=== PATIENT | male | born 1930 | race African-American/Black ===

== ENCOUNTER 2016-11-17 10:27 | Emergency (ER) | payer MEDICARE, OTHER ==
--- NOTE | 2016-11-17 11:04 | EKG REPORT ---
SEVERITY:- ABNORMAL ECG - BASELINE ARTIFACTS SINUS RHYTHM VS A. FIB, REC REPEAT EKG AND RHYTHM STRIP MULTIPLE ATRIAL PREMATURE COMPLEXES INCOMPLETE LEFT BUNDLE BRANCH BLOCK ANTERIOR Q WAVES, POSSIBLY DUE TO ILBBB : Confirmed by: Aletha Underwood 17-Nov-2016 11:03:37
[2016-11-17 11:44] LABS: ABSOLUTE EOSINOPHILS # (AUTO) 0.1 10^3/uL (0.0-0.6); ABSOLUTE LYMPHOCYTES (AUTO) 1.7 10^3/uL (0.5-4.7); ABSOLUTE MONOCYTES (AUTO) 0.4 10^3/uL (0.1-1.4); ABSOLUTE NEUT (AUTO) 2.4 10^3/uL (1.7-8.2); EOSINOPHILS % (AUTO) 1.5 % (0-6); HEMATOCRIT 40.4 % (37.9-51.0); HEMOGLOBIN 13.5 g/dL (13.5-17.0); HGB HCT DIFFERENCE 0.1; LYMPHOCYTES % (AUTO) 37.1 % (13-45); MEAN CORPUSCULAR HEMOGLOBIN 30.8 pg (27.0-33.4); MEAN CORPUSCULAR HGB CONC 33.3 g/dL (32.0-36.0); MEAN CORPUSCULAR VOLUME 93 fl (80-97); MONOCYTES % (AUTO) 8.4 % (3-13); RED BLOOD COUNT 4.36 10^6/uL (4.35-5.55); RED CELL DISTRIBUTION WIDTH 14.2 % (11.5-14.0); WHITE BLOOD COUNT 4.7 10^3/uL (4.0-10.5)
--- NOTE | 2016-11-17 11:52 | ER Document Report ---
ED General - General Mode of Arrival: Ambulatory Information source: Patient TRAVEL OUTSIDE OF THE [place] IN LAST 30 DAYS: No - HPI Patient complains to provider of: Hypoxemia Onset: This morning Associated symptoms: Other - see above <VLADIMIR MANCIA - Last Filed: 11/17/16 13:07> <MICHELLE SAGE - Last Filed: 11/17/16 20:17> - General Chief Complaint: Other Stated Complaint: WEAKNESS Notes: 85-year-old male with history of PTSD, dementia, and oxygen-dependent COPD presents to the ED via EMS accompanied by his daughter who complains that the home nurse that visits told her that the patient should come to the ED immediately after noting a O2 saturation in the low 80s. The daughter explains that the home nurse came yesterday while the patient was asleep on the recliner and did some vitals. She states that the patient's blood pressure was 78/61, heart rate of 64, and a O2 saturation of 69. The home nurse came back this morning and noted a low oxygen saturation as noted above and advised the daughter to bring the patient in for ED assessment. The nurse told the daughter that the patient might not be breathing while he is sleeping. Daughter explains that the patient does snore occasionally. She states that the patient is acting accordingly and does not appear to be having any abnormal symptoms. ( VLADIMIR MANCIA) - Related Data Allergies/Adverse Reactions: No Known Allergies Allergy (Verified 11/17/16 18:29) Past Medical History - General Information source: Patient - Social History Smoking Status: Unknown if Ever Smoked Family History: None - Past Medical History Cardiac Medical History: Reports: Hx Atrial Fibrillation, Hx Heart Attack - 2004 , Hx Hypertension Pulmonary Medical History: Reports: Hx COPD Endocrine Medical History: Reports: Hx Diabetes Mellitus Type 2 Psychiatric Medical History: Reports: Hx Dementia, Hx Post Traumatic Stress Disorder Past Surgical History: Reports: Hx Cardiac Surgery - stents, pacemaker, Hx Pacemaker - - Immunizations Hx Diphtheria, Pertussis, Tetanus Vaccination: Yes <VLADIMIR MANCIA - Last Filed: 11/17/16 13:07> Review of Systems - Review of Systems Constitutional: No symptoms reported EENT: No symptoms reported Cardiovascular: No symptoms reported Respiratory: No symptoms reported Gastrointestinal: No symptoms reported Genitourinary: No symptoms reported Male Genitourinary: No symptoms reported Musculoskeletal: No symptoms reported Skin: No symptoms reported Hematologic/Lymphatic: No symptoms reported Neurological/Psychological: No symptoms reported -: Yes All other systems reviewed and negative <VLADIMIR MANCIA - Last Filed: 11/17/16 13:07> Physical Exam - Vital signs Interpretation: Normal - General General appearance: Alert In distress: None - HEENT Head: Normocephalic, Atraumatic Eyes: Normal Extraocular movements intact: Yes Pupils: PERRL - Respiratory Respiratory status: No respiratory distress Breath sounds: Normal - Cardiovascular Rhythm: Regular Heart sounds: Normal auscultation - Abdominal Inspection: Normal Distension: No distension Tenderness: Nontender - Back Back: Normal - Extremities General upper extremity: Normal inspection, Nontender, Normal color, Normal ROM , Normal temperature General lower extremity: Normal inspection, Nontender, Normal color, Normal ROM , Normal temperature - Neurological Neuro grossly intact: Yes Cognition: Normal - Patient is at baseline according to family member Orientation: AAOx4 [place] Coma Scale Eye Opening: Spontaneous [place] Coma Scale Verbal: Oriented [place] Coma Scale Motor: Obeys Commands Kalyn Coma Scale Total: 15 Speech: Normal - Psychological Associated symptoms: Normal affect, Normal mood - Skin Skin Temperature: Warm Skin Moisture: Dry Skin Color: Normal <VLADIMIR MANCIA - Last Filed: 11/17/16 13:07> <MICHELLE SAGE - Last Filed: 11/17/16 20:17> - Vital signs Vitals: Resp BP Pulse Ox 13 119/79 97 11/17/16 10:39 11/17/16 10:39 11/17/16 10:39 (VLADIMIR MANCIA) (MICHELLE SAGE) Course - Laboratory Result Diagrams: 11/17/16 11:27 11/17/16 11:27 <VLADIMIR MANCIA - Last Filed: 11/17/16 13:07> - Laboratory Result Diagrams: 11/17/16 11:27 11/17/16 14:30 <MICHELLE SAGE - Last Filed: 11/17/16 20:17> - Re-evaluation Re-evalutation: 11/17/16 15:57 I personally performed the services described in the documentation, reviewed and edited the documentation which was dictated to my scribe in my presence, and it accurately records my words and actions. Patient presents to the emergency department with his who says that he had abnormal vital signs yesterday. states they have a new home health care person coming to how she took his vital signs yesterday blood pressure was low his pulse ox was low she called EMS. She states the patient was sleeping and resting comfortably in no acute distress EMS came to the house rechecked, vital signs were normal and she didn't come to the hospital. Today she came back said his pulse ox was loading likely had sleep apnea syndrome for evaluation emergency department on ED arrival his hands are cold the nurse's warmup his hands and get an accurate pulse ox which is completely normal. Patient is at his baseline mental status in no acute distress no respiratory distress negative acute labs workup. Suspicion that the vital signs were abnormal which prompted concerns but the patient is asymptomatic. There is a significant delay and labs because the initial chemistry was hemolyzed I personally told the lab to redraw the lab and send a tech They did not do so for an hour and 30 minutes which was written up. They did redraw the chemistry which is normal this point. I'm comfortable with the patient being discharged home with the care of his significant other one to 2 day follow-up primary care physician and discussed reasons for ED return sooner (MICHELLE SAGE) - Vital Signs Vital signs: Temp Pulse Resp BP Pulse Ox 97.9 F 15 103/74 97 11/17/16 16:16 11/17/16 16:01 11/17/16 16:01 11/17/16 16:16 (VLADIMIR MANCIA) (MICHELLE SAGE) - Laboratory Laboratory results interpreted by me: 11/17/16 11/17/16 11:27 14:30 RDW 14.2 H BUN 29 H (VLADIMIR MANCIA) (MICHELLE SAGE) - EKG Interpretation by Me Additional EKG results interpreted by me: 11/17/16 20:17 EKG sinus rhythm at 79 bpm with PACs incomplete bundle branch block. No acute ST segment elevation or depression reading on EKG strip patient with history of pacemaker. (MICHELLE SAGE) Discharge <VLADIMIR MANCIA - Last Filed: 11/17/16 13:07> <MICHELLE SAGE - Last Filed: 11/17/16 20:17> - Discharge Clinical Impression: concerns for abnormal vital signs Condition: Stable Disposition: HOME, SELF-CARE Referrals: STAR GARCIA MD [Primary Care Provider] - Follow up as needed (Operative your provider one to 2 days return for increasing worsening or new symptoms) Scribe Documentation - Scribe Written by Teddy:: Teddy Marks, 11/17/2016 13:39 acting as scribe for :: Ronny <VLADIMIR MANCIA - Last Filed: 11/17/16 13:07>
[2016-11-17 15:02] LABS: ANION GAP 12 (5-19); BLOOD UREA NITROGEN 29 mg/dL (7-20); CALCIUM 9.2 mg/dL (8.4-10.2); CARBON DIOXIDE 27 mmol/L (22-30); CHLORIDE 106 mmol/L (98-107); CREATININE RESULT 0.94 mg/dL (0.52-1.25); GLUCOSE 86 mg/dL (75-110); POTASSIUM 4.3 mmol/L (3.6-5.0); SODIUM 144.7 mmol/L (137-145)
[2016-11-17 16:06] VITALS: BP 103/74
== END 2016-11-17 16:25 | disposition home or self-care (01) ==
LOC: ER 10:27
DX: J44.9 Chronic obstructive pulmonary disease, unspecified (principal); Z99.81 Dependence on supplemental oxygen; R06.83 Snoring; I49.1 Atrial premature depolarization; I48.91 Unspecified atrial fibrillation; I25.2 Old myocardial infarction; I10 Essential (primary) hypertension; E11.9 Type 2 diabetes mellitus without complications; Z98.61 Coronary angioplasty status; Z95.0 Presence of cardiac pacemaker
CPT/HCPCS: 36415; 71010; 80048; 83880; 85025; 93005; 93010; 99285

== ENCOUNTER 2017-11-17 11:10 | Inpatient (IN) | payer MEDICARE, OTHER ==
[2017-11-17] MEDS ORDERED: ACETAMINOPHEN 650 MG SUPP.RECT PR ONE (11:42)
[2017-11-17 11:52] LABS: VENOUS BLOOD HCO3 30.5 mmol/L (20-32); VENOUS BLOOD PCO2 59.4 mmHg (35-63); VENOUS BLOOD PH 7.33 (7.30-7.42)
[2017-11-17] MEDS ORDERED: IPRATROPIUM/ALBUTEROL 0.5-2.5 MG/3 ML AMPUL NEB ONE (11:53)
[2017-11-17] MEDS ORDERED: ALBUTEROL SULFATE 0.083% NEB 2.5 MG/3 ML AMPUL NEB ONE (11:53)
[2017-11-17 11:54] LABS: ABSOLUTE LYMPHOCYTES (AUTO) 0.9 10^3/uL (0.5-4.7); ABSOLUTE MONOCYTES (AUTO) 0.6 10^3/uL (0.1-1.4); ABSOLUTE NEUT (AUTO) 15.1 10^3/uL (1.7-8.2); BASOPHILS % (AUTO) 0.1 % (0-2); HEMATOCRIT 41.4 % (37.9-51.0); HEMOGLOBIN 13.8 g/dL (13.5-17.0); LYMPHOCYTES % (AUTO) 5.7 % (13-45); MEAN CORPUSCULAR HEMOGLOBIN 31.5 pg (27.0-33.4); MEAN CORPUSCULAR HGB CONC 33.4 g/dL (32.0-36.0); MEAN CORPUSCULAR VOLUME 94 fl (80-97); MONOCYTES % (AUTO) 3.4 % (3-13); PLATELET COUNT 141 10^3/uL (150-450); RED BLOOD COUNT 4.38 10^6/uL (4.35-5.55); RED CELL DISTRIBUTION WIDTH 14.2 % (11.5-14.0); SEGMENTED NEUTROPHILS % (AUTO) 90.8 % (42-78); TOTAL CELLS COUNTED % (AUTO) 100 %; WHITE BLOOD COUNT 16.6 10^3/uL (4.0-10.5)
--- NOTE | 2017-11-17 11:54 | RADIOLOGY REPORT (SQ) ---
EXAM DESCRIPTION: CHEST SINGLE VIEW COMPLETED DATE/TIME: 11/17/2017 11:45 am REASON FOR STUDY: t1 sepsis protocol COMPARISON: AP chest 11/17/2016 EXAM PARAMETERS: NUMBER OF VIEWS: One view. TECHNIQUE: Single frontal radiographic view of the chest acquired. RADIATION DOSE: NA LIMITATIONS: None. FINDINGS: LUNGS AND PLEURA: No opacities, masses or pneumothorax. No pleural effusion. MEDIASTINUM AND HILAR STRUCTURES: No masses. Contour normal. HEART AND VASCULAR STRUCTURES: Heart normal in size. Normal vasculature. BONES: No acute findings. HARDWARE: Left-sided dual lead pacemaker unchanged OTHER: Diffuse gaseous distension of colon and small bowel under the hemidiaphragms, question ileus IMPRESSION: NO ACUTE RADIOGRAPHIC FINDING IN THE CHEST. TECHNICAL DOCUMENTATION: JOB ID: [id number] [employer]- All Rights Reserved
[2017-11-17 11:58] LABS: INTERNATIONAL RATION (INR) 1.41; PROTHROMBIN TIME 18.1 SEC (11.4-15.4)
[2017-11-17 12:12] LABS: ALANINE AMINOTRANSFERASE 49 U/L (21-72); ALBUMIN 3.7 g/dL (3.5-5.0); ALKALINE PHOSPHATASE 71 U/L (38-126); ANION GAP 12 (5-19); ASPARTATE AMINO TRANSFERASE 23 U/L (17-59); BILIRUBIN,DIRECT 0.2 mg/dL (0.0-0.4); BILIRUBIN,TOTAL 0.8 mg/dL (0.2-1.3); BLOOD UREA NITROGEN 31 mg/dL (7-20); CARBON DIOXIDE 28 mmol/L (22-30); CHLORIDE 107 mmol/L (98-107); GLUCOSE 117 mg/dL (75-110); POTASSIUM 3.9 mmol/L (3.6-5.0); SODIUM 146.9 mmol/L (137-145); TOTAL PROTEIN 6.7 g/dL (6.3-8.2)
[2017-11-17] MEDS ORDERED: NORMAL SALINE 1000 ML 1,000 ML IV ONE ×2 (12:54→14:17)
--- NOTE | 2017-11-17 13:31 | EKG REPORT ---
SEVERITY:- ABNORMAL ECG - ATRIAL FLUTTER/FIBRILLATION, A-RATE 270 LEFT BUNDLE BRANCH BLOCK : Confirmed by: Clovis Diaz MD 17-Nov-2017 13:31:24
[2017-11-17] MEDS ORDERED: LEVOFLOXACIN 500 MG/D5W RTU 500 MG/100 ML RTUPB IV ONE (13:33)
[2017-11-17 13:37] LABS: APPEARANCE,URINE CLOUDY; BILIRUBIN,URINE NEGATIVE (NEGATIVE); COLOR,URINE AMBER; GLUCOSE, URINE NEGATIVE (NEGATIVE); KETONES,URINE NEGATIVE (NEGATIVE); LEUKOCYTE ESTERASE,URINE SMALL (NEGATIVE); NITRITE,URINE NEGATIVE (NEGATIVE); PROTEIN,URINE 100 mg/dL (NEGATIVE); URINE SPECIFIC GRAVITY 1.024
[2017-11-17 14:09] LABS: A TYPE INFLUENZA AG NEGATIVE (NEGATIVE); B INFLUENZA AG NEGATIVE (NEGATIVE)
--- NOTE | 2017-11-17 14:16 | ER Document Report ---
ED General - General Chief Complaint: Breathing Difficulty Stated Complaint: DIFFICULTY BREATHING Time Seen by Provider: 11/17/17 11:53 TRAVEL OUTSIDE OF THE [place] IN LAST 30 DAYS: No - HPI Patient complains to provider of: Difficulty breathing Notes: Patient with a history of dementia coming in from home for difficulty breathing according to family member patient does have a significant dementia has not been eating or drinking last few days she has been trying to feed the patient ice cream recent had some increased work of breathing with a cough that has productive sputum therefore called EMS EMS arrival patient was hypoxic with SPO2 in the lower 80s. Patient was placed on nasal cannula. According to the family member patient does have a history of COPD. Patient no fever at home. Patient demented does not give any valuable information for HPI process. - Related Data Allergies/Adverse Reactions: No Known Allergies Allergy (Verified 11/17/16 18:29) Past Medical History - Social History Smoking Status: Unknown if Ever Smoked Family History: None Patient has suicidal ideation: No Patient has homicidal ideation: No - Past Medical History Cardiac Medical History: Reports: Hx Atrial Fibrillation, Hx Heart Attack - 2004 , Hx Hypertension Pulmonary Medical History: Reports: Hx COPD Denies: Hx Asthma Neurological Medical History: Denies: Hx Cerebrovascular Accident - PTSD, DEMENTIA, Hx Seizures Endocrine Medical History: Reports: Hx Diabetes Mellitus Type 2 Renal/ Medical History: Denies: Hx Peritoneal Dialysis GI Medical History: Denies: Hx Hepatitis, Hx Hiatal Hernia, Hx Ulcer Psychiatric Medical History: Reports: Hx Dementia, Hx Post Traumatic Stress Disorder Infectious Medical History: Denies: Hx Hepatitis Past Surgical History: Reports: Hx Cardiac Surgery - stents, pacemaker, Hx Pacemaker - . Denies: Hx Open Heart Surgery - Immunizations Hx Diphtheria, Pertussis, Tetanus Vaccination: Yes Review of Systems - Review of Systems Constitutional: No symptoms reported EENT: No symptoms reported Cardiovascular: No symptoms reported Respiratory: Short of breath Gastrointestinal: No symptoms reported Genitourinary: No symptoms reported Male Genitourinary: No symptoms reported Musculoskeletal: No symptoms reported Skin: No symptoms reported Hematologic/Lymphatic: No symptoms reported Neurological/Psychological: No symptoms reported -: Yes All other systems reviewed and negative Physical Exam - Vital signs Vitals: Temp 101.1 F H 11/17/17 11:15 Interpretation: Febrile - General General appearance: Other - Unresponsive baseline according to family - HEENT Head: Normocephalic, Atraumatic Eyes: Normal Pupils: PERRL - Respiratory Respiratory status: Respiratory distress Chest status: Nontender Breath sounds: Rales, Rhonchi Chest palpation: Normal - Cardiovascular Rhythm: Regular Heart sounds: Normal auscultation Murmur: No - Abdominal Inspection: Normal Distension: No distension Bowel sounds: Normal Tenderness: Nontender Organomegaly: No organomegaly - Back Back: Normal, Nontender - Extremities General upper extremity: Normal inspection, Nontender General lower extremity: Normal inspection, Nontender - Neurological Neuro grossly intact: Yes - Baseline per family Sensory: Normal - Psychological Associated symptoms: Other - History of dementia - Skin Skin Temperature: Warm Skin Moisture: Dry Skin Color: Normal Course - Re-evaluation Re-evalutation: 11/17/17 16:22 Chest x-ray was read as normal however patient does have leukocytosis with fever negative flu productive sputum coarse lung sounds after breathing treatment patient did have improvement of his oxygenation. Concerned about possible pneumonia patient does have a history according to family members of aspiration pneumonia. Will admit for the hospital service for further evaluation. - Vital Signs Vital signs: Temp Pulse Resp BP Pulse Ox 99.4 F 12 115/63 100 11/17/17 13:53 11/17/17 15:01 11/17/17 15:01 11/17/17 15:01 - Laboratory Result Diagrams: 11/17/17 11:35 11/17/17 11:35 Laboratory results interpreted by me: 11/17/17 11/17/17 11/17/17 11:35 11:35 11:35 WBC 16.6 H RDW 14.2 H Plt Count 141 L Seg Neutrophils % 90.8 H Lymphocytes % 5.7 L Absolute Neutrophils 15.1 H PT 18.1 H Sodium 146.9 H BUN 31 H Creatinine 1.32 H Est GFR (Non-Af Amer) 51 L Glucose 117 H POC Glucose Lactic Acid Urine Protein Urine Blood Urine Urobilinogen Ur Leukocyte Esterase 11/17/17 11/17/17 11/17/17 11:35 12:01 13:16 WBC RDW Plt Count Seg Neutrophils % Lymphocytes % Absolute Neutrophils PT Sodium BUN Creatinine Est GFR (Non-Af Amer) Glucose POC Glucose 134 H Lactic Acid 3.3 H Urine Protein 100 H Urine Blood LARGE H Urine Urobilinogen 2.0 H Ur Leukocyte Esterase SMALL H Discharge - Discharge Clinical Impression: Hypoxia Pneumonia Qualifiers: Pneumonia type: due to unspecified organism Laterality: unspecified laterality Lung location: unspecified part of lung Qualified Code(s): J18.9 - Pneumonia, unspecified organism Dementia Qualifiers: Dementia type: unspecified type Condition: Fair Disposition: ADMITTED INPATIENT Unit Admitted: [facility]
[2017-11-17] MEDS ORDERED: LEVALBUTEROL HCL NEB 1.25 MG/3 ML AMPUL NEB PRN (14:55)
[2017-11-17] MEDS ORDERED: IPRATROPIUM BROMIDE 0.02% NEB 0.5 MG/2.5 ML AMPUL NEB PRN (14:55)
[2017-11-17] MEDS ORDERED: ACETAMINOPHEN 650 MG SUPP.RECT PR PRN (15:12)
[2017-11-17] MEDS ORDERED: GLUCAGON,HUMAN RECOMB 1 MG INJ IM PRN (15:15)
[2017-11-17] MEDS ORDERED: IPRATROPIUM/ALBUTEROL 0.5-2.5 MG/3 ML AMPUL NEB SCH (15:15)
[2017-11-17] MEDS ORDERED: DEXTROSE 50%-WATER 25 GM/50 ML DISP.SYRIN IV PRN ×2 (15:15)
[2017-11-17] MEDS ORDERED: DEXTROSE 40% GEL 15 GM TUBE PO PRN ×2 (15:15)
[2017-11-17] MEDS ORDERED: INSULIN LISPRO 100 UNIT/ML 3 ML VIAL SUBCUT PRN (15:15)
--- NOTE | 2017-11-17 15:38 | RADIOLOGY REPORT (SQ) ---
EXAM DESCRIPTION: ABDOMEN 2 VIEWS COMPLETED DATE/TIME: 11/17/2017 3:05 pm REASON FOR STUDY: ? illeus by CXR COMPARISON: None. NUMBER OF VIEWS: Two views. TECHNIQUE: Supine and erect/decubitus radiographic images of the abdomen acquired. LIMITATIONS: Positioning. FINDINGS: There is no evidence of free air. Abundant gas and fecal material throughout the colon. No renal calculi are identified. IMPRESSION: Fecal retention/ileus. No free air. TECHNICAL DOCUMENTATION: JOB ID: [id number] [employer]- All Rights Reserved
[2017-11-17] MEDS ORDERED: ONDANSETRON HCL INJ/PF 4 MG/2 ML SDV IV PRN (15:55)
--- NOTE | 2017-11-17 15:57 | PDOC H&P ---
History of Present Illness Patient complains of: Breathing difficulty History of Present Illness: ARY HYLTON is a 86 year old male with a past medical history of atrial fibrillation, hypertension, type 2 diabetes mellitus, PTSD, and advanced dementia who presented to the emergency department via EMS today with a report of difficulty breathing. Per EMS, the patient was found to be hypoxic at 80% on room air. The patient's spouse told the ED personnel that he has had decreased mental alertness and poor p.o. intake for approximately 3 days with the development of a nonproductive cough and difficulty breathing noted today. The patient's told the ED physician that he does have a history of aspiration pneumonia. Per nursing, the states that the patient is nonverbal at baseline, but does seem to recognize her and response to social cues. At the time the patient was seen in the emergency department, his family members were no longer present. The patient does not make eye contact and is nonverbal. HPI is obtained from emergency department records and personnel. Evaluation in the emergency department revealed WBCs of 16, lactic acid 3.3, creatinine of 1.32. The chest x-ray did not reveal acute cardiopulmonary findings. He is referred to the hospitalist service for admission and management of acute respiratory failure with hypoxia and acute kidney injury. Past Medical History Cardiac Medical History: Reports: Atrial Fibrillation, Coronary Artery Disease - Stents, Myocardial Infarction - 2004, Hypertension Pulmonary Medical History: Reports: Chronic Obstructive Pulmonary Disease (COPD) Denies: Asthma EENT Medical History: Reports: None Neurological Medical History: Denies: Hemorrhagic CVA, Ischemic CVA, Seizures Endocrine Medical History: Reports: Diabetes Mellitus Type 2 Renal/ Medical History: Reports: None GI Medical History: Reports: None Denies: Hepatitis, Hiatal Hernia Musculoskeltal Medical History: Reports: None Psychiatric Medical History: Reports: Dementia, Post Traumatic Stress Disorder Hematology: Denies: Anemia, Sickle Cell Disease Past Surgical History Past Surgical History: Reports: Coronary Stent, Pacemaker - Social History Information Source: Emergency Med Personnel, [facility] Records Lives with: Spouse/Significant other Smoking Status: Unknown if Ever Smoked Frequency of Alcohol Use: None Hx Recreational Drug Use: No Hx Prescription Drug Abuse: No - Advance Directive Resuscitation Status: Full Code Family History Family History: None Family History: Unable to obtain secondary to advanced dementia Parental Family History Reviewed: No Children Family History Reviewed: No Sibling(s) Family History Reviewed.: No Medication/Allergy Home Medications: Aspirin [Aspirin 81 mg Chewable Tablet] 40.5 mg SL QHS 11/17/17 Donepezil HCl [Aricept] 5 mg PO QHS 11/17/17 Allergies/Adverse Reactions: No Known Allergies Allergy (Verified 11/17/16 18:29) Review of Systems ROS unobtainable: Due to mental status Physical Exam Vital Signs: Temp Pulse Resp BP Pulse Ox 99.4 F 12 115/63 100 11/17/17 13:53 11/17/17 15:01 11/17/17 15:01 11/17/17 15:01 Intake & Output 11/16/17 11/17/17 11/18/17 06:59 06:59 06:59 Weight 50.7 kg General appearance: PRESENT: no acute distress, thin, well-developed Head exam: PRESENT: atraumatic, normocephalic Eye exam: PRESENT: conjunctiva pink, PERRLA. ABSENT: scleral icterus Ear exam: PRESENT: normal external ear exam Mouth exam: PRESENT: moist, tongue midline Neck exam: ABSENT: carotid bruit, JVD, lymphadenopathy, thyromegaly Respiratory exam: PRESENT: rhonchi, symmetrical, unlabored, other - Supplemental oxygen at 2 L/min via nasal cannula. ABSENT: rales, wheezes Cardiovascular exam: PRESENT: RRR, +S1, +S2. ABSENT: diastolic murmur, rubs, systolic murmur Pulses: PRESENT: normal dorsalis pedis pul Vascular exam: PRESENT: normal capillary refill GI/Abdominal exam: PRESENT: diminished bowel sounds, firm, tenderness - Questionable tenderness on palpation. ABSENT: distended, guarding, mass, organolmegaly, rebound Rectal exam: PRESENT: deferred Extremities exam: PRESENT: full ROM. ABSENT: calf tenderness, clubbing, pedal edema Neurological exam: PRESENT: alert, awake, CN II-XII grossly intact - Unable to participate in exam; no overt focal neuro deficits. ABSENT: oriented to person , oriented to place, oriented to time, oriented to situation, motor sensory deficit Psychiatric exam: PRESENT: appropriate affect, normal mood. ABSENT: homicidal ideation, suicidal ideation Skin exam: PRESENT: dry, intact, warm. ABSENT: cyanosis, rash Results Laboratory Results: 11/17/17 11:35 11/17/17 11:35 11/17/17 11/17/17 11/17/17 11:35 11:35 11:35 WBC 16.6 H RBC 4.38 Hgb 13.8 Hct 41.4 MCV 94 MCH 31.5 MCHC 33.4 RDW 14.2 H Plt Count 141 L Seg Neutrophils % 90.8 H Lymphocytes % 5.7 L Monocytes % 3.4 Eosinophils % 0.0 Basophils % 0.1 Absolute Neutrophils 15.1 H Absolute Lymphocytes 0.9 Absolute Monocytes 0.6 Absolute Eosinophils 0.0 Absolute Basophils 0.0 VBG pH VBG pCO2 VBG HCO3 VBG Base Excess Sodium 146.9 H Potassium 3.9 Chloride 107 Carbon Dioxide 28 Anion Gap 12 BUN 31 H Creatinine 1.32 H Est GFR ( Amer) > 60 Est GFR (Non-Af Amer) 51 L Glucose 117 H Lactic Acid 3.3 H Calcium 10.0 Total Bilirubin 0.8 AST 23 ALT 49 Alkaline Phosphatase 71 Total Protein 6.7 Albumin 3.7 Urine Color Urine Appearance Urine pH Ur Specific [place] Urine Protein Urine Glucose (UA) Urine Ketones Urine Blood Urine Nitrite Ur Leukocyte Esterase Urine WBC (Auto) Urine RBC (Auto) 11/17/17 11/17/17 11:35 13:16 WBC RBC Hgb Hct MCV MCH MCHC RDW Plt Count Seg Neutrophils % Lymphocytes % Monocytes % Eosinophils % Basophils % Absolute Neutrophils Absolute Lymphocytes Absolute Monocytes Absolute Eosinophils Absolute Basophils VBG pH 7.33 VBG pCO2 59.4 VBG HCO3 30.5 VBG Base Excess 3.0 Sodium Potassium Chloride Carbon Dioxide Anion Gap BUN Creatinine Est GFR ( Amer) Est GFR (Non-Af Amer) Glucose Lactic Acid Calcium Total Bilirubin AST ALT Alkaline Phosphatase Total Protein Albumin Urine Color JOHNY Urine Appearance CLOUDY Urine pH 5.0 Ur Specific [place] 1.024 Urine Protein 100 H Urine Glucose (UA) NEGATIVE Urine Ketones NEGATIVE Urine Blood LARGE H Urine Nitrite NEGATIVE Ur Leukocyte Esterase SMALL H Urine WBC (Auto) 95 Urine RBC (Auto) >182 Impressions: Chest X-Ray 11/17/17 11:12 IMPRESSION: NO ACUTE RADIOGRAPHIC FINDING IN THE CHEST. Assessment & Plan - Diagnosis (1) Acute respiratory failure with hypoxia Is this a current diagnosis for this admission?: Yes Plan: The patient is admitted with a report of 3 days of decreased mental alertness, difficulty breathing, productive cough with hypoxia at 80% on room air noted by EMS today. He does have a history of COPD as well as aspiration pneumonia. Blood cultures are pending. Chest x-ray did not reveal acute cardiopulmonary findings; however, the patient is noted to be significantly dehydrated which may be masking a potential pneumonia. Was admitted to [facility] on continuous cardiac telemetry and pulse oximetry. Is on supplemental oxygen as needed to maintain saturations greater than 92%. He is empirically placed on azithromycin and Rocephin for coverage of community- acquired pneumonia. He will per provided scheduled duo nebs with Xopenex as needed for shortness of breath. Tylenol as needed for fever. The patient will be placed in n.p.o. status until swallow eval is completed by speech therapy. (2) Sepsis Qualifiers: Sepsis type: sepsis due to unspecified organism Qualified Code(s): A41.9 - Sepsis, unspecified organism Is this a current diagnosis for this admission?: Yes Plan: Sepsis due to UTI and presumed pneumonia who presented with fever, decreased mental alertness, hypoxia of 80% while on room air per EMS, thrombocytopenia, leukocytosis, acute kidney injury, and elevated lactate. He is admitted to [facility] on continuous cardiac telemetry and pulse oximetry. Urine and blood cultures are pending. He is empirically placed on azithromycin and Rocephin. He has received 2 L of IV fluids with improvement in blood pressure. He will be continued on maintenance IV fluids. (3) Acute kidney injury Is this a current diagnosis for this admission?: Yes Plan: Likely prerenal secondary to fluid volume deficit in the setting of sepsis and advanced dementia with poor oral intake. Creatinine is currently 1.32; previous lab from 1 year ago showed a creatinine of 0.94. He has received 2 L IV fluid bolus in the ED. He will be placed on maintenance IV fluids. Will monitor daily chemistry. Avoid nephrotoxic medications. (4) Hypernatremia Is this a current diagnosis for this admission?: Yes Plan: Secondary to fluid volume deficit. He has received IV fluid boluses and is being placed on maintenance IV fluids. We will monitor daily chemistries. (5) Leukocytosis Qualifiers: Leukocytosis type: bandemia Qualified Code(s): D72.825 - Bandemia Is this a current diagnosis for this admission?: Yes Plan: Secondary to urinary tract infection and probable pneumonia. Urine and blood cultures are pending. Empiric antibiotics as above. (6) Atrial fibrillation Qualifiers: Atrial fibrillation type: chronic Qualified Code(s): I48.2 - Chronic atrial fibrillation Is this a current diagnosis for this admission?: Yes Plan: The patient will be placed on continuous cardiac telemetry. Continue daily aspirin therapy. The patient is not on home medications for atrial fibrillation or chronically anticoagulated. (7) Hypertension Is this a current diagnosis for this admission?: Yes Plan: Borderline hypotension at present secondary to sepsis. We will monitor closely and initiate antihypertensives as needed. The patient is not on home medications for hypertension. (8) Type 2 diabetes mellitus Is this a current diagnosis for this admission?: Yes Plan: The patient does not appear on any medications for glucose control. He is being placed in n.p.o. status until swallow evaluation is completed. Will monitor Accu-Cheks every 6 hours with Humalog for sliding scale coverage. Hypoglycemia protocol in place. (9) Abdominal tenderness Qualifiers: Abdominal location: generalized Is this a current diagnosis for this admission?: Yes Plan: Questionable abdominal tenderness on exam. Abdomen is firm and the patient does appear to grimace with palpation. Per emergency department personnel, there is no report of recent nausea, vomiting, diarrhea, constipation. HPI and ROS are limited secondary to mental status. Chest x-ray revealed diffuse gaseous distention of colon and small bowel under the hemidiaphragms that is questionable for ileus. We will obtain acute abdomen series. The patient is placed in n.p.o. status. Will support with IV fluids and antiemetics as needed. (10) Dementia Qualifiers: Dementia type: unspecified type Is this a current diagnosis for this admission?: Yes Plan: Supportive care. Fall and aspiration precautions. (11) Dehydration Is this a current diagnosis for this admission?: Yes Plan: Secondary to poor oral intake. Plan as above. (12) Full code status Is this a current diagnosis for this admission?: Yes Plan: Per ED physician, the patient's does confirm that she wishes the patient to remain a full code at this time. - Time Time Spent: 50 to 70 Minutes Medications reviewed and adjusted accordingly: Yes - Inpatient Certification Based on my medical assessment, after consideration of the patient's comorbidities, presenting symptoms, or acuity I expect that the services needed warrant INPATIENT care.: Yes I certify that my determination is in accordance with my understanding of Medicare's requirements for reasonable and necessary INPATIENT services [42 CFR 412.3e].: Yes Medical Necessity: Need Close Monitoring Due to Risk of Patient Decompensation, Need For IV Fluids, Need for IV Antibiotics
[2017-11-17] MEDS ORDERED: BISACODYL 10 MG SUPP.RECT PR ONE (16:00)
[2017-11-17] MEDS: IPRATROPIUM/ALBUTEROL 0.5-2.5 MG/3 ML AMPUL NEB SCH (16:49)
[2017-11-17] MEDS: LANSOPRAZOLE 15 MG TAB.RAP.DR PO SCH (17:28)
[2017-11-17] MEDS ORDERED: CEFTRIAXONE 1 GM/D5W RTU 1 GM/50 ML RTUPB IV SCH (18:00)
[2017-11-17] MEDS: NORMAL SALINE 1000 ML 1,000 ML IV PRN (19:00)
[2017-11-17] MEDS: CEFTRIAXONE SODIUM 1,000 MG in DEXTROSE 5%-WATER 50 ML IV SCH (19:04)
[2017-11-17] MEDS: AZITHROMYCIN 500 MG in DEXTROSE 5%-WATER 250 ML IV SCH (22:11)
[2017-11-17] MEDS: HEPARIN SOD (PORCINE) 5,000 UNIT/ML 1 ML SYRINGE SUBCUT SCH (22:12)
[2017-11-17] MEDS: ASPIRIN 81 MG TABLET, CHEWABLE PO SCH (22:13)
[2017-11-18] MEDS: IPRATROPIUM/ALBUTEROL 0.5-2.5 MG/3 ML AMPUL NEB SCH ×3 (00:53→15:50)
[2017-11-18] MEDS: HEPARIN SOD (PORCINE) 5,000 UNIT/ML 1 ML SYRINGE SUBCUT SCH ×3 (05:41→21:56)
[2017-11-18] MEDS: LANSOPRAZOLE 15 MG TAB.RAP.DR PO SCH ×2 (05:41→17:15)
[2017-11-18] MEDS: NORMAL SALINE 1000 ML 1,000 ML IV PRN ×2 (05:42→12:30)
[2017-11-18 06:16] LABS: ABSOLUTE MONOCYTES (AUTO) 0.5 10^3/uL (0.1-1.4); ABSOLUTE NEUT (AUTO) 11.3 10^3/uL (1.7-8.2); BASOPHILS % (AUTO) 0.1 % (0-2); HEMATOCRIT 35.3 % (37.9-51.0); HEMOGLOBIN 11.8 g/dL (13.5-17.0); LYMPHOCYTES % (AUTO) 7.9 % (13-45); MEAN CORPUSCULAR HEMOGLOBIN 31.6 pg (27.0-33.4); MEAN CORPUSCULAR HGB CONC 33.6 g/dL (32.0-36.0); MEAN CORPUSCULAR VOLUME 94 fl (80-97); MONOCYTES % (AUTO) 3.7 % (3-13); PLATELET COUNT 110 10^3/uL (150-450); RED BLOOD COUNT 3.74 10^6/uL (4.35-5.55); RED CELL DISTRIBUTION WIDTH 14.9 % (11.5-14.0); SEGMENTED NEUTROPHILS % (AUTO) 88.3 % (42-78); TOTAL CELLS COUNTED % (AUTO) 100 %; WHITE BLOOD COUNT 12.7 10^3/uL (4.0-10.5)
[2017-11-18 06:33] LABS: ANION GAP 7 (5-19); BLOOD UREA NITROGEN 30 mg/dL (7-20); CARBON DIOXIDE 28 mmol/L (22-30); CHLORIDE 113 mmol/L (98-107); GLUCOSE 95 mg/dL (75-110); POTASSIUM 3.6 mmol/L (3.6-5.0); SODIUM 147.8 mmol/L (137-145)
[2017-11-18] MEDS: DEXTROSE 5%-1/2 NORMAL SALINE 1,000 ML IV PRN (15:09)
[2017-11-18] MEDS: ACETAMINOPHEN 325 MG TABLET PO PRN (16:09)
[2017-11-18] MEDS ORDERED: BISACODYL 10 MG SUPP.RECT PR PRN (16:35)
--- NOTE | 2017-11-18 16:42 | PDOC PROGRESS REPORT ---
Subjective Progress Note for:: 11/18/17 Subjective:: The patient is an 86-year-old male with a past medical history of atrial fibrillation, hypertension, type 2 diabetes mellitus, and advanced dementia is minimally verbal and disoriented 4 at his baseline who is admitted on 11/17/17 with hypoxia, presumed pneumonia, UTI, and acute renal failure. The patient is seen on rounds resting in bed comfortably on room air. He is awake and alert, however, does not make eye contact, remains nonverbal, and is noted to be reaching for objects that are not present. The patient's and her family members are present. I did speak with the patient's son over the phone. I reviewed the patient's current status and prognoses given the patient's age and comorbid conditions with the patient's family members with recommendations for consideration of DNR and possibly hospice services. The patient's and son both declined palliative care and hospice services. They adamantly requests that a surgeon be consulted for consideration of a PEG tube. They were advised on the risks and poor likelihood of meaningful recovery even with nutritional support via PEG tube, despite this, they request to speak with surgery. Reason For Visit: PNEUMONIA, LUCY Physical Exam Vital Signs: Temp Pulse Resp BP Pulse Ox 98.1 F 82 18 112/91 H 99 11/18/17 11:22 11/18/17 15:50 11/18/17 15:50 11/18/17 11:22 11/18/17 15:50 Pulse Oximeter Continuous Start: 11/17/17 14: 56 Freq: RTQ4 Status: Active Document 11/18/17 15:50 TPO (Rec: 11/18/17 15:57 TPO [email or web address]) Pulse Oximetry Assessment Oxygen Saturation (92-100) 99 Oxygen Delivery Method Room Air Fraction of Inspired Oxygen (FIO2) 21 Equipment Usage Equipment in Use Continuous SpO2 Machine # 7 Intake & Output 11/17/17 11/18/17 11/19/17 06:59 06:59 06:59 Intake Total 1906 0 Output Total 250 150 Balance 1656 -150 Weight 53.5 kg General appearance: PRESENT: no acute distress, thin, well-developed. ABSENT: well-nourished Head exam: PRESENT: atraumatic, normocephalic Eye exam: PRESENT: conjunctiva pink, EOMI, PERRLA. ABSENT: scleral icterus Ear exam: PRESENT: normal external ear exam Mouth exam: PRESENT: moist, tongue midline Neck exam: ABSENT: carotid bruit, JVD, lymphadenopathy, thyromegaly Respiratory exam: PRESENT: clear to auscultation enoch, symmetrical, unlabored. ABSENT: rales, rhonchi, wheezes Cardiovascular exam: PRESENT: RRR, +S1, +S2. ABSENT: diastolic murmur, rubs, systolic murmur Pulses: PRESENT: normal dorsalis pedis pul Vascular exam: PRESENT: normal capillary refill GI/Abdominal exam: PRESENT: firm, guarding, normal bowel sounds. ABSENT: distended, mass, organolmegaly, rebound, tenderness Rectal exam: PRESENT: deferred Extremities exam: PRESENT: full ROM. ABSENT: calf tenderness, clubbing, pedal edema Neurological exam: PRESENT: alert, awake. ABSENT: oriented to person, oriented to place, oriented to time, oriented to situation, CN II-XII grossly intact - Unable to fully participate in exam; no focal deficits noted, motor sensory deficit Psychiatric exam: ABSENT: homicidal ideation, suicidal ideation Focused psych exam: PRESENT: restlessness Skin exam: PRESENT: dry, intact, warm. ABSENT: cyanosis, rash Results Laboratory Results: 11/18/17 06:03 11/18/17 06:03 11/17/17 11/18/17 11/18/17 16:00 06:03 06:03 WBC 12.7 H RBC 3.74 L Hgb 11.8 L Hct 35.3 L MCV 94 MCH 31.6 MCHC 33.6 RDW 14.9 H Plt Count 110 L Seg Neutrophils % 88.3 H Lymphocytes % 7.9 L Monocytes % 3.7 Eosinophils % 0.0 Basophils % 0.1 Absolute Neutrophils 11.3 H Absolute Lymphocytes 1.0 Absolute Monocytes 0.5 Absolute Eosinophils 0.0 Absolute Basophils 0.0 Sodium 147.8 H Potassium 3.6 Chloride 113 H Carbon Dioxide 28 Anion Gap 7 BUN 30 H Creatinine 1.03 Est GFR ( Amer) > 60 Est GFR (Non-Af Amer) > 60 Glucose 95 Lactic Acid 2.1 Calcium 9.0 Impressions: Abdomen X-Ray 11/17/17 00:00 IMPRESSION: Fecal retention/ileus. No free air. Chest X-Ray 11/17/17 11:12 IMPRESSION: NO ACUTE RADIOGRAPHIC FINDING IN THE CHEST. Assessment & Plan - Diagnosis (1) Acute respiratory failure with hypoxia Is this a current diagnosis for this admission?: Yes Plan: Improved. Blood cultures: No growth at 24 hours Chest x-ray did not reveal acute cardiopulmonary findings; however, the patient is noted to be significantly dehydrated which may be masking a potential pneumonia. Was admitted to [facility] on continuous cardiac telemetry and pulse oximetry. Supplemental oxygen as needed to maintain saturations greater than 92%. He is empirically placed on azithromycin and Rocephin for coverage of community- acquired pneumonia and gram-negative kalpesh UTI. He will be provided scheduled duo nebs with Xopenex as needed for shortness of breath. Tylenol as needed for fever. (2) Sepsis Qualifiers: Sepsis type: sepsis due to unspecified organism Qualified Code(s): A41.9 - Sepsis, unspecified organism Is this a current diagnosis for this admission?: Yes Plan: Sepsis due to UTI and presumed pneumonia who presented with fever, decreased mental alertness, hypoxia of 80% while on room air per EMS, thrombocytopenia, leukocytosis, acute kidney injury, and elevated lactate. Cultures: No growth at 24 hours. Urine cultures: Gram-negative rods He is admitted to [facility] on continuous cardiac telemetry and pulse oximetry. He is empirically placed on azithromycin and Rocephin. Continue maintenance IV fluids. (3) Acute kidney injury Is this a current diagnosis for this admission?: Yes Plan: Resolved; likely prerenal secondary to fluid volume deficit in the setting of sepsis and advanced dementia with poor oral intake. Continue maintenance IV fluids. Will monitor daily chemistry. Avoid nephrotoxic medications. (4) Hypernatremia Is this a current diagnosis for this admission?: Yes Plan: Secondary to fluid volume deficit. He has received IV fluid boluses and is being placed on maintenance IV fluids. We will monitor daily chemistries. (5) Leukocytosis Qualifiers: Leukocytosis type: bandemia Qualified Code(s): D72.825 - Bandemia Is this a current diagnosis for this admission?: Yes Plan: Improving; secondary to urinary tract infection and probable pneumonia. Urine and blood cultures as above. Empiric antibiotics as above. (6) Atrial fibrillation Qualifiers: Atrial fibrillation type: chronic Qualified Code(s): I48.2 - Chronic atrial fibrillation Is this a current diagnosis for this admission?: Yes Plan: The patient will be placed on continuous cardiac telemetry. Continue daily aspirin therapy. The patient is not on home medications for atrial fibrillation or chronically anticoagulated. (7) Hypertension Is this a current diagnosis for this admission?: Yes Plan: Borderline hypotension at present secondary to sepsis. We will monitor closely and initiate antihypertensives as needed. The patient is not on home medications for hypertension. (8) Type 2 diabetes mellitus Is this a current diagnosis for this admission?: Yes Plan: The patient does not appear on any medications for glucose control. Will monitor Accu-Cheks every 6 hours with Humalog for sliding scale coverage. Hypoglycemia protocol in place. (9) Abdominal tenderness Qualifiers: Abdominal location: generalized Is this a current diagnosis for this admission?: Yes Plan: Questionable abdominal tenderness on exam. Abdomen is firm and the patient does appear to grimace with palpation. Per emergency department personnel, there is no report of recent nausea, vomiting, diarrhea, constipation. HPI and ROS are limited secondary to mental status. Chest x-ray revealed diffuse gaseous distention of colon and small bowel under the hemidiaphragms that is questionable for ileus. Abdominal x-ray showed fecal retention/ileus. Will support with IV fluids and antiemetics as needed. Schedules dulcolax suppository. (10) Dementia Qualifiers: Dementia type: unspecified type Is this a current diagnosis for this admission?: Yes Plan: Supportive care. Fall and aspiration precautions. (11) Dehydration Is this a current diagnosis for this admission?: Yes Plan: Secondary to poor oral intake. Plan as above. (12) Protein calorie malnutrition Is this a current diagnosis for this admission?: Yes Plan: We will ask the registered dietitian to evaluate the patient make recommendations. The patient's family have requested that surgery be consulted for consideration of a PEG tube to further support nutrition given that the patient is unable to maintain necessary p.o. intake the setting of advanced dementia. (13) Dysphagia Is this a current diagnosis for this admission?: Yes Plan: The patient has moderate oral and pharyngeal dysphasia in the setting of advanced dementia. Appreciate speech therapies evaluation and recommendations for a pured diet with honey thickened liquids using spoon only. Aspiration precautions are in place. (14) Full code status Is this a current diagnosis for this admission?: Yes Plan: A long and detailed discussion was had with the patient's and son. They both confirm that the patient is to remain a full code. The decline hospice or palliative care services at this time. - Time Time Spent with patient: 35 or more minutes Medications reviewed and adjusted accordingly: Yes - Inpatient Certification Based on my medical assessment, after consideration of the patient's comorbidities, presenting symptoms, or acuity I expect that the services needed warrant INPATIENT care.: Yes I certify that my determination is in accordance with my understanding of Medicare's requirements for reasonable and necessary INPATIENT services [42 CFR 412.3e].: Yes Medical Necessity: Need For IV Fluids, Need for IV Antibiotics
[2017-11-18] MEDS: CEFTRIAXONE SODIUM 1,000 MG in DEXTROSE 5%-WATER 50 ML IV SCH (17:16)
--- NOTE | 2017-11-18 18:04 | PDOC CONSULTATION ---
History of Present Illness Admission Date/PCP: 11/17/17 15:17 Patient complains of: Surgicalist being consulted for PEG placement History of Present Illness: ARY HYLTON is a 86 year old male with multiple medical problems including advanced dementia, COPD and malnutrition currently in the hospital for evaluation of respiratory compromise and dehydration. Patient has had poor p.o. intake. Uncertain whether he has been experiencing any abdominal pain. Uncertain of his bowel function. Family was interested in a PEG for nutritional support. Past Medical History Cardiac Medical History: Reports: Atrial Fibrillation, Coronary Artery Disease - Stents, Myocardial Infarction - 2004, Hypertension Pulmonary Medical History: Reports: Chronic Obstructive Pulmonary Disease (COPD) Denies: Asthma EENT Medical History: Reports: None Neurological Medical History: Denies: Hemorrhagic CVA, Ischemic CVA, Seizures Endocrine Medical History: Reports: Diabetes Mellitus Type 2 Renal/ Medical History: Reports: None GI Medical History: Reports: None Denies: Hepatitis, Hiatal Hernia Musculoskeltal Medical History: Reports: None Psychiatric Medical History: Reports: Dementia, Post Traumatic Stress Disorder Hematology: Denies: Anemia, Sickle Cell Disease Past Surgical History Past Surgical History: Reports: Coronary Stent, Pacemaker - Social History Lives with: Spouse/Significant other Smoking Status: Never Smoker Frequency of Alcohol Use: None Hx Recreational Drug Use: No Drugs: None Hx Prescription Drug Abuse: No - Advance Directive Resuscitation Status: Full Code Family History Family History: None Parental Family History Reviewed: No Children Family History Reviewed: No Sibling(s) Family History Reviewed.: No Medication/Allergy Home Medications: Aspirin [Aspirin 81 mg Chewable Tablet] 40.5 mg SL QHS 11/17/17 Donepezil HCl [Aricept] 5 mg PO QHS 11/17/17 Allergies/Adverse Reactions: No Known Allergies Allergy (Verified 11/17/16 18:29) Physical Exam Vital Signs: Temp Pulse Resp BP Pulse Ox 97.9 F 88 18 118/55 L 100 11/18/17 15:49 11/18/17 16:37 11/18/17 15:50 11/18/17 15:49 11/18/17 16:37 Pulse Oximeter Continuous Start: 11/17/17 14: 56 Freq: RTQ4 Status: Active Document 11/18/17 15:50 TPO (Rec: 11/18/17 15:57 TPO [email or web address]) Pulse Oximetry Assessment Oxygen Saturation (92-100) 99 Oxygen Delivery Method Room Air Fraction of Inspired Oxygen (FIO2) 21 Equipment Usage Equipment in Use Continuous SpO2 Machine # 7 Intake & Output 11/17/17 11/18/17 11/19/17 06:59 06:59 06:59 Intake Total 1906 0 Output Total 250 150 Balance 1656 -150 Weight 53.5 kg General appearance: PRESENT: disheveled, other - Able to arouse but does not interact. Cachectic. Respiratory exam: PRESENT: decreased breath sounds Cardiovascular exam: PRESENT: RRR GI/Abdominal exam: PRESENT: other - Abdomen is very firm. Difficult to determine whether he has any tenderness. Results Laboratory Results: 11/18/17 06:03 11/18/17 06:03 11/18/17 11/18/17 06:03 06:03 WBC 12.7 H RBC 3.74 L Hgb 11.8 L Hct 35.3 L MCV 94 MCH 31.6 MCHC 33.6 RDW 14.9 H Plt Count 110 L Seg Neutrophils % 88.3 H Lymphocytes % 7.9 L Monocytes % 3.7 Eosinophils % 0.0 Basophils % 0.1 Absolute Neutrophils 11.3 H Absolute Lymphocytes 1.0 Absolute Monocytes 0.5 Absolute Eosinophils 0.0 Absolute Basophils 0.0 Sodium 147.8 H Potassium 3.6 Chloride 113 H Carbon Dioxide 28 Anion Gap 7 BUN 30 H Creatinine 1.03 Est GFR ( Amer) > 60 Est GFR (Non-Af Amer) > 60 Glucose 95 Calcium 9.0 Impressions: Abdomen X-Ray 11/17/17 00:00 IMPRESSION: Fecal retention/ileus. No free air. Chest X-Ray 11/17/17 11:12 IMPRESSION: NO ACUTE RADIOGRAPHIC FINDING IN THE CHEST. Assessment & Plan - Diagnosis (1) Malnutrition Is this a current diagnosis for this admission?: Yes Plan: Advanced dementia patient with poor p.o. intake with severe malnutrition. Consult now being obtained for PEG placement. Abdomen is very firm and abdominal x-ray demonstrates gas throughout the abdomen. Due to his mental status I am unable to do a proper abdominal exam. An abdominal pelvic CT scan would aid in determining whether he has any significant intra-abdominal process at this time. His creatinine has decreased to [address] with IV contrast would be much more helpful than a noncontrasted CT. I have discussed with Dr. Roberson concerning hydrating the patient better and possibly obtaining an IV contrasted abdominal pelvic CT scan tomorrow. If IV contrast poses too high of a risk to his renal function, may obtain a CT without contrast. Provided that the abdominal CT scan demonstrates no significant pathology, surgicalist service will discuss with the family concerning the risk and benefits of a PEG.
[2017-11-18] MEDS: AZITHROMYCIN 500 MG in DEXTROSE 5%-WATER 250 ML IV SCH (21:55)
[2017-11-18] MEDS: ASPIRIN 81 MG TABLET, CHEWABLE PO SCH (21:56)
[2017-11-19] MEDS: IPRATROPIUM/ALBUTEROL 0.5-2.5 MG/3 ML AMPUL NEB SCH ×2 (00:08→08:26)
[2017-11-19] MEDS: DEXTROSE 5%-1/2 NORMAL SALINE 1,000 ML IV PRN ×2 (03:05→23:31)
[2017-11-19 05:10] LABS: ABSOLUTE LYMPHOCYTES (AUTO) 1.1 10^3/uL (0.5-4.7); ABSOLUTE MONOCYTES (AUTO) 0.4 10^3/uL (0.1-1.4); ABSOLUTE NEUT (AUTO) 7.2 10^3/uL (1.7-8.2); BASOPHILS % (AUTO) 0.3 % (0-2); EOSINOPHILS % (AUTO) 0.1 % (0-6); HEMATOCRIT 32.8 % (37.9-51.0); HEMOGLOBIN 11.1 g/dL (13.5-17.0); LYMPHOCYTES % (AUTO) 12.1 % (13-45); MEAN CORPUSCULAR HEMOGLOBIN 31.7 pg (27.0-33.4); MEAN CORPUSCULAR HGB CONC 33.7 g/dL (32.0-36.0); MEAN CORPUSCULAR VOLUME 94 fl (80-97); PLATELET COUNT 120 10^3/uL (150-450); RED BLOOD COUNT 3.48 10^6/uL (4.35-5.55); RED CELL DISTRIBUTION WIDTH 14.6 % (11.5-14.0); SEGMENTED NEUTROPHILS % (AUTO) 82.5 % (42-78); TOTAL CELLS COUNTED % (AUTO) 100 %; WHITE BLOOD COUNT 8.8 10^3/uL (4.0-10.5)
[2017-11-19 05:45] LABS: ANION GAP 7 (5-19); BLOOD UREA NITROGEN 22 mg/dL (7-20); CALCIUM 8.7 mg/dL (8.4-10.2); CARBON DIOXIDE 29 mmol/L (22-30); CHLORIDE 110 mmol/L (98-107); GLUCOSE 117 mg/dL (75-110); POTASSIUM 3.3 mmol/L (3.6-5.0); SODIUM 146.4 mmol/L (137-145)
[2017-11-19] MEDS: LANSOPRAZOLE 15 MG TAB.RAP.DR PO SCH ×2 (05:53→16:28)
[2017-11-19] MEDS: HEPARIN SOD (PORCINE) 5,000 UNIT/ML 1 ML SYRINGE SUBCUT SCH ×3 (05:54→22:15)
--- NOTE | 2017-11-19 11:05 | RADIOLOGY REPORT (SQ) ---
EXAM DESCRIPTION: CT ABD/PELVIS WITH IV ONLY COMPLETED DATE/TIME: 11/19/2017 10:50 am REASON FOR STUDY: abdominal distension COMPARISON: None. TECHNIQUE: CT scan of the abdomen and pelvis performed using helical scanning technique with dynamic intravenous contrast injection. No oral contrast. Images reviewed with lung, soft tissue, and bone windows. Reconstructed coronal and sagittal MPR images reviewed. Delayed images for evaluation of the urinary system also acquired. All images stored on PACS. All CT scanners at this facility use dose modulation, iterative reconstruction, and/or weight based d osing when appropriate to reduce radiation dose to as low as reasonably achievable (ALARA). [facility]: Dose Right [facility]: CareDose [facility]: Dose Right [facility]: Teradose 4D [facility]: Domains Income CONTRAST TYPE AND DOSE: contrast/concentration: Isovue 370.00 mg/ml; Total Contrast Delivered: 57.0 ml; Total Saline Delivered: 65.0 ml RENAL FUNCTION: BUN 22 creatinine 0.85. RADIATION DOSE: CT Rad equipment meets quality standard of care and radiation dose reduction techniq ues were employed. CTDIvol: 6.1 - 7.1 mGy. DLP: 664 mGy-cm.. LIMITATIONS: None. FINDINGS: LOWER CHEST: Bilateral pleural effusions. LIVER: Normal size. No masses. No dilated ducts. SPLEEN: Normal size. No focal lesions. PANCREAS: No masses. No significant calcifications. No adjacent inflammation or peripancreatic fluid collections. Pancreatic duct not dilated. GALLBLADDER: No identified stones by CT criteria. No inflammatory changes to suggest cholecystitis. ADRENAL GLANDS: No significant masses or asymmetry. RIGHT KIDNEY AND URETER: No solid masses. No significant calcifications. No hydronephrosis or hyd roureter. LEFT KIDNEY AND URETER: No solid masses. No significant calcifications. No hydronephrosis or hydr oureter. AORTA AND VESSELS: No aneurysm. No dissection. Renal arteries, SMA, celiac without stenosis. RETROPERITONEUM: No retroperitoneal adenopathy, hemorrhage or masses. BOWEL AND PERITONEAL CAVITY: Prominent stool throughout the colon and rectum. No significant bowel d istention. No masses or inflammatory changes. No free fluid or peritoneal masses. APPENDIX: Normal. PELVIS: Diffusely enlarged heterogenous prostate. Transverse measurement 7 cm. No free fluid. Cath eter in the bladder. ABDOMINAL WALL: No masses. No hernias. BONES: No significant or acute findings. Degenerative changes in the spine. OTHER: No other significant finding. IMPRESSION: 1. PROMINENT STOOL THROUGHOUT THE COLON AND RECTUM. NO DILATED BOWEL LOOPS. 2. DIFFUSELY ENLARGED HETEROGENOUS PROSTATE GLAND. 3. BILATERAL PLEURAL EFFUSIONS. 4. NO OTHER SIGNIFICANT OR ACUTE FINDING IN THE ABDOMEN OR PELVIS ON CT SCAN WITH IV CONTRAST. TECHNICAL DOCUMENTATION: JOB ID: [id number] Quality ID # [id number]: Final reports with documentation of one or more dose reduction techniques (e.g., Au tomated exposure control, adjustment of the mA and/or kV according to patient size, use of iterative reconstruction technique) 2010 [email or web address]- All Rights Reserved
[2017-11-19] MEDS ORDERED: HYDRALAZINE HCL INJ/PF 20 MG/1 ML SDV IV PRN (12:10)
--- NOTE | 2017-11-19 12:15 | PDOC PROGRESS REPORT ---
Subjective Progress Note for:: 11/19/17 Subjective:: The patient is an 86-year-old male with a past medical history of atrial fibrillation, hypertension, type 2 diabetes mellitus, and advanced dementia is minimally verbal and disoriented 4 at his baseline who is admitted on 11/17/17 with hypoxia, presumed pneumonia, UTI, and acute renal failure. The patient is seen on rounds resting in bed comfortably on room air. He is sleeping and does arouse slightly with name call and gentle touch, but does not fully awake. The patient's family members are not present at this time. Nursing reports no events overnight. He is in no apparent discomfort or distress. Reason For Visit: PNEUMONIA, LUCY Physical Exam Vital Signs: Temp Pulse Resp BP Pulse Ox 98.1 F 63 12 137/106 H 99 11/19/17 08:39 11/19/17 08:39 11/19/17 08:39 11/19/17 08:39 11/19/17 08:39 Pulse Oximeter Continuous Start: 11/17/17 14: 56 Freq: RTQ4 Status: Active Document 11/19/17 08:[address] [facility] [place] (Rec: 11/19/17 08:[address] [facility] [email or web address]) Pulse Oximetry Assessment Oxygen Saturation (92-100) 99 Oxygen Delivery Method Room Air Fraction of Inspired Oxygen (FIO2) 21 Equipment Usage Equipment in Use Continuous SpO2 Machine # N 7 Intake & Output 11/18/17 11/19/17 11/20/17 06:59 06:59 06:59 Intake Total 1906 2960 Output Total 250 450 Balance 1656 2510 Weight 53.5 kg 56.1 kg General appearance: PRESENT: no acute distress, thin, well-developed Head exam: PRESENT: atraumatic, normocephalic Eye exam: PRESENT: conjunctiva pink, EOMI, PERRLA. ABSENT: scleral icterus Ear exam: PRESENT: normal external ear exam Mouth exam: PRESENT: moist, tongue midline Neck exam: ABSENT: carotid bruit, JVD, lymphadenopathy, thyromegaly Respiratory exam: PRESENT: clear to auscultation enoch, decreased breath sounds - Bibasilar, symmetrical, unlabored. ABSENT: rales, rhonchi, wheezes Cardiovascular exam: PRESENT: RRR, +S1, +S2. ABSENT: diastolic murmur, rubs, systolic murmur Pulses: PRESENT: normal dorsalis pedis pul Vascular exam: PRESENT: normal capillary refill GI/Abdominal exam: PRESENT: normal bowel sounds, soft. ABSENT: distended, guarding, mass, organolmegaly, rebound, tenderness Rectal exam: PRESENT: deferred Extremities exam: PRESENT: full ROM. ABSENT: calf tenderness, clubbing, pedal edema Neurological exam: PRESENT: other - Sleeping soundly; does respond to name call and touch. ABSENT: motor sensory deficit Psychiatric exam: ABSENT: homicidal ideation, suicidal ideation Skin exam: PRESENT: dry, intact, warm. ABSENT: cyanosis, rash Results Laboratory Results: 11/19/17 04:06 11/19/17 04:06 11/19/17 11/19/17 04:06 04:06 WBC 8.8 RBC 3.48 L Hgb 11.1 L Hct 32.8 L MCV 94 MCH 31.7 MCHC 33.7 RDW 14.6 H Plt Count 120 L Seg Neutrophils % 82.5 H Lymphocytes % 12.1 L Monocytes % 5.0 Eosinophils % 0.1 Basophils % 0.3 Absolute Neutrophils 7.2 Absolute Lymphocytes 1.1 Absolute Monocytes 0.4 Absolute Eosinophils 0.0 Absolute Basophils 0.0 Sodium 146.4 H Potassium 3.3 L Chloride 110 H Carbon Dioxide 29 Anion Gap 7 BUN 22 H Creatinine 0.85 Est GFR ( Amer) > 60 Est GFR (Non-Af Amer) > 60 Glucose 117 H Calcium 8.7 Impressions: Abdomen X-Ray 11/17/17 00:00 IMPRESSION: Fecal retention/ileus. No free air. Chest X-Ray 11/17/17 11:12 IMPRESSION: NO ACUTE RADIOGRAPHIC FINDING IN THE CHEST. Abdomen/Pelvis CT 11/19/17 06:00 IMPRESSION: 1. PROMINENT STOOL THROUGHOUT THE COLON AND RECTUM. NO DILATED BOWEL LOOPS. 2. DIFFUSELY ENLARGED HETEROGENOUS PROSTATE GLAND. 3. BILATERAL PLEURAL EFFUSIONS. 4. NO OTHER SIGNIFICANT OR ACUTE FINDING IN THE ABDOMEN OR PELVIS ON CT SCAN WITH IV CONTRAST. Assessment & Plan - Diagnosis (1) Acute respiratory failure with hypoxia Is this a current diagnosis for this admission?: Yes Plan: Resolved. The patient is now maintaining oxygen saturations on room air. Blood cultures: No growth at 48 hours Chest x-ray did not reveal acute cardiopulmonary findings. CT of the abdomen this morning did note bilateral pleural effusions. Was admitted to [facility] on continuous cardiac telemetry and pulse oximetry. Supplemental oxygen as needed to maintain saturations greater than 92%. He was empirically placed on azithromycin and Rocephin. As the patient's respiratory status has improved, chest imaging has not demonstrated a pneumonia , and the patient has been afebrile for greater than 48 hours we will discontinue azithromycin today but continue Rocephin for treatment of the E. coli UTI. We discontinued scheduled nebulizer treatments; Xopenex remains available as needed for shortness of breath. Tylenol as needed for fever. (2) Sepsis Qualifiers: Sepsis type: sepsis due to unspecified organism Qualified Code(s): A41.9 - Sepsis, unspecified organism Is this a current diagnosis for this admission?: Yes Plan: Sepsis due to UTI and presumed pneumonia who presented with fever, decreased mental alertness, hypoxia of 80% while on room air per EMS, thrombocytopenia, leukocytosis, acute kidney injury, and elevated lactate. Cultures: No growth at 48 hours. Urine cultures: Pansensitive E. coli He is admitted to [facility] on continuous cardiac telemetry and pulse oximetry. We will continue Rocephin. Continue maintenance IV fluids. (3) Acute kidney injury Is this a current diagnosis for this admission?: Yes Plan: Resolved; likely prerenal secondary to fluid volume deficit in the setting of sepsis and advanced dementia with poor oral intake. The patient did undergo a contrasted CT today and so will continue maintenance IV fluids. Will monitor daily chemistry. Avoid nephrotoxic medications. (4) Hypernatremia Is this a current diagnosis for this admission?: Yes Plan: Secondary to fluid volume deficit. He has received IV fluid boluses and is being placed on maintenance IV fluids. We will monitor daily chemistries. (5) Leukocytosis Qualifiers: Leukocytosis type: bandemia Qualified Code(s): D72.825 - Bandemia Is this a current diagnosis for this admission?: Yes Plan: Resolved; secondary to urinary tract infection and probable pneumonia. Urine and blood cultures as above. Antibiotics as above. (6) Atrial fibrillation Qualifiers: Atrial fibrillation type: chronic Qualified Code(s): I48.2 - Chronic atrial fibrillation Is this a current diagnosis for this admission?: Yes Plan: The patient will be placed on continuous cardiac telemetry. Continue daily aspirin therapy. The patient is not on home medications for atrial fibrillation or chronically anticoagulated. (7) Hypertension Is this a current diagnosis for this admission?: Yes Plan: IV hydralazine as needed. The patient is not on home medications for hypertension. We will monitor closely and initiate antihypertensives as needed. (8) Type 2 diabetes mellitus Is this a current diagnosis for this admission?: Yes (9) Abdominal tenderness Qualifiers: Abdominal location: generalized Is this a current diagnosis for this admission?: Yes Plan: Questionable abdominal tenderness on exam. Abdomen is firm and the patient does appear to grimace with palpation. Chest x-ray revealed diffuse gaseous distention of colon and small bowel under the hemidiaphragms that is questionable for ileus. Abdominal x-ray showed fecal retention/ileus. CT of the abdomen and pelvis revealed prominent stool throughout the colon and rectum, no dilated bowel loops. Surgery has been consulted; appreciate their assistance and recommendations. Will support with IV fluids and antiemetics as needed. Schedules dulcolax suppository. (10) Dementia Qualifiers: Dementia type: unspecified type Is this a current diagnosis for this admission?: Yes Plan: Supportive care. Fall and aspiration precautions. (11) Dehydration Is this a current diagnosis for this admission?: Yes Plan: Improved; secondary to poor oral intake. Plan as above. (12) Protein calorie malnutrition Is this a current diagnosis for this admission?: Yes Plan: We will ask the registered dietitian to evaluate the patient make recommendations. The patient's family have requested that surgery be consulted for consideration of a PEG tube to further support nutrition given that the patient is unable to maintain necessary p.o. intake the setting of advanced dementia. Appreciate surgery's assistance and recommendations. (13) Dysphagia Is this a current diagnosis for this admission?: Yes Plan: The patient has moderate oral and pharyngeal dysphasia in the setting of advanced dementia. Appreciate speech therapies evaluation and recommendations for a pured diet with honey thickened liquids using spoon only. Aspiration precautions are in place. (14) Full code status Is this a current diagnosis for this admission?: Yes Plan: A long and detailed discussion was had with the patient's and son. They both confirm that the patient is to remain a full code. The decline hospice or palliative care services at this time. - Time Time Spent with patient: 15-24 minutes Medications reviewed and adjusted accordingly: Yes
[2017-11-19] MEDS ORDERED: ONDANSETRON HCL INJ/PF 4 MG/2 ML SDV ONE (12:40)
[2017-11-19] MEDS ORDERED: GLYCOPYRROLATE INJ 0.4 MG/2 ML VIAL ONE (12:40)
[2017-11-19] MEDS ORDERED: NALOXONE HCL INJ/PF 0.4 MG/1 ML SDV ONE (12:40)
[2017-11-19] MEDS ORDERED: MIDAZOLAM 2 MG/2 ML INJ ONE (12:40)
[2017-11-19] MEDS ORDERED: FENTANYL CITRATE INJ/PF 100 MCG/2 ML AMPUL ONE (12:41)
[2017-11-19] MEDS ORDERED: FLUMAZENIL INJ 0.5 MG/5 ML VIAL ONE (12:41)
[2017-11-19] MEDS ORDERED: GLUCAGON,HUMAN RECOMB 1 MG INJ ONE (12:41)
[2017-11-19] MEDS ORDERED: EPINEPHRINE INJ 1 MG/10 ML DISP.SYRIN ONE (12:41)
[2017-11-19] MEDS ORDERED: BISACODYL 10 MG SUPP.RECT PR ONE (13:30)
[2017-11-19] MEDS ORDERED: CEFAZOLIN 1 GM/D5W RTU 1 GM/50 ML RTUPB IV ONE (14:20)
--- NOTE | 2017-11-19 14:35 | PDOC PROGRESS REPORT ---
Subjective Progress Note for:: 11/19/17 Subjective:: He cannot comunicate but I spoke with his who tells me he has some degree of difficulty eating and has lost weight. A PEG tube insertion is requested. He has been evaluated by speech therapist, Abd CT today shows stool in colon, no other significant abnormality. Reason For Visit: PNEUMONIA, LUCY Physical Exam Vital Signs: Temp Pulse Resp BP Pulse Ox 97.8 F 88 14 141/75 H 100 11/19/17 11:59 11/19/17 14:25 11/19/17 14:25 11/19/17 14:25 11/19/17 14:25 Pulse Oximeter Continuous Start: 11/17/17 14: 56 Freq: RTQ4 Status: Active Document 11/19/17 14:03 [facility] [place]Rec: 11/19/17 14:04 [facility] [email or web address]) Pulse Oximetry Assessment Equipment Usage Equipment Standby Continuous SpO2 Machine # N 7 Additional RT Notes Other pt not in room Intake & Output 11/18/17 11/19/17 11/20/17 06:59 06:59 06:59 Intake Total 1906 2960 100 Output Total 250 450 Balance 1656 2510 100 Weight 53.5 kg 56.1 kg General appearance: PRESENT: thin Head exam: PRESENT: atraumatic Ear exam: PRESENT: normal external ear exam Respiratory exam: PRESENT: clear to auscultation enoch Cardiovascular exam: PRESENT: RRR, +S1, +S2 GI/Abdominal exam: PRESENT: firm, guarding, normal bowel sounds Neurological exam: PRESENT: awake, aphasic Results Laboratory Results: 11/19/17 04:06 11/19/17 04:06 11/19/17 11/19/17 04:06 04:06 WBC 8.8 RBC 3.48 L Hgb 11.1 L Hct 32.8 L MCV 94 MCH 31.7 MCHC 33.7 RDW 14.6 H Plt Count 120 L Seg Neutrophils % 82.5 H Lymphocytes % 12.1 L Monocytes % 5.0 Eosinophils % 0.1 Basophils % 0.3 Absolute Neutrophils 7.2 Absolute Lymphocytes 1.1 Absolute Monocytes 0.4 Absolute Eosinophils 0.0 Absolute Basophils 0.0 Sodium 146.4 H Potassium 3.3 L Chloride 110 H Carbon Dioxide 29 Anion Gap 7 BUN 22 H Creatinine 0.85 Est GFR ( Amer) > 60 Est GFR (Non-Af Amer) > 60 Glucose 117 H Calcium 8.7 Impressions: Abdomen X-Ray 11/17/17 00:00 IMPRESSION: Fecal retention/ileus. No free air. Chest X-Ray 11/17/17 11:12 IMPRESSION: NO ACUTE RADIOGRAPHIC FINDING IN THE CHEST. Abdomen/Pelvis CT 11/19/17 06:00 IMPRESSION: 1. PROMINENT STOOL THROUGHOUT THE COLON AND RECTUM. NO DILATED BOWEL LOOPS. 2. DIFFUSELY ENLARGED HETEROGENOUS PROSTATE GLAND. 3. BILATERAL PLEURAL EFFUSIONS. 4. NO OTHER SIGNIFICANT OR ACUTE FINDING IN THE ABDOMEN OR PELVIS ON CT SCAN WITH IV CONTRAST. Assessment & Plan - Diagnosis (1) Dementia Qualifiers: Dementia type: unspecified type Is this a current diagnosis for this admission?: Yes (2) Protein calorie malnutrition Is this a current diagnosis for this admission?: Yes Plan: For PEG tube insertion today. (3) Dysphagia Is this a current diagnosis for this admission?: Yes Plan: For PEG tube insertion today.
--- NOTE | 2017-11-19 14:54 | Operative Report ---
Operative Report DATE OF SURGERY: 11/19/17 PREOPERATIVE DIAGNOSIS: Dementia, Dysphagia and Protein Calorie Malnutrition POSTOPERATIVE DIAGNOSIS: Dementia, Dysphagia and Protein Calorie Malnutrition OPERATION: Percutaneous Endoscopic Gastrostomy (PEG) feeding tube insertion SURGEON: Kandy Leija ANESTHESIA: Moderate Sedation TISSUE REMOVED OR ALTERED: None COMPLICATIONS: None ESTIMATED BLOOD LOSS: 10 ml INTRAOPERATIVE FINDINGS: Normal appearing gastric mucosa with prominent vascular markings. no duodenal ulcers or lesions. Esophagus appears normal but tortuous, no masses noted. PROCEDURE: The procedure was done in the endoscopy room. The patient had moderate sedation with 1mg of Versed and 25micrograms of fentanyl; he was positioned supine. The scope was passed through a bite block in the mouth down the kim[harynx into the esophagus and thern into the stomach. the duodenum was intubated and inspected. No lesions noted. the scope was withdrawn into the stomach and the site for the PEG tube insertion identified by transilluminating the anterior abdominal wall in the left upper quadrant. The skin in the chosen area was prepped with chloraprep and draped in sterile fashion. 1% lidocaine was infiltrated into the skin at the chosen site and a 1cm skin incision made with a #11 blade. The angiocath was inserted into the gastric lumen with a 1:1 motion visibly identified in the lumen with the endoscope. The needle was removed from the angiocath and the blue guide wire inserted into the gastric lumen. The blue wire was grasped with a snare and pulled out through the mouth removing the endoscope along with it. The gastrostomy tube was attached to the blue pull guide-wire and the portion of the blue wire present at the skin incision used to the pull the gastrostomy tube into the gastric lumen. The position of the tube was adjusted so it just abuts the gastric mucosal wall under endoscopic guidance. Final endoscopic inspection revealed the bumper of the tube to be well positioned without being too tight on the gastric wall. The scope was withdrawn from the patient and the external flange and control lock attached to the external portion of the PEG tube. The tube was cut to the desired length and the stopper attached to its distal end. A 3-0 silk stitch was used to approximate the medial end of the skin incision and to hold the flange to the skin. The marked level of the tube at the skin level was 3.5cm. The tube was dressed with 2x2 and 4x4 gauze pieces. The patient tolerated the procedure well , was recovered in the endoscopy area and taken to his room in stable condition.
[2017-11-19] MEDS: ACETAMINOPHEN 325 MG TABLET PO PRN (18:09)
[2017-11-19] MEDS: CEFTRIAXONE SODIUM 1,000 MG in DEXTROSE 5%-WATER 50 ML IV SCH (18:10)
[2017-11-19] MEDS: ASPIRIN 81 MG TABLET, CHEWABLE PO SCH (22:15)
[2017-11-20 05:23] LABS: ABSOLUTE LYMPHOCYTES (AUTO) 0.9 10^3/uL (0.5-4.7); ABSOLUTE MONOCYTES (AUTO) 0.4 10^3/uL (0.1-1.4); ABSOLUTE NEUT (AUTO) 3.9 10^3/uL (1.7-8.2); BASOPHILS % (AUTO) 0.2 % (0-2); EOSINOPHILS % (AUTO) 0.2 % (0-6); HEMATOCRIT 34.4 % (37.9-51.0); HEMOGLOBIN 11.6 g/dL (13.5-17.0); LYMPHOCYTES % (AUTO) 16.9 % (13-45); MEAN CORPUSCULAR HEMOGLOBIN 31.5 pg (27.0-33.4); MEAN CORPUSCULAR HGB CONC 33.8 g/dL (32.0-36.0); MEAN CORPUSCULAR VOLUME 93 fl (80-97); MONOCYTES % (AUTO) 7.5 % (3-13); PLATELET COUNT 129 10^3/uL (150-450); RED BLOOD COUNT 3.69 10^6/uL (4.35-5.55); SEGMENTED NEUTROPHILS % (AUTO) 75.2 % (42-78); TOTAL CELLS COUNTED % (AUTO) 100 %; WHITE BLOOD COUNT 5.2 10^3/uL (4.0-10.5)
[2017-11-20 05:48] LABS: ANION GAP 5 (5-19); BLOOD UREA NITROGEN 11 mg/dL (7-20); CALCIUM 8.7 mg/dL (8.4-10.2); CARBON DIOXIDE 29 mmol/L (22-30); CHLORIDE 107 mmol/L (98-107); GLUCOSE 115 mg/dL (75-110); POTASSIUM 3.3 mmol/L (3.6-5.0); SODIUM 140.8 mmol/L (137-145)
[2017-11-20] MEDS: LANSOPRAZOLE 15 MG TAB.RAP.DR PO SCH ×2 (06:45→16:47)
[2017-11-20] MEDS: HEPARIN SOD (PORCINE) 5,000 UNIT/ML 1 ML SYRINGE SUBCUT SCH ×3 (06:53→21:08)
[2017-11-20] MEDS: BISACODYL 10 MG SUPP.RECT PR SCH (09:21)
[2017-11-20] MEDS: POTASSI CL 20 MEQ/50 ML RIDER 20 MEQ/50 ML RTUPB IV SCH ×2 (09:21→11:20)
--- NOTE | 2017-11-20 10:11 | RADIOLOGY REPORT (SQ) ---
EXAM DESCRIPTION: CHEST SINGLE VIEW COMPLETED DATE/TIME: 11/20/2017 9:51 am REASON FOR STUDY: rhonchi, hypoxia ? aspiration COMPARISON: 11/17/2017 NUMBER OF VIEWS: One view. TECHNIQUE: Single frontal radiographic image of the chest acquired. LIMITATIONS: Poor inspiratory effort. FINDINGS: LUNGS AND PLEURA: Low lung volumes. No evidence of pulmonary edema or pneumonia. MEDIASTINUM AND HEART: Stable heart size and mediastinal structures. SUPPORT DEVICES: Appropriate location without change. BONY STRUCTURES: No acute findings. HARDWARE: None. OTHER: Abundant gas in the colon. IMPRESSION: No acute findings in the chest.
--- NOTE | 2017-11-20 11:13 | PDOC PROGRESS REPORT ---
Subjective Progress Note for:: 11/20/17 Subjective:: The patient is an 86-year-old male with a past medical history of atrial fibrillation, hypertension, type 2 diabetes mellitus, and advanced dementia is minimally verbal and disoriented 4 at his baseline who is admitted on 11/17/17 with hypoxia, presumed pneumonia, UTI, and acute renal failure. Acute illnesses have now resolved. The patient has had a PEG tube placed. The patient is seen on rounds resting in bed comfortably. He is currently on supplemental oxygen via nasal cannula at 2 L/min due to hypoxia that was noted overnight; the patient had a resting room air saturation of 90%. The patient's states that he has also had a wet sounding cough that developed overnight. Overall, she states that he appears to be doing better as he is more alert and making eye contact with her today. At his baseline, the patient is not oriented to self but can make simple requests such as stating "more" when she is feeding him. He is in no apparent discomfort or distress. Reason For Visit: PNEUMONIA, LUCY Physical Exam Vital Signs: Temp Pulse Resp BP Pulse Ox 97.6 F 87 16 166/91 H 100 11/20/17 07:47 11/20/17 08:20 11/20/17 08:20 11/20/17 07:47 11/20/17 08:20 Pulse Oximeter Continuous Start: 11/17/17 14: 56 Freq: RTQ4 Status: Active Document 11/20/17 08:20 [facility] (Rec: 11/20/17 10:32 [facility] [email or web address]) Pulse Oximetry Assessment Oxygen Saturation (92-100) 100 Oxygen Flow Rate (L/min) 2 Oxygen Delivery Method Nasal Cannula Equipment Usage Equipment in Use Continuous SpO2 Machine # 2 Intake & Output 11/19/17 11/20/17 11/21/17 06:59 06:59 06:59 Intake Total 2960 1700 Output Total 450 1100 Balance 2510 600 Weight 56.1 kg 60 kg General appearance: PRESENT: no acute distress, thin, well-developed Head exam: PRESENT: atraumatic, normocephalic Eye exam: PRESENT: conjunctiva pink, EOMI, PERRLA. ABSENT: scleral icterus Ear exam: PRESENT: normal external ear exam Mouth exam: PRESENT: moist, tongue midline Neck exam: ABSENT: carotid bruit, JVD, lymphadenopathy, thyromegaly Respiratory exam: PRESENT: rhonchi, symmetrical, unlabored, other - Supplemental oxygen via nasal cannula. ABSENT: rales, wheezes Cardiovascular exam: PRESENT: RRR, +S1, +S2. ABSENT: diastolic murmur, rubs, systolic murmur Pulses: PRESENT: normal dorsalis pedis pul Vascular exam: PRESENT: normal capillary refill GI/Abdominal exam: PRESENT: normal bowel sounds, soft. ABSENT: distended, guarding, mass, organolmegaly, rebound, tenderness Rectal exam: PRESENT: deferred Extremities exam: PRESENT: full ROM. ABSENT: calf tenderness, clubbing, pedal edema Neurological exam: PRESENT: alert, awake. ABSENT: oriented to person, oriented to place, oriented to time, oriented to situation, motor sensory deficit Psychiatric exam: ABSENT: homicidal ideation, suicidal ideation Skin exam: PRESENT: dry, intact, warm. ABSENT: cyanosis, rash Results Laboratory Results: 11/20/17 05:04 11/20/17 05:04 11/20/17 11/20/17 05:04 05:04 WBC 5.2 RBC 3.69 L Hgb 11.6 L Hct 34.4 L MCV 93 MCH 31.5 MCHC 33.8 RDW 14.0 Plt Count 129 L Seg Neutrophils % 75.2 Lymphocytes % 16.9 Monocytes % 7.5 Eosinophils % 0.2 Basophils % 0.2 Absolute Neutrophils 3.9 Absolute Lymphocytes 0.9 Absolute Monocytes 0.4 Absolute Eosinophils 0.0 Absolute Basophils 0.0 Sodium 140.8 Potassium 3.3 L Chloride 107 Carbon Dioxide 29 Anion Gap 5 BUN 11 Creatinine 0.79 Est GFR ( Amer) > 60 Est GFR (Non-Af Amer) > 60 Glucose 115 H Calcium 8.7 Impressions: Abdomen X-Ray 11/17/17 00:00 IMPRESSION: Fecal retention/ileus. No free air. Abdomen/Pelvis CT 11/19/17 06:00 IMPRESSION: 1. PROMINENT STOOL THROUGHOUT THE COLON AND RECTUM. NO DILATED BOWEL LOOPS. 2. DIFFUSELY ENLARGED HETEROGENOUS PROSTATE GLAND. 3. BILATERAL PLEURAL EFFUSIONS. 4. NO OTHER SIGNIFICANT OR ACUTE FINDING IN THE ABDOMEN OR PELVIS ON CT SCAN WITH IV CONTRAST. Chest X-Ray 11/20/17 00:00 IMPRESSION: No acute findings in the chest. Assessment & Plan - Diagnosis (1) Acute respiratory failure with hypoxia Is this a current diagnosis for this admission?: Yes Plan: Resolved. I am concerned that the patient is at high risk of aspiration; the patient's spouse has been instructed in splint feeding only and keeping the patient in high Zhu's for a minimum of 30 minutes following meals. Blood cultures: No growth at 48 hours Repeat chest x-ray today did not show any acute findings. Was admitted to [facility] [place] on continuous cardiac telemetry and pulse oximetry. Supplemental oxygen as needed to maintain saturations greater than 92%. Xopenex available as needed for shortness of breath. Tylenol as needed for fever. (2) Sepsis Qualifiers: Sepsis type: sepsis due to unspecified organism Qualified Code(s): A41.9 - Sepsis, unspecified organism Is this a current diagnosis for this admission?: Yes Plan: Resolved. Sepsis due to UTI and presumed pneumonia who presented with fever, decreased mental alertness, hypoxia of 80% while on room air per EMS, thrombocytopenia, leukocytosis, acute kidney injury, and elevated lactate. Cultures: No growth at 48 hours. Urine cultures: Pansensitive E. coli He is admitted to [facility] [place] on continuous cardiac telemetry and pulse oximetry. We will continue Rocephin. Currently on day 4 of treatment. Continue maintenance IV fluids. (3) Acute kidney injury Is this a current diagnosis for this admission?: Yes Plan: Resolved; likely prerenal secondary to fluid volume deficit in the setting of sepsis and advanced dementia with poor oral intake. The patient did undergo a contrasted CT yesterday; creatinine remained stable at 0.79. Will monitor daily chemistry. Avoid nephrotoxic medications. (4) Leukocytosis Qualifiers: Leukocytosis type: bandemia Qualified Code(s): D72.825 - Bandemia Is this a current diagnosis for this admission?: Yes Plan: Resolved; secondary to urinary tract infection and probable pneumonia. Urine and blood cultures as above. Antibiotics as above. (5) Atrial fibrillation Qualifiers: Atrial fibrillation type: chronic Qualified Code(s): I48.2 - Chronic atrial fibrillation Is this a current diagnosis for this admission?: Yes Plan: The patient will be placed on continuous cardiac telemetry. Continue daily aspirin therapy. As the patient has had persistently elevated blood pressures ranging 112/91-164/ 107, will start the patient on Norvasc. (6) Hypertension Is this a current diagnosis for this admission?: Yes Plan: We will initiate Norvasc IV hydralazine as needed. (7) Type 2 diabetes mellitus Is this a current diagnosis for this admission?: Yes Plan: The patient does not appear on any medications for glucose control. Will monitor Accu-Cheks every 6 hours with Humalog for sliding scale coverage. Hypoglycemia protocol in place. (8) Abdominal tenderness Qualifiers: Abdominal location: generalized Is this a current diagnosis for this admission?: Yes Plan: Questionable abdominal tenderness on exam. Abdomen is firm and the patient does appear to grimace with palpation. Chest x-ray revealed diffuse gaseous distention of colon and small bowel under the hemidiaphragms that is questionable for ileus. Abdominal x-ray showed fecal retention/ileus. CT of the abdomen and pelvis revealed prominent stool throughout the colon and rectum, no dilated bowel loops. Surgery has been consulted; appreciate their assistance and recommendations. Will support with IV fluids and antiemetics as needed. Schedules dulcolax suppository. (9) Dementia Qualifiers: Dementia type: unspecified type Is this a current diagnosis for this admission?: Yes Plan: Supportive care. Fall and aspiration precautions. (10) Dehydration Is this a current diagnosis for this admission?: Yes Plan: Resolved; secondary to poor oral intake. Plan as above. (11) Protein calorie malnutrition Is this a current diagnosis for this admission?: Yes Plan: She now has a PEG; we will ask the registered dietitian to evaluate the patient make recommendations. Appreciate surgery's assistance and recommendations; patient is now s/p PEG placement. Per surgery, may begin using the PEG tomorrow morning. (12) Dysphagia Is this a current diagnosis for this admission?: Yes Plan: The patient has moderate oral and pharyngeal dysphasia in the setting of advanced dementia. Appreciate speech therapies evaluation and recommendations for a pured diet with honey thickened liquids using spoon only. Aspiration precautions are in place. Plan as above. (13) Full code status Is this a current diagnosis for this admission?: Yes Plan: A long and detailed discussion was had with the patient's and son. They both confirm that the patient is to remain a full code. The decline hospice or palliative care services at this time. (14) Hypernatremia Is this a current diagnosis for this admission?: Yes Plan: Resolved; secondary to fluid volume deficit. - Time Time Spent with patient: 25-34 minutes Medications reviewed and adjusted accordingly: Yes Anticipated discharge: Home Within: Other - Once tolerating tube feeds
[2017-11-20] MEDS: DEXTROSE 5%-1/2 NORMAL SALINE 1,000 ML IV PRN (16:48)
[2017-11-20] MEDS: CEFTRIAXONE SODIUM 1,000 MG in DEXTROSE 5%-WATER 50 ML IV SCH (17:52)
[2017-11-20] MEDS: ASPIRIN 81 MG TABLET, CHEWABLE PO SCH (21:07)
--- NOTE | 2017-11-20 21:49 | PDOC PROGRESS REPORT ---
Subjective Progress Note for:: 11/20/17 Subjective:: POD #1 s/p PEG No new issues related to the PEG Reason For Visit: PNEUMONIA, LUCY Physical Exam Vital Signs: Temp Pulse Resp BP Pulse Ox 98.5 F 81 24 H 143/96 H 100 11/20/17 20:52 11/20/17 20:52 11/20/17 20:52 11/20/17 20:52 11/20/17 20:52 Pulse Oximeter Continuous Start: 11/17/17 14: 56 Freq: RTQ4 Status: Active Document 11/20/17 16:00 [facility] (Rec: 11/20/17 16:50 [facility] [email or web address]) Pulse Oximetry Assessment Oxygen Saturation (92-100) 98 Oxygen Flow Rate (L/min) 0.5 Oxygen Delivery Method Nasal Cannula Equipment Usage Equipment in Use Continuous SpO2 Machine # 2 Intake & Output 11/19/17 11/20/17 11/21/17 06:59 06:59 06:59 Intake Total 2960 1700 1120 Output Total 450 1100 550 Balance 2510 600 570 Weight 56.1 kg 60 kg General appearance: PRESENT: no acute distress Respiratory exam: PRESENT: unlabored Cardiovascular exam: PRESENT: +S1, +S2 GI/Abdominal exam: PRESENT: other - PEG tube in place, no leakage around it. Neurological exam: PRESENT: awake Results Laboratory Results: 11/20/17 05:04 11/20/17 05:04 11/20/17 11/20/17 05:04 05:04 WBC 5.2 RBC 3.69 L Hgb 11.6 L Hct 34.4 L MCV 93 MCH 31.5 MCHC 33.8 RDW 14.0 Plt Count 129 L Seg Neutrophils % 75.2 Lymphocytes % 16.9 Monocytes % 7.5 Eosinophils % 0.2 Basophils % 0.2 Absolute Neutrophils 3.9 Absolute Lymphocytes 0.9 Absolute Monocytes 0.4 Absolute Eosinophils 0.0 Absolute Basophils 0.0 Sodium 140.8 Potassium 3.3 L Chloride 107 Carbon Dioxide 29 Anion Gap 5 BUN 11 Creatinine 0.79 Est GFR ( Amer) > 60 Est GFR (Non-Af Amer) > 60 Glucose 115 H Calcium 8.7 Impressions: Abdomen X-Ray 11/17/17 00:00 IMPRESSION: Fecal retention/ileus. No free air. Abdomen/Pelvis CT 11/19/17 06:00 IMPRESSION: 1. PROMINENT STOOL THROUGHOUT THE COLON AND RECTUM. NO DILATED BOWEL LOOPS. 2. DIFFUSELY ENLARGED HETEROGENOUS PROSTATE GLAND. 3. BILATERAL PLEURAL EFFUSIONS. 4. NO OTHER SIGNIFICANT OR ACUTE FINDING IN THE ABDOMEN OR PELVIS ON CT SCAN WITH IV CONTRAST. Chest X-Ray 11/20/17 00:00 IMPRESSION: No acute findings in the chest. Assessment & Plan - Diagnosis (1) Dementia Qualifiers: Dementia type: unspecified type Is this a current diagnosis for this admission?: Yes (2) Protein calorie malnutrition Is this a current diagnosis for this admission?: Yes Plan: May begin PEG feeds tomorrow (3) Dysphagia Is this a current diagnosis for this admission?: Yes - Time Time Spent with patient: 15-24 minutes
[2017-11-20] MEDS: ACETAMINOPHEN 325 MG TABLET PO PRN (22:14)
[2017-11-21 02:59] LABS: ANION GAP 6 (5-19); BLOOD UREA NITROGEN 9 mg/dL (7-20); CALCIUM 8.4 mg/dL (8.4-10.2); CARBON DIOXIDE 25 mmol/L (22-30); CHLORIDE 106 mmol/L (98-107); GLUCOSE 95 mg/dL (75-110); MAGNESIUM 1.6 mg/dL (1.6-2.3); POTASSIUM 3.2 mmol/L (3.6-5.0); SODIUM 137.4 mmol/L (137-145)
[2017-11-21] MEDS: LANSOPRAZOLE 15 MG TAB.RAP.DR PO SCH ×2 (05:22→16:21)
[2017-11-21] MEDS: HEPARIN SOD (PORCINE) 5,000 UNIT/ML 1 ML SYRINGE SUBCUT SCH ×3 (05:22→22:10)
[2017-11-21 05:28] LABS: ANION GAP 7 (5-19); BLOOD UREA NITROGEN 8 mg/dL (7-20); CALCIUM 8.6 mg/dL (8.4-10.2); CARBON DIOXIDE 28 mmol/L (22-30); CHLORIDE 105 mmol/L (98-107); GLUCOSE 94 mg/dL (75-110); MAGNESIUM 1.6 mg/dL (1.6-2.3); PHOSPHORUS 2.3 mg/dL (2.5-4.5); POTASSIUM 3.6 mmol/L (3.6-5.0); SODIUM 140.2 mmol/L (137-145)
[2017-11-21] MEDS ORDERED: AMLODIPINE BESYLATE 5 MG TABLET PO SCH (10:00)
[2017-11-21] MEDS ORDERED: DEXTROSE 5%-1/2 NORMAL SALINE 1,000 ML IV PRN (10:18)
--- NOTE | 2017-11-21 10:40 | PDOC PROGRESS REPORT ---
Subjective Progress Note for:: 11/21/17 Subjective:: The patient is an 86-year-old male with a past medical history of atrial fibrillation, hypertension, type 2 diabetes mellitus, and advanced dementia is minimally verbal and disoriented 4 at his baseline who is admitted on 11/17/17 with hypoxia, presumed pneumonia, UTI, and acute renal failure. Acute illnesses have now resolved. The patient has had a PEG tube placed. The patient is seen on rounds resting in bed comfortably. He is currently on room air and maintaining oxygen saturations. His family members are not present at this time. He does wake easily when I state his name but does not make eye contact or respond further. He is noted to have a oral/pharyngeal wet sounding cough today. He does have slight rhonchi. I am concerned that the patient is continuing to have silent aspiration and will speak with the today about recommendations for n.p.o. and nutrition by PEG only. He is in no apparent discomfort or distress. Reason For Visit: PNEUMONIA, LUCY Physical Exam Vital Signs: Temp Pulse Resp BP Pulse Ox 98.1 F 73 20 146/98 H 100 11/21/17 08:00 11/21/17 08:00 11/21/17 08:00 11/21/17 08:00 11/21/17 08:00 Pulse Oximeter Continuous Start: 11/17/17 14: 56 Freq: RTQ4 Status: Active Document 11/21/17 04:00 [facility] (Rec: 11/21/17 05:37 [facility] [email or web address]) Pulse Oximetry Assessment Oxygen Saturation (92-100) 92 Oxygen Flow Rate (L/min) 1.0 Oxygen Delivery Method Nasal Cannula Fraction of Inspired Oxygen (FIO2) 24 Equipment Usage Equipment in Use Continuous SpO2 Machine # N-2 Intake & Output 11/20/17 11/21/17 11/22/17 06:59 06:59 06:59 Intake Total 1700 2120 Output Total 1100 1050 Balance 600 1070 Weight 60 kg 60.2 kg General appearance: PRESENT: no acute distress, thin, well-developed Head exam: PRESENT: atraumatic, normocephalic Eye exam: PRESENT: conjunctiva pink, EOMI, PERRLA. ABSENT: scleral icterus Ear exam: PRESENT: normal external ear exam Mouth exam: PRESENT: moist, tongue midline Neck exam: ABSENT: carotid bruit, JVD, lymphadenopathy, thyromegaly Respiratory exam: PRESENT: rhonchi, symmetrical, unlabored. ABSENT: rales, wheezes Cardiovascular exam: PRESENT: RRR, +S1, +S2. ABSENT: diastolic murmur, rubs, systolic murmur Pulses: PRESENT: normal dorsalis pedis pul Vascular exam: PRESENT: normal capillary refill GI/Abdominal exam: PRESENT: normal bowel sounds, soft. ABSENT: distended, guarding, mass, organolmegaly, rebound, tenderness Rectal exam: PRESENT: deferred Extremities exam: PRESENT: full ROM. ABSENT: calf tenderness, clubbing, pedal edema Neurological exam: PRESENT: alert, awake, CN II-XII grossly intact - No focal deficits are noted; limited exam secondary to baseline mental status.. ABSENT: oriented to person, oriented to place, oriented to time, oriented to situation, motor sensory deficit Psychiatric exam: PRESENT: appropriate affect, normal mood. ABSENT: homicidal ideation, suicidal ideation Skin exam: PRESENT: dry, intact, warm. ABSENT: cyanosis, rash Results Laboratory Results: 11/20/17 05:04 11/21/17 03:58 11/21/17 11/21/17 02:33 03:58 Sodium 137.4 140.2 Potassium 3.2 L 3.6 Chloride 106 105 Carbon Dioxide 25 28 Anion Gap 6 7 BUN 9 8 Creatinine 0.62 0.72 Est GFR ( Amer) > 60 > 60 Est GFR (Non-Af Amer) > 60 > 60 Glucose 95 94 Calcium 8.4 8.6 Phosphorus 2.3 L Magnesium 1.6 1.6 Impressions: Abdomen X-Ray 11/17/17 00:00 IMPRESSION: Fecal retention/ileus. No free air. Abdomen/Pelvis CT 11/19/17 06:00 IMPRESSION: 1. PROMINENT STOOL THROUGHOUT THE COLON AND RECTUM. NO DILATED BOWEL LOOPS. 2. DIFFUSELY ENLARGED HETEROGENOUS PROSTATE GLAND. 3. BILATERAL PLEURAL EFFUSIONS. 4. NO OTHER SIGNIFICANT OR ACUTE FINDING IN THE ABDOMEN OR PELVIS ON CT SCAN WITH IV CONTRAST. Chest X-Ray 11/20/17 00:00 IMPRESSION: No acute findings in the chest. Assessment & Plan - Diagnosis (1) Acute respiratory failure with hypoxia Is this a current diagnosis for this admission?: Yes Plan: Resolved. Blood cultures: No growth at 72 hours Repeat chest x-ray today did not show any acute findings. Was admitted to [facility] on continuous cardiac telemetry and pulse oximetry. Supplemental oxygen as needed to maintain saturations greater than 92%; currently on room air. Xopenex available as needed for shortness of breath. Tylenol as needed for fever. (2) Sepsis Qualifiers: Sepsis type: sepsis due to unspecified organism Qualified Code(s): A41.9 - Sepsis, unspecified organism Is this a current diagnosis for this admission?: Yes Plan: Resolved. Sepsis due to UTI and possible aspiration who presented with fever, decreased mental alertness, hypoxia of 80% while on room air per EMS, thrombocytopenia, leukocytosis, acute kidney injury, and elevated lactate. Cultures: No growth at 72 hours. Urine cultures: Pansensitive E. coli; the patient received 4 days of Rocephin. He is admitted to [facility] on continuous cardiac telemetry and pulse oximetry. Continue maintenance IV fluids. (3) Acute kidney injury Is this a current diagnosis for this admission?: Yes Plan: Resolved; likely prerenal secondary to fluid volume deficit in the setting of sepsis and advanced dementia with poor oral intake. Will monitor daily chemistry. Avoid nephrotoxic medications. (4) Leukocytosis Qualifiers: Leukocytosis type: bandemia Qualified Code(s): D72.825 - Bandemia Is this a current diagnosis for this admission?: Yes Plan: Resolved; secondary to urinary tract infection and probable aspiration pneumonia. Urine and blood cultures as above. Antibiotics as above. (5) Atrial fibrillation Qualifiers: Atrial fibrillation type: chronic Qualified Code(s): I48.2 - Chronic atrial fibrillation Is this a current diagnosis for this admission?: Yes Plan: The patient was noted to have frequent PVCs overnight with a 14 beat run of V. tach that spontaneously resolved. The patient did not receive Norvasc yesterday , therefore will discontinue Norvasc order and start patient on low-dose metoprolol. Continue daily aspirin therapy. (6) Hypertension Is this a current diagnosis for this admission?: Yes Plan: We will start metoprolol; pt did not receive norvasc yesterday. IV hydralazine as needed. (7) Type 2 diabetes mellitus Is this a current diagnosis for this admission?: Yes Plan: The patient does not appear on any medications for glucose control. Will monitor Accu-Cheks every 6 hours with Humalog for sliding scale coverage. Hypoglycemia protocol in place. (8) Abdominal tenderness Qualifiers: Abdominal location: generalized Is this a current diagnosis for this admission?: Yes Plan: Questionable abdominal tenderness on exam. Abdomen is firm and the patient does appear to grimace with palpation. Chest x-ray revealed diffuse gaseous distention of colon and small bowel under the hemidiaphragms that is questionable for ileus. Abdominal x-ray showed fecal retention/ileus. CT of the abdomen and pelvis revealed prominent stool throughout the colon and rectum, no dilated bowel loops. Surgery has been consulted; appreciate their assistance and recommendations. Will support with IV fluids and antiemetics as needed. Schedules dulcolax suppository. (9) Dementia Qualifiers: Dementia type: unspecified type Is this a current diagnosis for this admission?: Yes Plan: Supportive care. Fall and aspiration precautions. (10) Dehydration Is this a current diagnosis for this admission?: Yes Plan: Resolved; secondary to poor oral intake. Plan as above. (11) Protein calorie malnutrition Is this a current diagnosis for this admission?: Yes Plan: He now has a PEG; will begin tube feedings tomorrow. The patient will be monitored closely for refeeding syndrome with daily chemistry, magnesium, and phosphorus checks. Appreciate surgery's assistance and recommendations; patient is now s/p PEG placement. Appreciate registered dietitians evaluation recommendations. (12) Dysphagia Is this a current diagnosis for this admission?: Yes Plan: The patient has moderate oral and pharyngeal dysphasia in the setting of advanced dementia. The patient is at high risk of aspiration and I am concerned that his wet breath sounds and rhonchi this morning indicate that the patient is either silently aspirating or having difficulty maintaining secretions. I will speak with the today and recommend n.p.o. with nutrition per PEG only. Appreciate speech therapies evaluation and recommendations for a pured diet with honey thickened liquids using spoon only. Aspiration precautions are in place. Plan as above. (13) Full code status Is this a current diagnosis for this admission?: Yes Plan: A long and detailed discussion was had with the patient's and son. They both confirm that the patient is to remain a full code. The decline hospice or palliative care services at this time. (14) Hypernatremia Is this a current diagnosis for this admission?: Yes Plan: Resolved; secondary to fluid volume deficit. - Time Time Spent with patient: 15-24 minutes Anticipated discharge: Home with Homehealth Within: Other - When tolerating tube feeds
[2017-11-21] MEDS: METOPROLOL TARTRATE 25 MG TABLET PO SCH ×2 (10:43→22:07)
[2017-11-21] MEDS: BISACODYL 10 MG SUPP.RECT PR SCH (10:43)
[2017-11-21] MEDS: DEXTROSE 5%-1/2 NORMAL SALINE 1,000 ML IV PRN ×2 (13:55→22:44)
[2017-11-21] MEDS: PHOSPHORUS #1 250 MG TABLET PO SCH ×3 (15:32→22:09)
--- NOTE | 2017-11-21 17:29 | PDOC PROGRESS REPORT ---
Subjective Progress Note for:: 11/21/17 Subjective:: POD #2 s/p PEG Is receiving D5 infusion via PEG @ 10cc/hr, no leakage. To commence definitive tube feeds tomorrow. Reason For Visit: PNEUMONIA, LUCY Physical Exam Vital Signs: Temp Pulse Resp BP Pulse Ox 98.3 F 62 20 134/72 H 100 11/21/17 15:20 11/21/17 15:20 11/21/17 15:20 11/21/17 15:20 11/21/17 16:00 Pulse Oximeter Continuous Start: 11/17/17 14: 56 Freq: RTQ4 Status: Active Document 11/21/17 16:00 [facility] (Rec: 11/21/17 16:01 [facility] [email or web address]) Pulse Oximetry Assessment Oxygen Saturation (92-100) 100 Oxygen Flow Rate (L/min) 1 Oxygen Delivery Method Nasal Cannula Fraction of Inspired Oxygen (FIO2) 24 Equipment Usage Equipment in Use Continuous SpO2 Machine # 2 Intake & Output 11/20/17 11/21/17 11/22/17 06:59 06:59 06:59 Intake Total 1700 2120 50 Output Total 1100 1050 500 Balance 600 1070 -450 Weight 60 kg 60.2 kg General appearance: PRESENT: no acute distress, other - not following commands Head exam: PRESENT: atraumatic Respiratory exam: PRESENT: unlabored Cardiovascular exam: PRESENT: +S1, +S2 GI/Abdominal exam: PRESENT: normal bowel sounds, soft, other - PEG tube in place ; site looks clean and dry. D5 presently running into PEG @ 10cc/hr. Neurological exam: PRESENT: awake Results Laboratory Results: 11/20/17 05:04 11/21/17 03:58 11/21/17 11/21/17 02:33 03:58 Sodium 137.4 140.2 Potassium 3.2 L 3.6 Chloride 106 105 Carbon Dioxide 25 28 Anion Gap 6 7 BUN 9 8 Creatinine 0.62 0.72 Est GFR ( Amer) > 60 > 60 Est GFR (Non-Af Amer) > 60 > 60 Glucose 95 94 Calcium 8.4 8.6 Phosphorus 2.3 L Magnesium 1.6 1.6 Impressions: Abdomen X-Ray 11/17/17 00:00 IMPRESSION: Fecal retention/ileus. No free air. Abdomen/Pelvis CT 11/19/17 06:00 IMPRESSION: 1. PROMINENT STOOL THROUGHOUT THE COLON AND RECTUM. NO DILATED BOWEL LOOPS. 2. DIFFUSELY ENLARGED HETEROGENOUS PROSTATE GLAND. 3. BILATERAL PLEURAL EFFUSIONS. 4. NO OTHER SIGNIFICANT OR ACUTE FINDING IN THE ABDOMEN OR PELVIS ON CT SCAN WITH IV CONTRAST. Chest X-Ray 11/20/17 00:00 IMPRESSION: No acute findings in the chest. Assessment & Plan - Diagnosis (1) Dementia Qualifiers: Dementia type: unspecified type Is this a current diagnosis for this admission?: Yes (2) Protein calorie malnutrition Is this a current diagnosis for this admission?: Yes Plan: ok to use PEG for feeds (3) Dysphagia Is this a current diagnosis for this admission?: Yes - Plan Summary Plan Summary: Ok to use PEG Surgery will sign off for now. Please feel free to reconsult as needed.
[2017-11-21] MEDS ORDERED: CEFTRIAXONE SODIUM 1,000 MG in NORMAL SALINE 50 ML IV SCH (18:00)
[2017-11-21] MEDS: ASPIRIN 81 MG TABLET, CHEWABLE PO SCH (22:07)
[2017-11-22] MEDS ORDERED: NORMAL SALINE 1000 ML 1,000 ML IV PRN (00:47)
[2017-11-22 05:25] LABS: ANION GAP 9 (5-19); BLOOD UREA NITROGEN 6 mg/dL (7-20); CARBON DIOXIDE 25 mmol/L (22-30); CHLORIDE 103 mmol/L (98-107); GLUCOSE 105 mg/dL (75-110); MAGNESIUM 1.5 mg/dL (1.6-2.3); PHOSPHORUS 2.3 mg/dL (2.5-4.5)
[2017-11-22] MEDS ORDERED: POTASSIUM CHLORIDE 20 MEQ/15 ML UDCUP PO ONE (05:32)
[2017-11-22] MEDS: LANSOPRAZOLE 15 MG TAB.RAP.DR PO SCH ×2 (06:20→17:09)
[2017-11-22] MEDS: HEPARIN SOD (PORCINE) 5,000 UNIT/ML 1 ML SYRINGE SUBCUT SCH ×3 (06:20→22:07)
[2017-11-22] MEDS: MAGNESIUM SULFATE/D5W 1 GM/100 ML RTUPB IV SCH ×2 (06:21→06:24)
[2017-11-22] MEDS: PHOSPHORUS #1 250 MG TABLET PO SCH ×4 (07:59→22:07)
[2017-11-22] MEDS: DEXTROSE 5%-1/2 NORMAL SALINE 1,000 ML IV PRN ×2 (08:00→18:32)
[2017-11-22] MEDS: POTASSI CL 20 MEQ/50 ML RIDER 20 MEQ/50 ML RTUPB IV SCH ×2 (08:00→11:24)
[2017-11-22] MEDS ORDERED: SODIUM PHOS,M-BASIC-D-BASIC 15 MMOL in NORMAL SALINE 250 ML IV ONE (09:30)
[2017-11-22] MEDS: BISACODYL 10 MG SUPP.RECT PR SCH (11:24)
[2017-11-22] MEDS: METOPROLOL TARTRATE 25 MG TABLET PO SCH ×2 (11:24→22:06)
--- NOTE | 2017-11-22 12:29 | PDOC PROGRESS REPORT ---
Subjective Progress Note for:: 11/22/17 Subjective:: The patient is an 86-year-old male with a past medical history of atrial fibrillation, hypertension, type 2 diabetes mellitus, and advanced dementia is minimally verbal and disoriented 4 at his baseline who is admitted on 11/17/17 with hypoxia, presumed pneumonia, UTI, and acute renal failure. Acute illnesses have now resolved. The patient has had a PEG tube placed. The patient is seen on rounds resting in bed comfortably. He is currently on room air and maintaining oxygen saturations. His family is not present at this time. He does wake easily, makes eye contact, and smiles at me. He is in no apparent discomfort or distress. Reason For Visit: PNEUMONIA, LUCY Physical Exam Vital Signs: Temp Pulse Resp BP Pulse Ox 98.0 F 73 16 128/66 H 96 11/22/17 11:02 11/22/17 11:02 11/22/17 11:02 11/22/17 11:02 11/22/17 11:02 Pulse Oximeter Continuous Start: 11/17/17 14: 56 Freq: RTQ4 Status: Active Document 11/22/17 07:41 LDA (Rec: 11/22/17 07:42 LDA [email or web address]) Pulse Oximetry Assessment Oxygen Saturation (92-100) 99 Oxygen Delivery Method Room Air Fraction of Inspired Oxygen (FIO2) 21 Equipment Usage Equipment in Use Continuous SpO2 Machine # 2 Intake & Output 11/21/17 11/22/17 11/23/17 06:59 06:59 06:59 Intake Total 2120 2020 10 Output Total 1050 1500 200 Balance 1070 520 -190 Weight 60.2 kg 62.4 kg General appearance: PRESENT: no acute distress, thin, well-developed Head exam: PRESENT: atraumatic, normocephalic Eye exam: PRESENT: conjunctiva pink, EOMI, PERRLA. ABSENT: scleral icterus Ear exam: PRESENT: normal external ear exam Mouth exam: PRESENT: moist, tongue midline Neck exam: ABSENT: carotid bruit, JVD, lymphadenopathy, thyromegaly Respiratory exam: PRESENT: rhonchi, symmetrical, unlabored. ABSENT: rales, wheezes Cardiovascular exam: PRESENT: RRR, +S1, +S2. ABSENT: diastolic murmur, rubs, systolic murmur Pulses: PRESENT: normal dorsalis pedis pul Vascular exam: PRESENT: normal capillary refill GI/Abdominal exam: PRESENT: normal bowel sounds, soft. ABSENT: distended, guarding, mass, organolmegaly, rebound, tenderness Rectal exam: PRESENT: deferred Extremities exam: PRESENT: full ROM. ABSENT: calf tenderness, clubbing, pedal edema Neurological exam: PRESENT: alert, awake. ABSENT: oriented to person, oriented to place, oriented to time, oriented to situation, motor sensory deficit Psychiatric exam: PRESENT: appropriate affect, normal mood. ABSENT: homicidal ideation, suicidal ideation Skin exam: PRESENT: dry, intact, warm. ABSENT: cyanosis, rash Results Laboratory Results: 11/20/17 05:04 11/22/17 03:35 11/22/17 03:35 Sodium 137.0 Potassium 3.0 L* Chloride 103 Carbon Dioxide 25 Anion Gap 9 BUN 6 L Creatinine 0.67 Est GFR ( Amer) > 60 Est GFR (Non-Af Amer) > 60 Glucose 105 Calcium 8.0 L Phosphorus 2.3 L Magnesium 1.5 L Impressions: Abdomen X-Ray 11/17/17 00:00 IMPRESSION: Fecal retention/ileus. No free air. Abdomen/Pelvis CT 11/19/17 06:00 IMPRESSION: 1. PROMINENT STOOL THROUGHOUT THE COLON AND RECTUM. NO DILATED BOWEL LOOPS. 2. DIFFUSELY ENLARGED HETEROGENOUS PROSTATE GLAND. 3. BILATERAL PLEURAL EFFUSIONS. 4. NO OTHER SIGNIFICANT OR ACUTE FINDING IN THE ABDOMEN OR PELVIS ON CT SCAN WITH IV CONTRAST. Chest X-Ray 11/20/17 00:00 IMPRESSION: No acute findings in the chest. Assessment & Plan - Diagnosis (1) Acute respiratory failure with hypoxia Is this a current diagnosis for this admission?: Yes Plan: Resolved. Blood cultures: No growth at 4 days Repeat chest x-ray today did not show any acute findings. Was admitted to [facility] on continuous cardiac telemetry and pulse oximetry. Supplemental oxygen as needed to maintain saturations greater than 92%; currently on room air. Xopenex available as needed for shortness of breath. Tylenol as needed for fever. (2) Sepsis Qualifiers: Sepsis type: sepsis due to unspecified organism Qualified Code(s): A41.9 - Sepsis, unspecified organism Is this a current diagnosis for this admission?: Yes Plan: Resolved. Sepsis due to UTI and possible aspiration who presented with fever, decreased mental alertness, hypoxia of 80% while on room air per EMS, thrombocytopenia, leukocytosis, acute kidney injury, and elevated lactate. Cultures: No growth at 72 hours. Urine cultures: Pansensitive E. coli; the patient received 4 days of Rocephin. He is admitted to [facility] on continuous cardiac telemetry and pulse oximetry. (3) Acute kidney injury Is this a current diagnosis for this admission?: Yes Plan: Resolved; likely prerenal secondary to fluid volume deficit in the setting of sepsis and advanced dementia with poor oral intake. Will monitor daily chemistry. Avoid nephrotoxic medications. (4) Leukocytosis Qualifiers: Leukocytosis type: bandemia Qualified Code(s): D72.825 - Bandemia Is this a current diagnosis for this admission?: Yes Plan: Resolved; secondary to urinary tract infection and probable aspiration pneumonia. Urine and blood cultures as above. Antibiotics as above. (5) Atrial fibrillation Qualifiers: Atrial fibrillation type: chronic Qualified Code(s): I48.2 - Chronic atrial fibrillation Is this a current diagnosis for this admission?: Yes Plan: Continues to have frequent PVCs, no further episodes of V. tach. Continue metoprolol Continue daily aspirin therapy. (6) Hypertension Is this a current diagnosis for this admission?: Yes Plan: Continue metoprolol. IV hydralazine as needed. (7) Type 2 diabetes mellitus Is this a current diagnosis for this admission?: Yes Plan: The patient does not appear on any medications for glucose control. Will monitor Accu-Cheks every 6 hours with Humalog for sliding scale coverage. Hypoglycemia protocol in place. (8) Abdominal tenderness Qualifiers: Abdominal location: generalized Is this a current diagnosis for this admission?: Yes Plan: Questionable abdominal tenderness on exam. Abdomen is firm and the patient does appear to grimace with palpation. Chest x-ray revealed diffuse gaseous distention of colon and small bowel under the hemidiaphragms that is questionable for ileus. Abdominal x-ray showed fecal retention/ileus. CT of the abdomen and pelvis revealed prominent stool throughout the colon and rectum, no dilated bowel loops. Surgery has been consulted; appreciate their assistance and recommendations. Will support with IV fluids and antiemetics as needed. Schedules dulcolax suppository. (9) Dementia Qualifiers: Dementia type: unspecified type Is this a current diagnosis for this admission?: Yes Plan: Supportive care. Fall and aspiration precautions. (10) Dehydration Is this a current diagnosis for this admission?: Yes Plan: Resolved; secondary to poor oral intake. Plan as above. (11) Protein calorie malnutrition Is this a current diagnosis for this admission?: Yes Plan: He now has a PEG; have started tube feeding. The patient will be monitored closely for refeeding syndrome with daily chemistry, magnesium, and phosphorus checks. Appreciate surgery's assistance and recommendations; patient is now s/p PEG placement. Appreciate registered dietitians evaluation recommendations. (12) Dysphagia Is this a current diagnosis for this admission?: Yes Plan: The patient has moderate oral and pharyngeal dysphasia in the setting of advanced dementia. The patient is at high risk of aspiration and I am concerned that his wet breath sounds and rhonchi this morning indicate that the patient is either silently aspirating or having difficulty maintaining secretions. I will speak with the today and recommend n.p.o. with nutrition per PEG only. Appreciate speech therapies evaluation and recommendations for a pured diet with honey thickened liquids using spoon only. Aspiration precautions are in place. Plan as above. (13) Full code status Is this a current diagnosis for this admission?: Yes Plan: A long and detailed discussion was had with the patient's and son. They both confirm that the patient is to remain a full code. The decline hospice or palliative care services at this time. (14) Hypernatremia Is this a current diagnosis for this admission?: Yes (15) Hypokalemia Is this a current diagnosis for this admission?: Yes Plan: We will monitor closely and replete as necessary. (16) Hypomagnesemia Is this a current diagnosis for this admission?: Yes Plan: We will monitor closely and replete as necessary. - Time Time Spent with patient: 15-24 minutes Anticipated discharge: Home
[2017-11-22] MEDS ORDERED: MAGNESIUM SULFATE/D5W 1 GM/100 ML RTUPB IV ONE (15:00)
[2017-11-22] MEDS: ACETAMINOPHEN 325 MG TABLET PO PRN (22:06)
[2017-11-22] MEDS: ASPIRIN 81 MG TABLET, CHEWABLE PO SCH (22:06)
[2017-11-23 05:13] LABS: ABSOLUTE LYMPHOCYTES (AUTO) 0.8 10^3/uL (0.5-4.7); ABSOLUTE MONOCYTES (AUTO) 0.3 10^3/uL (0.1-1.4); ABSOLUTE NEUT (AUTO) 7.1 10^3/uL (1.7-8.2); BASOPHILS % (AUTO) 0.2 % (0-2); EOSINOPHILS % (AUTO) 0.1 % (0-6); HEMATOCRIT 33.9 % (37.9-51.0); HEMOGLOBIN 11.7 g/dL (13.5-17.0); LYMPHOCYTES % (AUTO) 10.2 % (13-45); MEAN CORPUSCULAR HEMOGLOBIN 31.7 pg (27.0-33.4); MEAN CORPUSCULAR HGB CONC 34.4 g/dL (32.0-36.0); MEAN CORPUSCULAR VOLUME 92 fl (80-97); MONOCYTES % (AUTO) 3.3 % (3-13); PLATELET COUNT 183 10^3/uL (150-450); RED BLOOD COUNT 3.68 10^6/uL (4.35-5.55); RED CELL DISTRIBUTION WIDTH 14.4 % (11.5-14.0); SEGMENTED NEUTROPHILS % (AUTO) 86.2 % (42-78); TOTAL CELLS COUNTED % (AUTO) 100 %; WHITE BLOOD COUNT 8.3 10^3/uL (4.0-10.5)
[2017-11-23 05:39] LABS: ALANINE AMINOTRANSFERASE 36 U/L (21-72); ALBUMIN 2.9 g/dL (3.5-5.0); ALKALINE PHOSPHATASE 63 U/L (38-126); ANION GAP 7 (5-19); ASPARTATE AMINO TRANSFERASE 30 U/L (17-59); BILIRUBIN,DIRECT 0.4 mg/dL (0.0-0.4); BILIRUBIN,TOTAL 0.7 mg/dL (0.2-1.3); BLOOD UREA NITROGEN 9 mg/dL (7-20); CALCIUM 8.4 mg/dL (8.4-10.2); CARBON DIOXIDE 27 mmol/L (22-30); CHLORIDE 103 mmol/L (98-107); GLUCOSE 128 mg/dL (75-110); MAGNESIUM 1.8 mg/dL (1.6-2.3); PHOSPHORUS 3.1 mg/dL (2.5-4.5); POTASSIUM 3.6 mmol/L (3.6-5.0); SODIUM 137.2 mmol/L (137-145); TOTAL PROTEIN 5.8 g/dL (6.3-8.2)
[2017-11-23] MEDS: HEPARIN SOD (PORCINE) 5,000 UNIT/ML 1 ML SYRINGE SUBCUT SCH ×3 (06:01→22:21)
[2017-11-23] MEDS: LANSOPRAZOLE 15 MG TAB.RAP.DR PO SCH ×2 (06:02→17:21)
[2017-11-23] MEDS ORDERED: PHOSPHORUS #1 250 MG TABLET PO ONE (09:00)
[2017-11-23] MEDS: METOPROLOL TARTRATE 25 MG TABLET PO SCH ×2 (11:35→22:20)
[2017-11-23] MEDS: BISACODYL 10 MG SUPP.RECT PR SCH (11:35)
[2017-11-23] MEDS: PHOSPHORUS #1 250 MG TABLET PO SCH ×3 (12:49→22:20)
--- NOTE | 2017-11-23 19:01 | PDOC PROGRESS REPORT ---
Subjective Progress Note for:: 11/23/17 Subjective:: ALTERED MENTAL STATUS Reason For Visit: PNEUMONIA, LUCY Physical Exam Vital Signs: Temp Pulse Resp BP Pulse Ox 98.7 F 89 16 126/71 H 99 11/23/17 16:00 11/23/17 16:00 11/23/17 16:00 11/23/17 16:00 11/23/17 16:13 Pulse Oximeter Continuous Start: 11/17/17 14: 56 Freq: RTQ4 Status: Active Document 11/23/17 16:13 TPO (Rec: 11/23/17 16:14 TPO [email or web address]) Pulse Oximetry Assessment Oxygen Saturation (92-100) 99 Oxygen Flow Rate (L/min) 1 Oxygen Delivery Method Nasal Cannula Fraction of Inspired Oxygen (FIO2) 24 Equipment Usage Equipment in Use Continuous SpO2 Machine # 2 Intake & Output 11/22/17 11/23/17 11/24/17 06:59 06:59 06:59 Intake Total 2020 2450 985 Output Total 1500 625 425 Balance 520 1825 560 Weight 62.4 kg 63.7 kg General appearance: PRESENT: thin Exam: UNDERNOURISHED Head exam: PRESENT: normocephalic Eye exam: PRESENT: conjunctiva pink Mouth exam: PRESENT: dry mucosa Teeth exam: PRESENT: poor dentation Neck exam: ABSENT: full ROM Respiratory exam: PRESENT: unlabored, other - COARSE LUNG SOUNDS Cardiovascular exam: PRESENT: +S1, +S2 Pulses: PRESENT: normal carotid pulses, +1 pedal pulses bilateral GI/Abdominal exam: PRESENT: normal bowel sounds, soft, other - TTP AROUND NEW PEG SITE Rectal exam: PRESENT: deferred Extremities exam: PRESENT: other - LEGS CONTRACTED. PATIENT IS BEDBOUND Musculoskeletal exam: PRESENT: deformity Neurological exam: PRESENT: aphasic Results Laboratory Results: 11/23/17 04:27 11/23/17 04:27 11/23/17 11/23/17 04:27 04:27 WBC 8.3 RBC 3.68 L Hgb 11.7 L Hct 33.9 L MCV 92 MCH 31.7 MCHC 34.4 RDW 14.4 H Plt Count 183 Seg Neutrophils % 86.2 H Lymphocytes % 10.2 L Monocytes % 3.3 Eosinophils % 0.1 Basophils % 0.2 Absolute Neutrophils 7.1 Absolute Lymphocytes 0.8 Absolute Monocytes 0.3 Absolute Eosinophils 0.0 Absolute Basophils 0.0 Sodium 137.2 Potassium 3.6 Chloride 103 Carbon Dioxide 27 Anion Gap 7 BUN 9 Creatinine 0.84 Est GFR ( Amer) > 60 Est GFR (Non-Af Amer) > 60 Glucose 128 H Calcium 8.4 Phosphorus 3.1 Magnesium 1.8 Total Bilirubin 0.7 AST 30 ALT 36 Alkaline Phosphatase 63 Total Protein 5.8 L Albumin 2.9 L Impressions: Abdomen X-Ray 11/17/17 00:00 IMPRESSION: Fecal retention/ileus. No free air. Abdomen/Pelvis CT 11/19/17 06:00 IMPRESSION: 1. PROMINENT STOOL THROUGHOUT THE COLON AND RECTUM. NO DILATED BOWEL LOOPS. 2. DIFFUSELY ENLARGED HETEROGENOUS PROSTATE GLAND. 3. BILATERAL PLEURAL EFFUSIONS. 4. NO OTHER SIGNIFICANT OR ACUTE FINDING IN THE ABDOMEN OR PELVIS ON CT SCAN WITH IV CONTRAST. Chest X-Ray 11/20/17 00:00 IMPRESSION: No acute findings in the chest. Assessment & Plan - Diagnosis (1) Acute respiratory failure with hypoxia Is this a current diagnosis for this admission?: Yes Plan: Resolved. Chest xray did not show any acute findings. Supplemental oxygen for SpO2 >92%. Xopenex available for SOB. (2) Sepsis Qualifiers: Sepsis type: sepsis due to unspecified organism Qualified Code(s): A41.9 - Sepsis, unspecified organism Is this a current diagnosis for this admission?: Yes Plan: RESOLVED. Sepsis due to UTI and possible aspiration who presented with fever, AMS, hypoxia of 80% while on RA. Cultures: no growth at 72 hours. Uinre cultures : PANsensitive e. coli; patient received 4 days of Rocephin (3) Abdominal tenderness Qualifiers: Abdominal location: generalized Is this a current diagnosis for this admission?: Yes Plan: Abdomen TTP around the PEG site. Chest xray revealed diffuse gaseaous distention of the colon and small bowel under hemidiaphragms - questionable for ileus. Abdominal xray shows fecal retention/ileus. CT ABD revealed prominent stool throughout the colon (4) Acute kidney injury Is this a current diagnosis for this admission?: Yes Plan: Resolved; like prerenal secondary to fluid volume defecit in the setting of sepsis and advanced dementia with poor oral intake. avoid nephrotoxic medications (5) Full code status Is this a current diagnosis for this admission?: Yes Plan: is adamant that the patient remain a full code. willing to accept home health to assist with feeding pump. does not want palliative or hospice (6) Hypertension Is this a current diagnosis for this admission?: Yes Plan: Continue metoprolol. IV hydralazine as needed (7) Type 2 diabetes mellitus Is this a current diagnosis for this admission?: Yes Plan: no medications for glucose control. hypoglycemia protocol - Time Time Spent with patient: 25-34 minutes Anticipated discharge: Home with Homehealth Within: within 24 hours - Inpatient Certification Based on my medical assessment, after consideration of the patient's comorbidities, presenting symptoms, or acuity I expect that the services needed warrant INPATIENT care.: Yes I certify that my determination is in accordance with my understanding of Medicare's requirements for reasonable and necessary INPATIENT services [42 CFR 412.3e].: Yes Medical Necessity: Need Close Monitoring Due to Risk of Patient Decompensation - Plan Summary Plan Summary: Patient should achieve enteral feeding goal tonight. If he tolerates the feedings, he can go home tomorrow with home health. is comfortable with this plan. Case management aware.
[2017-11-23] MEDS: ASPIRIN 81 MG TABLET, CHEWABLE PO SCH (22:20)
[2017-11-24] MEDS: HEPARIN SOD (PORCINE) 5,000 UNIT/ML 1 ML SYRINGE SUBCUT SCH (06:05)
[2017-11-24] MEDS: LANSOPRAZOLE 15 MG TAB.RAP.DR PO SCH (06:05)
[2017-11-24] MEDS: METOPROLOL TARTRATE 25 MG TABLET PO SCH (10:12)
[2017-11-24] MEDS: PHOSPHORUS #1 250 MG TABLET PO SCH ×2 (10:12→13:00)
[2017-11-24] MEDS: BISACODYL 10 MG SUPP.RECT PR SCH (10:12)
[2017-11-24] MEDS: DEXTROSE 5%-1/2 NORMAL SALINE 1,000 ML IV PRN (10:21)
[2017-11-24 14:58] VITALS: BP 126/74
--- NOTE | 2017-11-25 08:17 | PDOC DISCHARGE SUMMARY ---
General - Admit/Disc Date/PCP Admission Date/Primary Care Provider: 11/17/17 15:17 Discharge Date: 11/24/17 - Discharge Diagnosis (1) Acute respiratory failure with hypoxia Is this a current diagnosis for this admission?: Yes Summary: 86 year old male admitted on November 17, 2017 with hypoxia, presumed PNA. Patient was admitted to the [facility] on continuous cardiac telemetry and pulse oximetry. Supplemental oxygen as needed to maintain saturations greater than 92% . Patient completed a course of antibiotics. Xopenex available as needed for SOB. Patient was able to tolerate room air around the clock, maintaining Sp02 > 95% as long as the HOB was greater than 35 degrees. Patient does not need home O2 (2) Sepsis Is this a current diagnosis for this admission?: Yes Summary: Resolved. Sepsis due to UTI and possible aspiration who presented with fever, decreased mental alertness, thrombocytopenia, leukocytosis, acute kidney injury , and elevated lactate. Blood Cultures - no growth. Urine cultures - pansensitive e.coli, received 4 day course of Rocephin. (3) Abdominal tenderness Is this a current diagnosis for this admission?: Yes Summary: Resolved. Chest xray revealed diffuse gaseous distention of colon and small bowel under the hemidiaphragms. Questionable for ileus. Abdominal xray showed fecal retention. CT of the abdomen and pelvis revealed prominent stool through the colon and rectum, no dilated bowel loops. Patient started on dulcolax suppositories, started passing mucoid stool within 24 hours of enteral feeding. Prior to discharge, Abdomen is soft and patient did not grimace upon palpation. (4) Acute kidney injury Is this a current diagnosis for this admission?: Yes Summary: Likely prerenal secondary to fluid volume deficit in the setting of sepsis and poor oral intake related to advanced dementia (5) Full code status Is this a current diagnosis for this admission?: Yes Summary: has maintained that she would like the patient to remain a full code. She is not interested in palliative care or hospice (6) Hypertension Is this a current diagnosis for this admission?: Yes Summary: Once sepsis was resolved, patient became HYPERtensive. Was started on metoprolol , continue after discharge. Instructed to follow up with PMD within 1-2 weeks to make adjustments to BP medication as needed (7) Type 2 diabetes mellitus Is this a current diagnosis for this admission?: Yes Summary: The patient was not on medication for glucose control despite hx of type 2 DM. Patient was started on sliding scale insulin while at [facility] but did not require it at any time. instructed to follow up with PMD about diabetes management - Additional Information Resuscitation Status: Full Code Discharge Diet: Other (Comments) Discharge Activity: Activity As Tolerated Prescriptions: Bisacodyl [Dulcolax 10 mg Supp.rect] 10 mg DE PRN PRN #15 supp.rect PRN Reason: Metoprolol Tartrate [Lopressor 25 mg Tablet] 12.5 mg PO Q12 #30 tablet Home Medications: Donepezil HCl [Aricept] 5 mg PO QHS 11/17/17 Bisacodyl [Dulcolax 10 mg Supp.rect] 10 mg DE PRN PRN #15 supp.rect 11/24/17 Metoprolol Tartrate [Lopressor 25 mg Tablet] 12.5 mg PO Q12 #30 tablet 11/24/17 History of Present Illness History of Present Illness: ARY HYLTON is a 86 year old male Hospital Course Hospital Course: The patient is an 86 year old male with a PMH of AF, HTN, type 2 DM, advanced dementia, and is minimally verbal/disoriented x 4 at baseline. The patient was admitted 11/17/2017 with hypoxia, presumed PNA, sepsis, UTI, and ARF. Patient received antibiotics for UTI. No evidence of infectious PNA was ever discovered , respiratory status was supposed with [place] oxygen, and prerenal ARF was resolved after IVF. Patient was obviously malnourished and was not able to keep up with his nutritional needs. A PEG tube was placed to administer enteral feeding. Discharge planning assisted in the coordination of a home health aide, and the enteral feeding setup at home. states she is comfortable with this arrangement Physical Exam Vital Signs: Temp Pulse Resp BP Pulse Ox 98.3 F 83 12 126/74 H 99 11/24/17 14:56 11/24/17 14:56 11/24/17 14:56 11/24/17 14:56 11/24/17 14:56 Pulse Oximeter Continuous Start: 11/17/17 14: 56 Freq: RTQ4 Status: Discharge Document 11/24/17 13:14 TPO (Rec: 11/24/17 13:14 TPO [email or web address]) Pulse Oximetry Assessment Oxygen Saturation (92-100) 99 Oxygen Flow Rate (L/min) 1 Oxygen Delivery Method Nasal Cannula Fraction of Inspired Oxygen (FIO2) 24 Equipment Usage Equipment in Use Continuous SpO2 Machine # 2 Intake & Output 11/24/17 11/25/17 11/26/17 06:59 06:59 06:59 Intake Total 2195 580 Output Total 875 Balance 1320 580 Weight 65.1 kg General appearance: PRESENT: no acute distress Head exam: PRESENT: normocephalic Eye exam: PRESENT: conjunctiva pink Mouth exam: PRESENT: moist Teeth exam: PRESENT: poor dentation Neck exam: PRESENT: full ROM Respiratory exam: PRESENT: clear to auscultation enoch Cardiovascular exam: PRESENT: +S1, +S2 Pulses: PRESENT: normal radial pulses Vascular exam: PRESENT: normal capillary refill GI/Abdominal exam: PRESENT: soft Extremities exam: PRESENT: +1 edema Musculoskeletal exam: PRESENT: other - bedbound Neurological exam: PRESENT: awake, other - disoriented Psychiatric exam: PRESENT: flat affect Focused psych exam: PRESENT: catatonic Results Laboratory Results: 11/23/17 04:27 11/23/17 04:27 Impressions: Abdomen X-Ray 11/17/17 00:00 IMPRESSION: Fecal retention/ileus. No free air. Abdomen/Pelvis CT 11/19/17 06:00 IMPRESSION: 1. PROMINENT STOOL THROUGHOUT THE COLON AND RECTUM. NO DILATED BOWEL LOOPS. 2. DIFFUSELY ENLARGED HETEROGENOUS PROSTATE GLAND. 3. BILATERAL PLEURAL EFFUSIONS. 4. NO OTHER SIGNIFICANT OR ACUTE FINDING IN THE ABDOMEN OR PELVIS ON CT SCAN WITH IV CONTRAST. Chest X-Ray 11/20/17 00:00 IMPRESSION: No acute findings in the chest. Status: Imported from PACS Qualifiers PATEINT BEING DISCHARGED WITH ANY OF THE FOLLOWING DIAGNOSIS?: No Plan Discharge Plan: Patient discharged home with home health aide. Kangaroo pump and enteral feeding to be setup at home by home health agency. Discharge planning assisted in arranging medical transport back to residence Time Spent: Greater than 30 Minutes
== END 2017-11-24 15:35 | disposition home health service (06) | DRG 871 ==
LOC: ER 11:10 → EH 15:17 → 3N 18:41
PROVIDERS: ADMIT Emergency Medicine; ATTEND Emergency Medicine
PROC: 0DH63UZ Insertion of Feeding Device into Stomach, Percutaneous Approach (ICD-10-PCS; principal; 2017-11-19 12:00)
DX: A41.9 Sepsis, unspecified organism (principal); J18.9 Pneumonia, unspecified organism; J96.01 Acute respiratory failure with hypoxia; N39.0 Urinary tract infection, site not specified; E87.0 Hyperosmolality and hypernatremia; E46 Unspecified protein-calorie malnutrition; N17.9 Acute kidney failure, unspecified; I48.2 Chronic atrial fibrillation; F03.90 Unspecified dementia, unspecified severity, without behavioral disturbance, psychotic disturbance, mood disturbance, and anxiety; R13.13 Dysphagia, pharyngeal phase; E86.0 Dehydration; E11.9 Type 2 diabetes mellitus without complications; I10 Essential (primary) hypertension; D72.825 Bandemia; D69.59 Other secondary thrombocytopenia; E83.42 Hypomagnesemia; E87.6 Hypokalemia; I48.91 Unspecified atrial fibrillation; B96.20 Unspecified Escherichia coli [E. coli] as the cause of diseases classified elsewhere; F43.10 Post-traumatic stress disorder, unspecified; I25.2 Old myocardial infarction; Z95.5 Presence of coronary angioplasty implant and graft; Z95.0 Presence of cardiac pacemaker; Z79.82 Long term (current) use of aspirin; Z68.22 Body mass index [BMI] 22.0-22.9, adult; Z74.01 Bed confinement status
CPT/HCPCS: 36415; 43246; 51702; 71045; 74019; 74177; 80048; 80053; 81001; 82803; 82962; 83605; 83735; 84100; 85025; 85610; 87040; 87086; 87088; 87186; 87804; 93005; 93010; 94640; 94762; 96361; 96365; 99285; G8996-GN; G8997-GN; G8998-GN; J0171; J0456; J0696; J1610; J1644; J1956; J2250; J2310; J2405; J3010; J3475; J3480; J3490; J7030; J7050; J7060; J7620

== ENCOUNTER 2018-03-24 15:01 | Observation (INO) | payer MEDICARE, OTHER ==
--- NOTE | 2018-03-24 15:27 | RADIOLOGY REPORT (SQ) ---
EXAM DESCRIPTION: CT HEAD WITHOUT COMPLETED DATE/TIME: 03/24/2018 3:10 pm REASON FOR STUDY: bed t2 stroke/tpa alert COMPARISON: None. TECHNIQUE: Axial images acquired through the brain without intravenous contrast. Images reviewed wi th bone, brain and subdural windows. Additional sagittal and coronal reconstructions were generated. Images stored on PACS. All CT scanners at this facility use dose modulation, iterative reconstruction, and/or weight based d osing when appropriate to reduce radiation dose to as low as reasonably achievable (ALARA). [facility]: Dose Right [facility]: CareDose [facility]: Dose Right [facility]: Teradose 4D [facility]: Smart velingo RADIATION DOSE: CT Rad equipment meets quality standard of care and radiation dose reduction techniq ues were employed. CTDIvol: 23.1 mGy. DLP: 510 mGy-cm.mGy. LIMITATIONS: None. FINDINGS: VENTRICLES: Prominent. CEREBRUM: No masses. No hemorrhage. No midline shift. Areas of low density in the white matter mos t likely due to chronic micro-vascular ischemic change. No evidence for acute infarction. CEREBELLUM: No masses. No hemorrhage. No alteration of density. No evidence for acute infarction. EXTRAAXIAL SPACES: Age-related involutional change. No fluid collections. No masses. ORBITS AND GLOBE: No intra- or extraconal masses. Normal contour of globe without masses. CALVARIUM: No fracture. PARANASAL SINUSES: No fluid or mucosal thickening. SOFT TISSUES: No mass or hematoma. OTHER: No other significant finding. IMPRESSION: CHRONIC CHANGES OF ATROPHY AND MICROVASCULAR ISCHEMIA. NO ACUTE PROCESS. EVIDENCE OF ACUTE STROKE: NO. COMMENT: Pertinent positive or negative findings of the imaging study reported as a CRITICAL EXAM t o ER PROVIDER at15:18 on 03/24/2018. Category of Critical Exam: Stroke alert TECHNICAL DOCUMENTATION: JOB ID: [id number] Quality ID # [id number]: Final reports with documentation of one or more dose reduction techniques (e.g., Au tomated exposure control, adjustment of the mA and/or kV according to patient size, use of iterative reconstruction technique) 2010 [employer]- All Rights Reserved Reading location - IP/workstation name: [email or web address]
--- NOTE | 2018-03-24 15:31 | RADIOLOGY REPORT (SQ) ---
EXAM DESCRIPTION: CHEST SINGLE VIEW COMPLETED DATE/TIME: 03/24/2018 3:13 pm REASON FOR STUDY: bed t2 stroke/tpa alert COMPARISON: November 2017 EXAM PARAMETERS: NUMBER OF VIEWS: One view. TECHNIQUE: Single frontal radiographic view of the chest acquired. RADIATION DOSE: NA LIMITATIONS: None. FINDINGS: LUNGS AND PLEURA: No opacities, masses or pneumothorax. No pleural effusion. MEDIASTINUM AND HILAR STRUCTURES: No masses. Contour normal. HEART AND VASCULAR STRUCTURES: Heart normal in size. Normal vasculature. BONES: No acute findings. HARDWARE: Pool chamber transvenous pacemaker is unchanged in position. OTHER: No other significant finding. IMPRESSION: NO ACUTE RADIOGRAPHIC FINDING IN THE CHEST. TECHNICAL DOCUMENTATION: JOB ID: [id number] [employer]- All Rights Reserved Reading location - IP/workstation name: [email or web address]
[2018-03-24] MEDS ORDERED: NORMAL SALINE 1000 ML 1,000 ML IV ONE (15:54)
--- NOTE | 2018-03-24 15:54 | ER Document Report ---
ED General - General Mode of Arrival: Medic Information source: Emergency Med Personnel TRAVEL OUTSIDE OF THE [place] IN LAST 30 DAYS: No - HPI Onset: Just prior to arrival Onset/Duration: Sudden Quality of pain: No pain Severity: None Pain Level: Denies Associated symptoms: Other - See above Exacerbated by: Denies Relieved by: Denies Similar symptoms previously: Yes Recently seen / treated by doctor: Yes <SIDDHARTH RAMOS - Last Filed: 03/24/18 16:35> <ROSALIND TIDWELL - Last Filed: 03/24/18 19:08> - General Stated Complaint: POSSIBLE STROKE Time Seen by Provider: 03/24/18 15:14 Notes: Patient is an 87-year-old male with a G-tube, severe Alzheimer's dementia, who presents from home after the family called EMS. Patient has had home health come by and replaced the bandage for an early sacral decubitus on his buttocks after which the patient supposedly "became less responsive". Patient speaks minimally at baseline according to EMS. They state by the time they got there the patient was almost back to what appears to be his baseline. There was no seizure activity, vomiting, or recent fevers. They did not see any obvious unilateral weakness. They did state that the initial monitor had a heart rate between 185 and 200. They state that the blood pressure has been stable and they did not lose pulses. (SIDDHARTH RAMOS) - Related Data Allergies/Adverse Reactions: No Known Allergies Allergy (Verified 11/17/16 18:29) Past Medical History - Social History Smoking Status: Never Smoker Cigarette use (# per day): No Chew tobacco use (# tins/day): No Smoking Education Provided: No Frequency of alcohol use: None Drug Abuse: None Family History: None - Past Medical History Cardiac Medical History: Reports: Hx Atrial Fibrillation, Hx Coronary Artery Disease - Stents, Hx Heart Attack - 2005, Hx Hypertension Pulmonary Medical History: Reports: Hx COPD Denies: Hx Asthma Neurological Medical History: Denies: Hx Cerebrovascular Accident - PTSD, DEMENTIA, Hx Seizures Endocrine Medical History: Reports: Hx Diabetes Mellitus Type 2 Renal/ Medical History: Denies: Hx Peritoneal Dialysis GI Medical History: Denies: Hx Hepatitis, Hx Hiatal Hernia, Hx Ulcer Psychiatric Medical History: Reports: Hx Dementia, Hx Post Traumatic Stress Disorder Infectious Medical History: Denies: Hx Hepatitis Past Surgical History: Reports: Hx Cardiac Surgery - stents, pacemaker, Hx Coronary Stent, Hx Pacemaker - . Denies: Hx Open Heart Surgery - Immunizations Hx Diphtheria, Pertussis, Tetanus Vaccination: Yes <SIDDHARTH RAMOS - Last Filed: 03/24/18 16:35> Review of Systems - Review of Systems -: Yes ROS unobtainable due to patient's medical condition <SIDDHARTH RAMOS - Last Filed: 03/24/18 16:35> Physical Exam <SIDDHARTH RAMOS - Last Filed: 03/24/18 16:35> <ROSALIND TIDWELL - Last Filed: 03/24/18 19:08> - Vital signs Vitals: Resp 15 03/24/18 15:15 Notes: Reviewed vital signs and nursing note as charted by RN. CONSTITUTIONAL: Alert and answers questions inappropriately using 1-2 word answers HEAD: Normocephalic; atraumatic EYES: PERRL; full extraocular range of motion ENT: Normal nose; no rhinorrhea; dry mucous membranes; pharynx without lesions noted NECK: Supple without meningismus; non-tender; carotid bruit; no cervical lymphadenopathy, no masses CARD: Regular rate and rhythm; no murmurs, no clicks, no rubs, no gallops; symmetric distal pulses RESP: Normal chest excursion without splinting or tachypnea; breath sounds clear and equal bilaterally ABD/GI: Normal bowel sounds; non-distended; soft, non-tender, G-tube in place with no surrounding insertion site erythema or induration, no rebound, no guarding; no palpable organomegaly or masses GI/: Pt has a small sacral area of erythema with no fluctuance present BACK: The back appears normal and is non-tender to palpation EXT: Normal ROM in all joints; non-tender to palpation; no edema SKIN: Normal color for age and race; no acute lesions noted NEURO: Moves all extremities equally; CN II through XII appear to be intact (SIDDHARTH RAMOS) Course - Laboratory Result Diagrams: 03/24/18 15:39 03/24/18 15:39 <SIDDHARTH RAMOS - Last Filed: 03/24/18 16:35> - Laboratory Result Diagrams: 03/24/18 15:39 03/24/18 15:39 <ROSALIND TIDWELL - Last Filed: 03/24/18 19:08> - Re-evaluation Re-evalutation: Given the above history and physical examination a possible code stroke was called from the field. Given the examination as reported, I do not believe the patient is a TPA candidate. I do not detect any focal deficits from what appears to be the baseline for the patient. Radiologist called me and states that he sees no obvious bleed or large stroke. 03/24/18 15:53 No change in examination. EKG shows a heart rate of 113, atrial fibrillation, left bundle branch block, no obvious concordance present. 03/24/18 15:59 Patient's heart rate is currently 72. Repeat EKG has been ordered. Patient has a history of atrial fibrillation, left bundle branch block, on a pacer. Patient is a full code. I was able to speak with the patient's who is at bedside. She appears to be much younger than the patient. She states that the patient has a G-tube secondary to aspiration. She states that the patient was having syncopal-like episodes which is why a pacemaker was placed. She states that the patient is back to baseline. 03/24/18 16:34 Chest x-ray shows normal heart, normal mediastinum, no fractures, normal lung ponce, no pneumothorax. 03/24/18 16:35 Vital signs are stable. No change in mental status. X-ray of the chest and CT scan is recorded. Given the syncopal-like episode with the patient's heart rate 185 by EMS, we will most likely admit the patient for observation with monitoring overnight and interrogate the pacemaker. (SIDDHARTH RAMOS) - Vital Signs Vital signs: Temp Pulse Resp BP Pulse Ox 96.9 F L 14 124/90 H 100 03/24/18 15:45 03/24/18 18:01 03/24/18 18:01 03/24/18 16:02 - Laboratory Laboratory results interpreted by me: 03/24/18 03/24/18 03/24/18 15:39 15:39 18:20 WBC 3.4 L RBC 4.29 L RDW 14.9 H Sodium 135.7 L BUN 25 H Albumin 3.3 L Urine Ascorbic Acid 20 H Discharge <SIDDHARTH RAMOS - Last Filed: 03/24/18 16:35> - Discharge Admitting Provider: Hospitalist Unit Admitted: IMCU <ROSALIND TIDWELL - Last Filed: 03/24/18 19:08> - Discharge Clinical Impression: TIA (transient ischemic attack) Qualifiers: Transient cerebral ischemia type: unspecified Qualified Code(s): G45.9 - Transient cerebral ischemic attack, unspecified Condition: Stable Disposition: ADMITTED OBSERVATION
[2018-03-24 15:55] LABS: INTERNATIONAL RATION (INR) 1.11
[2018-03-24 15:56] LABS: PARTIAL THROMBOPLASTIN TIME 25.4 SEC (23.5-35.8)
[2018-03-24 15:57] LABS: ABSOLUTE LYMPHOCYTES (AUTO) 1.5 10^3/uL (0.5-4.7); ABSOLUTE MONOCYTES (AUTO) 0.2 10^3/uL (0.1-1.4); ABSOLUTE NEUT (AUTO) 1.7 10^3/uL (1.7-8.2); BASOPHILS % (AUTO) 0.7 % (0-2); EOSINOPHILS % (AUTO) 0.6 % (0-6); HEMOGLOBIN 13.5 g/dL (13.5-17.0); LYMPHOCYTES % (AUTO) 43.1 % (13-45); MEAN CORPUSCULAR HEMOGLOBIN 31.4 pg (27.0-33.4); MEAN CORPUSCULAR HGB CONC 33.6 g/dL (32.0-36.0); MEAN CORPUSCULAR VOLUME 93 fl (80-97); MONOCYTES % (AUTO) 5.3 % (3-13); PLATELET COUNT 197 10^3/uL (150-450); RED BLOOD COUNT 4.29 10^6/uL (4.35-5.55); RED CELL DISTRIBUTION WIDTH 14.9 % (11.5-14.0); SEGMENTED NEUTROPHILS % (AUTO) 50.3 % (42-78); TOTAL CELLS COUNTED % (AUTO) 100 %; WHITE BLOOD COUNT 3.4 10^3/uL (4.0-10.5)
[2018-03-24 16:00] LABS: PROTHROMBIN TIME 14.9 SEC (11.4-15.4)
[2018-03-24 16:21] LABS: ALANINE AMINOTRANSFERASE 33 U/L (21-72); ALBUMIN 3.3 g/dL (3.5-5.0); ALKALINE PHOSPHATASE 53 U/L (38-126); ANION GAP 9 (5-19); ASPARTATE AMINO TRANSFERASE 30 U/L (17-59); BILIRUBIN,DIRECT 0.3 mg/dL (0.0-0.4); BILIRUBIN,TOTAL 0.4 mg/dL (0.2-1.3); BLOOD UREA NITROGEN 25 mg/dL (7-20); CARBON DIOXIDE 29 mmol/L (22-30); CHLORIDE 98 mmol/L (98-107); CREATINE KINASE 55 U/L (55-170); GLUCOSE 104 mg/dL (75-110); POTASSIUM 4.6 mmol/L (3.6-5.0); SODIUM 135.7 mmol/L (137-145); TOTAL PROTEIN 6.5 g/dL (6.3-8.2)
[2018-03-24 16:31] LABS: CREATINE KINASE MB 0.79 ng/mL (<4.55)
[2018-03-24 16:35] LABS: TROPONIN I < 0.012 ng/mL
[2018-03-24] MEDS ORDERED: ONDANSETRON HCL INJ/PF 4 MG/2 ML SDV IV PRN (18:02)
[2018-03-24] MEDS ORDERED: ACETAMINOPHEN 650 MG SUPP.RECT PR PRN (18:02)
--- NOTE | 2018-03-24 18:19 | PDOC H&P ---
History of Present Illness Admission Date/PCP: 03/24/2018 Patient complains of: Change in mental status History of Present Illness: ARY HYLTON is a 87 year old male history of sick sinus syndrome, permanent pacemaker insertion, glaucoma, aspiration pneumonia, severe dementia and stage I sacral wound. He is nonverbal due to dementia. History is obtained from the . His states he was seen by the home health nurse for his stage I decubitus earlier this afternoon. She noted him to be altered. He was not responding to verbal or tactile stimuli. His states he had a blank stare. She therefore called 911. EMS notes his heart rate to be elevated when they picked him up. He is a history of atrial fibrillation. When they placed him on monitor he was sinus tach in the 120s. His mentation had returned to baseline. She states he now is presently at his baseline mentation. Past Medical History Cardiac Medical History: Reports: Atrial Fibrillation, Coronary Artery Disease - Stents, Myocardial Infarction - 2004, Hypertension Pulmonary Medical History: Reports: Chronic Obstructive Pulmonary Disease (COPD) Denies: Asthma EENT Medical History: Reports: Cataracts Neurological Medical History: Reports: None Denies: Seizures Endocrine Medical History: Reports: Diabetes Mellitus Type 2 Renal/ Medical History: Reports: None Malignancy Medical History: Reports: None GI Medical History: Reports: None Denies: Hepatitis, Hiatal Hernia Skin Medical History: Reports: None Psychiatric Medical History: Reports: Dementia, Post Traumatic Stress Disorder Traumatic Medical History: Reports: None Hematology: Denies: Anemia, Sickle Cell Disease Past Surgical History Past Surgical History: Reports: Coronary Stent, Pacemaker - , Other - Gastrostomy tube insertion Social History Information Source: Relative - , [facility] Records Lives with: Spouse/Significant other Smoking Status: Never Smoker Frequency of Alcohol Use: None Hx Recreational Drug Use: No Drugs: None Hx Prescription Drug Abuse: No - Advance Directive Resuscitation Status: Full Code Surrogate healthcare decision maker:: Family History Family History: CAD, DM Parental Family History Reviewed: Yes Children Family History Reviewed: Yes Sibling(s) Family History Reviewed.: Yes Medication/Allergy Home Medications: Dorzolamide HCl/Timolol Maleat [Cosopt Eye Drops] 1 drop OU Q12 03/24/18 Allergies/Adverse Reactions: No Known Allergies Allergy (Verified 11/17/16 18:29) Review of Systems ROS unobtainable: Due to mental status Physical Exam Vital Signs: Temp Pulse Resp BP Pulse Ox 13 137/89 H 100 03/24/18 17:01 03/24/18 17:01 03/24/18 16:02 General appearance: PRESENT: no acute distress, thin, well-developed Head exam: PRESENT: atraumatic, normocephalic Eye exam: PRESENT: conjunctiva pink, EOMI, PERRLA. ABSENT: scleral icterus Ear exam: PRESENT: normal external ear exam Mouth exam: PRESENT: moist, tongue midline Neck exam: ABSENT: carotid bruit, JVD, lymphadenopathy, thyromegaly Respiratory exam: PRESENT: clear to auscultation enoch. ABSENT: rales, rhonchi, wheezes Cardiovascular exam: PRESENT: RRR. ABSENT: diastolic murmur, rubs, systolic murmur Pulses: PRESENT: normal carotid pulses, normal radial pulses Vascular exam: PRESENT: normal capillary refill GI/Abdominal exam: PRESENT: normal bowel sounds, soft, other - G-tube. ABSENT: distended, guarding, mass, organolmegaly, rebound, tenderness Rectal exam: PRESENT: deferred Neurological exam: PRESENT: alert, altered, awake, CN II-XII grossly intact, aphasic Psychiatric exam: PRESENT: flat affect Skin exam: PRESENT: dry - Stage I sacral ulcer, warm, other Results Laboratory Results: 03/24/18 15:39 03/24/18 15:39 03/24/18 03/24/18 15:39 15:39 WBC 3.4 L RBC 4.29 L Hgb 13.5 Hct 40.0 MCV 93 MCH 31.4 MCHC 33.6 RDW 14.9 H Plt Count 197 Seg Neutrophils % 50.3 Lymphocytes % 43.1 Monocytes % 5.3 Eosinophils % 0.6 Basophils % 0.7 Absolute Neutrophils 1.7 Absolute Lymphocytes 1.5 Absolute Monocytes 0.2 Absolute Eosinophils 0.0 Absolute Basophils 0.0 Sodium 135.7 L Potassium 4.6 Chloride 98 Carbon Dioxide 29 Anion Gap 9 BUN 25 H Creatinine 0.75 Est GFR ( Amer) > 60 Est GFR (Non-Af Amer) > 60 Glucose 104 Calcium 9.0 Total Bilirubin 0.4 AST 30 ALT 33 Alkaline Phosphatase 53 Total Protein 6.5 Albumin 3.3 L 03/24/18 03/24/18 15:39 15:39 Creatine Kinase 55 CK-MB (CK-2) 0.79 Troponin I < 0.012 Impressions: Chest X-Ray 03/24/18 15:04 IMPRESSION: NO ACUTE RADIOGRAPHIC FINDING IN THE CHEST. Head CT 03/24/18 15:04 IMPRESSION: CHRONIC CHANGES OF ATROPHY AND MICROVASCULAR ISCHEMIA. NO ACUTE PROCESS. EVIDENCE OF ACUTE STROKE: NO. Assessment & Plan - Diagnosis (1) TIA (transient ischemic attack) Qualifiers: Transient cerebral ischemia type: unspecified Qualified Code(s): G45.9 - Transient cerebral ischemic attack, unspecified Is this a current diagnosis for this admission?: Yes Plan: Since initial CT of the head negative. MRI is on able to be obtained due to his permanent pacemaker. states he is back to his normal mentation. He is demented and nonverbal at baseline. Obtain carotid ultrasounds have not done last 6 months. Will admit for observation for further TIA like symptoms. Long discussion with regarding goals of his care and CODE STATUS. She states she will give thought to making him a DO NOT RESUSCITATE due to his poor quality of life. (2) Hypertension Qualifiers: Hypertension type: essential hypertension Qualified Code(s): I10 - Essential (primary) hypertension Is this a current diagnosis for this admission?: Yes Plan: Continue home medication once medication reconciliation is complete (5) Protein calorie malnutrition Qualifiers: Protein-calorie malnutrition severity: moderate Qualified Code(s): E44.0 - Moderate protein-calorie malnutrition Is this a current diagnosis for this admission?: Yes Plan: Evidenced by poor skin turgor and BMI of 18 (6) Type 2 diabetes mellitus Qualifiers: Diabetes mellitus skilled nursing insulin use: without skilled nursing use Is this a current diagnosis for this admission?: Yes Plan: Sliding scale coverage for now. (7) Pacemaker Is this a current diagnosis for this admission?: Yes Plan: We will have pacemaker interrogated for dysrhythmias. (8) Atrial fibrillation Qualifiers: Atrial fibrillation type: chronic Qualified Code(s): I48.2 - Chronic atrial fibrillation Plan: Presently sinus rhythm occasionally paced beats (9) Dysphagia Qualifiers: Dysphagia type: oropharyngeal phase Qualified Code(s): R13.12 - Dysphagia, oropharyngeal phase Is this a current diagnosis for this admission?: Yes Plan: states he takes most of his nutrition through pured diet. He does have a G-tube in place which she gives him just free water 4 glasses per day. - Time Time Spent: 50 to 70 Minutes Critical Time spent with patient: 25-34 minutes Medications reviewed and adjusted accordingly: Yes Anticipated discharge: Home with Homehealth Within: within 24 hours
[2018-03-24] MEDS ORDERED: DEXTROSE 50%-WATER 25 GM/50 ML DISP.SYRIN IV PRN ×2 (18:32)
[2018-03-24] MEDS ORDERED: INSULIN LISPRO 100 UNIT/ML 3 ML VIAL SUBCUT PRN (18:32)
[2018-03-24] MEDS ORDERED: DEXTROSE 40% GEL 15 GM TUBE PO PRN ×2 (18:32)
[2018-03-24] MEDS ORDERED: GLUCAGON,HUMAN RECOMB 1 MG INJ IM PRN (18:32)
[2018-03-24 18:48] LABS: APPEARANCE,URINE CLEAR; BILIRUBIN,URINE NEGATIVE (NEGATIVE); COLOR,URINE YELLOW; GLUCOSE, URINE NEGATIVE (NEGATIVE); KETONES,URINE NEGATIVE (NEGATIVE); LEUKOCYTE ESTERASE,URINE NEGATIVE (NEGATIVE); NITRITE,URINE NEGATIVE (NEGATIVE); PROTEIN,URINE NEGATIVE (NEGATIVE); URINE SPECIFIC GRAVITY 1.012; UROBILINOGEN,URINE NEGATIVE mg/dL (<2.0)
[2018-03-24] MEDS ORDERED: ATORVASTATIN CALCIUM 40 MG TABLET PO SCH (22:00)
--- NOTE | 2018-03-24 23:00 | EKG REPORT ---
SEVERITY:- ABNORMAL ECG - ATRIAL FIBRILLATION RUN OF VENTRICULAR PREMATURE COMPLEXES IVCD, CONSIDER ATYPICAL LBBB : Confirmed by: Flor Shelby MD 24-Mar-2018 23:00:02
--- NOTE | 2018-03-24 23:02 | EKG REPORT ---
SEVERITY:- ABNORMAL ECG - ATRIAL FIBRILLATION, V-RATE 80-227 PAIRED VENTRICULAR PREMATURE COMPLEXES LEFT BUNDLE BRANCH BLOCK : Confirmed by: Flor Shelby MD 24-Mar-2018 23:00:08
[2018-03-24] MEDS: HEPARIN SOD (PORCINE) 5,000 UNIT/ML 1 ML SYRINGE SUBCUT SCH (23:43)
[2018-03-24] MEDS: DORZOLAMIDE HCL 2%/TIMOLOL MALEAT 0.5% OPH SOLN 10 ML OU SCH (23:43)
[2018-03-25] MEDS: HEPARIN SOD (PORCINE) 5,000 UNIT/ML 1 ML SYRINGE SUBCUT SCH ×3 (06:01→21:47)
[2018-03-25] MEDS: DORZOLAMIDE HCL 2%/TIMOLOL MALEAT 0.5% OPH SOLN 10 ML OU SCH ×2 (09:43→21:46)
[2018-03-25] MEDS: ASPIRIN 81 MG TABLET, CHEWABLE PEG SCH (09:43)
--- NOTE | 2018-03-25 18:13 | PDOC PROGRESS REPORT ---
Subjective Progress Note for:: 03/25/18 Subjective:: at bedside, patient minimizing the father. states he speaks when he wants to. However, feels patient at baseline. No fever or chills, no chest pain or shortness of breath or palpitations. Reason For Visit: TIA Physical Exam Vital Signs: Temp Pulse Resp BP Pulse Ox 97.4 F 84 16 154/108 H 85 L 03/25/18 15:06 03/25/18 15:06 03/25/18 15:03/25/18 15:03/25/18 15:06 Intake & Output 03/24/18 03/25/18 03/26/18 06:59 06:59 06:59 Intake Total 5 50 Balance 5 50 Weight 53.9 kg GEN: NAD, well-developed, elderly male CV: RRR, NL S1S2 LUNGS: CTA bilaterally ABDOMEN Soft, NT, +BS EXTERMITIES: No e/c/c NEURO: Alert Results Laboratory Results: 03/24/18 03/25/18 03/25/18 21:45 03:29 09:55 Troponin I < 0.012 0.017 0.014 Impressions: Chest X-Ray 03/24/18 15:04 IMPRESSION: NO ACUTE RADIOGRAPHIC FINDING IN THE CHEST. Head CT 03/24/18 15:04 IMPRESSION: CHRONIC CHANGES OF ATROPHY AND MICROVASCULAR ISCHEMIA. NO ACUTE PROCESS. EVIDENCE OF ACUTE STROKE: NO. Assessment & Plan - Plan Summary Plan Summary: (1) TIA (transient ischemic attack) Qualifiers: Transient cerebral ischemia type: unspecified Qualified Code(s): G45.9 - Transient cerebral ischemic attack, unspecified Is this a current diagnosis for this admission?: Yes Plan: Suspected. I do not see medical record. Will check echocardiogram. 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 (7) Pacemaker Is this a current diagnosis for this admission?: Yes Plan: We will have pacemaker interrogated for dysrhythmias--spoke with RN. (8) Atrial fibrillation Qualifiers: Atrial fibrillation type: chronic Qualified Code(s): I48.2 - Chronic atrial fibrillation Plan: Presently sinus rhythm with occasionally paced beats (9) Dysphagia Qualifiers: Dysphagia type: oropharyngeal phase Qualified Code(s): R13.12 - Dysphagia, oropharyngeal phase Is this a current diagnosis for this admission?: Yes Plan: states he takes most of his nutrition through pured diet. He does have a G-tube in place which she gives him just free water 4 glasses per day.
[2018-03-25] MEDS: ATORVASTATIN CALCIUM 40 MG TABLET PEG SCH (21:46)
[2018-03-26 05:06] LABS: ANION GAP 9 (5-19); BLOOD UREA NITROGEN 22 mg/dL (7-20); CALCIUM 9.1 mg/dL (8.4-10.2); CARBON DIOXIDE 27 mmol/L (22-30); CHLORIDE 102 mmol/L (98-107); GLUCOSE 75 mg/dL (75-110); POTASSIUM 3.9 mmol/L (3.6-5.0); SODIUM 137.6 mmol/L (137-145)
[2018-03-26 05:15] LABS: ABSOLUTE LYMPHOCYTES (AUTO) 2.1 10^3/uL (0.5-4.7); ABSOLUTE MONOCYTES (AUTO) 0.3 10^3/uL (0.1-1.4); ABSOLUTE NEUT (AUTO) 1.5 10^3/uL (1.7-8.2); BASOPHILS % (AUTO) 0.4 % (0-2); EOSINOPHILS % (AUTO) 1.1 % (0-6); HEMATOCRIT 41.7 % (37.9-51.0); HEMOGLOBIN 14.2 g/dL (13.5-17.0); LYMPHOCYTES % (AUTO) 52.3 % (13-45); MEAN CORPUSCULAR HEMOGLOBIN 31.6 pg (27.0-33.4); MEAN CORPUSCULAR HGB CONC 34.2 g/dL (32.0-36.0); MEAN CORPUSCULAR VOLUME 93 fl (80-97); MONOCYTES % (AUTO) 7.7 % (3-13); PLATELET COUNT 182 10^3/uL (150-450); RED CELL DISTRIBUTION WIDTH 14.9 % (11.5-14.0); SEGMENTED NEUTROPHILS % (AUTO) 38.5 % (42-78); TOTAL CELLS COUNTED % (AUTO) 100 %; WHITE BLOOD COUNT 3.9 10^3/uL (4.0-10.5)
[2018-03-26] MEDS: HEPARIN SOD (PORCINE) 5,000 UNIT/ML 1 ML SYRINGE SUBCUT SCH ×3 (05:50→21:28)
[2018-03-26] MEDS: DORZOLAMIDE HCL 2%/TIMOLOL MALEAT 0.5% OPH SOLN 10 ML OU SCH ×2 (09:33→21:29)
[2018-03-26] MEDS: ASPIRIN 81 MG TABLET, CHEWABLE PEG SCH (09:33)
--- NOTE | 2018-03-26 16:20 | XCELERA REPORT ---
[address] [address] Transthoracic Echocardiogram Report Name: ARY HYLTON Age: 87 yrs Gender: Male : 1930 Patient Status: Inpatient Patient Location: [address] [place] [address] Study Date: 03/26/2018 11:35 AM Height: 67 in Weight: 118 lb BSA: 1.6 m2 Procedure: A complete two-dimensional transthoracic echocardiogram was performed (2D, M-mode, spectral and color flow Doppler). The study was technically difficult with many images being suboptimal in quality. Reason For Study: Possible TIAs Ordering Physician: ALBER EWING Performed By: Linh Luke Interpretation Summary The study was technically difficult with many images being suboptimal in quality. The left ventricle is grossly normal size. There is mild concentric left ventricular hypertrophy. Left ventricular systolic function is moderately reduced. Consider additional methods to assess LVEF such as MUGA scan, CTA heart, cardiac MRI, PORSHA, etc. if clinically indicated. Doppler measurements suggest pseudonormalized left ventricular relaxation, which is associated with grade II/IV or mild to moderate diastolic dysfunction Regional wall motion abnormalities cannot be excluded due to limited visualization. There is normal right ventricular wall thickness. The right ventricle is moderately dilated. There is a mild amount of mitral regurgitation There is no mitral valve stenosis. There is a trace to mild amount of aortic regurgitation There is no aortic valve stenosis There is a trace to mild amount of tricuspid regurgitation Tricuspid regurgitation jet envelope not well defined to measure RV systolic pressure accurately. The aortic root is not well visualized. The inferior vena cava was not visualized There is no pericardial effusion. MMode/2D Measurements & Calculations RVDd: 2.6 cm LVIDd: 4.4 cm FS: 22.2 % Ao root diam: 2.7 cm IVSd: 1.1 cm LVIDs: 3.4 cm EDV(Teich): 87.3 ml LVPWd: 1.1 cm ESV(Teich): 48.0 ml Ao root area: 5.6 cm2 EF(Teich): 45.0 % LA dimension: 3.1 cm Doppler Measurements & Calculations MV E max verna: MV P1/2t max verna: Ao V2 max: LV V1 max P.6 cm/sec 72.1 cm/sec 54.3 cm/sec 1.1 mmHg MV A max verna: MV P1/2t: 48.1 msec Ao max PG: LV V1 max: 54.3 cm/sec 1.2 mmHg 52.8 cm/sec MV E/A: 1.3 MVA(P1/2t): 4.6 cm2 MV dec slope: 438.8 cm/sec2 MV dec time: 0.17 sec Left Ventricle The left ventricle is grossly normal size. There is mild concentric left ventricular hypertrophy. Left ventricular systolic function is moderately reduced. Consider additional methods to assess LVEF such as MUGA scan, CTA heart, cardiac MRI, PORSHA, etc. if clinically indicated. Doppler measurements suggest pseudonormalized left ventricular relaxation, which is associated with grade II/IV or mild to moderate diastolic dysfunction. Regional wall motion abnormalities cannot be excluded due to limited visualization. Right Ventricle The right ventricle is moderately dilated. There is normal right ventricular wall thickness. The right ventricular systolic function is mild to moderately reduced. Atria The right atrium is normal in size. The left atrial size is normal. Interarterial septum not well visualized and not well dopplered. Cannot comment on ASD/PFO presence. Mitral Valve The mitral valve is grossly normal. There is no mitral valve stenosis. There is a mild amount of mitral regurgitation. Aortic Valve The aortic valve is not well visualized secondary to technical limitations. There is no aortic valve stenosis. There is a trace to mild amount of aortic regurgitation. Tricuspid Valve The tricuspid valve is not well visualized secondary to technical limitations. There is no tricuspid stenosis. There is a trace to mild amount of tricuspid regurgitation. Tricuspid regurgitation jet envelope not well defined to measure RV systolic pressure accurately. Pulmonic Valve The pulmonic valve is not well visualized. Great Vessels The aortic root is not well visualized. The inferior vena cava was not visualized. Effusions There is no pericardial effusion. Incidental Findings Pacemaker wire noted. Consider PORSHA if clinically indicated. May consider mobile cardiac telemetry monitoring (MCT) for ruling out transient AFIB. : ALBER EWING > Aletha Underwood
--- NOTE | 2018-03-26 18:33 | PDOC PROGRESS REPORT ---
Subjective Progress Note for:: 03/26/18 Subjective:: at bedside, patient awake but noncommunicative. continues to feel patient now at baseline. No fever or chills, no chest pain or shortness of breath or palpitations. Pacemaker was interrogated and no significant rhythm problem. Patient has been hypoxic, with O2 sat running in the low 80s on room air. Reason For Visit: TIA Physical Exam Vital Signs: Temp Pulse Resp BP Pulse Ox 97.3 F 96 17 121/90 H 99 03/26/18 16:05 03/26/18 16:05 03/26/18 16:05 03/26/18 16:05 03/26/18 16:05 Intake & Output 03/25/18 03/26/18 03/27/18 06:59 06:59 06:59 Intake Total 5 105 118 Balance 5 105 118 Weight 53.9 kg 54.5 kg GEN: NAD, well-developed, elderly male CV: RRR, NL S1S2 LUNGS: CTA bilaterally ABDOMEN Soft, NT, +BS EXTERMITIES: No e/c/c NEURO: Alert Results Laboratory Results: 03/26/18 03:50 03/26/18 03:50 03/26/18 03/26/18 03/26/18 03:50 03:50 03:50 WBC 3.9 L RBC 4.50 Hgb 14.2 Hct 41.7 MCV 93 MCH 31.6 MCHC 34.2 RDW 14.9 H Plt Count 182 Seg Neutrophils % 38.5 L Lymphocytes % 52.3 H Monocytes % 7.7 Eosinophils % 1.1 Basophils % 0.4 Absolute Neutrophils 1.5 L Absolute Lymphocytes 2.1 Absolute Monocytes 0.3 Absolute Eosinophils 0.0 Absolute Basophils 0.0 Sodium 137.6 Potassium 3.9 Chloride 102 Carbon Dioxide 27 Anion Gap 9 BUN 22 H Creatinine 0.74 Est GFR ( Amer) > 60 Est GFR (Non-Af Amer) > 60 Glucose 75 Calcium 9.1 Magnesium Cancelled 03/26/18 11:29 WBC RBC Hgb Hct MCV MCH MCHC RDW Plt Count Seg Neutrophils % Lymphocytes % Monocytes % Eosinophils % Basophils % Absolute Neutrophils Absolute Lymphocytes Absolute Monocytes Absolute Eosinophils Absolute Basophils Sodium Potassium Chloride Carbon Dioxide Anion Gap BUN Creatinine Est GFR ( Amer) Est GFR (Non-Af Amer) Glucose Calcium Magnesium 2.1 06/05/0403/25/18 03/25/18 21:45 03:29 09:55 Troponin I < 0.012 0.017 0.014 Impressions: Chest X-Ray 03/24/18 15:04 IMPRESSION: NO ACUTE RADIOGRAPHIC FINDING IN THE CHEST. Head CT 03/24/18 15:04 IMPRESSION: CHRONIC CHANGES OF ATROPHY AND MICROVASCULAR ISCHEMIA. NO ACUTE PROCESS. EVIDENCE OF ACUTE STROKE: NO. Assessment & Plan - Plan Summary Plan Summary: (1) TIA (transient ischemic attack) Qualifiers: Transient cerebral ischemia type: unspecified Qualified Code(s): G45.9 - Transient cerebral ischemic attack, unspecified Is this a current diagnosis for this admission?: Yes Plan: Suspected, but AMS could also be secondary to hypoxia. Echocardiogram suboptimal but no obvious thrombus. (2) Hypertension Qualifiers: Hypertension type: essential hypertension Qualified Code(s): I10 - Essential (primary) hypertension Is this a current diagnosis for this admission?: Yes Plan: Continue home medications (5) Protein calorie malnutrition Qualifiers: Protein-calorie malnutrition severity: moderate Qualified Code(s): E44.0 - Moderate protein-calorie malnutrition Is this a current diagnosis for this admission?: Yes Plan: Evidenced by poor skin turgor and BMI of 18 (6) Type 2 diabetes mellitus Qualifiers: Diabetes mellitus long term care pharmacist insulin use: without long term care pharmacist use Is this a current diagnosis for this admission?: Yes Plan: Continue sliding scale coverage for now. (7) Pacemaker Is this a current diagnosis for this admission?: Yes Plan: We will have pacemaker interrogated for dysrhythmias--spoke with RN. (8) Atrial fibrillation Qualifiers: Atrial fibrillation type: chronic Qualified Code(s): I48.2 - Chronic atrial fibrillation Plan: Presently sinus rhythm with occasionally paced beats (9) Dysphagia Qualifiers: Dysphagia type: oropharyngeal phase Qualified Code(s): R13.12 - Dysphagia, oropharyngeal phase Is this a current diagnosis for this admission?: Yes Plan: states he takes most of his nutrition through pured diet. He does have a G-tube in place which she gives him just free water 4 glasses per day. (10) Acute respiratory failure Is this a current diagnosis for this admission?: Yes Plan: Arranging home O2.
[2018-03-26] MEDS: ATORVASTATIN CALCIUM 40 MG TABLET PEG SCH (21:27)
[2018-03-27] MEDS: HEPARIN SOD (PORCINE) 5,000 UNIT/ML 1 ML SYRINGE SUBCUT SCH (05:10)
[2018-03-27] MEDS: DORZOLAMIDE HCL 2%/TIMOLOL MALEAT 0.5% OPH SOLN 10 ML OU SCH (09:12)
[2018-03-27] MEDS: ASPIRIN 81 MG TABLET, CHEWABLE PEG SCH (09:12)
--- NOTE | 2018-03-27 13:37 | PDOC DISCHARGE SUMMARY ---
General - Admit/Disc Date/PCP Admission Date/Primary Care Provider: 03/24/18 19:12 Discharge Date: 03/27/18 - Discharge Diagnosis (5) Dysphagia Is this a current diagnosis for this admission?: Yes (6) Protein calorie malnutrition Is this a current diagnosis for this admission?: Yes (7) Type 2 diabetes mellitus Is this a current diagnosis for this admission?: Yes - Additional Information Resuscitation Status: Full Code Discharge Diet: Cardiac Discharge Activity: Activity As Tolerated Home Medications: Dorzolamide HCl/Timolol Maleat [Cosopt Eye Drops] 1 drop OU Q12 03/24/18 Donepezil HCl 03/25/18 Acetaminophen [Tylenol 650 mg Supp] 650 mg PA Q4HP PRN supp.rect 03/27/18 Aspirin [Aspirin 81 mg Chewable Tablet] 81 mg PEG DAILY tab.chew 03/27/18 History of Present Illness History of Present Illness: Patient was admitted to the hospitalist service after presenting to the ED as in HPI below: "ARY HYLTON is a 87 year old male history of sick sinus syndrome, permanent pacemaker insertion, glaucoma, aspiration pneumonia, severe dementia and stage I sacral wound. He is nonverbal due to dementia. History is obtained from the . His states he was seen by the home health nurse for his stage I decubitus earlier this afternoon. She noted him to be altered. He was not responding to verbal or tactile stimuli. His states he had a blank stare. She therefore called 911. EMS notes his heart rate to be elevated when they picked him up. He is a history of atrial fibrillation. When they placed him on monitor he was sinus tach in the 120s. His mentation had returned to baseline. She states he now is presently at his baseline mentation." Hospital Course Hospital Course: Patient was admitted to hospitalist service observation status. There was concern for TIA. Head CT was negative. Patient quickly returned to baseline. MRI was not done because patient had a pacemaker and patient's was at baseline and there appears to be other causes that could explain his condition. His pacemaker was interrogated and revealed no significant abnormality. During his hospital stay, patient was noted to have O2 sats in the low 80s. Today it is 85% on room air. Patient did well on O2 2 L nasal cannula with no recurrence of symptoms. He is very debilitated. Chest x-ray was negative for acute process. He has been prescribed O2 for home use and is being discharged in improved condition. Suspect altered mental status likely secondary to hypoxia and acute respiratory failure. Patient has severe dementia, is debilitated and bedbound and takes care of him. He was nonverbal with me throughout his stay. He is not on anticoagulation for A. fib. Workup for PE was not done because stated she did not want us to and she would not want him on anticoagulation. Patient is currently full code, but she will think about DNR although she has not made up her mind. Again, patient being discharged home on O2. He is to follow-up with his primary care physician within 1 week. Physical Exam Vital Signs: Temp Pulse Resp BP Pulse Ox 97.7 F 55 L 17 122/69 82 L 03/27/18 12:00 03/27/18 12:00 03/27/18 12:00 03/27/18 12:00 03/27/18 12:00 Intake & Output 03/26/18 03/27/18 03/28/18 06:59 06:59 06:59 Intake Total 105 256 100 Balance 105 256 100 Weight 54.5 kg 54.5 kg GEN: NAD, well-developed, elderly male CV: RRR, NL S1S2 LUNGS: CTA bilaterally ABDOMEN Soft, NT, +BS EXTERMITIES: No e/c/c NEURO: Alert, nonverbal Results Laboratory Results: 03/26/18 03:50 03/26/18 03:50 03/24/18 03/25/18 03/25/18 21:45 03:29 09:55 Troponin I < 0.012 0.017 0.014 Impressions: Chest X-Ray 03/24/18 15:04 IMPRESSION: NO ACUTE RADIOGRAPHIC FINDING IN THE CHEST. Head CT 03/24/18 15:04 IMPRESSION: CHRONIC CHANGES OF ATROPHY AND MICROVASCULAR ISCHEMIA. NO ACUTE PROCESS. EVIDENCE OF ACUTE STROKE: NO. Qualifiers - * PATIENT BEING DISCHARGED WITH ANY OF THE FOLLOWING DIAGNOSIS: No
[2018-03-27 13:48] VITALS: BP 123/88
== END 2018-03-27 14:53 | disposition home health service (06) ==
LOC: ER 15:01 → EH 19:12 → 3N 20:54
PROVIDERS: ADMIT Internal Medicine; ATTEND Internal Medicine
PROC: 4B02XSZ Measurement of Cardiac Pacemaker, External Approach (ICD-10-PCS; principal; 2018-03-25)
DX: G45.9 Transient cerebral ischemic attack, unspecified (principal); I10 Essential (primary) hypertension; R13.12 Dysphagia, oropharyngeal phase; E44.0 Moderate protein-calorie malnutrition; E11.9 Type 2 diabetes mellitus without complications; G30.9 Alzheimer's disease, unspecified; F02.80 Dementia in other diseases classified elsewhere, unspecified severity, without behavioral disturbance, psychotic disturbance, mood disturbance, and anxiety; I48.2 Chronic atrial fibrillation; J96.00 Acute respiratory failure, unspecified whether with hypoxia or hypercapnia; I25.10 Atherosclerotic heart disease of native coronary artery without angina pectoris; I44.7 Left bundle-branch block, unspecified; R09.02 Hypoxemia; L89.151 Pressure ulcer of sacral region, stage 1; H40.9 Unspecified glaucoma; R53.81 Other malaise; I25.2 Old myocardial infarction; Z68.1 Body mass index [BMI] 19.9 or less, adult; Z79.82 Long term (current) use of aspirin; Z79.899 Other long term (current) drug therapy; Z45.018 Encounter for adjustment and management of other part of cardiac pacemaker; Z93.1 Gastrostomy status; Z95.5 Presence of coronary angioplasty implant and graft; Z87.01 Personal history of pneumonia (recurrent); Z74.01 Bed confinement status; Z82.49 Family history of ischemic heart disease and other diseases of the circulatory system
CPT/HCPCS: 93005; 99285; 36415 ×3; 87086; 82553; 82962 ×3; 82550; 83735; 85025 ×2; 85610; 85730; 87088; 80048; 80053; 81001; 84484 ×2; 87186; 93306; 71045; 70450; 93010; 92610; 93296; G0378 ×5; A9270 ×3; J1644 ×4; J3490 ×5; J7030; G8996; G8997; G8998

== ENCOUNTER 2018-05-02 09:46 | Inpatient (IN) | payer MEDICARE, OTHER ==
--- NOTE | 2018-05-02 11:08 | ER Document Report ---
ED General - General Mode of Arrival: Ambulatory Information source: Relative TRAVEL OUTSIDE OF THE [place] IN LAST 30 DAYS: No <DANNA PUENTE - Last Filed: 05/02/18 16:13> <CHRIS ASHRAF - Last Filed: 05/02/18 17:55> - General Chief Complaint: Wound Recheck Stated Complaint: ABCESS Time Seen by Provider: 05/02/18 10:38 Notes: Patient is an 87 year old male, bed bound at baseline with dementia, CAD, PTSD, COPD, diabetes with a history of TIA presents to the emergency department accompanied by complaining of a wound on the left buttocks. states the patient developed an abscess on his left buttocks in December and has been following up with wound care. states the patient has a home health aide that helps with the patient but believes the wound has been worsening since December. She states the wound has always drained but noticed there was increased draining this morning. states she believes she may have "scratched" the wound when moving the patient yesterday. She states she called Wound care and they recommended the patient come to the emergency department. states she also noticed the patient has been less interactive since yesterday. denies any fevers. (DANNA PUENTE) - Related Data Allergies/Adverse Reactions: No Known Allergies Allergy (Verified 05/02/18 11:44) Past Medical History - General Information source: Relative - Social History Smoking Status: Never Smoker Cigarette use (# per day): No Chew tobacco use (# tins/day): No Smoking Education Provided: No Frequency of alcohol use: None Family History: CAD, DM - Past Medical History Cardiac Medical History: Reports: Hx Atrial Fibrillation, Hx Coronary Artery Disease - Stents, Hx Heart Attack - 2004, Hx Hypertension Pulmonary Medical History: Reports: Hx COPD Endocrine Medical History: Reports: Hx Diabetes Mellitus Type 2 Psychiatric Medical History: Reports: Hx Dementia, Hx Post Traumatic Stress Disorder Past Surgical History: Reports: Hx Abdominal Surgery - g tube, Hx Cardiac Surgery - stents, pacemaker, Hx Coronary Stent, Hx Pacemaker - , Other - Gastrostomy tube insertion - Immunizations Hx Diphtheria, Pertussis, Tetanus Vaccination: Yes <DANNA PUENTE - Last Filed: 05/02/18 16:13> Review of Systems - Review of Systems -: Yes ROS unobtainable due to patient's medical condition - per Constitutional: No symptoms reported EENT: No symptoms reported Cardiovascular: No symptoms reported Respiratory: No symptoms reported Gastrointestinal: No symptoms reported Genitourinary: No symptoms reported Male Genitourinary: No symptoms reported Musculoskeletal: See HPI Skin: See HPI Hematologic/Lymphatic: No symptoms reported Neurological/Psychological: See HPI -: Yes All other systems reviewed and negative <DANNA PUENTE - Last Filed: 05/02/18 16:13> Physical Exam <DANNA PUENTE - Last Filed: 05/02/18 16:13> <CHRIS ASHRAF - Last Filed: 05/02/18 17:55> - Vital signs Vitals: Temp Pulse Resp BP Pulse Ox 97.7 F 80 18 122/92 H 98 05/02/18 09:56 05/02/18 09:56 05/02/18 09:56 05/02/18 09:56 05/02/18 09:56 - Notes Notes: GENERAL: Alert, demented. Does not speak. HEAD: Normocephalic, atraumatic. EYES: Pupils equal, round, and reactive to light. Extraocular movements intact. ENT: Oral mucosa moist, tongue midline. NECK: Full range of motion. Supple. Trachea midline. LUNGS: Clear to auscultation bilaterally, no wheezes, rales, or rhonchi. No respiratory distress. HEART: Regular rate and rhythm. No murmurs, gallops, or rubs. ABDOMEN: Soft, non-tender. Non-distended. Bowel sounds present in all 4 quadrants. EXTREMITIES: Moves all 4 extremities spontaneously. No edema.. No cyanosis. NEUROLOGICAL: Demented at baseline. Does not speak. SKIN: Warm, dry, normal turgor. No rashes or lesions noted. RECTAL: Decubitus ulcer on the left buttocks, actively draining purulent discharge medially, approximately 4 cm deep. No sphincter tone. (DANNA PUENTE) Clarification to scribe exam, minimal movement to upper extremities, more movement to B/L lower extremities. (CHRIS ASHRAF) Course - Laboratory Result Diagrams: 05/02/18 13:45 05/02/18 15:57 <DANNA PUENTE - Last Filed: 05/02/18 16:13> - Laboratory Result Diagrams: 05/02/18 13:45 05/02/18 15:57 <CHRIS ASHRAF - Last Filed: 05/02/18 17:55> - Re-evaluation Re-evalutation: 05/02/18 15:07 We agreed deal of difficulty getting blood on this patient, CBC did show a leukocytosis of 17.5 and an anemia with hemoglobin 10.9, patient's abscess was explored by me at the bedside and then opened by Dr. Medina at bedside, it revealed that the abscess probe to bone although it does not connect with the rectum. Sacral ulcer also probes to bone infected bone is easily visualized at the bedside. Large amount of purulent drainage was obtained from the abscess. Some of this was sent for culture, patient was started on Rocephin and vancomycin. Case was discussed with Dr. Werner, he agrees that this patient likely has a degree of chronic osteomyelitis as well as potentially some acute osteomyelitis and this will require prolonged antibiotic treatment. Rather than placing a central line now we will hold off and get a PICC line for the patient later in the day or possibly tomorrow as an inpatient to further facilitate his long-term IV antibiotic therapy. Patient does have a usable IV at this time though we have not been able to get any chemistries on this patient. Patient will be admitted to Dr. Werner's his service. (CHRIS ASHRAF) - Vital Signs Vital signs: Temp Pulse Resp BP Pulse Ox 97.9 F 80 18 109/72 98 05/02/18 16:04 05/02/18 09:56 05/02/18 13:01 05/02/18 17:00 05/02/18 16:16 - Laboratory Laboratory results interpreted by me: 05/02/18 05/02/18 13:45 15:57 WBC 17.5 H RBC 3.46 L Hgb 10.9 L Hct 32.7 L Seg Neuts % (Manual) 85 H Band Neutrophils % 1 L Lymphocytes % (Manual) 12 L Monocytes % (Manual) 2 L Abs Neuts (Manual) 15.1 H Chloride 95 L Carbon Dioxide 34 H BUN 27 H Direct Bilirubin 0.5 H AST 62 H ALT 113 H Total Protein 5.7 L Albumin 2.6 L Discharge <DANNA PUENTE - Last Filed: 05/02/18 16:13> - Discharge Admitting Provider: Hospitalist - [facility] Admitted: Telemetry <CHRIS ASHRAF - Last Filed: 05/02/18 17:55> - Discharge Clinical Impression: Stage IV pressure ulcer of sacral region, Left buttock abscess Dementia Qualifiers: Dementia type: unspecified type Dementia behavioral disturbance: without behavioral disturbance Qualified Code(s): F03.90 - Unspecified dementia without behavioral disturbance Protein calorie malnutrition Qualifiers: Protein-calorie malnutrition severity: severe Qualified Code(s): E43 - Unspecified severe protein-calorie malnutrition Condition: Fair Disposition: ADMITTED INPATIENT Scribe Attestation: 05/02/18 17:55 I personally performed the services described in the documentation, reviewed and edited the documentation which was dictated to the scribe in my presence, and it accurately records my words and actions. (CHRIS ASHRAF) Scribe Documentation - Scribe Written by Scribe:: Teddy Ureña, 05/02/2018 11:11 acting as scribe for :: Solo <DANNA PUENTE - Last Filed: 05/02/18 16:13>
[2018-05-02] MEDS ORDERED: NORMAL SALINE 1000 ML 1,000 ML IV ONE (11:27)
[2018-05-02] MEDS ORDERED: LIDOCAINE 1% INJ-PF (10 MG/ML) 30 ML SDV ONE (13:29)
[2018-05-02 13:59] LABS: HEMATOCRIT 32.7 % (37.9-51.0); HEMOGLOBIN 10.9 g/dL (13.5-17.0); MEAN CORPUSCULAR HEMOGLOBIN 31.5 pg (27.0-33.4); MEAN CORPUSCULAR HGB CONC 33.4 g/dL (32.0-36.0); MEAN CORPUSCULAR VOLUME 95 fl (80-97); RED BLOOD COUNT 3.46 10^6/uL (4.35-5.55); RED CELL DISTRIBUTION WIDTH 13.7 % (11.5-14.0); WHITE BLOOD COUNT 17.5 10^3/uL (4.0-10.5)
[2018-05-02 14:17] LABS: ABSOLUTE LYMPHOCYTES# (MANUAL) 2.1 10^3/uL (0.5-4.7); ABSOLUTE MONOCYTES # (MANUAL) 0.4 10^3/uL (0.1-1.4); ABSOLUTE NEUTROPHILS# (MANUAL) 15.1 10^3/uL (1.7-8.2); BAND NEUTROPHILS % (MANUAL) 1 % (3-5); BASOPHILS % (MANUAL) 0 % (0-2); EOSINOPHILS % (MANUAL) 0 % (0-6); LYMPHOCYTES % (MANUAL) 12 % (13-45); MONOCYTES % (MANUAL) 2 % (3-13); SEGMENTED NEUTROPHILS % (MAN) 85 % (42-78); TOTAL CELLS COUNTED 100
[2018-05-02 14:20] LABS: OVALOCYTES SLIGHT; PLATELET CLUMPS PRESENT; PLATELET COUNT 250 10^3/uL (150-450); POIKILOCYTOSIS SLIGHT; TOXIC GRANULATION 1+; TOXIC VACUOLATION PRESENT
[2018-05-02] MEDS ORDERED: VANCOMYCIN HCL INJ 1000 MG VIAL IV ONE (14:46)
[2018-05-02] MEDS ORDERED: CEFTRIAXONE 1 GM/D5W RTU 1 GM/50 ML RTUPB IV ONE (14:46)
--- NOTE | 2018-05-02 15:01 | OPERATIVE REPORT E ---
Operative Report NAME: ARY HYLTON : 1930 AGE: 87Y DATE OF SURGERY: 05/02/2018 ROOM: PREOPERATIVE DIAGNOSIS: Decubitus ulcer of the sacral area, stage IV. POSTOPERATIVE DIAGNOSIS: Decubitus ulcer of the sacral area, stage IV. PROCEDURE: Debridement of 7 cm long x 5 cm wide x 3 cm deep sacral decubitus area down to the bone. SURGEON: DAVEY URIAS M.D. ANESTHESIA: Local. INDICATIONS: This is an 87-year-old male with contractures of the upper and lower extremities. Patient was noted to have a decubitus ulcer and opening in the sacral area. However, patient has an obvious necrotic area roughly about 5 cm just above the opening. DESCRIPTION OF PROCEDURE: Patient was placed in the right lateral decubitus position and the necrotic area was subsequently anesthetized with 1% Xylocaine using at least 10 mL. Sharp debridement was then performed using an 11 blade. A lot of necrotic tissue was removed and purulent material in the subcutaneous area. Also some necrotic tissue just above the bone was noted; this was also debrided. Most of the necrotic area was debrided. The area was subsequently packed with wet-to-dry dressings. Estimated blood loss was about 5 mL. The patient tolerated the procedure well. DICTATING PHYSICIAN: DAVEY URIAS M.D. [id number] PHY#: [id number] ID: [id number] JOB#: [id number] ACCT: [id number] cc:DAVEY URIAS M.D. >
[2018-05-02] MEDS ORDERED: IPRATROPIUM/ALBUTEROL 0.5-2.5 MG/3 ML AMPUL NEB PRN (15:22)
[2018-05-02] MEDS ORDERED: ONDANSETRON HCL INJ/PF 4 MG/2 ML SDV IV PRN (15:22)
[2018-05-02] MEDS ORDERED: VANCOMYCIN HCL 0 MG in DEXTROSE 5%-WATER 250 ML IV NR (15:30)
[2018-05-02] MEDS ORDERED: CEFTRIAXONE INJ 1000 MG VIAL ONE (15:32)
--- NOTE | 2018-05-02 15:54 | PDOC H&P ---
History of Present Illness Admission Date/PCP: VERONIQUE LOA MD History of Present Illness: ARY HYLTON is a 87 year old black male patient with multiple comorbidities including dementia, coronary artery disease PTSD, COPD, diabetes and history of multiple stroke TIA and bedridden brought by his with chief complaint of worsening left buttock wound. Since patient has cognitive impairment due to his dementia is not source of history and no family member in the room during my encounter. Brief history obtained from ER attending note. Patient at his baseline is bedbound. His states the patient developed an abscess on his left buttock in December and has been following up with wound care at home states the patient has a home health aide that helps with the patient but the believes the wound has been worsening since December. She states the wound has always drained but noticed there was increased draining this morning. The states that she was told by research laboratory specialist to bring the patient to hospital. Further detailed history and review of systems unobtainable Past Medical History Cardiac Medical History: Reports: Atrial Fibrillation, Coronary Artery Disease - Stents, Myocardial Infarction - 2004, Hypertension Pulmonary Medical History: Reports: Chronic Obstructive Pulmonary Disease (COPD) Denies: Asthma Neurological Medical History: Denies: Seizures Endocrine Medical History: Reports: Diabetes Mellitus Type 2 GI Medical History: Denies: Hepatitis, Hiatal Hernia Psychiatric Medical History: Reports: Dementia, Post Traumatic Stress Disorder Hematology: Denies: Anemia, Sickle Cell Disease Past Surgical History Past Surgical History: Reports: Coronary Stent, Pacemaker - , Other - Gastrostomy tube insertion Social History Smoking Status: Never Smoker Frequency of Alcohol Use: None Hx Recreational Drug Use: No Drugs: None Hx Prescription Drug Abuse: No - Advance Directive Resuscitation Status: Full Code Family History Family History: CAD, DM Parental Family History Reviewed: Yes Children Family History Reviewed: Yes Sibling(s) Family History Reviewed.: Yes Medication/Allergy Home Medications: Donepezil HCl [Donepezil HCl] 10 mg PO QHS 05/02/18 Allergies/Adverse Reactions: No Known Allergies Allergy (Verified 05/02/18 11:44) Review of Systems ROS unobtainable: Due to mental status Physical Exam Vital Signs: Temp Pulse Resp BP Pulse Ox 97.7 F 80 18 114/49 L 96 05/02/18 09:56 05/02/18 09:56 05/02/18 13:01 05/02/18 13:01 05/02/18 13:01 Intake & Output 05/01/18 05/02/18 05/03/18 06:59 06:59 06:59 Weight 45.2 kg General appearance: PRESENT: no acute distress Head exam: PRESENT: atraumatic Mouth exam: PRESENT: dry mucosa Neck exam: ABSENT: carotid bruit, JVD, lymphadenopathy, thyromegaly Respiratory exam: PRESENT: clear to auscultation enoch. ABSENT: rales, rhonchi, wheezes Cardiovascular exam: PRESENT: diastolic murmur, irregular rhythm, rubs, systolic murmur GI/Abdominal exam: PRESENT: normal bowel sounds, soft. ABSENT: distended, guarding, mass, organolmegaly, rebound, tenderness Extremities exam: PRESENT: other - There is 5 x 5 cm decubitus ulcer at the left buttock area which is packed with dressing Results Laboratory Results: 05/02/18 13:45 05/02/18 13:45 WBC 17.5 H RBC 3.46 L Hgb 10.9 L Hct 32.7 L MCV 95 MCH 31.5 MCHC 33.4 RDW 13.7 Plt Count 250 Seg Neutrophils % Not Reportable Lymphocytes % Not Reportable Monocytes % Not Reportable Eosinophils % Not Reportable Basophils % Not Reportable Absolute Neutrophils Not Reportable Absolute Lymphocytes Not Reportable Absolute Monocytes Not Reportable Absolute Eosinophils Not Reportable Absolute Basophils Not Reportable Assessment & Plan - Diagnosis (1) Sacral decubitus ulcer, stage IV Is this a current diagnosis for this admission?: Yes Plan: The wound is debrided and incision and drainage was done by Dr. Lopez. There is potential for chronic osteomyelitis or acute on chronic osteomyelitis. MRI of the brain could not be done because of pacemaker. CT scan of the sacral area will be done and patient empirically started on vancomycin and cefepime. (2) CAD (coronary artery disease) Qualifiers: Coronary Disease-Associated Artery/Lesion type: [place] artery Is this a current diagnosis for this admission?: Yes (3) A-fib Qualifiers: Atrial fibrillation type: chronic Qualified Code(s): I48.2 - Chronic atrial fibrillation Is this a current diagnosis for this admission?: Yes Plan: Rate controlled. (4) COPD (chronic obstructive pulmonary disease) Qualifiers: Emphysema type: unspecified Is this a current diagnosis for this admission?: Yes Plan: As needed bronchodilators. (5) Type 2 diabetes mellitus Is this a current diagnosis for this admission?: Yes Plan: We will put him on sliding scale and will continue his home medications. (6) Dementia Qualifiers: Dementia type: unspecified type Is this a current diagnosis for this admission?: Yes Plan: Stable - Time Time Spent: 30 to 50 Minutes - Inpatient Certification Medical Necessity: Need Close Monitoring Due to Risk of Patient Decompensation, Need For IV Fluids, Need for IV Antibiotics
[2018-05-02] MEDS ORDERED: GLUCAGON,HUMAN RECOMB 1 MG INJ IM PRN (15:55)
[2018-05-02] MEDS ORDERED: DEXTROSE 40% GEL 15 GM TUBE PO PRN ×2 (15:55)
[2018-05-02] MEDS ORDERED: DEXTROSE 50%-WATER 25 GM/50 ML DISP.SYRIN IV PRN (15:55)
[2018-05-02] MEDS ORDERED: INSULIN LISPRO 100 UNIT/ML 3 ML VIAL SUBCUT PRN (15:55)
[2018-05-02 16:28] LABS: ALANINE AMINOTRANSFERASE 113 U/L (21-72); ALBUMIN 2.6 g/dL (3.5-5.0); ALKALINE PHOSPHATASE 71 U/L (38-126); ANION GAP 10 (5-19); ASPARTATE AMINO TRANSFERASE 62 U/L (17-59); BILIRUBIN,DIRECT 0.5 mg/dL (0.0-0.4); BILIRUBIN,TOTAL 0.9 mg/dL (0.2-1.3); BLOOD UREA NITROGEN 27 mg/dL (7-20); CALCIUM 8.6 mg/dL (8.4-10.2); CARBON DIOXIDE 34 mmol/L (22-30); CHLORIDE 95 mmol/L (98-107); GLUCOSE 96 mg/dL (75-110); POTASSIUM 4.8 mmol/L (3.6-5.0); SODIUM 138.5 mmol/L (137-145); TOTAL PROTEIN 5.7 g/dL (6.3-8.2)
[2018-05-02] MEDS ORDERED: CEFEPIME 2 GM/D5W RTU 2 GM/50 ML RTUPB IV SCH ×2 (18:00→22:00)
--- NOTE | 2018-05-02 19:18 | RADIOLOGY REPORT (SQ) ---
EXAM DESCRIPTION: CT PELVIS WITH COMPLETED DATE/TIME: 05/02/2018 6:45 pm REASON FOR STUDY: Sacral decubitus ulcer/osteomyelitis COMPARISON: None. TECHNIQUE: CT scan of the abdomen and pelvis performed with intravenouscontrast using helical scanni ng technique with dynamic intravenous contrast injection. Images reviewed with lung, soft tissue, and bone windows. Reconstructed coronal and sagittal MPR images reviewed. Delayed images for evaluation of the urinary system also acquired. All images stored on PACS. All CT scanners at this facility use dose modulation, iterative reconstruction, and/or weight based d osing when appropriate to reduce radiation dose to as low as reasonably achievable (ALARA). [facility]: Dose Right [facility]: CareDose [facility]: Dose Right [facility]: Teradose 4D [facility]: Rico CONTRAST TYPE AND DOSE: contrast/concentration: Isovue 370.00 mg/ml; Total Contrast Delivered: 49.0 ml; Total Saline Delivered: 32.0 ml RENAL FUNCTION: GFR > 60. RADIATION DOSE: CT Rad equipment meets quality standard of care and radiation dose reduction techniq ues were employed. CTDIvol: 3.6 - 3.8 mGy. DLP: 296 mGy-cm. . LIMITATIONS: None. FINDINGS: RETROPERITONEUM: No retroperitoneal adenopathy, hemorrhage or masses. BOWEL AND PERITONEAL CAVITY: Suggestion of diffuse ascites. No dilated bowel loops. APPENDIX: Not visualized. PELVIS: Normal bladder. Suggests free fluid. ABDOMINAL WALL: No masses. No hernias. BONES: No significant or acute findings. No cortical disruption of the sacrum. OTHER: There is a large decubitus ulcer which is along the posterior sacrum measuring 4 x 4 x 11 cm. There is no definite cortical disruption of the sacrum SF. No soft tissue enhancing masses. No abs cess. IMPRESSION: Large decubitus ulcer along the posterior sacrum. No definite disruption of the sacral cortex. Anasarca. Suggestion of diffuse ascites. TECHNICAL DOCUMENTATION: JOB ID: [id number] Quality ID # [id number]: Final reports with documentation of one or more dose reduction techniques (e.g., Au tomated exposure control, adjustment of the mA and/or kV according to patient size, use of iterative reconstruction technique) 2010 [employer]- All Rights Reserved Reading location - IP/workstation name: [email or web address]
[2018-05-02] MEDS: HEPARIN SOD (PORCINE) 5,000 UNIT/ML 1 ML SYRINGE SUBCUT SCH (22:13)
[2018-05-03] MEDS: HEPARIN SOD (PORCINE) 5,000 UNIT/ML 1 ML SYRINGE SUBCUT SCH ×3 (05:43→22:04)
[2018-05-03] MEDS: LANSOPRAZOLE 30 MG TAB.RAP.DR PO SCH (05:45)
[2018-05-03] MEDS: NORMAL SALINE 1000 ML 1,000 ML IV PRN ×2 (05:48→18:50)
[2018-05-03 07:10] LABS: HEMATOCRIT 30.3 % (37.9-51.0); HEMOGLOBIN 10.3 g/dL (13.5-17.0); MEAN CORPUSCULAR HEMOGLOBIN 32.1 pg (27.0-33.4); MEAN CORPUSCULAR VOLUME 95 fl (80-97); PLATELET COUNT 307 10^3/uL (150-450); RED BLOOD COUNT 3.21 10^6/uL (4.35-5.55); RED CELL DISTRIBUTION WIDTH 13.8 % (11.5-14.0); WHITE BLOOD COUNT 9.2 10^3/uL (4.0-10.5)
[2018-05-03 08:34] LABS: ABSOLUTE LYMPHOCYTES# (MANUAL) 0.5 10^3/uL (0.5-4.7); ABSOLUTE MONOCYTES # (MANUAL) 0.3 10^3/uL (0.1-1.4); ABSOLUTE NEUTROPHILS# (MANUAL) 8.5 10^3/uL (1.7-8.2); BAND NEUTROPHILS % (MANUAL) 3 % (3-5); BASOPHILS % (MANUAL) 0 % (0-2); EOSINOPHILS % (MANUAL) 0 % (0-6); LYMPHOCYTES % (MANUAL) 5 % (13-45); MONOCYTES % (MANUAL) 3 % (3-13); SEGMENTED NEUTROPHILS % (MAN) 89 % (42-78); TOTAL CELLS COUNTED 100
[2018-05-03 08:35] LABS: OVALOCYTES SLIGHT; PLATELET COMMENT ADEQUATE; POIKILOCYTOSIS SLIGHT; TOXIC GRANULATION 2+; TOXIC VACUOLATION PRESENT
[2018-05-03] MEDS: CEFEPIME 2 GM/D5W RTU 2 GM/50 ML RTUPB IV SCH (09:46)
[2018-05-03] MEDS ORDERED: VANCOMYCIN HCL 1,000 MG in DEXTROSE 5%-WATER 250 ML IV SCH (12:00)
--- NOTE | 2018-05-03 12:40 | PDOC PROGRESS REPORT ---
Subjective Progress Note for:: 05/03/18 Subjective:: This is 87 years old black male patient basically bedbound brought by his with chief complaint of left buttock wound draining pus. Patient has long- standing sacral decubitus ulcer. Patient is awake but he is nonverbal. Yesterday, incision and drainage and total debridement was then done by Dr. Lopez. CT scan of the sacral area was requested and it is reported as large decubitus ulcer along the posterior sacrum no definite description of sacral cortex. Reason For Visit: INFECTED STAGE IV SACTAL DECUBITUS ULCER AND Physical Exam Vital Signs: Temp Pulse Resp BP Pulse Ox 97.4 F 77 16 101/54 L 95 05/03/18 08:44 05/03/18 08:44 05/03/18 08:44 05/03/18 08:44 05/03/18 08:44 Intake & Output 05/02/18 05/03/18 05/04/18 06:59 06:59 06:59 Intake Total 1000 Balance 1000 General appearance: PRESENT: no acute distress Head exam: PRESENT: atraumatic Neck exam: ABSENT: carotid bruit, JVD, lymphadenopathy, thyromegaly Respiratory exam: PRESENT: clear to auscultation [place]. ABSENT: rales, rhonchi, wheezes Cardiovascular exam: PRESENT: RRR. ABSENT: diastolic murmur, rubs, systolic murmur GI/Abdominal exam: PRESENT: normal bowel sounds, soft. ABSENT: distended, guarding, mass, organolmegaly, rebound, tenderness Extremities exam: PRESENT: other - Large sacral decubitus ulcer stage IV with secondary infection Results Laboratory Results: 05/03/18 06:17 05/03/18 06:17 05/03/18 05/03/18 06:17 06:17 WBC 9.2 RBC 3.21 L Hgb 10.3 L Hct 30.3 L MCV 95 MCH 32.1 MCHC 34.0 RDW 13.8 Plt Count 307 Seg Neutrophils % Not Reportable Lymphocytes % Not Reportable Monocytes % Not Reportable Eosinophils % Not Reportable Basophils % Not Reportable Absolute Neutrophils Not Reportable Absolute Lymphocytes Not Reportable Absolute Monocytes Not Reportable Absolute Eosinophils Not Reportable Absolute Basophils Not Reportable Sodium Cancelled Potassium Cancelled Chloride Cancelled Carbon Dioxide Cancelled Anion Gap Cancelled BUN Cancelled Creatinine Cancelled Est GFR ( Amer) Cancelled Est GFR (Non-Af Amer) Cancelled Glucose Cancelled Calcium Cancelled Impressions: Pelvis CT 05/02/18 00:00 IMPRESSION: Large decubitus ulcer along the posterior sacrum. No definite disruption of the sacral cortex. Anasarca. Suggestion of diffuse ascites. Assessment & Plan - Diagnosis (1) Sacral decubitus ulcer, stage IV Is this a current diagnosis for this admission?: Yes Plan: His wound culture grew 2 species of gram-negative rods and gram-positive cocci in chains. Patient has been on cefepime and vancomycin. I will de-escalate his antibiotics based on his clinical response and culture sensitivity results. (2) CAD (coronary artery disease) Qualifiers: Coronary Disease-Associated Artery/Lesion type: [place] artery Is this a current diagnosis for this admission?: Yes Plan: Continue home medications. (3) A-fib Qualifiers: Atrial fibrillation type: chronic Qualified Code(s): I48.2 - Chronic atrial fibrillation Is this a current diagnosis for this admission?: Yes Plan: Rate controlled. (4) COPD (chronic obstructive pulmonary disease) Qualifiers: Emphysema type: unspecified Is this a current diagnosis for this admission?: Yes Plan: As needed bronchodilators. (5) Type 2 diabetes mellitus Is this a current diagnosis for this admission?: Yes Plan: We will put him on sliding scale and will continue his home medications. (6) Dementia Qualifiers: Dementia type: unspecified type Dementia behavioral disturbance: without behavioral disturbance Qualified Code(s): F03.90 - Unspecified dementia without behavioral disturbance Is this a current diagnosis for this admission?: Yes Plan: Stable
[2018-05-04] MEDS: NORMAL SALINE 1000 ML 1,000 ML IV PRN ×2 (04:09→16:40)
[2018-05-04] MEDS: HEPARIN SOD (PORCINE) 5,000 UNIT/ML 1 ML SYRINGE SUBCUT SCH ×3 (05:32→21:39)
[2018-05-04] MEDS: LANSOPRAZOLE 30 MG TAB.RAP.DR PO SCH (05:32)
[2018-05-04 05:55] LABS: ABSOLUTE MONOCYTES (AUTO) 0.3 10^3/uL (0.1-1.4); ABSOLUTE NEUT (AUTO) 9.4 10^3/uL (1.7-8.2); BASOPHILS % (AUTO) 0.4 % (0-2); HEMATOCRIT 29.7 % (37.9-51.0); HEMOGLOBIN 10.1 g/dL (13.5-17.0); LYMPHOCYTES % (AUTO) 9.6 % (13-45); MEAN CORPUSCULAR HGB CONC 34.1 g/dL (32.0-36.0); MEAN CORPUSCULAR VOLUME 94 fl (80-97); MONOCYTES % (AUTO) 2.8 % (3-13); PLATELET COUNT 282 10^3/uL (150-450); RED BLOOD COUNT 3.16 10^6/uL (4.35-5.55); RED CELL DISTRIBUTION WIDTH 13.3 % (11.5-14.0); SEGMENTED NEUTROPHILS % (AUTO) 87.2 % (42-78); TOTAL CELLS COUNTED % (AUTO) 100 %; WHITE BLOOD COUNT 10.8 10^3/uL (4.0-10.5)
[2018-05-04 09:34] LABS: ANION GAP 10 (5-19); BLOOD UREA NITROGEN 22 mg/dL (7-20); CALCIUM 8.4 mg/dL (8.4-10.2); CARBON DIOXIDE 29 mmol/L (22-30); CHLORIDE 102 mmol/L (98-107); GLUCOSE 86 mg/dL (75-110); POTASSIUM 4.1 mmol/L (3.6-5.0); SODIUM 140.9 mmol/L (137-145)
[2018-05-04] MEDS: CEFEPIME 2 GM/D5W RTU 2 GM/50 ML RTUPB IV SCH (11:10)
--- NOTE | 2018-05-04 12:53 | PDOC PROGRESS REPORT ---
Subjective Progress Note for:: 05/04/18 Subjective:: I seen patient propped up in bed. He is awake but nonverbal. His vital signs are stable and his blood works are within normal limits. The final reports of the blood culture is positive for E. coli Pseudomonas and gram-positive cocci in chains orders pansensitive. I will continue his cefepime. Reason For Visit: INFECTED STAGE IV SACTAL DECUBITUS ULCER AND Physical Exam Vital Signs: Temp Pulse Resp BP Pulse Ox 98.5 F 69 16 123/69 93 05/04/18 12:01 05/04/18 12:01 05/04/18 12:01 05/04/18 12:01 05/04/18 12:01 Intake & Output 05/03/18 05/04/18 05/05/18 06:59 06:59 06:59 Intake Total 1000 2493 Balance 1000 2493 Weight 58.1 kg Results Laboratory Results: 05/04/18 04:54 05/04/18 08:19 05/04/18 05/04/18 05/04/18 04:54 04:54 08:19 WBC 10.8 H RBC 3.16 L Hgb 10.1 L Hct 29.7 L MCV 94 MCH 32.0 MCHC 34.1 RDW 13.3 Plt Count 282 Seg Neutrophils % 87.2 H Lymphocytes % 9.6 L Monocytes % 2.8 L Eosinophils % 0.0 Basophils % 0.4 Absolute Neutrophils 9.4 H Absolute Lymphocytes 1.0 Absolute Monocytes 0.3 Absolute Eosinophils 0.0 Absolute Basophils 0.0 Sodium Cancelled 140.9 Potassium Cancelled 4.1 Chloride Cancelled 102 Carbon Dioxide Cancelled 29 Anion Gap Cancelled 10 BUN Cancelled 22 H Creatinine Cancelled 0.56 Est GFR ( Amer) Cancelled > 60 Est GFR (Non-Af Amer) Cancelled > 60 Glucose Cancelled 86 Calcium Cancelled 8.4 Impressions: Pelvis CT 05/02/18 00:00 IMPRESSION: Large decubitus ulcer along the posterior sacrum. No definite disruption of the sacral cortex. Anasarca. Suggestion of diffuse ascites. Assessment & Plan - Diagnosis (1) Sacral decubitus ulcer, stage IV Is this a current diagnosis for this admission?: Yes Plan: Wound culture grew pseudomonas aeruginosa, E. coli and gram-positive cocci in chains. All are pansensitive Currently patient is on cefepime. (2) CAD (coronary artery disease) Qualifiers: Coronary Disease-Associated Artery/Lesion type: [place] artery Is this a current diagnosis for this admission?: Yes Plan: Continue home medications. (3) A-fib Qualifiers: Atrial fibrillation type: chronic Qualified Code(s): I48.2 - Chronic atrial fibrillation Is this a current diagnosis for this admission?: Yes Plan: Rate controlled. (4) COPD (chronic obstructive pulmonary disease) Qualifiers: Emphysema type: unspecified Is this a current diagnosis for this admission?: Yes Plan: As needed bronchodilators. (5) Type 2 diabetes mellitus Is this a current diagnosis for this admission?: Yes Plan: We will put him on sliding scale and will continue his home medications. (6) Dementia Qualifiers: Dementia type: unspecified type Dementia behavioral disturbance: without behavioral disturbance Qualified Code(s): F03.90 - Unspecified dementia without behavioral disturbance Is this a current diagnosis for this admission?: Yes Plan: Patient restarted on him home donepezil
[2018-05-04] MEDS: DONEPEZIL HCL 5 MG TABLET PO SCH (21:39)
[2018-05-04] MEDS ORDERED: (PENDING PHARMACY ID) (Donepezil Hcl [Donepezil Hcl] 10 MG) PO SCH (22:00)
[2018-05-05] MEDS: NORMAL SALINE 1000 ML 1,000 ML IV PRN ×3 (02:04→22:41)
[2018-05-05 05:56] LABS: ANION GAP 8 (5-19); BLOOD UREA NITROGEN 20 mg/dL (7-20); CALCIUM 8.2 mg/dL (8.4-10.2); CARBON DIOXIDE 27 mmol/L (22-30); CHLORIDE 106 mmol/L (98-107); GLUCOSE 86 mg/dL (75-110); POTASSIUM 3.9 mmol/L (3.6-5.0); SODIUM 140.9 mmol/L (137-145)
[2018-05-05 06:10] LABS: ABSOLUTE LYMPHOCYTES (AUTO) 0.9 10^3/uL (0.5-4.7); ABSOLUTE MONOCYTES (AUTO) 0.3 10^3/uL (0.1-1.4); ABSOLUTE NEUT (AUTO) 9.3 10^3/uL (1.7-8.2); BASOPHILS % (AUTO) 0.2 % (0-2); EOSINOPHILS % (AUTO) 0.1 % (0-6); HEMATOCRIT 30.8 % (37.9-51.0); HEMOGLOBIN 10.2 g/dL (13.5-17.0); LYMPHOCYTES % (AUTO) 8.8 % (13-45); MEAN CORPUSCULAR HEMOGLOBIN 31.6 pg (27.0-33.4); MEAN CORPUSCULAR HGB CONC 33.1 g/dL (32.0-36.0); MEAN CORPUSCULAR VOLUME 95 fl (80-97); MONOCYTES % (AUTO) 3.1 % (3-13); PLATELET COUNT 307 10^3/uL (150-450); RED BLOOD COUNT 3.23 10^6/uL (4.35-5.55); RED CELL DISTRIBUTION WIDTH 13.5 % (11.5-14.0); SEGMENTED NEUTROPHILS % (AUTO) 87.8 % (42-78); TOTAL CELLS COUNTED % (AUTO) 100 %; WHITE BLOOD COUNT 10.5 10^3/uL (4.0-10.5)
[2018-05-05] MEDS: LANSOPRAZOLE 30 MG TAB.RAP.DR PO SCH (06:15)
[2018-05-05] MEDS: HEPARIN SOD (PORCINE) 5,000 UNIT/ML 1 ML SYRINGE SUBCUT SCH ×3 (06:15→22:32)
[2018-05-05] MEDS: DEXTROSE 50%-WATER 25 GM/50 ML DISP.SYRIN IV PRN (06:34)
[2018-05-05] MEDS: CEFEPIME 2 GM/D5W RTU 2 GM/50 ML RTUPB IV SCH (09:42)
[2018-05-05 12:48] LABS: VANCOMYCIN,TROUGH < 5.0 ug/mL (5.0-20.0)
--- NOTE | 2018-05-05 13:38 | PDOC PROGRESS REPORT ---
Subjective Progress Note for:: 05/05/18 Subjective:: Patient's clinical stable evidence of by vital sign and labs within normal limits. Patient is awake but is nonverbal. No significant change overnight. Reason For Visit: INFECTED STAGE IV SACTAL DECUBITUS ULCER AND Physical Exam Vital Signs: Temp Pulse Resp BP Pulse Ox 97.8 F 74 16 141/61 H 93 05/05/18 11:53 05/05/18 11:53 05/05/18 11:53 05/05/18 11:53 05/05/18 11:53 Intake & Output 05/04/18 05/05/18 05/06/18 06:59 06:59 06:59 Intake Total 2493 2367 Balance 2493 2367 Weight 58.1 kg 58.9 kg General appearance: PRESENT: no acute distress Mouth exam: PRESENT: moist Neck exam: ABSENT: carotid bruit, JVD, lymphadenopathy, thyromegaly Respiratory exam: PRESENT: clear to auscultation [place]. ABSENT: rales, rhonchi, wheezes Cardiovascular exam: PRESENT: RRR. ABSENT: diastolic murmur, rubs, systolic murmur Neurological exam: PRESENT: awake Results Laboratory Results: 05/05/18 05:10 05/05/18 05:10 05/05/18 05/05/18 05:10 05:10 WBC 10.5 RBC 3.23 L Hgb 10.2 L Hct 30.8 L MCV 95 MCH 31.6 MCHC 33.1 RDW 13.5 Plt Count 307 Seg Neutrophils % 87.8 H Lymphocytes % 8.8 L Monocytes % 3.1 Eosinophils % 0.1 Basophils % 0.2 Absolute Neutrophils 9.3 H Absolute Lymphocytes 0.9 Absolute Monocytes 0.3 Absolute Eosinophils 0.0 Absolute Basophils 0.0 Sodium 140.9 Potassium 3.9 Chloride 106 Carbon Dioxide 27 Anion Gap 8 BUN 20 Creatinine 0.53 Est GFR ( Amer) > 60 Est GFR (Non-Af Amer) > 60 Glucose 86 Calcium 8.2 L Impressions: Pelvis CT 05/02/18 00:00 IMPRESSION: Large decubitus ulcer along the posterior sacrum. No definite disruption of the sacral cortex. Anasarca. Suggestion of diffuse ascites. Assessment & Plan - Diagnosis (1) Sacral decubitus ulcer, stage IV Is this a current diagnosis for this admission?: Yes Plan: Status post incision and drainage of abscess and extensive debridement. No sign of osteomyelitis on his sacral CT scan. His wound culture grew E. coli, Pseudomonas aeruginosa and gram-positive cocci in chains. (2) CAD (coronary artery disease) Qualifiers: Coronary Disease-Associated Artery/Lesion type: [place] artery Is this a current diagnosis for this admission?: Yes Plan: Continue home medications. (3) A-fib Qualifiers: Atrial fibrillation type: chronic Qualified Code(s): I48.2 - Chronic atrial fibrillation Is this a current diagnosis for this admission?: Yes Plan: Rate controlled. (4) COPD (chronic obstructive pulmonary disease) Qualifiers: Emphysema type: unspecified Is this a current diagnosis for this admission?: Yes Plan: As needed bronchodilators. (5) Type 2 diabetes mellitus Is this a current diagnosis for this admission?: Yes Plan: We will put him on sliding scale and will continue his home medications. (6) Dementia Qualifiers: Dementia type: unspecified type Dementia behavioral disturbance: without behavioral disturbance Qualified Code(s): F03.90 - Unspecified dementia without behavioral disturbance Is this a current diagnosis for this admission?: Yes Plan: Patient restarted on him home donepezil
[2018-05-05] MEDS: DONEPEZIL HCL 5 MG TABLET PO SCH (22:32)
[2018-05-06] MEDS: HEPARIN SOD (PORCINE) 5,000 UNIT/ML 1 ML SYRINGE SUBCUT SCH ×3 (05:54→22:49)
[2018-05-06] MEDS: LANSOPRAZOLE 30 MG TAB.RAP.DR PO SCH (05:54)
[2018-05-06] MEDS: CEFEPIME 2 GM/D5W RTU 2 GM/50 ML RTUPB IV SCH (09:55)
[2018-05-06] MEDS: DEXTROSE 50%-WATER 25 GM/50 ML DISP.SYRIN IV PRN (12:43)
--- NOTE | 2018-05-06 16:04 | PDOC PROGRESS REPORT ---
Subjective Progress Note for:: 05/06/18 Subjective:: No significant change overnight except an episode of hypoglycemia with blood sugar of 74. I discussed about the patient with his of treatment and discharge plan. Reason For Visit: INFECTED STAGE IV SACTAL DECUBITUS ULCER AND Physical Exam Vital Signs: Temp Pulse Resp BP Pulse Ox 97.6 F 59 L 20 131/69 H 92 05/06/18 11:13 05/06/18 11:13 05/06/18 11:13 05/06/18 11:13 05/06/18 12:26 Intake & Output 05/05/18 05/06/18 05/07/18 06:59 06:59 06:59 Intake Total 2367 3184 0 Balance 2367 3184 0 Weight 58.9 kg Results Laboratory Results: 05/05/18 05:10 05/05/18 05:10 Impressions: Pelvis CT 05/02/18 00:00 IMPRESSION: Large decubitus ulcer along the posterior sacrum. No definite disruption of the sacral cortex. Anasarca. Suggestion of diffuse ascites. Assessment & Plan - Diagnosis (1) Sacral decubitus ulcer, stage IV Is this a current diagnosis for this admission?: Yes Plan: Status post incision and drainage of abscess and extensive debridement. No sign of osteomyelitis on his sacral CT scan. His wound culture grew E. coli, Pseudomonas aeruginosa and gram-positive cocci in chains. (2) CAD (coronary artery disease) Qualifiers: Coronary Disease-Associated Artery/Lesion type: [place] artery Is this a current diagnosis for this admission?: Yes Plan: Continue home medications. (3) A-fib Qualifiers: Atrial fibrillation type: chronic Qualified Code(s): I48.2 - Chronic atrial fibrillation Is this a current diagnosis for this admission?: Yes Plan: Rate controlled. (4) COPD (chronic obstructive pulmonary disease) Qualifiers: Emphysema type: unspecified Is this a current diagnosis for this admission?: Yes Plan: As needed bronchodilators. (5) Type 2 diabetes mellitus Is this a current diagnosis for this admission?: Yes Plan: Adjust his tube feeding. (6) Dementia Qualifiers: Dementia type: unspecified type Dementia behavioral disturbance: without behavioral disturbance Qualified Code(s): F03.90 - Unspecified dementia without behavioral disturbance Is this a current diagnosis for this admission?: Yes Plan: Patient restarted on him home donepezil
[2018-05-06] MEDS: NORMAL SALINE 1000 ML 1,000 ML IV PRN (20:38)
[2018-05-06] MEDS: DONEPEZIL HCL 5 MG TABLET PO SCH (22:49)
[2018-05-07] MEDS: NORMAL SALINE 1000 ML 1,000 ML IV PRN ×2 (06:20→16:36)
[2018-05-07] MEDS: HEPARIN SOD (PORCINE) 5,000 UNIT/ML 1 ML SYRINGE SUBCUT SCH ×3 (06:20→22:59)
[2018-05-07] MEDS: LANSOPRAZOLE 30 MG TAB.RAP.DR PO SCH (06:20)
[2018-05-07] MEDS: CEFEPIME 2 GM/D5W RTU 2 GM/50 ML RTUPB IV SCH (09:50)
[2018-05-07] MEDS ORDERED: FUROSEMIDE INJ/PF 20 MG/2 ML SDV IV ONE (12:00)
--- NOTE | 2018-05-07 16:33 | PDOC PROGRESS REPORT ---
Subjective Progress Note for:: 05/07/18 Subjective:: I seen patient resting in bed. Has some puffiness under both his eyes. His hypoglycemia improving. Reason For Visit: INFECTED STAGE IV SACTAL DECUBITUS ULCER AND Physical Exam Vital Signs: Temp Pulse Resp BP Pulse Ox 97.5 F 60 16 160/80 H 95 05/07/18 08:11 05/07/18 08:11 05/07/18 08:11 05/07/18 08:11 05/07/18 08:11 Intake & Output 05/06/18 05/07/18 05/08/18 06:59 06:59 06:59 Intake Total 3184 2960 Balance 3184 2960 Weight 62.1 kg Results Laboratory Results: 05/05/18 05:10 05/05/18 05:10 Impressions: Pelvis CT 05/02/18 00:00 IMPRESSION: Large decubitus ulcer along the posterior sacrum. No definite disruption of the sacral cortex. Anasarca. Suggestion of diffuse ascites. Assessment & Plan - Diagnosis (1) Sacral decubitus ulcer, stage IV Is this a current diagnosis for this admission?: Yes Plan: Continue cefepime and wound care (2) CAD (coronary artery disease) Qualifiers: Coronary Disease-Associated Artery/Lesion type: [place] artery Is this a current diagnosis for this admission?: Yes Plan: Continue home medications. (3) A-fib Qualifiers: Atrial fibrillation type: chronic Qualified Code(s): I48.2 - Chronic atrial fibrillation Is this a current diagnosis for this admission?: Yes Plan: Rate controlled. (4) COPD (chronic obstructive pulmonary disease) Qualifiers: Emphysema type: unspecified Is this a current diagnosis for this admission?: Yes Plan: As needed bronchodilators. (5) Type 2 diabetes mellitus Is this a current diagnosis for this admission?: Yes Plan: Adjust his tube feeding. (6) Dementia Qualifiers: Dementia type: unspecified type Dementia behavioral disturbance: without behavioral disturbance Qualified Code(s): F03.90 - Unspecified dementia without behavioral disturbance Is this a current diagnosis for this admission?: Yes Plan: Patient restarted on him home donepezil
[2018-05-07] MEDS: DONEPEZIL HCL 5 MG TABLET PO SCH (22:59)
[2018-05-08] MEDS: NORMAL SALINE 1000 ML 1,000 ML IV PRN ×2 (03:02→13:00)
[2018-05-08] MEDS: LANSOPRAZOLE 30 MG TAB.RAP.DR PO SCH (06:55)
[2018-05-08] MEDS: HEPARIN SOD (PORCINE) 5,000 UNIT/ML 1 ML SYRINGE SUBCUT SCH ×3 (06:55→22:54)
[2018-05-08 07:04] LABS: ABSOLUTE BASOPHILS # (AUTO) 0.1 10^3/uL (0.0-0.2); ABSOLUTE LYMPHOCYTES (AUTO) 1.2 10^3/uL (0.5-4.7); ABSOLUTE MONOCYTES (AUTO) 0.2 10^3/uL (0.1-1.4); BASOPHILS % (AUTO) 0.8 % (0-2); EOSINOPHILS % (AUTO) 0.1 % (0-6); HEMATOCRIT 34.2 % (37.9-51.0); HEMOGLOBIN 11.4 g/dL (13.5-17.0); LYMPHOCYTES % (AUTO) 9.8 % (13-45); MEAN CORPUSCULAR HEMOGLOBIN 31.3 pg (27.0-33.4); MEAN CORPUSCULAR HGB CONC 33.3 g/dL (32.0-36.0); MEAN CORPUSCULAR VOLUME 94 fl (80-97); MONOCYTES % (AUTO) 1.3 % (3-13); PLATELET COUNT 329 10^3/uL (150-450); RED BLOOD COUNT 3.64 10^6/uL (4.35-5.55); TOTAL CELLS COUNTED % (AUTO) 100 %; WHITE BLOOD COUNT 12.5 10^3/uL (4.0-10.5)
[2018-05-08 07:29] LABS: ANION GAP 10 (5-19); BLOOD UREA NITROGEN 18 mg/dL (7-20); CALCIUM 7.9 mg/dL (8.4-10.2); CARBON DIOXIDE 27 mmol/L (22-30); CHLORIDE 101 mmol/L (98-107); GLUCOSE 126 mg/dL (75-110); POTASSIUM 3.5 mmol/L (3.6-5.0); SODIUM 137.6 mmol/L (137-145)
[2018-05-08] MEDS: CEFEPIME 2 GM/D5W RTU 2 GM/50 ML RTUPB IV SCH (12:55)
--- NOTE | 2018-05-08 18:43 | PDOC PROGRESS REPORT ---
Subjective Progress Note for:: 05/08/18 Subjective:: I seen patient resting in bed. He is awake but nonverbal. His hypoglycemia improved. His PEG tube was clogged and Dr. Lopez replaced a new one. After a long discussion with his is patient's CODE STATUS is changed to DNR. Reason For Visit: INFECTED STAGE IV SACTAL DECUBITUS ULCER AND Physical Exam Vital Signs: Temp Pulse Resp BP Pulse Ox 98 F 80 20 139/89 H 91 L 05/08/18 16:00 05/08/18 16:00 05/08/18 16:00 05/08/18 16:00 05/08/18 16:00 Intake & Output 05/07/18 05/08/18 05/09/18 06:59 06:59 06:59 Intake Total 2960 2400 Balance 2960 2400 Weight 62.1 kg 62 kg Results Laboratory Results: 05/08/18 06:47 05/08/18 06:47 05/08/18 05/08/18 06:47 06:47 WBC 12.5 H RBC 3.64 L Hgb 11.4 L Hct 34.2 L MCV 94 MCH 31.3 MCHC 33.3 RDW 14.0 Plt Count 329 Seg Neutrophils % 88.0 H Lymphocytes % 9.8 L Monocytes % 1.3 L Eosinophils % 0.1 Basophils % 0.8 Absolute Neutrophils 11.0 H Absolute Lymphocytes 1.2 Absolute Monocytes 0.2 Absolute Eosinophils 0.0 Absolute Basophils 0.1 Sodium 137.6 Potassium 3.5 L Chloride 101 Carbon Dioxide 27 Anion Gap 10 BUN 18 Creatinine 0.51 L Est GFR ( Amer) > 60 Est GFR (Non-Af Amer) > 60 Glucose 126 H Calcium 7.9 L 05/02/18 16:49 Blood Blood Culture - Final NO GROWTH IN 5 DAYS Impressions: Pelvis CT 05/02/18 00:00 IMPRESSION: Large decubitus ulcer along the posterior sacrum. No definite disruption of the sacral cortex. Anasarca. Suggestion of diffuse ascites. Assessment & Plan - Diagnosis (1) Sacral decubitus ulcer, stage IV Is this a current diagnosis for this admission?: Yes Plan: Continue current regimen (2) CAD (coronary artery disease) Qualifiers: Coronary Disease-Associated Artery/Lesion type: [place] artery Is this a current diagnosis for this admission?: Yes Plan: Continue home medications. (3) A-fib Qualifiers: Atrial fibrillation type: chronic Qualified Code(s): I48.2 - Chronic atrial fibrillation Is this a current diagnosis for this admission?: Yes Plan: Rate controlled. (4) COPD (chronic obstructive pulmonary disease) Qualifiers: Emphysema type: unspecified Is this a current diagnosis for this admission?: Yes Plan: As needed bronchodilators. (5) Type 2 diabetes mellitus Is this a current diagnosis for this admission?: Yes Plan: Adjust his tube feeding. (6) Dementia Qualifiers: Dementia type: unspecified type Dementia behavioral disturbance: without behavioral disturbance Qualified Code(s): F03.90 - Unspecified dementia without behavioral disturbance Is this a current diagnosis for this admission?: Yes Plan: Patient restarted on him home donepezil
--- NOTE | 2018-05-08 19:10 | OPERATIVE REPORT E ---
Operative Report NAME: ARY HYLTON : 1930 AGE: 87Y DATE OF SURGERY: 05/08/2018 ROOM: 408 PREOPERATIVE DIAGNOSIS: OCCLUDED PEG TUBE. POSTOPERATIVE DIAGNOSIS: OCCLUDED PEG TUBE. OPERATION: Replacement of clogged PEG tube. SURGEON: DAVEY URIAS M.D. INDICATION FOR PROCEDURE: This is an 87-year-old male with a feeding tube since he has dementia and Alzheimer's. The nurses noted the tube to be blocked today and unable to unclog it. The primary physician *------* just asked me to replace the PEG tube. PEG tube has been placed since 10/[address] Maldonado. DESCRIPTION OF PROCEDURE: The patient was placed in supine position and the PEG tube subsequently pulled out with some difficulty. Next, a regular G-tube, size 20 [place], was then placed through the old insertion site and threaded nicely all the way down into the stomach. The balloon was then inflated and the catheter pulled back. The phalange over the G-tube was pushed down just opposite the abdominal wall to keep the tube in place. The patient tolerated the procedure well. ESTIMATED BLOOD LOSS: There was a minimal amount of bleeding noted around the insertion site. DISPOSITION: The patient tolerated the procedure well. DICTATING PHYSICIAN: DAVEY URIAS M.D. [id number] PHY#: [id number] ID: [id number] JOB#: [id number] ACCT: [id number] cc:DAVEY URIAS M.D. >
[2018-05-08] MEDS: DONEPEZIL HCL 5 MG TABLET PO SCH (22:54)
[2018-05-09] MEDS: NORMAL SALINE 1000 ML 1,000 ML IV PRN (01:23)
[2018-05-09] MEDS: HEPARIN SOD (PORCINE) 5,000 UNIT/ML 1 ML SYRINGE SUBCUT SCH ×2 (05:58→15:28)
[2018-05-09] MEDS: LANSOPRAZOLE 30 MG TAB.RAP.DR PO SCH (05:58)
[2018-05-09 08:15] LABS: ABSOLUTE MONOCYTES (AUTO) 0.3 10^3/uL (0.1-1.4); ABSOLUTE NEUT (AUTO) 9.2 10^3/uL (1.7-8.2); BASOPHILS % (AUTO) 0.1 % (0-2); EOSINOPHILS % (AUTO) 0.2 % (0-6); HEMATOCRIT 29.4 % (37.9-51.0); HEMOGLOBIN 9.9 g/dL (13.5-17.0); LYMPHOCYTES % (AUTO) 9.4 % (13-45); MEAN CORPUSCULAR HEMOGLOBIN 31.8 pg (27.0-33.4); MEAN CORPUSCULAR HGB CONC 33.7 g/dL (32.0-36.0); MEAN CORPUSCULAR VOLUME 94 fl (80-97); MONOCYTES % (AUTO) 2.4 % (3-13); PLATELET COUNT 282 10^3/uL (150-450); RED BLOOD COUNT 3.11 10^6/uL (4.35-5.55); RED CELL DISTRIBUTION WIDTH 13.9 % (11.5-14.0); SEGMENTED NEUTROPHILS % (AUTO) 87.9 % (42-78); TOTAL CELLS COUNTED % (AUTO) 100 %; WHITE BLOOD COUNT 10.4 10^3/uL (4.0-10.5)
[2018-05-09 08:33] LABS: BLOOD UREA NITROGEN 20 mg/dL (7-20); CALCIUM 7.8 mg/dL (8.4-10.2); GLUCOSE 103 mg/dL (75-110)
[2018-05-09 08:39] LABS: ANION GAP 7 (5-19); CARBON DIOXIDE 28 mmol/L (22-30); CHLORIDE 102 mmol/L (98-107); SODIUM 137.3 mmol/L (137-145)
[2018-05-09] MEDS: CEFEPIME 2 GM/D5W RTU 2 GM/50 ML RTUPB IV SCH (09:40)
--- NOTE | 2018-05-09 10:40 | PDOC DISCHARGE SUMMARY ---
General - Admit/Disc Date/PCP Admission Date/Primary Care Provider: 05/02/18 16:26 VERONIQUE LAO MD Discharge Date: 05/09/18 - Discharge Diagnosis (1) Sacral abscess Is this a current diagnosis for this admission?: Yes (2) Sacral decubitus ulcer, stage IV Is this a current diagnosis for this admission?: Yes (3) CAD (coronary artery disease) Is this a current diagnosis for this admission?: Yes (4) A-fib Is this a current diagnosis for this admission?: Yes (5) COPD (chronic obstructive pulmonary disease) Is this a current diagnosis for this admission?: Yes (6) Type 2 diabetes mellitus Is this a current diagnosis for this admission?: Yes (7) Dementia Is this a current diagnosis for this admission?: Yes - Additional Information Resuscitation Status: Do Not Resuscitate Home Medications: Donepezil HCl [Donepezil HCl] 10 mg PO QHS 05/02/18 History of Present Illness History of Present Illness: ARY HYLTON is a 87 year old black male patient with multiple comorbidities including dementia, coronary artery disease PTSD, COPD, diabetes and history of multiple stroke TIA and bedridden brought by his with chief complaint of worsening left buttock wound. Since patient has cognitive impairment due to his dementia is not source of history and no family member in the room during my encounter. Brief history obtained from ER attending note. Patient at his baseline is bedbound. His states the patient developed an abscess on his left buttock in December and has been following up with wound care at home states the patient has a home health aide that helps with the patient but the believes the wound has been worsening since December. She states the wound has always drained but noticed there was increased draining this morning. The states that she was told by precision farming specialist to bring the patient to hospital. Further detailed history and review of systems unobtainable Hospital Course Hospital Course: This is 87 years old black male patient basically bedbound, nonverbal and contracted brought by his with chief complaint of left buttock wound draining pus. Patient has long-standing sacral decubitus ulcer. This morning I seen patient propped up in bed he is awake but nonverbal. On the day of admission at the ER, incision and drainage abscess and extensive debridement was done by Dr. Lopez. CT scan of the sacral area was requested and it was reported as large decubitus ulcer along the posterior sacrum no definite description of sacral cortex. The wound culture grew pseudomonas aeruginosa, E. coli and gram-positive cocci in chains all are pansensitive. Initially patient started on vancomycin and cefepime empirically Parmjit after the culture and sensitivity results ID escalate his antibiotic to cefepime only. His wound is granulating. His blood works in vital signs are stable. Patient is going to be discharged today's with home health and Levaquin 500 mg daily for 7 days so was a PEG tube. Physical Exam Vital Signs: Temp Pulse Resp BP Pulse Ox 97 F L 72 18 136/71 H 97 05/09/18 08:00 05/09/18 08:00 05/09/18 08:00 05/09/18 08:00 05/09/18 08:00 Intake & Output 05/08/18 05/09/18 05/10/18 06:59 06:59 06:59 Intake Total 2400 3194 Balance 2400 3194 Weight 62 kg 66.4 kg General appearance: PRESENT: no acute distress Head exam: PRESENT: atraumatic Neck exam: ABSENT: carotid bruit, JVD, lymphadenopathy, thyromegaly Respiratory exam: PRESENT: clear to auscultation [place]. ABSENT: rales, rhonchi, wheezes Cardiovascular exam: PRESENT: RRR. ABSENT: diastolic murmur, rubs, systolic murmur Extremities exam: PRESENT: other - Granulating large left sacral stage IV decubitus ulcer Results Laboratory Results: 05/09/18 07:38 05/09/18 07:38 05/09/18 05/09/18 07:38 07:38 WBC 10.4 RBC 3.11 L Hgb 9.9 L Hct 29.4 L MCV 94 MCH 31.8 MCHC 33.7 RDW 13.9 Plt Count 282 Seg Neutrophils % 87.9 H Lymphocytes % 9.4 L Monocytes % 2.4 L Eosinophils % 0.2 Basophils % 0.1 Absolute Neutrophils 9.2 H Absolute Lymphocytes 1.0 Absolute Monocytes 0.3 Absolute Eosinophils 0.0 Absolute Basophils 0.0 Sodium 137.3 Potassium 4.0 Chloride 102 Carbon Dioxide 28 Anion Gap 7 BUN 20 Creatinine 0.46 L Est GFR ( Amer) > 60 Est GFR (Non-Af Amer) > 60 Glucose 103 Calcium 7.8 L Impressions: Pelvis CT 05/02/18 00:00 IMPRESSION: Large decubitus ulcer along the posterior sacrum. No definite disruption of the sacral cortex. Anasarca. Suggestion of diffuse ascites. Qualifiers - * PATIENT BEING DISCHARGED WITH ANY OF THE FOLLOWING DIAGNOSIS: No
[2018-05-09 20:46] VITALS: BP 145/78
== END 2018-05-09 20:47 | disposition home health service (06) | DRG 570 ==
LOC: ER 09:46 → EH 16:26 → 4N 19:01
PROVIDERS: ADMIT Internal Medicine; ATTEND Internal Medicine
PROC: 0JB70ZZ Excision of Back Subcutaneous Tissue and Fascia, Open Approach (ICD-10-PCS; principal; 2018-05-02)
PROC: 0D20XUZ Change Feeding Device in Upper Intestinal Tract, External Approach (ICD-10-PCS; 2018-05-08)
DX: L89.154 Pressure ulcer of sacral region, stage 4 (principal); K94.23 Gastrostomy malfunction; L02.31 Cutaneous abscess of buttock; I48.2 Chronic atrial fibrillation; I25.10 Atherosclerotic heart disease of native coronary artery without angina pectoris; J44.9 Chronic obstructive pulmonary disease, unspecified; E11.649 Type 2 diabetes mellitus with hypoglycemia without coma; B96.5 Pseudomonas (aeruginosa) (mallei) (pseudomallei) as the cause of diseases classified elsewhere; F43.10 Post-traumatic stress disorder, unspecified; B96.20 Unspecified Escherichia coli [E. coli] as the cause of diseases classified elsewhere; Z66 Do not resuscitate; I25.2 Old myocardial infarction; Z79.82 Long term (current) use of aspirin; Z79.899 Other long term (current) drug therapy; Z95.5 Presence of coronary angioplasty implant and graft; Z82.49 Family history of ischemic heart disease and other diseases of the circulatory system; Z74.01 Bed confinement status; Z95.0 Presence of cardiac pacemaker; Z83.3 Family history of diabetes mellitus; Z86.73 Personal history of transient ischemic attack (TIA), and cerebral infarction without residual deficits
CPT/HCPCS: 36415; 72193; 80048; 80053; 80202; 82962; 85025; 87040; 87070; 87077; 87186; 87205; 96360; 96372; 99285; J0692; J0696; J1610; J1642; J1644; J1940; J3370; J3490; J7030; J7060

== ENCOUNTER 2018-05-28 18:24 | Inpatient (IN) | payer MEDICARE, OTHER ==
[2018-05-28] MEDS ORDERED: FENTANYL CITRATE INJ/PF 100 MCG/2 ML AMPUL ONE (18:30)
[2018-05-28] MEDS ORDERED: RINGERS SOLUTION,LACTATED 1,000 ML IV ONE (18:36)
[2018-05-28] MEDS ORDERED: PIPERACILLIN/TAZOBACTAM 3.375 GM VIAL IV ONE (18:36)
[2018-05-28] MEDS ORDERED: FENTANYL CITRATE INJ/PF 100 MCG/2 ML AMPUL IV PRN (18:37)
--- NOTE | 2018-05-28 18:38 | ER Document Report ---
ED General - General Chief Complaint: Respiratory Distress Stated Complaint: DIFFICULTY BREATHING Time Seen by Provider: 05/28/18 18:35 Cannot obtain history due to: Dementia, Altered mental status Notes: Patient is an 87-year-old male who presents in respiratory distress from home. EMS reports that the patient was noted by his to be in respiratory distress. EMS found patient to be saturating at 73% on room air. He was transported to the hospital using bag valve mask ventilation to assist with his hypoxia. No additional history can be obtained secondary to the patient's profound baseline dementia as well as current critical condition TRAVEL OUTSIDE OF THE [place] IN LAST 30 DAYS: No - Related Data Allergies/Adverse Reactions: No Known Allergies Allergy (Verified 05/02/18 11:44) Past Medical History - General Information source: Emergency Med Personnel, [facility] Records Cannot obtain history due to: Dementia, Altered mental status - Social History Smoking Status: Former Smoker Lives with: Family Family History: CAD, DM - Past Medical History Cardiac Medical History: Reports: Hx Atrial Fibrillation, Hx Coronary Artery Disease - Stents, Hx Heart Attack - 2004, Hx Hypertension Pulmonary Medical History: Reports: Hx COPD Denies: Hx Asthma Neurological Medical History: Denies: Hx Cerebrovascular Accident - PTSD, DEMENTIA, Hx Seizures Endocrine Medical History: Reports: Hx Diabetes Mellitus Type 2 Renal/ Medical History: Denies: Hx Peritoneal Dialysis GI Medical History: Denies: Hx Hepatitis, Hx Hiatal Hernia, Hx Ulcer Psychiatric Medical History: Reports: Hx Dementia, Hx Post Traumatic Stress Disorder Infectious Medical History: Denies: Hx Hepatitis Past Surgical History: Reports: Hx Abdominal Surgery - g tube, Hx Cardiac Surgery - stents, pacemaker, Hx Coronary Stent, Hx Pacemaker - , Other - Gastrostomy tube insertion. Denies: Hx Open Heart Surgery - Immunizations Hx Diphtheria, Pertussis, Tetanus Vaccination: Yes Review of Systems - Review of Systems -: Yes ROS unobtainable due to patient's medical condition Physical Exam - Vital signs Vitals: Resp 21 H 05/28/18 18:32 Notes: PHYSICAL EXAMINATION: GENERAL: Cachectic, frail, appears to be actively dying HEAD: Atraumatic, normocephalic. EYES: Pupils equal round and sluggishly reactive to light, extraocular movements intact, sclera anicteric, conjunctiva are normal. ENT: nares patent, oropharynx clear without exudates. Extremely dry mucous membranes. NECK: supple without lymphadenopathy LUNGS: Diminished air movement in all lung ponce. Moderate respiratory distress breathing 36 times per minute. No retractions. Scattered crackles throughout the right lung. HEART: Irregularly irregular tachycardia without murmurs ABDOMEN: Soft, nontender EXTREMITIES:. Extensive diffuse muscle. wasting no pitting or edema. No cyanosis. NEUROLOGICAL: Unable to assess. No apparent purposeful movement with any extremity. PSYCH: Lethargic, does not speak, responsive to noxious stimuli. SKIN: Warm, Dry, normal turgor, stage IV sacral decubitus ulcer with foul, purulent drainage Course - Re-evaluation Re-evalutation: 05/28/18 18:40 Documentation is delayed as I was immediately at this patient's bedside upon his arrival to the emergency department and have been at the bedside continuously since that time. 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 The patient is unable to provide history and his is not present. Patient is saturating 73 % on room air, and A. fib with rapid ventricular response, moderate hypotension with initial pressures in the 80s systolic. The patient is extremely emaciated and appears to be actively dying. Apparently EMS got report from the that the patient was full code however review of his most recent hospitalization in April notes that the patient was a DNR status. The patient has been placed on BiPAP as I do not feel it is ethical, medically appropriate or likely to change outcome to intubate this patient. Patient was also given 50 mcg of fentanyl for respiratory distress. His stat portal chest x-ray shows bilateral hyperinflation along with a multifocal right-sided pneumonia. The patient is high risk for aspiration as well as hospital-acquired pneumonia and he has been started on Zosyn and vancomycin. IV fluid resuscitation has been initiated. Broad-spectrum laboratories have been obtained including cultures, lactate and venous blood gas. I await the 's arrival to discuss the appropriateness of these measures as I do not believe the patient will survive regardless of our interventions. I believe the most appropriate course would be to transition to comfort measures and make the patient more comfortable using opiate analgesia. 05/28/18 19:37 I have gone to the waiting room and spoken with multiple family members for approximately 20-30 minutes. We did review the patient's overall poor health at baseline, his recurrent recent hospitalizations, his overall very poor prognosis and the appropriateness of comfort measures. Family is hesitant although seems open to the idea that the patient has been deteriorating for quite some time and has also been suffering extensively. We did turn the patient and found that he has an extensive sacral decubitus ulcer with profoundly malodorous and profuse discharge. Patient was just hospitalized in the past several weeks for the same but was not a surgical candidate due to his poor condition at baseline per family report. I am awaiting the family to discuss amongst themselves and will continue to reassess the patient at regular intervals. On BiPAP, 90% FiO2 the patient is currently 94%. After receiving IV fluids the patient's tachycardia has resolved current heart rate is 83. Blood pressure is 108 on 70. 05/28/18 20:05 Patient remains appropriately stable on BiPAP, 98% on 90% FiO2, current heart rate 82, blood pressure 103/66. The family has deliberated and states "if he is going to , he is going to on a machine in the ICU". I do not believe the patient needs to be intubated at this time and again remained ethically opposed to this idea. We will continue IV antibiotics, IV fluids, await labs and then discuss the hospitalist for medical admission. 05/28/18 21:13 I have discussed with the hospitalist who has access to the patient for admission to the ICU. - Vital Signs Vital signs: Temp Pulse Resp BP Pulse Ox 96.1 F L 14 99/77 L 100 05/29/18 00:01 05/29/18 00:01 05/29/18 00:01 05/29/18 00:01 - Laboratory Result Diagrams: 05/28/18 19:35 05/28/18 19:35 Laboratory results interpreted by me: 05/28/18 05/28/18 05/28/18 19:35 19:35 19:35 RBC 2.34 L Hgb 7.5 L Hct 21.8 L Seg Neuts % (Manual) 93 H Band Neutrophils % 2 L Lymphocytes % (Manual) 3 L Monocytes % (Manual) 2 L Abs Neuts (Manual) 8.9 H Abs Lymphs (Manual) 0.3 L VBG pH VBG pCO2 Sodium 125.6 L Chloride 93 L Creatinine 0.45 L Lactic Acid 2.9 H Calcium 6.9 L* ALT 87 H Total Protein 3.8 L Albumin 1.6 L 05/28/18 19:35 RBC Hgb Hct Seg Neuts % (Manual) Band Neutrophils % Lymphocytes % (Manual) Monocytes % (Manual) Abs Neuts (Manual) Abs Lymphs (Manual) VBG pH 7.46 H VBG pCO2 34.1 L Sodium Chloride Creatinine Lactic Acid Calcium ALT Total Protein Albumin - Diagnostic Test Radiology reviewed: Image reviewed, Reports reviewed Radiology results interpreted by me: 05/28/18 18:42 Chest x-ray: Hyperinflation, patchy infiltrates throughout the right lung consistent with a multifocal pneumonia - EKG Interpretation by Me Additional EKG results interpreted by me: 05/29/18 02:10 Atrial fibrillation. Rate 87. No ST elevations or depressions. Critical Care Note - Critical Care Note Total time excluding time spent on procedures (mins): 58 Comments: Critical care time spent obtaining history from patient or surrogate, discussions with consultants, development of treatment plan with patient or surrogate, evaluation of patient's response to treatment, examination of patient , ordering and performing treatments and interventions, ordering and review of laboratory studies, re-evaluation of patient's condition, ordering and review of radiographic studies and review of old charts Discharge - Discharge Clinical Impression: Right-sided multifocal pneumonia, Stage IV pressure ulcer of sacral region, Hyponatremia Dementia Qualifiers: Dementia type: unspecified type Dementia behavioral disturbance: without behavioral disturbance Qualified Code(s): F03.90 - Unspecified dementia without behavioral disturbance Malnutrition Qualifiers: Malnutrition type: protein-calorie malnutrition Protein-calorie malnutrition severity: severe Qualified Code(s): E43 - Unspecified severe protein-calorie malnutrition Condition: Critical Disposition: ADMITTED INPATIENT Admitting Provider: Hospitalist Unit Admitted: ICU
[2018-05-28] MEDS ORDERED: VANCOMYCIN HCL INJ 1000 MG VIAL IV ONE (18:43)
[2018-05-28] MEDS ORDERED: NORMAL SALINE 1000 ML 1,000 ML IV ONE (18:47)
--- NOTE | 2018-05-28 19:11 | RADIOLOGY REPORT (SQ) ---
EXAM DESCRIPTION: CHEST SINGLE VIEW COMPLETED DATE/TIME: 05/28/2018 6:38 pm REASON FOR STUDY: Respiratory Distress COMPARISON: Chest x-ray 03/24/2018. EXAM PARAMETERS: NUMBER OF VIEWS: One view. TECHNIQUE: Single frontal radiographic view of the chest acquired. RADIATION DOSE: NA LIMITATIONS: Patient positioning FINDINGS: LUNGS AND PLEURA: The patient is rotated. There is moderate right-sided pleural effusion with airspace opacity at the right lung. The left lung is grossly clear. Linear lucencies at the le ft hemithorax are probably representing skin folds. MEDIASTINUM AND HILAR STRUCTURES: No obvious mass. HEART AND VASCULAR STRUCTURES: Heart normal in size. Normal vasculature. BONES: No acute findings. HARDWARE: There is a left-sided pacemaker. IMPRESSION: Suboptimal patient positioning. Moderate right-sided pleural effusion with diffuse airs pace opacity at the right lung, may represent asymmetric pulmonary edema and/or pneumonia. Followup with PA and lateral views recommended when patient's condition allows. TECHNICAL DOCUMENTATION: JOB ID: [id number] 2010 [employer]- All Rights Reserved Reading location - IP/workstation name: [email or web address]
[2018-05-28 19:57] LABS: HEMATOCRIT 21.8 % (37.9-51.0); MEAN CORPUSCULAR HEMOGLOBIN 31.9 pg (27.0-33.4); MEAN CORPUSCULAR HGB CONC 34.2 g/dL (32.0-36.0); MEAN CORPUSCULAR VOLUME 93 fl (80-97); PLATELET COUNT 257 10^3/uL (150-450); RED BLOOD COUNT 2.34 10^6/uL (4.35-5.55); RED CELL DISTRIBUTION WIDTH 13.1 % (11.5-14.0); WHITE BLOOD COUNT 9.4 10^3/uL (4.0-10.5)
[2018-05-28 20:02] LABS: HEMOGLOBIN 7.5 g/dL (13.5-17.0)
[2018-05-28 20:03] LABS: VENOUS BLOOD BASE EXCESS 0.6 mmol/L; VENOUS BLOOD HCO3 23.9 mmol/L (20-32); VENOUS BLOOD PCO2 34.1 mmHg (35-63); VENOUS BLOOD PH 7.46 (7.30-7.42)
[2018-05-28 20:17] LABS: ABSOLUTE LYMPHOCYTES# (MANUAL) 0.3 10^3/uL (0.5-4.7); ABSOLUTE MONOCYTES # (MANUAL) 0.2 10^3/uL (0.1-1.4); ABSOLUTE NEUTROPHILS# (MANUAL) 8.9 10^3/uL (1.7-8.2); BAND NEUTROPHILS % (MANUAL) 2 % (3-5); BASOPHILS % (MANUAL) 0 % (0-2); EOSINOPHILS % (MANUAL) 0 % (0-6); LYMPHOCYTES % (MANUAL) 3 % (13-45); MONOCYTES % (MANUAL) 2 % (3-13); SEGMENTED NEUTROPHILS % (MAN) 93 % (42-78); TOTAL CELLS COUNTED 100
[2018-05-28 20:20] LABS: HYPOCHROMASIA 2+; TOXIC GRANULATION 2+
[2018-05-28 20:21] LABS: OVALOCYTES SLIGHT; PLATELET COMMENT ADEQUATE; SCHISTOCYTES SLIGHT
[2018-05-28 20:28] LABS: ALANINE AMINOTRANSFERASE 87 U/L (21-72); ALBUMIN 1.6 g/dL (3.5-5.0); ALKALINE PHOSPHATASE 64 U/L (38-126); ANION GAP 8 (5-19); ASPARTATE AMINO TRANSFERASE 53 U/L (17-59); BILIRUBIN,DIRECT 0.3 mg/dL (0.0-0.4); BILIRUBIN,TOTAL 0.4 mg/dL (0.2-1.3); BLOOD UREA NITROGEN 15 mg/dL (7-20); CARBON DIOXIDE 25 mmol/L (22-30); CHLORIDE 93 mmol/L (98-107); GLUCOSE 94 mg/dL (75-110); POTASSIUM 3.8 mmol/L (3.6-5.0); SODIUM 125.6 mmol/L (137-145); TOTAL PROTEIN 3.8 g/dL (6.3-8.2)
[2018-05-28 20:37] LABS: CALCIUM 6.9 mg/dL (8.4-10.2)
--- NOTE | 2018-05-28 21:11 | EKG REPORT ---
SEVERITY:- ABNORMAL ECG - ATRIAL FIBRILLATION : Confirmed by: Flor Shelby MD 28-May-2018 21:10:12
[2018-05-28] MEDS ORDERED: NORMAL SALINE 1000 ML 1,000 ML IV PRN (21:32)
[2018-05-28] MEDS ORDERED: GLUCAGON,HUMAN RECOMB 1 MG INJ SUBCUT PRN (21:32)
[2018-05-28] MEDS ORDERED: IPRATROPIUM/ALBUTEROL 0.5-2.5 MG/3 ML AMPUL NEB PRN (21:32)
[2018-05-28] MEDS ORDERED: DEXTROSE 40% GEL 15 GM TUBE PO PRN ×2 (21:32)
[2018-05-28] MEDS ORDERED: VANCOMYCIN HCL 0 MG in DEXTROSE 5%-WATER 250 ML IV NR (21:45)
[2018-05-28 22:12] LABS: APPEARANCE,URINE SLIGHTLY-CLOUDY; BILIRUBIN,URINE NEGATIVE (NEGATIVE); GLUCOSE, URINE NEGATIVE (NEGATIVE); KETONES,URINE NEGATIVE (NEGATIVE); LEUKOCYTE ESTERASE,URINE NEGATIVE (NEGATIVE); NITRITE,URINE NEGATIVE (NEGATIVE); PROTEIN,URINE NEGATIVE (NEGATIVE); URINE SPECIFIC GRAVITY 1.015
[2018-05-28 22:14] LABS: COLOR,URINE YELLOW
[2018-05-28] MEDS ORDERED: PIPERACILLIN/TAZOBACTAM 3.375 GM VIAL IV PRN (22:40)
[2018-05-28] MEDS ORDERED: FAMOTIDINE INJ/PF 20 MG/2 ML SDV IV ONE (22:45)
[2018-05-29] MEDS ORDERED: PIPERACILLIN SODIUM/TAZOBACTAM 3.375 GM in NORMAL SALINE 100 ML IV SCH ×2
[2018-05-29] MEDS ORDERED: FAMOTIDINE INJ/PF 20 MG/2 ML SDV IV ONE (01:50)
[2018-05-29] MEDS: PIPERACILLIN SODIUM/TAZOBACTAM 3.375 GM in NORMAL SALINE 100 ML IV SCH ×4 (02:06→19:12)
[2018-05-29] MEDS ORDERED: NORMAL SALINE 250 ML IV PRN ×2 (03:45→20:20)
--- NOTE | 2018-05-29 03:56 | PDOC H&P ---
History of Present Illness Admission Date/PCP: 05/28/18 21:23 Patient complains of: dyspnea History of Present Illness: ARY HYLTON is a 87 year old male with multiple comorbidities presenting to the ER with his family secondary to the increased work of breathing and shortness of breath. Patient is bed bound, nonverbal, on 4L of oxygen at baseline and feeds via a G-tube. is primary decision maker and healthcare social worker. is primary historian who states for the past 2 days patient has been experiencing significant increased work of breathing requiring frequent breathing treatments. With no improvement EMS was called. Patient was found to be hypoxic with O2 sats in 70's up EMS arrival, in atrial fibrillation and hypotensive. Patient bag masked for ventilation and placed on Bipap upon arrival to ER. Past Medical History Cardiac Medical History: Reports: Atrial Fibrillation, Coronary Artery Disease - Stents, Myocardial Infarction - 2004, Hypertension Pulmonary Medical History: Reports: Chronic Obstructive Pulmonary Disease (COPD) Denies: Asthma Neurological Medical History: Denies: Seizures Endocrine Medical History: Reports: Diabetes Mellitus Type 2 GI Medical History: Denies: Hepatitis, Hiatal Hernia Psychiatric Medical History: Reports: Dementia, Post Traumatic Stress Disorder Hematology: Denies: Anemia, Sickle Cell Disease Past Surgical History Past Surgical History: Reports: Coronary Stent, Pacemaker - , Other - Gastrostomy tube insertion Social History 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 Lives with: Family Smoking Status: Former Smoker Frequency of Alcohol Use: None Hx Recreational Drug Use: No Drugs: None Hx Prescription Drug Abuse: No - Advance Directive Resuscitation Status: Full Code Family History Family History: CAD, DM Parental Family History Reviewed: Yes Children Family History Reviewed: Yes Sibling(s) Family History Reviewed.: Yes Medication/Allergy Home Medications: Donepezil HCl 10 mg PO QHS 05/02/18 Levofloxacin [Levaquin 500 mg Tablet] 500 mg PEG DAILY #7 tablet 05/09/18 Allergies/Adverse Reactions: No Known Allergies Allergy (Verified 05/02/18 11:44) Review of Systems ROS unobtainable: Due to mental status Constitutional: PRESENT: anorexia Physical Exam Vital Signs: Temp Pulse Resp BP Pulse Ox 95.9 F L 17 105/73 100 05/29/18 02:01 05/29/18 02:01 05/29/18 02:01 05/29/18 02:01 Additional comments: PHYSICAL EXAMINATION: GENERAL: Cachectic, frail, appears to be actively dying HEAD: Atraumatic, normocephalic. EYES: Pupils equal round and sluggishly reactive to light, extraocular movements intact, anicteric sclera, conjunctiva are normal. ENT: nares patent, oropharynx clear without exudates. Extremely dry mucous membranes. NECK: supple without lymphadenopathy LUNGS: Diminished air movement in all lung ponce. tachypnea. No retractions. Scattered crackles throughout the right lung. HEART: Irregularly irregular tachycardia without murmurs ABDOMEN: firm, nontender, nondistended, G-tube present. EXTREMITIES:. Extensive diffuse muscle wasting with contractures x 4 extremities. no pitting or edema. No cyanosis. NEUROLOGICAL: Unable to assess. No apparent purposeful movement with any extremity. PSYCH: Lethargic, does not speak, responsive to noxious stimuli. SKIN: Warm, stage IV sacral decubitus ulcer with foul, purulent drainage Results Laboratory Results: 05/28/18 05/29/18 21:30 00:34 Lactic Acid 3.0 H Urine Color YELLOW Urine Appearance SLIGHTLY-CLOUDY Urine pH 5.0 Ur Specific [place] 1.015 Urine Protein NEGATIVE Urine Glucose (UA) NEGATIVE Urine Ketones NEGATIVE Urine Blood NEGATIVE Urine Nitrite NEGATIVE Ur Leukocyte Esterase NEGATIVE Urine WBC (Auto) 3 Impressions: Chest X-Ray 05/28/18 00:00 IMPRESSION: Suboptimal patient positioning. Moderate right-sided pleural effusion with diffuse airspace opacity at the right lung, may represent asymmetric pulmonary edema and/or pneumonia. Followup with PA and lateral views recommended when patient's condition allows. Assessment & Plan - Diagnosis (1) Acute respiratory failure with hypoxia Is this a current diagnosis for this admission?: Yes Plan: To be admitted to the intensive care unit for further monitoring and evaluation. Currently on BiPAP 14/8 at 85%. Maintaining O2 sats at this time. Does not appear to be an active or acute distress. Continue with continuous pulse ox monitoring and telemetry. (2) Sepsis Qualifiers: Sepsis type: sepsis due to unspecified organism Qualified Code(s): A41.9 - Sepsis, unspecified organism Is this a current diagnosis for this admission?: Yes Plan: Will cautiously hydrate patient overnight. Trend lactic acid q4h. Blood cultures pending. Patient to be admitted to ICU for further monitoring. (3) Anemia Qualifiers: Anemia type: unspecified type Qualified Code(s): D64.9 - Anemia, unspecified Is this a current diagnosis for this admission?: Yes Plan: With hgb 7.5, will transfuse 2u pRBC at this time and repeat hgb post transfusion. Will need hematology evaluation in AM. (4) Pneumonia Qualifiers: Pneumonia type: aspiration pneumonia Laterality: right Lung location: middle lobe of lung Qualified Code(s): J18.9 - Pneumonia, unspecified organism Is this a current diagnosis for this admission?: Yes Plan: Patient started on vancomycin + zosyn secondary to HCAP vs Aspiration PNA. Patient is primarily NPO but states he does take soft foods such as apple sauce at times. CxR reviewed. (5) Hyponatremia Is this a current diagnosis for this admission?: Yes Plan: Maintain IVF overnight and repeat BMP in AM. (6) Stage IV pressure ulcer of sacral region Is this a current diagnosis for this admission?: Yes Plan: Possible source of infection given severity and chronicity of ulcer. wound care as per floor nurses, wet/dry dressing changes and frequent rotation necessary. Continue IV abx. (7) COPD (chronic obstructive pulmonary disease) Qualifiers: Emphysema type: unspecified Is this a current diagnosis for this admission?: Yes Plan: on 4L via NC at baseline. Currently on bipap. Will continue to maintain O2 sats between 88-92%. Duonebs q4h PRN. continuous pulse ox monitoring. (8) Full code status Plan: Patient is a full code as per 's wishes. Have extensively discussed patients poor prognosis with and family. States she would still like for patient to remain a full code until further notice.
[2018-05-29] MEDS: DEXTROSE 50%-WATER 25 GM/50 ML DISP.SYRIN IV PRN ×4 (04:00→05:35)
[2018-05-29 04:09] LABS: ABSOLUTE LYMPHOCYTES (AUTO) 0.7 10^3/uL (0.5-4.7); ABSOLUTE MONOCYTES (AUTO) 0.2 10^3/uL (0.1-1.4); ABSOLUTE NEUT (AUTO) 9.7 10^3/uL (1.7-8.2); BASOPHILS % (AUTO) 0.1 % (0-2); HEMATOCRIT 24.9 % (37.9-51.0); HEMOGLOBIN 8.6 g/dL (13.5-17.0); LYMPHOCYTES % (AUTO) 6.6 % (13-45); MEAN CORPUSCULAR HEMOGLOBIN 31.9 pg (27.0-33.4); MEAN CORPUSCULAR HGB CONC 34.4 g/dL (32.0-36.0); MEAN CORPUSCULAR VOLUME 93 fl (80-97); MONOCYTES % (AUTO) 2.2 % (3-13); PLATELET COUNT 253 10^3/uL (150-450); RED BLOOD COUNT 2.69 10^6/uL (4.35-5.55); RED CELL DISTRIBUTION WIDTH 13.6 % (11.5-14.0); SEGMENTED NEUTROPHILS % (AUTO) 91.1 % (42-78); TOTAL CELLS COUNTED % (AUTO) 100 %; WHITE BLOOD COUNT 10.7 10^3/uL (4.0-10.5)
[2018-05-29] MEDS ORDERED: DEXTROSE 5%-NORMAL SALINE 1,000 ML IV PRN (04:41)
[2018-05-29 05:16] LABS: ANION GAP 5 (5-19); BLOOD UREA NITROGEN 17 mg/dL (7-20); CALCIUM 7.3 mg/dL (8.4-10.2); CARBON DIOXIDE 30 mmol/L (22-30); CHLORIDE 94 mmol/L (98-107); GLUCOSE 58 mg/dL (75-110); SODIUM 129.2 mmol/L (137-145)
[2018-05-29] MEDS ORDERED: NORMAL SALINE 1000 ML 1,000 ML IV ONE (07:45)
[2018-05-29] MEDS ORDERED: NORMAL SALINE 1000 ML 500 ML IV ONE (07:55)
[2018-05-29] MEDS ORDERED: DEXTROSE 5%-1/4 NORMAL SALINE 1,000 ML IV PRN (07:59)
[2018-05-29 10:17] LABS: HEMATOCRIT 22.4 % (37.9-51.0); MEAN CORPUSCULAR HEMOGLOBIN 31.6 pg (27.0-33.4); MEAN CORPUSCULAR HGB CONC 34.3 g/dL (32.0-36.0); MEAN CORPUSCULAR VOLUME 92 fl (80-97); PLATELET COUNT 263 10^3/uL (150-450); RED BLOOD COUNT 2.44 10^6/uL (4.35-5.55); RED CELL DISTRIBUTION WIDTH 13.2 % (11.5-14.0); WHITE BLOOD COUNT 9.6 10^3/uL (4.0-10.5)
[2018-05-29 10:20] LABS: HEMOGLOBIN 7.7 g/dL (13.5-17.0)
[2018-05-29] MEDS: FAMOTIDINE INJ/PF 20 MG/2 ML SDV IV SCH ×2 (12:30→22:08)
[2018-05-29] MEDS: ENOXAPARIN SODIUM INJ 40 MG/0.4 ML DISP.SYRIN SUBCUT SCH (12:30)
[2018-05-29] MEDS: VANCOMYCIN HCL 750 MG in DEXTROSE 5%-WATER 250 ML IV SCH ×2 (13:20→22:09)
[2018-05-29] MEDS: NORMAL SALINE 1000 ML 1,000 ML IV PRN (17:13)
[2018-05-29 17:23] LABS: CREATINE KINASE MB 1.16 ng/mL (<4.55); NT PRO BNP 5810 pg/mL (<450)
[2018-05-29 17:24] LABS: TROPONIN I < 0.012 ng/mL
--- NOTE | 2018-05-29 20:29 | Progress Note ---
Provider Note Provider Note: 05/29/18 Patient is an 87 year old -Hung[place] male brought to the emergency room for shortness of breath. Patient is nonverbal at baseline. Found to have opacification of the right lung attributed secondary to aspiration pneumonia. Patient started on empiric antibiotics. CODE STATUS discussed with and her son they wished for the patient to be full code. Patient found to have an extensive sacral decubitus that is unstageable and will require surgical intervention. Per ICU nurses patient looks neglected and APS has been informed. Physical exam. Patient is frail contracted pulmonary has been crackles posteriorly more so in the right lung. Heart rate is irregular irregular abdomen is soft nondistended with G-tube present. Patient has contractures, neurologically is difficult to arouse. Acute respiratory failure: Patient continued on nasal cannula. Patient was found to be anemic and was transfused 2 units of blood CBC showed a hemoglobin of 8.6. Repeat CBC 10 in the morning showed a drop of hemoglobin to 7.7 and we will transfuse patient 2 units of PRBC.
[2018-05-29 22:08] LABS: CREATINE KINASE MB 1.23 ng/mL (<4.55)
[2018-05-29] MEDS: PANTOPRAZOLE SODIUM 40 MG VIAL IV SCH (22:08)
[2018-05-29 22:12] LABS: TROPONIN I < 0.012 ng/mL
[2018-05-30] MEDS: PIPERACILLIN SODIUM/TAZOBACTAM 3.375 GM in NORMAL SALINE 100 ML IV SCH ×4 (01:09→18:31)
[2018-05-30] MEDS: NORMAL SALINE 1000 ML 1,000 ML IV PRN (05:39)
[2018-05-30 05:42] LABS: ABSOLUTE LYMPHOCYTES (AUTO) 0.9 10^3/uL (0.5-4.7); ABSOLUTE MONOCYTES (AUTO) 0.3 10^3/uL (0.1-1.4); ABSOLUTE NEUT (AUTO) 11.4 10^3/uL (1.7-8.2); BASOPHILS % (AUTO) 0.1 % (0-2); HEMATOCRIT 33.9 % (37.9-51.0); MEAN CORPUSCULAR HEMOGLOBIN 31.3 pg (27.0-33.4); MEAN CORPUSCULAR HGB CONC 34.1 g/dL (32.0-36.0); MEAN CORPUSCULAR VOLUME 92 fl (80-97); MONOCYTES % (AUTO) 2.4 % (3-13); PLATELET COUNT 190 10^3/uL (150-450); RED CELL DISTRIBUTION WIDTH 13.6 % (11.5-14.0); SEGMENTED NEUTROPHILS % (AUTO) 90.5 % (42-78); TOTAL CELLS COUNTED % (AUTO) 100 %; WHITE BLOOD COUNT 12.6 10^3/uL (4.0-10.5)
[2018-05-30 06:07] LABS: ANION GAP 9 (5-19); BLOOD UREA NITROGEN 17 mg/dL (7-20); CALCIUM 7.2 mg/dL (8.4-10.2); CARBON DIOXIDE 25 mmol/L (22-30); CHLORIDE 97 mmol/L (98-107); GLUCOSE 66 mg/dL (75-110); POTASSIUM 3.3 mmol/L (3.6-5.0); SODIUM 130.9 mmol/L (137-145)
[2018-05-30 06:12] LABS: HEMOGLOBIN 11.6 g/dL (13.5-17.0)
[2018-05-30 06:22] LABS: CREATINE KINASE MB 1.33 ng/mL (<4.55); TROPONIN I 0.012 ng/mL
[2018-05-30] MEDS: DEXTROSE 50%-WATER 25 GM/50 ML DISP.SYRIN IV PRN ×2 (06:39→07:46)
[2018-05-30 06:49] LABS: ARTERIAL BLOOD BASE EXCESS 1.7 mmol/L; ARTERIAL BLOOD H2CO3 0.91 mmol/L (1.05-1.35); ARTERIAL BLOOD HCO3 24.1 mmol/L (20-26); ARTERIAL BLOOD O2 SATURATION 99.3 % (94-98); ARTERIAL BLOOD PCO2 30.3 mmHg (35-45); ARTERIAL BLOOD PH 7.52 (7.35-7.45); ARTERIAL BLOOD PO2 168.6 mmHg (80-100)
[2018-05-30 06:50] LABS: ARTERIAL BLOOD FIO2 35%
--- NOTE | 2018-05-30 08:40 | OPERATIVE REPORT E ---
Operative Report NAME: ARY HYLTON : 1930 AGE: 87Y DATE OF SURGERY: 05/29/2018 ROOM: 612 PREOPERATIVE DIAGNOSIS: Stage IV sacral decubitus ulcer roughly measuring about 20 cm x 10 cm with a lot of necrotic tissue on the superior aspect. POSTOPERATIVE DIAGNOSIS: Stage IV sacral decubitus ulcer roughly measuring about 20 cm x 10 cm with a lot of necrotic tissue on the superior aspect. PROCEDURE: Debridement of necrotic skin, subcu, and fascia down to the bone of sacral decubitus ulcer stage IV measuring 20 cm x 10 cm. SURGEON: DAVEY URIAS M.D. DESCRIPTION OF PROCEDURE: Patient was placed in the lateral decubitus position and the necrotic area subsequently incised sharply with an 11 blade. Necrotic tissue was dissected and removed down to the subcu and fascia down to the bone. The whole necrotic tissue that was very foul smelling was then placed in a sterile cup to be sent for culture. All the pocket of pus was released and practically all of the necrotic tissue excised, though small remaining areas were in place but no more evidence of collection. The area was subsequently packed with half Betadine/half saline-soaked gauze, Kerlix, and covered with ABD and adhesive tape. There was a small amount of bleeding noted, less than 2 mL. Patient tolerated the procedure well. DICTATING PHYSICIAN: DAVEY URIAS M.D. [id number] PHY#: [id number] ID: [id number] JOB#: [id number] ACCT: [id number] cc:DAVEY URIAS M.D. >
--- NOTE | 2018-05-30 09:27 | RADIOLOGY REPORT (SQ) ---
EXAM DESCRIPTION: CHEST SINGLE VIEW COMPLETED DATE/TIME: 05/30/2018 9:17 am REASON FOR STUDY: follow up x-ray from yesterday COMPARISON: 05/28/2018 EXAM PARAMETERS: NUMBER OF VIEWS: One view. TECHNIQUE: Single frontal radiographic view of the chest acquired. RADIATION DOSE: NA LIMITATIONS: None. FINDINGS: LUNGS AND PLEURA: Stable mild patchy airspace disease in the right lung with some loss of volume. Mild right pleural effusion. The visualized left lung is clear. No pneumothorax or pleura l effusion. MEDIASTINUM AND HILAR STRUCTURES: No masses. Contour normal. HEART AND VASCULAR STRUCTURES: Heart normal in size. Normal vasculature. BONES: No acute findings. HARDWARE: None in the chest. OTHER: No other significant finding. IMPRESSION: 1 Stable mild patchy airspace disease in the right lung, may represent infiltrates. Mil d right pleural effusion. TECHNICAL DOCUMENTATION: JOB ID: [id number] [employer]- All Rights Reserved Reading location - IP/workstation name: [email or web address]
[2018-05-30] MEDS: VANCOMYCIN HCL 750 MG in DEXTROSE 5%-WATER 250 ML IV SCH ×2 (10:34→21:21)
[2018-05-30] MEDS: FAMOTIDINE INJ/PF 20 MG/2 ML SDV IV SCH (10:34)
[2018-05-30] MEDS: PANTOPRAZOLE SODIUM 40 MG VIAL IV SCH ×2 (10:34→21:21)
[2018-05-30] MEDS: ENOXAPARIN SODIUM INJ 40 MG/0.4 ML DISP.SYRIN SUBCUT SCH (10:35)
--- NOTE | 2018-05-30 12:03 | RADIOLOGY REPORT (SQ) ---
EXAM DESCRIPTION: CT CHEST WITHOUT COMPLETED DATE/TIME: 05/30/2018 10:53 am REASON FOR STUDY: abnormal chest x ray, white sided white out COMPARISON: Plain films of the chest dated 05/30/2018 TECHNIQUE: CT scan performed of the chest without intravenous contrast. Images reviewed with lung, soft tissue and bone windows. Reconstructed coronal and sagittal MPR images reviewed. All images st ored on PACS. All CT scanners at this facility use dose modulation, iterative reconstruction, and/or weight based d osing when appropriate to reduce radiation dose to as low as reasonably achievable (ALARA). [facility]: Dose Right [facility]: CareDose [facility]: Dose Right [facility]: Teradose 4D [facility]: [employer] RADIATION DOSE: CT Rad equipment meets quality standard of care and radiation dose reduction techniq ues were employed. CTDIvol: 7.6 mGy. DLP: 277 mGy-cm. mGy. LIMITATIONS: No technical limitations. FINDINGS: LUNGS AND PLEURA: Scattered multifocal confluent patchy areas of airspace disease in the right lung. Considerations for these findings include atypical infections, inflammatory/ infectious etiologies. Mild patchy airspace disease left lower lobe may be on the basis of atelectasis. Bilate ral pleural effusions mild to moderate on the right and small to mild on the left. No pneumothorax. Adjacent to the right lateral wall of the distal esophagus--right proximal mainstem bronchus, a 10-11 mm density with small areas areas of lucency noted. Considerations for this finding includes secret ions. HILAR AND MEDIASTINAL STRUCTURES: No identified masses or abnormal nodes. No obvious aneurysm. HEART AND VASCULAR STRUCTURES: Atherosclerotic changes involving the thoracic Dense coronary artery calcifications. No aneurysm. No pericardial effusion. UPPER ABDOMEN: Artifact limits the examination somewhat. Mild atherosclerotic changes involving the visualized abdominal aorta. Mild ascites is suggested in the upper abdomen. Limited examination. THYROID AND OTHER SOFT TISSUES: The visualized thyroid gland is heterogenous in appearance with nodu les present. BONES: No significant finding. HARDWARE: Cardiac pacemaker. Gastric tube with the tip in the region of the proximal body of the s tomach. OTHER: No other significant finding. IMPRESSION: 1 Scattered multifocal confluent patchy areas of airspace disease in the right lung. Co nsiderations for these findings include atypical infections, inflammatory/ infectious etiologies. 2. Bilateral mild to moderate pleural effusions, larger on the right. Mild compressive left lower lo be atelectasis. 3 Artifact limits the examination of the upper abdomen somewhat. Mild ascites is suggested. 4. Additional findings as above. TECHNICAL DOCUMENTATION: JOB ID: [id number] Quality ID # [id number]: Final reports with documentation of one or more dose reduction techniques (e.g., Au tomated exposure control, adjustment of the mA and/or kV according to patient size, use of iterative reconstruction technique) 2010 [employer]- All Rights Reserved Reading location - IP/workstation name: [email or web address]
[2018-05-30 13:31] LABS: ARTERIAL BLOOD BASE EXCESS 2.7 mmol/L; ARTERIAL BLOOD H2CO3 1.01 mmol/L (1.05-1.35); ARTERIAL BLOOD HCO3 25.6 mmol/L (20-26); ARTERIAL BLOOD O2 SATURATION 98.9 % (94-98); ARTERIAL BLOOD PCO2 33.6 mmHg (35-45); ARTERIAL BLOOD PO2 133.9 mmHg (80-100); ARTERIAL BLOOD TOTAL CO2 26.6 mmol/L (23-27)
[2018-05-30 13:32] LABS: ARTERIAL BLOOD FIO2 30%
[2018-05-30 14:17] LABS: ALANINE AMINOTRANSFERASE 123 U/L (21-72); ALBUMIN 1.9 g/dL (3.5-5.0); ALKALINE PHOSPHATASE 88 U/L (38-126); ANION GAP 10 (5-19); ASPARTATE AMINO TRANSFERASE 98 U/L (17-59); BILIRUBIN,DIRECT 0.5 mg/dL (0.0-0.4); BILIRUBIN,TOTAL 1.3 mg/dL (0.2-1.3); BLOOD UREA NITROGEN 18 mg/dL (7-20); CALCIUM 7.3 mg/dL (8.4-10.2); CARBON DIOXIDE 23 mmol/L (22-30); CHLORIDE 98 mmol/L (98-107); GLUCOSE 84 mg/dL (75-110); PHOSPHORUS 3.3 mg/dL (2.5-4.5); POTASSIUM 3.8 mmol/L (3.6-5.0); TOTAL PROTEIN 4.7 g/dL (6.3-8.2)
[2018-05-30] MEDS: POTASSIUM CHLORIDE 20 MEQ/50 ML RTU IV SCH ×2 (14:46→16:01)
--- NOTE | 2018-05-31 00:44 | PDOC PROGRESS REPORT ---
Subjective Progress Note for:: 05/31/18 Subjective:: Patient is a 87-year-old frail -British male admitted with shortness of breath. Found to have this severe stage IV sacral ulcer. Patient is unresponsive and is nonverbal at baseline does not respond to painful stimuli. Since wound had been debrided by the general surgeon Dr. Medina. This morning patient was seen and per family his Mr. Gooden considering transfer to [facility] as most of this patient's physicians were at [facility]. Discussed with nurse as family was not at bedside to inform them that we will discuss with the surgeon if there is a service that is not offered here currently at this hospital also revealed that we would proceed and request consult for specialty services. Reason For Visit: ACUTE RESPIRATORY FAILURE ON BIPAP,PNA,SEVERE DEC Physical Exam Vital Signs: Temp Pulse Resp BP Pulse Ox 97.3 F 66 16 122/83 100 05/30/18 23:55 05/30/18 18:00 05/31/18 00:27 05/30/18 18:00 05/31/18 00:27 Intake & Output 05/29/18 05/30/18 05/31/18 06:59 06:59 06:59 Intake Total 807 3645 381 Output Total 1195 1025 Balance 807 2450 -644 Weight 135 lb 9.349 oz General appearance: PRESENT: no acute distress. ABSENT: obese Eye exam: ABSENT: EOMI Respiratory exam: PRESENT: rhonchi, wheezes Cardiovascular exam: PRESENT: RRR GI/Abdominal exam: PRESENT: normal bowel sounds, soft. ABSENT: distended, guarding, tenderness Neurological exam: ABSENT: alert, awake, CN II-XII grossly intact Results Laboratory Results: 05/30/18 05:31 05/30/18 13:45 05/29/18 05/30/18 05/30/18 03:57 05:31 05:31 WBC 12.6 H RBC 3.70 L Hgb 11.6 L D Hct 33.9 L MCV 92 MCH 31.3 MCHC 34.1 RDW 13.6 Plt Count 190 Seg Neutrophils % 90.5 H Lymphocytes % 7.0 L Monocytes % 2.4 L Eosinophils % 0.0 Basophils % 0.1 Absolute Neutrophils 11.4 H Absolute Lymphocytes 0.9 Absolute Monocytes 0.3 Absolute Eosinophils 0.0 Absolute Basophils 0.0 Carbonic Acid HCO3/H2CO3 Ratio ABG pH ABG pCO2 ABG pO2 ABG HCO3 ABG O2 Saturation ABG Base Excess FiO2 Sodium 130.9 L Potassium 3.3 L Chloride 97 L Carbon Dioxide 25 Anion Gap 9 BUN 17 Creatinine 0.45 L Est GFR ( Amer) > 60 Est GFR (Non-Af Amer) > 60 Glucose 66 L Calcium 7.2 L Phosphorus Magnesium Total Bilirubin AST ALT Alkaline Phosphatase Total Protein Albumin Blood Type O POSITIVE Antibody Screen NEGATIVE 05/30/18 05/30/18 05/30/18 05:31 05:45 13:15 WBC RBC Hgb Hct MCV MCH MCHC RDW Plt Count Seg Neutrophils % Lymphocytes % Monocytes % Eosinophils % Basophils % Absolute Neutrophils Absolute Lymphocytes Absolute Monocytes Absolute Eosinophils Absolute Basophils Carbonic Acid 0.91 L 1.01 L HCO3/H2CO3 Ratio 26:1 25:1 ABG pH 7.52 H 7.50 H ABG pCO2 30.3 L 33.6 L ABG pO2 168.6 H 133.9 H ABG HCO3 24.1 25.6 ABG O2 Saturation 99.3 H 98.9 H ABG Base Excess 1.7 2.7 FiO2 35% 30% Sodium Potassium Chloride Carbon Dioxide Anion Gap BUN Creatinine Est GFR ( Amer) Est GFR (Non-Af Amer) Glucose Calcium Phosphorus Magnesium 2.0 Total Bilirubin AST ALT Alkaline Phosphatase Total Protein Albumin Blood Type Antibody Screen 05/30/18 13:45 WBC RBC Hgb Hct MCV MCH MCHC RDW Plt Count Seg Neutrophils % Lymphocytes % Monocytes % Eosinophils % Basophils % Absolute Neutrophils Absolute Lymphocytes Absolute Monocytes Absolute Eosinophils Absolute Basophils Carbonic Acid HCO3/H2CO3 Ratio ABG pH ABG pCO2 ABG pO2 ABG HCO3 ABG O2 Saturation ABG Base Excess FiO2 Sodium 131.0 L Potassium 3.8 Chloride 98 Carbon Dioxide 23 Anion Gap 10 BUN 18 Creatinine 0.44 L Est GFR ( Amer) > 60 Est GFR (Non-Af Amer) > 60 Glucose 84 Calcium 7.3 L Phosphorus 3.3 Magnesium Total Bilirubin 1.3 AST 98 H ALT 123 H Alkaline Phosphatase 88 Total Protein 4.7 L Albumin 1.9 L Blood Type Antibody Screen 05/28/18 21:30 Vicente Catheter Urine Culture - Final NO GROWTH 2 DAYS 05/29/18 05/29/18 05/29/18 03:57 16:16 16:16 Creatine Kinase 41 L CK-MB (CK-2) 1.16 Troponin I < 0.012 NT-Pro-B Natriuret Pep 6440 H 5810 H 05/29/18 05/29/18 05/30/18 21:35 21:35 05:31 Creatine Kinase 43 L 48 L CK-MB (CK-2) 1.23 Troponin I < 0.012 NT-Pro-B Natriuret Pep 05/30/18 05:31 Creatine Kinase CK-MB (CK-2) 1.33 Troponin I 0.012 NT-Pro-B Natriuret Pep Impressions: Chest CT 05/30/18 00:00 IMPRESSION: 1 Scattered multifocal confluent patchy areas of airspace disease in the right lung. Considerations for these findings include atypical infections, inflammatory/ infectious etiologies. 2. Bilateral mild to moderate pleural effusions, larger on the right. Mild compressive left lower lobe atelectasis. 3 Artifact limits the examination of the upper abdomen somewhat. Mild ascites is suggested. 4. Additional findings as above. Chest X-Ray 05/30/18 00:00 IMPRESSION: 1 Stable mild patchy airspace disease in the right lung, may represent infiltrates. Mild right pleural effusion. Assessment & Plan - Diagnosis (1) Pneumonia Qualifiers: Pneumonia type: aspiration pneumonia Laterality: right Lung location: middle lobe of lung Qualified Code(s): J18.9 - Pneumonia, unspecified organism Is this a current diagnosis for this admission?: Yes Plan: Continue current antibiotic regimen. (2) Protein calorie malnutrition Qualifiers: Protein-calorie malnutrition severity: severe Qualified Code(s): E43 - Unspecified severe protein-calorie malnutrition Is this a current diagnosis for this admission?: Yes Plan: Patient is n.p.o. 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 (3) Sepsis Qualifiers: Sepsis type: sepsis due to unspecified organism Qualified Code(s): A41.9 - Sepsis, unspecified organism Is this a current diagnosis for this admission?: Yes Plan: Patient admitted for acute respiratory failure with hypoxia and pneumonia due to aspiration patient continued on antibiotic regimen for aspiration pneumonia. Discussed with and received information son wants the patient to be full code. (4) Stage IV pressure ulcer of sacral region Is this a current diagnosis for this admission?: Yes Plan: Status post debridement. Continue wound care (5) Type 2 diabetes mellitus Qualifiers: Diabetes mellitus intermediate accountant insulin use: without fci use Is this a current diagnosis for this admission?: Yes (6) Hypertension Qualifiers: Hypertension type: essential hypertension Qualified Code(s): I10 - Essential (primary) hypertension Is this a current diagnosis for this admission?: Yes Plan: Blood pressure is coming up. Resume home meds as needed. (7) Pacemaker Is this a current diagnosis for this admission?: Yes
[2018-05-31] MEDS: PIPERACILLIN SODIUM/TAZOBACTAM 3.375 GM in NORMAL SALINE 100 ML IV SCH ×4 (01:14→18:42)
[2018-05-31] MEDS: DEXTROSE 5%-NORMAL SALINE 1,000 ML IV PRN ×2 (01:50→18:42)
[2018-05-31 04:18] LABS: ABSOLUTE LYMPHOCYTES (AUTO) 0.9 10^3/uL (0.5-4.7); ABSOLUTE MONOCYTES (AUTO) 0.2 10^3/uL (0.1-1.4); ABSOLUTE NEUT (AUTO) 9.8 10^3/uL (1.7-8.2); BASOPHILS % (AUTO) 0.1 % (0-2); HEMATOCRIT 30.2 % (37.9-51.0); HEMOGLOBIN 10.8 g/dL (13.5-17.0); LYMPHOCYTES % (AUTO) 8.3 % (13-45); MEAN CORPUSCULAR HEMOGLOBIN 32.2 pg (27.0-33.4); MEAN CORPUSCULAR HGB CONC 35.7 g/dL (32.0-36.0); MEAN CORPUSCULAR VOLUME 90 fl (80-97); MONOCYTES % (AUTO) 2.1 % (3-13); PLATELET COUNT 192 10^3/uL (150-450); RED BLOOD COUNT 3.36 10^6/uL (4.35-5.55); RED CELL DISTRIBUTION WIDTH 13.6 % (11.5-14.0); SEGMENTED NEUTROPHILS % (AUTO) 89.5 % (42-78); TOTAL CELLS COUNTED % (AUTO) 100 %
[2018-05-31 04:22] LABS: ANION GAP 6 (5-19); BLOOD UREA NITROGEN 18 mg/dL (7-20); CARBON DIOXIDE 25 mmol/L (22-30); CHLORIDE 100 mmol/L (98-107); GLUCOSE 81 mg/dL (75-110); PHOSPHORUS 2.9 mg/dL (2.5-4.5); POTASSIUM 3.3 mmol/L (3.6-5.0); SODIUM 130.8 mmol/L (137-145)
[2018-05-31 04:34] LABS: CALCIUM 6.9 mg/dL (8.4-10.2)
[2018-05-31 06:06] LABS: ARTERIAL BLOOD H2CO3 0.94 mmol/L (1.05-1.35); ARTERIAL BLOOD HCO3 25.2 mmol/L (20-26); ARTERIAL BLOOD PCO2 31.3 mmHg (35-45); ARTERIAL BLOOD PH 7.52 (7.35-7.45); ARTERIAL BLOOD PO2 138.8 mmHg (80-100); ARTERIAL BLOOD TOTAL CO2 26.2 mmol/L (23-27)
[2018-05-31 06:09] LABS: ARTERIAL BLOOD FIO2 30%
--- NOTE | 2018-05-31 07:15 | RADIOLOGY REPORT (SQ) ---
EXAM DESCRIPTION: XR CHEST 1 VIEW COMPLETED DATE/TME: 05/31/2018 06:00 CLINICAL HISTORY: 87 years Male, PNA COMPARISON: One day prior. NUMBER OF VIEWS/TECHNIQUE: 1/AP FINDINGS: Moderate patchy opacity-layered effusion of the right lower hemithorax, small patchy opacity of the right midlung field, normal cardiac silhouette, atherosclerosis, left cardiac stimulator with leads, moderate gaseous bowel distention partially imaged. No pneumothorax. Stable bony thorax. IMPRESSION: No significant change.
--- NOTE | 2018-05-31 10:14 | PDOC PROGRESS REPORT ---
Subjective Progress Note for:: 05/31/18 Subjective:: The patient is an extremely unfortunate 87-year-old -[place] male. His past medical history is significant for coronary artery disease, atrial fibrillation and hypertension. He also has known diabetes mellitus and COPD. He has dementia at baseline. He lives at home with his who is his primary decision maker. At baseline the patient is bedbound, nonverbal and is on 4 L of oxygen. He receives tube feeds via a PEG tube. The patient was brought to the emergency room with increased shortness of breath. He was found to have acute on chronic respiratory failure and evidence of underlying pneumonia. On exam he was found to have a stage IV decubitus ulcer as well as rather significant anemia. The patient was admitted to the hospital. He has been started on IV vancomycin and Zosyn. He has been transfused 2 units of packed red blood cells. Overall the patient is still requiring BiPAP support. He is not receiving tube feeds. He remains nonverbal and will only open his eyes to noxious stimuli. Review of systems could not be obtained. Of note [facility] has been contacted and they are reviewing the case at this time. The patient's at this point has told the staff that she would consider [facility] placement. Reason For Visit: ACUTE RESPIRATORY FAILURE ON BIPAP,PNA,SEVERE DEC Physical Exam Vital Signs: Temp Pulse Resp BP Pulse Ox 98.8 F 68 13 122/75 100 05/31/18 07:41 05/31/18 07:41 05/31/18 07:41 05/31/18 07:41 05/31/18 07:41 Intake & Output 05/30/18 05/31/18 06/01/18 06:59 06:59 06:59 Intake Total 3645 581 Output Total 1195 1275 100 Balance 2450 -694 -100 Weight 61.5 kg 62.4 kg General appearance: PRESENT: other - This is a thin, ill-appearing - [place] gentleman. He does not respond to me when I talked to him. He is wearing BiPAP at the time of my visit Head exam: PRESENT: normocephalic Mouth exam: PRESENT: other - I could not examine his oral mucosa due to the fact that he has a BiPAP in place Respiratory exam: PRESENT: other - He is diminished in the lower bases. He will not cooperate for an exam. His lungs sound fairly clear Cardiovascular exam: PRESENT: RRR. ABSENT: diastolic murmur, rubs, systolic murmur GI/Abdominal exam: PRESENT: other - Abdomen appears to be nontender. He has a PEG tube in place. He is not receiving tube feeds at this time Rectal exam: PRESENT: deferred Extremities exam: PRESENT: full ROM, +2 edema - The patient is third spacing fluid and has pitting edema in all 4 of his extremities. ABSENT: calf tenderness, clubbing Musculoskeletal exam: ABSENT: ambulatory Neurological exam: PRESENT: other - The patient at baseline is nonverbal. He responds to noxious stimuli on Skin exam: PRESENT: other - He reportedly has a stage IV decubitus ulcer. I did not examine these today but I did look at the pictures in the chart. This is a significant wound. Results Laboratory Results: 05/31/18 03:58 05/31/18 03:58 05/30/18 05/30/18 05/30/18 05:31 13:15 13:45 WBC RBC Hgb Hct MCV MCH MCHC RDW Plt Count Seg Neutrophils % Lymphocytes % Monocytes % Eosinophils % Basophils % Absolute Neutrophils Absolute Lymphocytes Absolute Monocytes Absolute Eosinophils Absolute Basophils Carbonic Acid 1.01 L HCO3/H2CO3 Ratio 25:1 ABG pH 7.50 H ABG pCO2 33.6 L ABG pO2 133.9 H ABG HCO3 25.6 ABG O2 Saturation 98.9 H ABG Base Excess 2.7 FiO2 30% Sodium 131.0 L Potassium 3.8 Chloride 98 Carbon Dioxide 23 Anion Gap 10 BUN 18 Creatinine 0.44 L Est GFR ( Amer) > 60 Est GFR (Non-Af Amer) > 60 Glucose 84 Calcium 7.3 L Phosphorus 3.3 Magnesium 2.0 Total Bilirubin 1.3 AST 98 H ALT 123 H Alkaline Phosphatase 88 Total Protein 4.7 L Albumin 1.9 L 05/31/18 05/31/18 05/31/18 03:58 03:58 05:30 WBC 11.0 H RBC 3.36 L Hgb 10.8 L Hct 30.2 L MCV 90 MCH 32.2 MCHC 35.7 RDW 13.6 Plt Count 192 Seg Neutrophils % 89.5 H Lymphocytes % 8.3 L Monocytes % 2.1 L Eosinophils % 0.0 Basophils % 0.1 Absolute Neutrophils 9.8 H Absolute Lymphocytes 0.9 Absolute Monocytes 0.2 Absolute Eosinophils 0.0 Absolute Basophils 0.0 Carbonic Acid 0.94 L HCO3/H2CO3 Ratio 26:1 ABG pH 7.52 H ABG pCO2 31.3 L ABG pO2 138.8 H ABG HCO3 25.2 ABG O2 Saturation 99.0 H ABG Base Excess 3.0 FiO2 30% Sodium 130.8 L Potassium 3.3 L Chloride 100 Carbon Dioxide 25 Anion Gap 6 BUN 18 Creatinine 0.47 L Est GFR ( Amer) > 60 Est GFR (Non-Af Amer) > 60 Glucose 81 Calcium 6.9 L* Phosphorus 2.9 Magnesium 1.8 Total Bilirubin AST ALT Alkaline Phosphatase Total Protein Albumin 05/29/18 20:45 Sacrum - Decubitis Ulcer Gram Stain - Final 05/28/18 21:30 Vicente Catheter Urine Culture - Final NO GROWTH 2 DAYS 05/29/18 05/29/18 05/29/18 03:57 16:16 16:16 Creatine Kinase 41 L CK-MB (CK-2) 1.16 Troponin I < 0.012 NT-Pro-B Natriuret Pep 6440 H 5810 H 05/29/18 05/29/18 05/30/18 21:35 21:35 05:31 Creatine Kinase 43 L 48 L CK-MB (CK-2) 1.23 Troponin I < 0.012 NT-Pro-B Natriuret Pep 05/30/18 05:31 Creatine Kinase CK-MB (CK-2) 1.33 Troponin I 0.012 NT-Pro-B Natriuret Pep Impressions: Chest CT 05/30/18 00:00 IMPRESSION: 1 Scattered multifocal confluent patchy areas of airspace disease in the right lung. Considerations for these findings include atypical infections, inflammatory/ infectious etiologies. 2. Bilateral mild to moderate pleural effusions, larger on the right. Mild compressive left lower lobe atelectasis. 3 Artifact limits the examination of the upper abdomen somewhat. Mild ascites is suggested. 4. Additional findings as above. Chest X-Ray 05/31/18 06:00 IMPRESSION: No significant change. Assessment & Plan - Diagnosis (1) Acute and chronic respiratory failure Is this a current diagnosis for this admission?: Yes Plan: The patient remains on BiPAP support. This is likely due to his underlying pleural effusions.
[2018-05-31 10:37] LABS: VANCOMYCIN,TROUGH 12.8 ug/mL (5.0-20.0)
[2018-05-31] MEDS: VANCOMYCIN HCL 750 MG in DEXTROSE 5%-WATER 250 ML IV SCH ×2 (11:05→21:21)
[2018-05-31] MEDS: PANTOPRAZOLE SODIUM 40 MG VIAL IV SCH ×2 (11:06→21:20)
[2018-05-31] MEDS: ENOXAPARIN SODIUM INJ 40 MG/0.4 ML DISP.SYRIN SUBCUT SCH (11:06)
[2018-05-31] MEDS: CALCIUM CARBONATE 250 MG/VITAMIN D3 125 UNIT TABLET PO SCH ×3 (11:06→18:51)
[2018-05-31] MEDS ORDERED: MORPHINE SULFATE 10 MG/ML INJ IV PRN (12:20)
[2018-06-01] MEDS: PIPERACILLIN SODIUM/TAZOBACTAM 3.375 GM in NORMAL SALINE 100 ML IV SCH ×5 (00:27→23:48)
[2018-06-01 04:55] LABS: ALANINE AMINOTRANSFERASE 208 U/L (21-72); ALKALINE PHOSPHATASE 125 U/L (38-126); ANION GAP 9 (5-19); ASPARTATE AMINO TRANSFERASE 246 U/L (17-59); BILIRUBIN,DIRECT 0.4 mg/dL (0.0-0.4); BLOOD UREA NITROGEN 20 mg/dL (7-20); CALCIUM 7.3 mg/dL (8.4-10.2); CARBON DIOXIDE 26 mmol/L (22-30); CHLORIDE 100 mmol/L (98-107); GLUCOSE 76 mg/dL (75-110); SODIUM 134.5 mmol/L (137-145); TOTAL PROTEIN 5.1 g/dL (6.3-8.2)
[2018-06-01 05:00] LABS: POTASSIUM 2.9 mmol/L (3.6-5.0)
[2018-06-01 05:39] LABS: ARTERIAL BLOOD BASE EXCESS 4.3 mmol/L; ARTERIAL BLOOD H2CO3 0.94 mmol/L (1.05-1.35); ARTERIAL BLOOD HCO3 26.3 mmol/L (20-26); ARTERIAL BLOOD O2 SATURATION 99.8 % (94-98); ARTERIAL BLOOD PCO2 31.2 mmHg (35-45); ARTERIAL BLOOD PH 7.54 (7.35-7.45); ARTERIAL BLOOD PO2 368.7 mmHg (80-100); ARTERIAL BLOOD TOTAL CO2 27.3 mmol/L (23-27)
[2018-06-01 05:40] LABS: ARTERIAL BLOOD FIO2 80%
[2018-06-01 05:46] LABS: ABSOLUTE MONOCYTES (AUTO) 0.2 10^3/uL (0.1-1.4); ABSOLUTE NEUT (AUTO) 13.8 10^3/uL (1.7-8.2); BASOPHILS % (AUTO) 0.3 % (0-2); HEMATOCRIT 36.3 % (37.9-51.0); HEMOGLOBIN 12.5 g/dL (13.5-17.0); LYMPHOCYTES % (AUTO) 6.7 % (13-45); MEAN CORPUSCULAR HEMOGLOBIN 31.2 pg (27.0-33.4); MEAN CORPUSCULAR HGB CONC 34.4 g/dL (32.0-36.0); MEAN CORPUSCULAR VOLUME 91 fl (80-97); MONOCYTES % (AUTO) 1.6 % (3-13); PLATELET COUNT 189 10^3/uL (150-450); RED BLOOD COUNT 4.01 10^6/uL (4.35-5.55); RED CELL DISTRIBUTION WIDTH 13.4 % (11.5-14.0); SEGMENTED NEUTROPHILS % (AUTO) 91.4 % (42-78); TOTAL CELLS COUNTED % (AUTO) 100 %; WHITE BLOOD COUNT 15.1 10^3/uL (4.0-10.5)
[2018-06-01] MEDS ORDERED: POTASSIUM CHLORIDE 20 MEQ/15 ML UDCUP GT ONE (06:15)
[2018-06-01] MEDS: POTASSIUM CHLORIDE 20 MEQ/50 ML RTU IV SCH ×2 (06:23→08:42)
--- NOTE | 2018-06-01 07:31 | RADIOLOGY REPORT (SQ) ---
EXAM DESCRIPTION: XR CHEST 1 VIEW COMPLETED DATE/TME: 06/01/2018 06:00 CLINICAL HISTORY: 87 years Male, resp fail sepsis COMPARISON: One day prior. NUMBER OF VIEWS/TECHNIQUE: 1/AP FINDINGS: Moderate hazy opacity-effusion of the right lower hemithorax, small hazy opacity-effusion of the left lung base, normal cardiac silhouette, atherosclerosis, left cardiac stimulator with leads No pneumothorax. Stable bony thorax. IMPRESSION: No significant change.
[2018-06-01] MEDS: DEXTROSE 5%-NORMAL SALINE 1,000 ML IV PRN ×2 (08:42→18:08)
[2018-06-01] MEDS: ENOXAPARIN SODIUM INJ 40 MG/0.4 ML DISP.SYRIN SUBCUT SCH (09:24)
[2018-06-01] MEDS: PANTOPRAZOLE SODIUM 40 MG VIAL IV SCH (09:24)
[2018-06-01] MEDS: CALCIUM CARBONATE 250 MG/VITAMIN D3 125 UNIT TABLET PO SCH ×3 (09:24→17:47)
--- NOTE | 2018-06-01 09:26 | PDOC PROGRESS REPORT ---
Subjective Subjective:: The patient is an extremely unfortunate 87-year-old -[place] male. His past medical history is significant for coronary artery disease, atrial fibrillation and hypertension. He also has known diabetes mellitus and COPD. He has dementia at baseline. He lives at home with his who is his primary decision maker. At baseline the patient is bedbound, nonverbal and is on 4 L of oxygen. He receives tube feeds via a PEG tube. The patient was brought to the emergency room with increased shortness of breath. He was found to have acute on chronic respiratory failure and evidence of underlying pneumonia. On exam he was found to have a stage IV decubitus ulcer as well as rather significant anemia. The patient was admitted to the hospital. He has been started on IV vancomycin and Zosyn. He has been transfused 2 units of packed red blood cells. Overall the patient is still requiring BiPAP support. He is not receiving tube feeds. He remains nonverbal and will only open his eyes to noxious stimuli. A review of systems could not be obtained. Of note [facility] has been contacted and they are reviewing the case at this time. The patient's is his primary decision maker. I spoke to her at length yesterday. She is quite concerned about how long he can stay in the hospital. She asked me if we transitioned him to comfort measures how long he would likely live versus how long he could live on maximum therapy in the ICU. Initially she was considering changing his CODE STATUS to a DO NOT RESUSCITATE. She was thinking about giving him 30 days and renewing it as needed going forward. This morning I met with her again. We had a conference call with the patient's 2 children that live out of state. She made it quite clear that she was the one to make the decisions. The children both are reasonable. 1 of the sons asked if the patient had advanced directives. She states that he probably has advanced directives that are with his satellite technician. She said that it did not matter what his advanced directives were that she was the one in charge. After a long discussion and further discussions with the children they would like to be here to see their father before he passes. She would like him to remain in the ICU as a full code until the children arrive so that they can say goodbye to their father while he is still alive. She states that they both will be arriving in town over the weekend and that if they do not come by the weekend that she will consider a transition to comfort measures and changing his CODE STATUS at that time. For now she has made it quite clear that she wants him in the ICU so that he can be emergently intubated and resuscitated should he get worse. She expects them to stay alive until they get here this weekend. Today when I saw the patient he is still on BiPAP. He is quite stable. He actually did open his eyes briefly today but will not respond. His eyes will not track Reason For Visit: ACUTE RESPIRATORY FAILURE ON BIPAP,PNA,SEVERE DEC Physical Exam Vital Signs: Temp Pulse Resp BP Pulse Ox 97.5 F 74 14 129/75 H 100 06/01/18 06:00 05/31/18 20:00 06/01/18 08:01 06/01/18 08:01 06/01/18 08:01 Intake & Output 05/31/18 06/01/18 06/02/18 06:59 06:59 06:59 Intake Total 931 3175 50 Output Total 1275 2740 Balance -344 435 50 Weight 62.4 kg 59.5 kg General appearance: PRESENT: other - Ill-appearing 87-year-old -[place] male. He is lying on his side with BiPAP in place. Head exam: PRESENT: normocephalic, other - He has bitemporal muscle wasting Mouth exam: PRESENT: other - I could not examine his oral mucosa due to the BiPAP being in place Respiratory exam: PRESENT: decreased breath sounds - He has some very fine crackles in the lower bases. He significantly diminished in both of the lower bases Cardiovascular exam: PRESENT: RRR. ABSENT: diastolic murmur, rubs, systolic murmur GI/Abdominal exam: PRESENT: other - His abdomen appears to be nontender. He has a PEG tube in place. Neurological exam: PRESENT: awake, aphasic. ABSENT: alert, oriented to person, oriented to place, oriented to time, oriented to situation Psychiatric exam: PRESENT: other - He is basically unresponsive Skin exam: PRESENT: other - He is third spacing fluid. He has a large stage IV sacral decubitus ulcer that was not examined today. Results Laboratory Results: 06/01/18 05:15 06/01/18 04:00 06/01/18 06/01/18 06/01/18 04:00 04:00 05:15 WBC Cancelled 15.1 H RBC Cancelled 4.01 L Hgb Cancelled 12.5 L Hct Cancelled 36.3 L MCV Cancelled 91 MCH Cancelled 31.2 MCHC Cancelled 34.4 RDW Cancelled 13.4 Plt Count Cancelled 189 Seg Neutrophils % Cancelled 91.4 H Lymphocytes % Cancelled 6.7 L Monocytes % Cancelled 1.6 L Eosinophils % Cancelled 0.0 Basophils % Cancelled 0.3 Absolute Neutrophils Cancelled 13.8 H Absolute Lymphocytes Cancelled 1.0 Absolute Monocytes Cancelled 0.2 Absolute Eosinophils Cancelled 0.0 Absolute Basophils Cancelled 0.0 Carbonic Acid HCO3/H2CO3 Ratio ABG pH ABG pCO2 ABG pO2 ABG HCO3 ABG O2 Saturation ABG Base Excess FiO2 Sodium 134.5 L Potassium 2.9 L* Chloride 100 Carbon Dioxide 26 Anion Gap 9 BUN 20 Creatinine 0.55 Est GFR ( Amer) > 60 Est GFR (Non-Af Amer) > 60 Glucose 76 Calcium 7.3 L Magnesium 1.8 Total Bilirubin 1.0 AST 246 H ALT 208 H Alkaline Phosphatase 125 Total Protein 5.1 L Albumin 2.0 L 06/01/18 05:23 WBC RBC Hgb Hct MCV MCH MCHC RDW Plt Count Seg Neutrophils % Lymphocytes % Monocytes % Eosinophils % Basophils % Absolute Neutrophils Absolute Lymphocytes Absolute Monocytes Absolute Eosinophils Absolute Basophils Carbonic Acid 0.94 L HCO3/H2CO3 Ratio 27:1 ABG pH 7.54 H ABG pCO2 31.2 L ABG pO2 368.7 H ABG HCO3 26.3 H ABG O2 Saturation 99.8 H ABG Base Excess 4.3 FiO2 80% Sodium Potassium Chloride Carbon Dioxide Anion Gap BUN Creatinine Est GFR ( Amer) Est GFR (Non-Af Amer) Glucose Calcium Magnesium Total Bilirubin AST ALT Alkaline Phosphatase Total Protein Albumin 05/29/18 20:45 Sacrum - Decubitis Ulcer Gram Stain - Final 05/29/18 20:45 Sacrum - Decubitis Ulcer Wound Culture - Final Pseudomonas Aeruginosa Enterococcus Faecalis(Group D) Bacteroides Fragilis Group 05/29/18 05/29/18 05/29/18 03:57 16:16 16:16 Creatine Kinase 41 L CK-MB (CK-2) 1.16 Troponin I < 0.012 NT-Pro-B Natriuret Pep 6440 H 5810 H 05/29/18 05/29/18 05/30/18 21:35 21:35 05:31 Creatine Kinase 43 L 48 L CK-MB (CK-2) 1.23 Troponin I < 0.012 NT-Pro-B Natriuret Pep 05/30/18 05:31 Creatine Kinase CK-MB (CK-2) 1.33 Troponin I 0.012 NT-Pro-B Natriuret Pep Impressions: Chest CT 05/30/18 00:00 IMPRESSION: 1 Scattered multifocal confluent patchy areas of airspace disease in the right lung. Considerations for these findings include atypical infections, inflammatory/ infectious etiologies. 2. Bilateral mild to moderate pleural effusions, larger on the right. Mild compressive left lower lobe atelectasis. 3 Artifact limits the examination of the upper abdomen somewhat. Mild ascites is suggested. 4. Additional findings as above. Chest X-Ray 06/01/18 06:00 IMPRESSION: No significant change. Assessment & Plan - Diagnosis (1) Acute and chronic respiratory failure Is this a current diagnosis for this admission?: Yes Plan: The patient remains on BiPAP support. This is likely due to his underlying pleural effusions, underlying pneumonia and probable acute on chronic diastolic congestive heart failure exacerbation. Continue bipap support as needed for now. Therapy will be outlined below. (2) Sepsis Is this a current diagnosis for this admission?: Yes Plan: Present on admission secondary to underlying pneumonia as well as infected stage IV decubitus ulcer. His sepsis symptoms were manifested by leukocytosis, fever, hypotension and hypothermia as well as evidence of infection. He also had an elevated lactic acid level. Continue IV vancomycin and Zosyn. This is day #4 of treatment. (3) Pneumonia Is this a current diagnosis for this admission?: Yes Plan: This is likely an aspiration pneumonia with concerns for gram negatives and anaerobes. He will continue IV Zosyn. This is day #4 of treatment. Cannot rule out MRSA as well. He is on vancomycin day #4 as well. Overall he still is running a low-grade white count. He is no longer hypothermic. His hypotension is better. He is stable (4) Acute on chronic diastolic (congestive) heart failure Is this a current diagnosis for this admission?: Yes Plan: He has moderate bilateral pleural effusions on his chest CT. I admit to order a BNP yesterday but apparently it did not get put incorrectly. I am going to add 1 to this morning's labs.. He received 1 dose of IV Lasix yesterday. This did not seem to make any meaningful difference in his whole overall status. (5) Bilateral pleural effusion Is this a current diagnosis for this admission?: Yes Plan: These are stable on chest x-ray today. (6) Sacral decubitus ulcer, stage IV Is this a current diagnosis for this admission?: Yes Plan: This has been debrided. Continue local wound care. Wound culture is growing gram-positive cocci as well as Pseudomonas. He should be adequately covered with IV vancomycin and Zosyn. (7) Anemia Is this a current diagnosis for this admission?: Yes Plan: No further workup for his anemia. He has been transfused 2 units of packed red blood cells with the appropriate response to his hemoglobin. (8) Hyponatremia Is this a current diagnosis for this admission?: Yes Plan: His level has improved. (9) COPD (chronic obstructive pulmonary disease) Is this a current diagnosis for this admission?: Yes Plan: It appears that he is oxygen dependent at baseline because it is reported that he uses 4 L of oxygen at home. Continue aggressive breathing treatments and antibiotic therapy as outlined above. (10) Atrial fibrillation Is this a current diagnosis for this admission?: Yes Plan: Currently in a sinus rhythm and rate controlled (11) Coronary artery disease Is this a current diagnosis for this admission?: Yes Plan: Currently on no medications. (12) Dementia Is this a current diagnosis for this admission?: Yes Plan: He appears to have end-stage dementia at baseline. He is only responsive to noxious stimuli. (13) Dysphagia Is this a current diagnosis for this admission?: Yes Plan: Currently his tube feedings are on hold. He really was not tolerating them. The reports that he is vomited several times which is likely how he is aspirated. - Time Time Spent with patient: 35 or more minutes - Inpatient Certification Medical Necessity: Need for IV Antibiotics - I have spoken at length to the patient's . She would like for the patient to be kept alive in the ICU until this weekend when the children arrive in town. At that time she will consider changing his status to a DNR. She also will consider a transition to comfort measures. I have spent a significant amount of time for the past 2 days discussing the goals of care. Further discussions will need to be had as the weekend approaches. The patient is stable for now and will remain in the ICU., Other
[2018-06-01] MEDS: VANCOMYCIN HCL 750 MG in DEXTROSE 5%-WATER 250 ML IV SCH ×2 (09:28→21:46)
[2018-06-02 04:30] LABS: ABSOLUTE MONOCYTES (AUTO) 0.3 10^3/uL (0.1-1.4); ABSOLUTE NEUT (AUTO) 8.5 10^3/uL (1.7-8.2); BASOPHILS % (AUTO) 0.5 % (0-2); HEMATOCRIT 32.8 % (37.9-51.0); HEMOGLOBIN 11.6 g/dL (13.5-17.0); LYMPHOCYTES % (AUTO) 9.9 % (13-45); MEAN CORPUSCULAR HEMOGLOBIN 32.4 pg (27.0-33.4); MEAN CORPUSCULAR HGB CONC 35.3 g/dL (32.0-36.0); MEAN CORPUSCULAR VOLUME 92 fl (80-97); MONOCYTES % (AUTO) 2.8 % (3-13); PLATELET COUNT 162 10^3/uL (150-450); RED BLOOD COUNT 3.58 10^6/uL (4.35-5.55); RED CELL DISTRIBUTION WIDTH 13.7 % (11.5-14.0); SEGMENTED NEUTROPHILS % (AUTO) 86.8 % (42-78); TOTAL CELLS COUNTED % (AUTO) 100 %; WHITE BLOOD COUNT 9.8 10^3/uL (4.0-10.5)
[2018-06-02 04:32] LABS: ARTERIAL BLOOD BASE EXCESS 2.5 mmol/L; ARTERIAL BLOOD H2CO3 0.91 mmol/L (1.05-1.35); ARTERIAL BLOOD HCO3 24.6 mmol/L (20-26); ARTERIAL BLOOD O2 SATURATION 99.1 % (94-98); ARTERIAL BLOOD PCO2 30.3 mmHg (35-45); ARTERIAL BLOOD PH 7.53 (7.35-7.45); ARTERIAL BLOOD PO2 144.6 mmHg (80-100); ARTERIAL BLOOD TOTAL CO2 25.6 mmol/L (23-27)
[2018-06-02 04:33] LABS: ARTERIAL BLOOD FIO2 30%
[2018-06-02 04:44] LABS: ANION GAP 8 (5-19); BLOOD UREA NITROGEN 16 mg/dL (7-20); CALCIUM 7.2 mg/dL (8.4-10.2); CARBON DIOXIDE 25 mmol/L (22-30); CHLORIDE 102 mmol/L (98-107); GLUCOSE 87 mg/dL (75-110); POTASSIUM 3.3 mmol/L (3.6-5.0); SODIUM 135.2 mmol/L (137-145)
[2018-06-02] MEDS: PIPERACILLIN SODIUM/TAZOBACTAM 3.375 GM in NORMAL SALINE 100 ML IV SCH ×4 (05:15→23:55)
--- NOTE | 2018-06-02 06:55 | RADIOLOGY REPORT (SQ) ---
EXAM DESCRIPTION: XR CHEST 1 VIEW COMPLETED DATE/TME: 06/02/2018 06:00 CLINICAL HISTORY: 87 years Male, resp failure COMPARISON: One day prior. NUMBER OF VIEWS/TECHNIQUE: 1/AP FINDINGS: Moderate hazy opacity-effusion of the right lower 40% hemithorax, increased lung volume, left cardiac stimulator with leads, normal cardiac silhouette size, tortuous thoracic aorta. No pneumothorax. Stable bony thorax. IMPRESSION: No significant change.
[2018-06-02] MEDS ORDERED: POTASSIUM CHLORIDE 20 MEQ/15 ML UDCUP PEG ONE (10:00)
[2018-06-02] MEDS ORDERED: FUROSEMIDE INJ/PF 40 MG/4 ML SDV IV ONE (10:00)
[2018-06-02] MEDS: CALCIUM CARBONATE 250 MG/VITAMIN D3 125 UNIT TABLET PO SCH ×3 (10:36→18:19)
[2018-06-02] MEDS: ENOXAPARIN SODIUM INJ 40 MG/0.4 ML DISP.SYRIN SUBCUT SCH (10:36)
[2018-06-02] MEDS: VANCOMYCIN HCL 750 MG in DEXTROSE 5%-WATER 250 ML IV SCH ×2 (10:37→21:38)
[2018-06-02] MEDS: DEXTROSE 5%-NORMAL SALINE 1,000 ML IV PRN (16:22)
--- NOTE | 2018-06-02 20:01 | PDOC PROGRESS REPORT ---
Subjective Progress Note for:: 06/02/18 Subjective:: Sides, but not following commands. Appears comfortable. Reason For Visit: ACUTE RESPIRATORY FAILURE ON BIPAP,PNA,SEVERE DEC Physical Exam Vital Signs: Temp Pulse Resp BP Pulse Ox 97.0 F 67 14 122/84 100 06/02/18 18:00 06/02/18 18:00 06/02/18 18:00 06/02/18 18:00 06/02/18 18:00 Intake & Output 06/01/18 06/02/18 06/03/18 06:59 06:59 06:59 Intake Total 3175 3010 433 Output Total 8590 2615 2450 Balance 435 395 -2017 Weight 59.5 kg 60.3 kg General appearance: PRESENT: other - Ill-appearing 87-year-old -[place] male. He is lying on his side with BiPAP in place. Head exam: PRESENT: normocephalic, other - He has bitemporal muscle wasting Respiratory exam: PRESENT: decreased breath sounds - He has some very fine crackles in the lower bases. He significantly diminished in both of the lower bases Cardiovascular exam: PRESENT: RRR. ABSENT: diastolic murmur, rubs, systolic murmur GI/Abdominal exam: PRESENT: other - His abdomen appears to be nontender. He has a PEG tube in place. Neurological exam: PRESENT: awake, aphasic. ABSENT: alert, oriented to person, oriented to place, oriented to time, oriented to situation Psychiatric exam: PRESENT: other - He is essentially unresponsive Skin exam: PRESENT: other - He is third spacing fluid. He has a large stage IV sacral decubitus ulcer. Results Laboratory Results: 06/02/18 04:07 06/02/18 04:07 06/02/18 06/02/18 06/02/18 04:07 04:07 04:07 WBC 9.8 RBC 3.58 L Hgb 11.6 L Hct 32.8 L MCV 92 MCH 32.4 MCHC 35.3 RDW 13.7 Plt Count 162 Seg Neutrophils % 86.8 H Lymphocytes % 9.9 L Monocytes % 2.8 L Eosinophils % 0.0 Basophils % 0.5 Absolute Neutrophils 8.5 H Absolute Lymphocytes 1.0 Absolute Monocytes 0.3 Absolute Eosinophils 0.0 Absolute Basophils 0.0 Carbonic Acid 0.91 L HCO3/H2CO3 Ratio 27:1 ABG pH 7.53 H ABG pCO2 30.3 L ABG pO2 144.6 H ABG HCO3 24.6 ABG O2 Saturation 99.1 H ABG Base Excess 2.5 FiO2 30% Sodium 135.2 L Potassium 3.3 L Chloride 102 Carbon Dioxide 25 Anion Gap 8 BUN 16 Creatinine 0.45 L Est GFR ( Amer) > 60 Est GFR (Non-Af Amer) > 60 Glucose 87 Calcium 7.2 L Magnesium 1.7 05/29/18 05/29/18 05/29/18 03:57 16:16 16:16 Creatine Kinase 41 L CK-MB (CK-2) 1.16 Troponin I < 0.012 NT-Pro-B Natriuret Pep 6440 H 5810 H 05/29/18 05/29/18 05/30/18 21:35 21:35 05:31 Creatine Kinase 43 L 48 L CK-MB (CK-2) 1.23 Troponin I < 0.012 NT-Pro-B Natriuret Pep 05/30/18 06/01/18 05:31 04:00 Creatine Kinase CK-MB (CK-2) 1.33 Troponin I 0.012 NT-Pro-B Natriuret Pep 70997 H Impressions: Chest CT 05/30/18 00:00 IMPRESSION: 1 Scattered multifocal confluent patchy areas of airspace disease in the right lung. Considerations for these findings include atypical infections, inflammatory/ infectious etiologies. 2. Bilateral mild to moderate pleural effusions, larger on the right. Mild compressive left lower lobe atelectasis. 3 Artifact limits the examination of the upper abdomen somewhat. Mild ascites is suggested. 4. Additional findings as above. Chest X-Ray 06/02/18 06:00 IMPRESSION: No significant change. Assessment & Plan - Diagnosis (1) Acute and chronic respiratory failure Is this a current diagnosis for this admission?: Yes (2) Pneumonia Is this a current diagnosis for this admission?: Yes (3) Acute on chronic diastolic (congestive) heart failure Is this a current diagnosis for this admission?: Yes (4) Sepsis Is this a current diagnosis for this admission?: Yes (5) Anemia Qualifiers: Anemia type: unspecified type Qualified Code(s): D64.9 - Anemia, unspecified Is this a current diagnosis for this admission?: Yes (6) Coronary artery disease Is this a current diagnosis for this admission?: Yes (7) Sacral decubitus ulcer, stage IV Is this a current diagnosis for this admission?: Yes (8) COPD (chronic obstructive pulmonary disease) Is this a current diagnosis for this admission?: Yes (9) Hypokalemia Is this a current diagnosis for this admission?: Yes - Plan Summary Plan Summary: Continue antibiotic regimen including Vanco, Zosyn. Continue supportive care including BiPAP. Awaiting family decision to proceed further with this patient was poor prognosis. Patient has hypokalemia. We will replete potassium and recheck potassium level in a.m. we will continue to monitor in the ICU for now. Critical care time spent 40 minutes.
[2018-06-03 04:20] LABS: ARTERIAL BLOOD BASE EXCESS 6.4 mmol/L; ARTERIAL BLOOD FIO2 80%; ARTERIAL BLOOD H2CO3 1.29 mmol/L (1.05-1.35); ARTERIAL BLOOD HCO3 30.7 mmol/L (20-26); ARTERIAL BLOOD O2 SATURATION 87.8 % (94-98); ARTERIAL BLOOD PH 7.47 (7.35-7.45); ARTERIAL BLOOD PO2 50.3 mmHg (80-100); ARTERIAL BLOOD TOTAL CO2 32.1 mmol/L (23-27)
[2018-06-03 04:36] LABS: ABSOLUTE LYMPHOCYTES (AUTO) 1.2 10^3/uL (0.5-4.7); ABSOLUTE MONOCYTES (AUTO) 0.4 10^3/uL (0.1-1.4); ABSOLUTE NEUT (AUTO) 7.4 10^3/uL (1.7-8.2); BASOPHILS % (AUTO) 0.2 % (0-2); EOSINOPHILS % (AUTO) 0.1 % (0-6); HEMOGLOBIN 12.5 g/dL (13.5-17.0); LYMPHOCYTES % (AUTO) 13.6 % (13-45); MEAN CORPUSCULAR HEMOGLOBIN 31.3 pg (27.0-33.4); MEAN CORPUSCULAR HGB CONC 33.8 g/dL (32.0-36.0); MEAN CORPUSCULAR VOLUME 93 fl (80-97); MONOCYTES % (AUTO) 4.2 % (3-13); PLATELET COUNT 125 10^3/uL (150-450); RED CELL DISTRIBUTION WIDTH 13.7 % (11.5-14.0); SEGMENTED NEUTROPHILS % (AUTO) 81.9 % (42-78); TOTAL CELLS COUNTED % (AUTO) 100 %
[2018-06-03] MEDS: PIPERACILLIN SODIUM/TAZOBACTAM 3.375 GM in NORMAL SALINE 100 ML IV SCH ×4 (05:52→23:42)
[2018-06-03] MEDS: DEXTROSE 5%-NORMAL SALINE 1,000 ML IV PRN ×2 (05:53→21:17)
[2018-06-03 07:34] LABS: ANION GAP 8 (5-19); BLOOD UREA NITROGEN 16 mg/dL (7-20); CALCIUM 7.1 mg/dL (8.4-10.2); CARBON DIOXIDE 27 mmol/L (22-30); CHLORIDE 100 mmol/L (98-107); GLUCOSE 100 mg/dL (75-110); POTASSIUM 3.2 mmol/L (3.6-5.0); SODIUM 134.5 mmol/L (137-145)
[2018-06-03] MEDS: ENOXAPARIN SODIUM INJ 40 MG/0.4 ML DISP.SYRIN SUBCUT SCH (10:16)
[2018-06-03] MEDS: VANCOMYCIN HCL 750 MG in DEXTROSE 5%-WATER 250 ML IV SCH ×2 (10:16→21:16)
[2018-06-03] MEDS: CALCIUM CARBONATE 250 MG/VITAMIN D3 125 UNIT TABLET PO SCH ×3 (10:16→18:28)
[2018-06-03] MEDS ORDERED: FUROSEMIDE INJ/PF 40 MG/4 ML SDV IV ONE (11:30)
[2018-06-03] MEDS: POTASSIUM CHLORIDE 20 MEQ/15 ML UDCUP PO SCH ×2 (13:48→18:41)
--- NOTE | 2018-06-03 19:16 | PDOC PROGRESS REPORT ---
Subjective Subjective:: History of CAD, A. fib, admitted with acute on chronic respiratory failure, sepsis, pneumonia, decubitus ulcers. Patient is very debilitated, bedbound at baseline. He is on BiPAP. Family deciding whether to make comfort care. Currently he is full code. waiting for children to visit over the weekend. states patient is service connected through the [place] and wants to ensure that coronary artery disease is included in his certificate if he expires. Reason For Visit: ACUTE RESPIRATORY FAILURE ON BIPAP,PNA,SEVERE DEC Physical Exam Vital Signs: Temp Pulse Resp BP Pulse Ox 97.7 F 79 13 126/95 H 100 06/03/18 17:49 06/03/18 17:49 06/03/18 18:00 06/03/18 17:57 06/03/18 18:00 Intake & Output 06/02/18 06/03/18 06/04/18 06:59 06:59 06:59 Intake Total 3010 2233 656 Output Total 2615 3900 1235 Balance 577 -1282 -222 Weight 60.3 kg 60.9 kg General appearance: PRESENT: other - Ill-appearing male, no acute distress. He is lying on his side with BiPAP in place. Head exam: PRESENT: normocephalic, other - He has bitemporal muscle wasting Respiratory exam: PRESENT: decreased breath sounds - He has fine crackles in the lower bases. They are significantly diminished in both of the lower bases Cardiovascular exam: PRESENT: RRR. ABSENT: diastolic murmur, rubs, systolic murmur GI/Abdominal exam: PRESENT: other - His abdomen appears to be nontender. He has a PEG tube in place. Neurological exam: PRESENT: awake, aphasic. ABSENT: alert, oriented to person, oriented to place, oriented to time, oriented to situation Psychiatric exam: PRESENT: other - He is essentially unresponsive Skin exam: PRESENT: other - He is third spacing fluid. He has a large stage IV sacral decubitus ulcer. Results Laboratory Results: 06/03/18 03:53 06/03/18 06:53 06/03/18 06/03/18 06/03/18 03:53 04:10 06:53 WBC 9.0 RBC 4.00 L Hgb 12.5 L Hct 37.0 L MCV 93 MCH 31.3 MCHC 33.8 RDW 13.7 Plt Count 125 L Seg Neutrophils % 81.9 H Lymphocytes % 13.6 Monocytes % 4.2 Eosinophils % 0.1 Basophils % 0.2 Absolute Neutrophils 7.4 Absolute Lymphocytes 1.2 Absolute Monocytes 0.4 Absolute Eosinophils 0.0 Absolute Basophils 0.0 Carbonic Acid 1.29 HCO3/H2CO3 Ratio 23:1 ABG pH 7.47 H ABG pCO2 43.0 ABG pO2 50.3 L ABG HCO3 30.7 H ABG O2 Saturation 87.8 L ABG Base Excess 6.4 FiO2 80% Sodium 134.5 L Potassium 3.2 L Chloride 100 Carbon Dioxide 27 Anion Gap 8 BUN 16 Creatinine 0.44 L Est GFR ( Amer) > 60 Est GFR (Non-Af Amer) > 60 Glucose 100 Calcium 7.1 L Magnesium 1.6 05/29/18 05/29/18 05/29/18 03:57 16:16 16:16 Creatine Kinase 41 L CK-MB (CK-2) 1.16 Troponin I < 0.012 NT-Pro-B Natriuret Pep 6440 H 5810 H 05/29/18 05/29/18 05/30/18 21:35 21:35 05:31 Creatine Kinase 43 L 48 L CK-MB (CK-2) 1.23 Troponin I < 0.012 NT-Pro-B Natriuret Pep 05/30/18 06/01/18 05:31 04:00 Creatine Kinase CK-MB (CK-2) 1.33 Troponin I 0.012 NT-Pro-B Natriuret Pep 66705 H Impressions: Chest CT 05/30/18 00:00 IMPRESSION: 1 Scattered multifocal confluent patchy areas of airspace disease in the right lung. Considerations for these findings include atypical infections, inflammatory/ infectious etiologies. 2. Bilateral mild to moderate pleural effusions, larger on the right. Mild compressive left lower lobe atelectasis. 3 Artifact limits the examination of the upper abdomen somewhat. Mild ascites is suggested. 4. Additional findings as above. Chest X-Ray 06/02/18 06:00 IMPRESSION: No significant change. Assessment & Plan - Plan Summary Plan Summary: (1) Acute and chronic respiratory failure Is this a current diagnosis for this admission?: Yes Plan: The patient remains on BiPAP support. This is likely due to his underlying pleural effusions, underlying pneumonia and probable acute on chronic diastolic congestive heart failure exacerbation. Continue bipap support as needed for now. (2) Sepsis Is this a current diagnosis for this admission?: Yes Plan: Present on admission secondary to underlying pneumonia as well as infected stage IV decubitus ulcer. Continue IV vancomycin and Zosyn. This is day #6 of treatment. (3) Pneumonia Is this a current diagnosis for this admission?: Yes Plan: This is likely an aspiration pneumonia with concerns for gram negatives and anaerobes. He will continue IV Zosyn. This is day #6 of treatment. Cannot rule out MRSA as well. He is on vancomycin day #6 as well. (4) Acute on chronic diastolic (congestive) heart failure Is this a current diagnosis for this admission?: Yes Plan: He is third spacing. He received 1 dose of IV Lasix yesterday and had good urinary output. Will treat with another dose of Lasix IV today. (5) Bilateral pleural effusion Is this a current diagnosis for this admission?: Yes Plan: Treatment as a #4. (6) Sacral decubitus ulcer, stage IV Is this a current diagnosis for this admission?: Yes Plan: This has been debrided. Continue local wound care. Wound culture is growing gram-positive cocci as well as Pseudomonas. He should be adequately covered with IV vancomycin and Zosyn. (7) Atrial fibrillation Is this a current diagnosis for this admission?: Yes Plan: Currently in a sinus rhythm and rate controlled (8) Coronary artery disease Is this a current diagnosis for this admission?: Yes Plan: Currently on no medications. (9) Dementia Is this a current diagnosis for this admission?: Yes Plan: He appears to have end-stage dementia at baseline. He is only responsive to noxious stimuli. (13) Dysphagia Is this a current diagnosis for this admission?: Yes Plan: Currently tolerating to proceed at 10 mL/h. Will advance as tolerated.
[2018-06-04] MEDS: PIPERACILLIN SODIUM/TAZOBACTAM 3.375 GM in NORMAL SALINE 100 ML IV SCH ×4 (05:03→23:42)
[2018-06-04 05:35] LABS: ARTERIAL BLOOD BASE EXCESS 2.2 mmol/L; ARTERIAL BLOOD FIO2 30%; ARTERIAL BLOOD H2CO3 0.96 mmol/L (1.05-1.35); ARTERIAL BLOOD HCO3 24.7 mmol/L (20-26); ARTERIAL BLOOD O2 SATURATION 98.5 % (94-98); ARTERIAL BLOOD PH 7.51 (7.35-7.45); ARTERIAL BLOOD PO2 111.6 mmHg (80-100); ARTERIAL BLOOD TOTAL CO2 25.7 mmol/L (23-27)
--- NOTE | 2018-06-04 08:20 | RADIOLOGY REPORT (SQ) ---
EXAM DESCRIPTION: CHEST SINGLE VIEW COMPLETED DATE/TIME: 06/04/2018 7:16 am REASON FOR STUDY: pna/effusion COMPARISON: Chest radiograph 06/02/2018 EXAM PARAMETERS: NUMBER OF VIEWS: One view. TECHNIQUE: Single frontal radiographic view of the chest acquired. RADIATION DOSE: NA LIMITATIONS: Entirety of the right hemithorax is not included on the study. FINDINGS: LUNGS AND PLEURA: Minimal interval enlargement of the right mid and lower lung field opaci ty. No left lung opacity. No pneumothorax. MEDIASTINUM AND HILAR STRUCTURES: No masses. Contour normal. HEART AND VASCULAR STRUCTURES: Heart normal in size. Tortuous thoracic aorta. Otherwise, normal vas culature. BONES: No acute findings. HARDWARE: Unchanged dual lead left-sided cardiac pacing device. OTHER: Air-filled prominent bowel within the upper abdomen, unchanged. IMPRESSION: Minimal interval enlargement of the hazy right mid and lower lung field opacities. TECHNICAL DOCUMENTATION: JOB ID: [id number] [employer]- All Rights Reserved Reading location - IP/workstation name: [email or web address]
[2018-06-04 08:55] LABS: ABSOLUTE LYMPHOCYTES (AUTO) 0.8 10^3/uL (0.5-4.7); ABSOLUTE MONOCYTES (AUTO) 0.2 10^3/uL (0.1-1.4); ABSOLUTE NEUT (AUTO) 7.4 10^3/uL (1.7-8.2); BASOPHILS % (AUTO) 0.2 % (0-2); HEMATOCRIT 32.3 % (37.9-51.0); HEMOGLOBIN 11.3 g/dL (13.5-17.0); LYMPHOCYTES % (AUTO) 9.9 % (13-45); MEAN CORPUSCULAR HGB CONC 34.9 g/dL (32.0-36.0); MEAN CORPUSCULAR VOLUME 92 fl (80-97); MONOCYTES % (AUTO) 2.3 % (3-13); PLATELET COUNT 127 10^3/uL (150-450); RED BLOOD COUNT 3.52 10^6/uL (4.35-5.55); RED CELL DISTRIBUTION WIDTH 13.6 % (11.5-14.0); SEGMENTED NEUTROPHILS % (AUTO) 87.6 % (42-78); TOTAL CELLS COUNTED % (AUTO) 100 %; WHITE BLOOD COUNT 8.5 10^3/uL (4.0-10.5)
[2018-06-04 09:11] LABS: ANION GAP 8 (5-19); BLOOD UREA NITROGEN 17 mg/dL (7-20); CALCIUM 7.3 mg/dL (8.4-10.2); CARBON DIOXIDE 29 mmol/L (22-30); CHLORIDE 100 mmol/L (98-107); GLUCOSE 134 mg/dL (75-110); POTASSIUM 3.3 mmol/L (3.6-5.0)
[2018-06-04] MEDS: CALCIUM CARBONATE 250 MG/VITAMIN D3 125 UNIT TABLET PO SCH ×3 (09:38→18:51)
[2018-06-04] MEDS: VANCOMYCIN HCL 750 MG in DEXTROSE 5%-WATER 250 ML IV SCH ×2 (09:38→21:35)
[2018-06-04] MEDS: ENOXAPARIN SODIUM INJ 40 MG/0.4 ML DISP.SYRIN SUBCUT SCH (10:10)
--- NOTE | 2018-06-04 13:25 | PDOC PROGRESS REPORT ---
Subjective Progress Note for:: 06/04/18 Subjective:: Patient admitted with acute on chronic respiratory failure, sepsisPneumonia and decubitus ulcers. However he has remained stable hemodynamically while in ICU. He is not on any pressors. He is on BiPAP due to his respiratory status but he is pretty stable. Patient is a full code Reason For Visit: ACUTE RESPIRATORY FAILURE ON BIPAP,PNA,SEVERE DEC Physical Exam Vital Signs: Temp Pulse Resp BP Pulse Ox 98.1 F 79 26 H 126/86 H 100 06/04/18 12:00 06/04/18 12:00 06/04/18 12:00 06/04/18 12:00 06/04/18 12:00 Intake & Output 06/03/18 06/04/18 06/05/18 06:59 06:59 06:59 Intake Total 2233 2206 Output Total 3900 2510 250 Balance -1667 -304 -250 Weight 60.9 kg 59.1 kg General appearance: PRESENT: no acute distress, other - Chronically ill looking elderly Head exam: PRESENT: atraumatic Neck exam: ABSENT: carotid bruit, JVD Respiratory exam: PRESENT: decreased breath sounds, other - On BiPAP. ABSENT: accessory muscle use Cardiovascular exam: PRESENT: RRR, +S1, +S2. ABSENT: diastolic murmur, rubs, systolic murmur GI/Abdominal exam: PRESENT: other - PEG tube intact Rectal exam: PRESENT: deferred Musculoskeletal exam: PRESENT: other - Bedridden Neurological exam: PRESENT: alert, awake, aphasic. ABSENT: oriented to person, oriented to place, oriented to time, oriented to situation Skin exam: PRESENT: other - Sacral stage IV decubitus Results Laboratory Results: 06/04/18 08:42 06/04/18 08:42 06/04/18 06/04/18 06/04/18 05:00 08:42 08:42 WBC 8.5 RBC 3.52 L Hgb 11.3 L Hct 32.3 L MCV 92 MCH 32.0 MCHC 34.9 RDW 13.6 Plt Count 127 L Seg Neutrophils % 87.6 H Lymphocytes % 9.9 L Monocytes % 2.3 L Eosinophils % 0.0 Basophils % 0.2 Absolute Neutrophils 7.4 Absolute Lymphocytes 0.8 Absolute Monocytes 0.2 Absolute Eosinophils 0.0 Absolute Basophils 0.0 Carbonic Acid 0.96 L HCO3/H2CO3 Ratio 25:1 ABG pH 7.51 H ABG pCO2 32.0 L ABG pO2 111.6 H ABG HCO3 24.7 ABG O2 Saturation 98.5 H ABG Base Excess 2.2 FiO2 30% Sodium 137.0 Potassium 3.3 L Chloride 100 Carbon Dioxide 29 Anion Gap 8 BUN 17 Creatinine 0.50 L Est GFR ( Amer) > 60 Est GFR (Non-Af Amer) > 60 Glucose 134 H Calcium 7.3 L Magnesium 1.6 05/29/18 05/29/18 05/29/18 03:57 16:16 16:16 Creatine Kinase 41 L CK-MB (CK-2) 1.16 Troponin I < 0.012 NT-Pro-B Natriuret Pep 6440 H 5810 H 05/29/18 05/29/18 05/30/18 21:35 21:35 05:31 Creatine Kinase 43 L 48 L CK-MB (CK-2) 1.23 Troponin I < 0.012 NT-Pro-B Natriuret Pep 05/30/18 06/01/18 05:31 04:00 Creatine Kinase CK-MB (CK-2) 1.33 Troponin I 0.012 NT-Pro-B Natriuret Pep 06450 H Impressions: Chest CT 05/30/18 00:00 IMPRESSION: 1 Scattered multifocal confluent patchy areas of airspace disease in the right lung. Considerations for these findings include atypical infections, inflammatory/ infectious etiologies. 2. Bilateral mild to moderate pleural effusions, larger on the right. Mild compressive left lower lobe atelectasis. 3 Artifact limits the examination of the upper abdomen somewhat. Mild ascites is suggested. 4. Additional findings as above. Chest X-Ray 06/04/18 06:00 IMPRESSION: Minimal interval enlargement of the hazy right mid and lower lung field opacities. Assessment & Plan - Time Time Spent with patient: 15-24 minutes Medications reviewed and adjusted accordingly: Yes Anticipated discharge: Home with Homehealth - Inpatient Certification Based on my medical assessment, after consideration of the patient's comorbidities, presenting symptoms, or acuity I expect that the services needed warrant INPATIENT care.: Yes Medical Necessity: Need for IV Antibiotics, Risk of Complication if Not Cared For in Hospital - Plan Summary Plan Summary: Acute on chronic respiratory failure on BiPAP support. This is likely secondary to diastolic congestive heart failure. 2. Sepsis secondary to underlying pneumonia and infected stage IV decubitus ulcer. Patient is on vancomycin and Zosyn day #7 3. Pneumonia likely aspiration pneumonia. Continue Zosyn 4. Acute on chronic diastolic congestive heart failure we will continue with intermittent Lasix 5. Bilateral pleural effusion likely secondary to CHF 6. Sacral decubitus ulcer stage IV status post debridement. Continue local wound care. Wound culture is yielding Pseudomonas as well as gram-positive cocci with current antibiotics adequate 7. Chronic atrial fibrillation however currently in sinus 8. Coronary artery disease by history this is stable 9. Hypokalemia corrected 10. Patient is hemodynamically stable and there is really no reason for intensive care unit stay at this time. We will be moved out to the medical floor
[2018-06-04] MEDS ORDERED: FUROSEMIDE INJ/PF 40 MG/4 ML SDV IV ONE (13:26)
[2018-06-04] MEDS ORDERED: POTASSIUM CHLORIDE 10 MEQ CAPSULE.ER PO SCH (14:00)
[2018-06-04] MEDS: POTASSIUM CHLORIDE 20 MEQ/15 ML UDCUP PO SCH ×2 (14:27→18:51)
[2018-06-04] MEDS ORDERED: MAGNESIUM OXIDE 400 MG TABLET PEG SCH (18:00)
[2018-06-05] MEDS: DEXTROSE 5%-NORMAL SALINE 1,000 ML IV PRN (03:52)
[2018-06-05] MEDS ORDERED: DEXTROSE 5%-NORMAL SALINE 1,000 ML with POTASSIUM CHLORIDE 20 MEQ IV PRN ×2 (07:34)
[2018-06-05] MEDS: CALCIUM CARBONATE 250 MG/VITAMIN D3 125 UNIT TABLET PO SCH ×3 (09:44→17:28)
[2018-06-05] MEDS: ENOXAPARIN SODIUM INJ 40 MG/0.4 ML DISP.SYRIN SUBCUT SCH (09:44)
[2018-06-05] MEDS: VANCOMYCIN HCL 750 MG in DEXTROSE 5%-WATER 250 ML IV SCH (09:45)
--- NOTE | 2018-06-05 10:23 | PDOC PROGRESS REPORT ---
Subjective Progress Note for:: 06/05/18 Subjective:: Patient admitted with acute on chronic respiratory failure, sepsisPneumonia and decubitus ulcers. However he has remained stable hemodynamically while in ICU. He is not on any pressors. He is on BiPAP due to his respiratory status but he is pretty stable. Patient is a full code Reason For Visit: ACUTE RESPIRATORY FAILURE ON BIPAP,PNA,SEVERE DEC Physical Exam Vital Signs: Temp Pulse Resp BP Pulse Ox 98.2 F 77 14 123/71 99 06/05/18 08:09 06/05/18 08:40 06/05/18 10:00 06/05/18 09:59 06/05/18 10:00 Intake & Output 06/04/18 06/05/18 06/06/18 06:59 06:59 06:59 Intake Total 2206 1700 451 Output Total 2510 2345 Balance -304 -645 451 Weight 59.1 kg 57.1 kg General appearance: PRESENT: no acute distress Head exam: PRESENT: atraumatic Neck exam: ABSENT: carotid bruit, JVD, lymphadenopathy, thyromegaly Respiratory exam: PRESENT: clear to auscultation enoch, symmetrical. ABSENT: accessory muscle use, retraction, tachypnea Cardiovascular exam: PRESENT: RRR. ABSENT: diastolic murmur, rubs, systolic murmur GI/Abdominal exam: PRESENT: other - PEG tube in situ Rectal exam: PRESENT: deferred Extremities exam: PRESENT: joint swelling, +2 edema Musculoskeletal exam: ABSENT: ambulatory Neurological exam: PRESENT: alert, other - non verbal Skin exam: PRESENT: other - sacral and heel dercubitus Results Laboratory Results: 06/04/18 08:42 06/04/18 08:42 05/29/18 05/29/18 05/29/18 03:57 16:16 16:16 Creatine Kinase 41 L CK-MB (CK-2) 1.16 Troponin I < 0.012 NT-Pro-B Natriuret Pep 6440 H 5810 H 05/29/18 05/29/18 05/30/18 21:35 21:35 05:31 Creatine Kinase 43 L 48 L CK-MB (CK-2) 1.23 Troponin I < 0.012 NT-Pro-B Natriuret Pep 05/30/18 06/01/18 05:31 04:00 Creatine Kinase CK-MB (CK-2) 1.33 Troponin I 0.012 NT-Pro-B Natriuret Pep 58272 H Impressions: Chest CT 05/30/18 00:00 IMPRESSION: 1 Scattered multifocal confluent patchy areas of airspace disease in the right lung. Considerations for these findings include atypical infections, inflammatory/ infectious etiologies. 2. Bilateral mild to moderate pleural effusions, larger on the right. Mild compressive left lower lobe atelectasis. 3 Artifact limits the examination of the upper abdomen somewhat. Mild ascites is suggested. 4. Additional findings as above. Chest X-Ray 06/04/18 06:00 IMPRESSION: Minimal interval enlargement of the hazy right mid and lower lung field opacities. Assessment & Plan - Time Time Spent with patient: 15-24 minutes Medications reviewed and adjusted accordingly: Yes Anticipated discharge: Home with Homehealth Within: within 72 hours - Inpatient Certification Based on my medical assessment, after consideration of the patient's comorbidities, presenting symptoms, or acuity I expect that the services needed warrant INPATIENT care.: Yes Medical Necessity: Significant Comorbidiites Make Outpatient Treatment Too Risky , Need For IV Fluids, Need for IV Antibiotics - Plan Summary Plan Summary: 1. Acute on chronic respiratory failure on BiPAP support likely secondary to diastolic congestive heart failure. 2. Sepsis secondary to underlying pneumonia and infected stage IV decubitus ulcer. Patient is on vancomycin and Zosyn day #8 3. Pneumonia likely aspiration pneumonia. Continue Zosyn 4. Acute on chronic diastolic congestive heart failure we will continue with intermittent Lasix 5. Bilateral pleural effusion likely secondary to CHF, follow up CXR 6. Sacral decubitus ulcer stage IV status post debridement. Continue local wound care. Wound culture is yielding Pseudomonas as well as gram-positive cocci with current antibiotics adequate 7. Chronic atrial fibrillation however currently in sinus 8. Coronary artery disease by history this is stable 9. Hypokalemia corrected 10. Patient awaiting transfer to medical floor. Discussed with spouse in person as well as over the telephone and updated on progress
[2018-06-05] MEDS ORDERED: POTASSI CL 20 MEQ/D5NS 1L 1000 ML IV PRN (11:15)
[2018-06-06] MEDS: ENOXAPARIN SODIUM INJ 40 MG/0.4 ML DISP.SYRIN SUBCUT SCH (09:22)
[2018-06-06] MEDS: CALCIUM CARBONATE 250 MG/VITAMIN D3 125 UNIT TABLET PO SCH ×3 (09:39→18:32)
--- NOTE | 2018-06-06 15:29 | PDOC PROGRESS REPORT ---
Subjective Progress Note for:: 06/06/18 Subjective:: Patient admitted with acute on chronic respiratory failure, sepsis Pneumonia and decubitus ulcers. Patient is currently on the medical floor. He remains hemodynamically stable however patient's overall condition is very poor. I had a discussion with the today and she does realize that patient continues to deteriorate. She states she is waiting for his daughter to come and see him hopefully by . She is beginning to think about end-of-life care but wonders to continue his care until then. I also alter to consider changing his CODE STATUS to DO NOT RESUSCITATE and she will think about it. For now he remains a full code. Reason For Visit: ACUTE RESPIRATORY FAILURE ON BIPAP,PNA,SEVERE DEC Physical Exam Vital Signs: Temp Pulse Resp BP Pulse Ox 97.4 F 78 19 129/67 H 97 06/06/18 12:37 06/06/18 15:13 06/06/18 12:38 06/06/18 12:37 06/06/18 12:38 Intake & Output 06/05/18 06/06/18 06/07/18 06:59 06:59 06:59 Intake Total 1700 2262 2010 Output Total 2345 820 Balance -645 1442 2010 Weight 57.1 kg 62 kg General appearance: PRESENT: no acute distress, well-developed, well-nourished, other - Barely responsive Head exam: PRESENT: atraumatic, normocephalic Eye exam: PRESENT: conjunctiva pink, PERRLA. ABSENT: scleral icterus Mouth exam: PRESENT: moist, tongue midline Neck exam: ABSENT: carotid bruit, JVD, lymphadenopathy, thyromegaly Respiratory exam: PRESENT: clear to auscultation enoch. ABSENT: rales, rhonchi, wheezes Cardiovascular exam: PRESENT: RRR, +S1, +S2. ABSENT: diastolic murmur, rubs, systolic murmur Pulses: PRESENT: normal dorsalis pedis pul GI/Abdominal exam: PRESENT: normal bowel sounds, soft, other - PEG tube. ABSENT : distended, guarding, mass, organolmegaly, rebound, tenderness Rectal exam: PRESENT: deferred Extremities exam: PRESENT: full ROM, +2 edema, other - Upper and lower extremity edema. ABSENT: calf tenderness, clubbing, pedal edema Musculoskeletal exam: ABSENT: ambulatory Neurological exam: PRESENT: altered, aphasic, other - Unable to evaluate. ABSENT: motor sensory deficit Skin exam: PRESENT: dry, warm, other - Sacral decubitus ulcer. ABSENT: cyanosis , rash Results Laboratory Results: 06/04/18 08:42 06/04/18 08:42 05/29/18 05/29/18 05/29/18 03:57 16:16 16:16 Creatine Kinase 41 L CK-MB (CK-2) 1.16 Troponin I < 0.012 NT-Pro-B Natriuret Pep 6440 H 5810 H 05/29/18 05/29/18 05/30/18 21:35 21:35 05:31 Creatine Kinase 43 L 48 L CK-MB (CK-2) 1.23 Troponin I < 0.012 NT-Pro-B Natriuret Pep 05/30/18 06/01/18 05:31 04:00 Creatine Kinase CK-MB (CK-2) 1.33 Troponin I 0.012 NT-Pro-B Natriuret Pep 58416 H Impressions: Chest CT 05/30/18 00:00 IMPRESSION: 1 Scattered multifocal confluent patchy areas of airspace disease in the right lung. Considerations for these findings include atypical infections, inflammatory/ infectious etiologies. 2. Bilateral mild to moderate pleural effusions, larger on the right. Mild compressive left lower lobe atelectasis. 3 Artifact limits the examination of the upper abdomen somewhat. Mild ascites is suggested. 4. Additional findings as above. Chest X-Ray 06/04/18 06:00 IMPRESSION: Minimal interval enlargement of the hazy right mid and lower lung field opacities. Assessment & Plan - Time Time Spent with patient: 15-24 minutes Medications reviewed and adjusted accordingly: Yes Anticipated discharge: Home with Homehealth Within: within 48 hours - Inpatient Certification Based on my medical assessment, after consideration of the patient's comorbidities, presenting symptoms, or acuity I expect that the services needed warrant INPATIENT care.: Yes Medical Necessity: Need Close Monitoring Due to Risk of Patient Decompensation, Risk of Complication if Not Cared For in Hospital - Plan Summary Plan Summary: 1. Acute on chronic respiratory failure on BiPAP support likely secondary to diastolic congestive heart failure. Prognosis is very poor 2. Sepsis secondary to underlying pneumonia and infected stage IV decubitus ulcer. Patient is off all antibiotics 3. Pneumonia likely aspiration pneumonia. 4. Acute on chronic diastolic congestive heart failure we will continue with intermittent Lasix 5. Bilateral pleural effusion likely secondary to CHF, follow up CXR 6. Sacral decubitus ulcer stage IV status post debridement. 7. Chronic atrial fibrillation however currently in sinus 8. Coronary artery disease by history this is stable 9. Hypokalemia corrected 10. Patient condition is very serious and prognosis is poor Discussed with spouse in person extensively today
[2018-06-06] MEDS ORDERED: FUROSEMIDE INJ/PF 40 MG/4 ML SDV IV ONE ×2 (15:40→18:30)
[2018-06-07 05:42] LABS: ABSOLUTE LYMPHOCYTES (AUTO) 0.9 10^3/uL (0.5-4.7); ABSOLUTE MONOCYTES (AUTO) 0.3 10^3/uL (0.1-1.4); ABSOLUTE NEUT (AUTO) 10.8 10^3/uL (1.7-8.2); EOSINOPHILS % (AUTO) 0.1 % (0-6); HEMATOCRIT 33.7 % (37.9-51.0); HEMOGLOBIN 11.3 g/dL (13.5-17.0); LYMPHOCYTES % (AUTO) 7.7 % (13-45); MEAN CORPUSCULAR HGB CONC 33.6 g/dL (32.0-36.0); MEAN CORPUSCULAR VOLUME 92 fl (80-97); MONOCYTES % (AUTO) 2.1 % (3-13); PLATELET COUNT 151 10^3/uL (150-450); RED BLOOD COUNT 3.65 10^6/uL (4.35-5.55); RED CELL DISTRIBUTION WIDTH 13.7 % (11.5-14.0); SEGMENTED NEUTROPHILS % (AUTO) 90.1 % (42-78); TOTAL CELLS COUNTED % (AUTO) 100 %
[2018-06-07 06:03] LABS: ANION GAP 8 (5-19); BLOOD UREA NITROGEN 18 mg/dL (7-20); CALCIUM 7.5 mg/dL (8.4-10.2); CARBON DIOXIDE 34 mmol/L (22-30); CHLORIDE 96 mmol/L (98-107); GLUCOSE 112 mg/dL (75-110); POTASSIUM 4.2 mmol/L (3.6-5.0); SODIUM 137.6 mmol/L (137-145)
[2018-06-07] MEDS: ENOXAPARIN SODIUM INJ 40 MG/0.4 ML DISP.SYRIN SUBCUT SCH (09:40)
[2018-06-07] MEDS: CALCIUM CARBONATE 250 MG/VITAMIN D3 125 UNIT TABLET PO SCH ×3 (09:40→17:09)
--- NOTE | 2018-06-07 17:27 | PDOC PROGRESS REPORT ---
Subjective Progress Note for:: 06/07/18 Subjective:: Patient admitted with acute on chronic respiratory failure, sepsis Pneumonia and decubitus ulcers. Patient is currently on the medical floor. He remains hemodynamically stable however patient's overall condition is very poor. I had a discussion with the today and she does realize that patient continues to deteriorate. She states she is waiting for his daughter to come and see him hopefully by . She is beginning to think about end-of-life care . I also urged her to consider changing his CODE STATUS to DO NOT RESUSCITATE and she will think about it. For now he remains a full code. I discussed with his son today who was at his bedside however the is the power of assistant attorney general. Patient's condition remains pretty poor Reason For Visit: ACUTE RESPIRATORY FAILURE ON BIPAP,PNA,SEVERE DEC Physical Exam Vital Signs: Temp Pulse Resp BP Pulse Ox 97.7 F 82 23 H 130/71 H 96 06/07/18 16:29 06/07/18 16:29 06/07/18 16:00 06/07/18 16:29 06/07/18 16:00 Intake & Output 06/06/18 06/07/18 06/08/18 06:59 06:59 06:59 Intake Total 2262 3093 Output Total 820 2200 Balance 1442 893 Weight 62 kg General appearance: PRESENT: no acute distress, other - Barely responsive Head exam: PRESENT: atraumatic Eye exam: PRESENT: PERRLA Respiratory exam: PRESENT: clear to auscultation enoch. ABSENT: rales, rhonchi, wheezes GI/Abdominal exam: PRESENT: other - PEG Tube Neurological exam: PRESENT: altered, other - unable to evaluate Skin exam: PRESENT: other - sacral decubitus ulcer Results Laboratory Results: 06/07/18 04:30 06/07/18 04:30 06/07/18 06/07/18 04:30 04:30 WBC 12.0 H RBC 3.65 L Hgb 11.3 L Hct 33.7 L MCV 92 MCH 31.0 MCHC 33.6 RDW 13.7 Plt Count 151 Seg Neutrophils % 90.1 H Lymphocytes % 7.7 L Monocytes % 2.1 L Eosinophils % 0.1 Basophils % 0.0 Absolute Neutrophils 10.8 H Absolute Lymphocytes 0.9 Absolute Monocytes 0.3 Absolute Eosinophils 0.0 Absolute Basophils 0.0 Sodium 137.6 Potassium 4.2 Chloride 96 L Carbon Dioxide 34 H Anion Gap 8 BUN 18 Creatinine 0.34 L Est GFR ( Amer) > 60 Est GFR (Non-Af Amer) > 60 Glucose 112 H Calcium 7.5 L 05/29/18 05/29/18 05/29/18 03:57 16:16 16:16 Creatine Kinase 41 L CK-MB (CK-2) 1.16 Troponin I < 0.012 NT-Pro-B Natriuret Pep 6440 H 5810 H 05/29/18 05/29/18 05/30/18 21:35 21:35 05:31 Creatine Kinase 43 L 48 L CK-MB (CK-2) 1.23 Troponin I < 0.012 NT-Pro-B Natriuret Pep 05/30/18 06/01/18 05:31 04:00 Creatine Kinase CK-MB (CK-2) 1.33 Troponin I 0.012 NT-Pro-B Natriuret Pep 26982 H Impressions: Chest CT 05/30/18 00:00 IMPRESSION: 1 Scattered multifocal confluent patchy areas of airspace disease in the right lung. Considerations for these findings include atypical infections, inflammatory/ infectious etiologies. 2. Bilateral mild to moderate pleural effusions, larger on the right. Mild compressive left lower lobe atelectasis. 3 Artifact limits the examination of the upper abdomen somewhat. Mild ascites is suggested. 4. Additional findings as above. Chest X-Ray 06/04/18 06:00 IMPRESSION: Minimal interval enlargement of the hazy right mid and lower lung field opacities. Assessment & Plan - Time Time Spent with patient: 15-24 minutes - Including discussion with patient's son Medications reviewed and adjusted accordingly: Yes Anticipated discharge: Home - Inpatient Certification Based on my medical assessment, after consideration of the patient's comorbidities, presenting symptoms, or acuity I expect that the services needed warrant INPATIENT care.: Yes Medical Necessity: Need Close Monitoring Due to Risk of Patient Decompensation, Risk of Complication if Not Cared For in Hospital - Plan Summary Plan Summary: 1. Acute on chronic respiratory failure on BiPAP support likely secondary to diastolic congestive heart failure. Prognosis remains very poor 2. Sepsis secondary to underlying pneumonia and infected stage IV decubitus ulcer. Patient is off all antibiotics 3. Pneumonia likely aspiration pneumonia. 4. Acute on chronic diastolic congestive heart failure we will continue with intermittent Lasix 5. Bilateral pleural effusion likely secondary to CHF 6. Sacral decubitus ulcer stage IV status post debridement. 7. Chronic atrial fibrillation however currently in sinus 8. Coronary artery disease by history this is stable 9. Hypokalemia corrected 10. Patient condition is very serious and prognosis is poor Discussed with son in person today
--- NOTE | 2018-06-08 12:28 | PDOC PROGRESS REPORT ---
Subjective Progress Note for:: 06/08/18 Subjective:: Patient admitted with acute on chronic respiratory failure, sepsis Pneumonia and decubitus ulcers. Patient is currently on the medical floor. He remains hemodynamically stable however patient's overall condition is very poor. I had a discussion with the today and she does realize that patient continues to deteriorate. She states she is waiting for his daughter to come and see him hopefully by . She is beginning to think about end-of-life care . I also urged her to consider changing his CODE STATUS to DO NOT RESUSCITATE and she will think about it. For now he remains a full code. I discussed with at bedside today. Awaiting daughter from [place]. Reason For Visit: ACUTE RESPIRATORY FAILURE ON BIPAP,PNA,SEVERE DEC Physical Exam Vital Signs: Temp Pulse Resp BP Pulse Ox 97.7 F 82 22 H 104/60 100 06/08/18 11:35 06/08/18 11:35 06/08/18 11:44 06/08/18 11:35 06/08/18 11:44 Intake & Output 06/07/18 06/08/18 06/09/18 06:59 06:59 06:59 Intake Total 3093 Output Total 2200 200 Balance 893 -200 Weight 62 kg General appearance: PRESENT: no acute distress, other - ill looking, unresponsive Eye exam: PRESENT: PERRLA Respiratory exam: PRESENT: crackles, decreased breath sounds, unlabored. ABSENT : accessory muscle use, wheezes Cardiovascular exam: PRESENT: RRR. ABSENT: diastolic murmur, rubs, systolic murmur GI/Abdominal exam: PRESENT: normal bowel sounds, soft, other - PEG. ABSENT: distended, guarding, mass, organolmegaly, rebound, tenderness Rectal exam: PRESENT: deferred Musculoskeletal exam: ABSENT: ambulatory, full ROM Neurological exam: PRESENT: altered, aphasic. ABSENT: oriented to place, oriented to time, oriented to situation Psychiatric exam: PRESENT: other - unable Skin exam: PRESENT: other - sacral decubitus ulcer Results Laboratory Results: 06/07/18 04:30 06/07/18 04:30 05/29/18 05/29/18 05/29/18 03:57 16:16 16:16 Creatine Kinase 41 L CK-MB (CK-2) 1.16 Troponin I < 0.012 NT-Pro-B Natriuret Pep 6440 H 5810 H 05/29/18 05/29/18 05/30/18 21:35 21:35 05:31 Creatine Kinase 43 L 48 L CK-MB (CK-2) 1.23 Troponin I < 0.012 NT-Pro-B Natriuret Pep 05/30/18 06/01/18 05:31 04:00 Creatine Kinase CK-MB (CK-2) 1.33 Troponin I 0.012 NT-Pro-B Natriuret Pep 01518 H Impressions: Chest CT 05/30/18 00:00 IMPRESSION: 1 Scattered multifocal confluent patchy areas of airspace disease in the right lung. Considerations for these findings include atypical infections, inflammatory/ infectious etiologies. 2. Bilateral mild to moderate pleural effusions, larger on the right. Mild compressive left lower lobe atelectasis. 3 Artifact limits the examination of the upper abdomen somewhat. Mild ascites is suggested. 4. Additional findings as above. Chest X-Ray 06/04/18 06:00 IMPRESSION: Minimal interval enlargement of the hazy right mid and lower lung field opacities. Assessment & Plan - Time Time Spent with patient: 15-24 minutes Medications reviewed and adjusted accordingly: Yes Anticipated discharge: Home Within: within 48 hours Disposition: 1. Acute on chronic respiratory failure on BiPAP support likely secondary to diastolic congestive heart failure. Prognosis remains very poor. thinking about hospice care. Referrals have been made 2. Sepsis secondary to underlying pneumonia and infected stage IV decubitus ulcer. Patient is off all antibiotics 3. Pneumonia likely aspiration pneumonia. 4. Acute on chronic diastolic congestive heart failure we will continue with intermittent Lasix 5. Bilateral pleural effusion likely secondary to CHF 6. Sacral decubitus ulcer stage IV status post debridement. 7. Chronic atrial fibrillation however currently in sinus 8. Coronary artery disease by history this is stable 9. Hypokalemia 10. Patient condition is very serious and prognosis is poor Discussed with , POA today. Likely to decide on hospice care in [place]
[2018-06-08] MEDS: ENOXAPARIN SODIUM INJ 40 MG/0.4 ML DISP.SYRIN SUBCUT SCH (13:04)
[2018-06-08] MEDS: CALCIUM CARBONATE 250 MG/VITAMIN D3 125 UNIT TABLET PO SCH ×3 (13:04→17:37)
[2018-06-08] MEDS: DEXTROSE 50%-WATER 25 GM/50 ML DISP.SYRIN IV PRN (16:30)
[2018-06-09] MEDS: DEXTROSE 50%-WATER 25 GM/50 ML DISP.SYRIN IV PRN ×2 (06:09→06:41)
[2018-06-09] MEDS: ENOXAPARIN SODIUM INJ 40 MG/0.4 ML DISP.SYRIN SUBCUT SCH (11:43)
[2018-06-09] MEDS: CALCIUM CARBONATE 250 MG/VITAMIN D3 125 UNIT TABLET PO SCH ×3 (11:43→18:53)
--- NOTE | 2018-06-09 12:51 | PDOC PROGRESS REPORT ---
Subjective Progress Note for:: 06/09/18 Subjective:: Patient admitted with acute on chronic respiratory failure, sepsis Pneumonia and decubitus ulcers. Patient is currently on the medical floor. He remains hemodynamically stable however patient's overall condition is very poor. I had a discussion with the today and she does realize that patient continues to deteriorate. She is still waiting for daughter to arrive. She has decided to make him DNR and this has been changed as per my discussions with her Reason For Visit: ACUTE RESPIRATORY FAILURE ON BIPAP,PNA,SEVERE DEC Physical Exam Vital Signs: Temp Pulse Resp BP Pulse Ox 97.4 F 79 17 135/81 H 95 06/09/18 12:18 06/09/18 12:18 06/09/18 12:18 06/09/18 12:18 06/09/18 07:51 Intake & Output 06/08/18 06/09/18 06/10/18 06:59 06:59 06:59 Output Total 200 300 Balance -200 -300 Weight 62 kg 59.1 kg General appearance: PRESENT: no acute distress, other - barely responsive Head exam: PRESENT: atraumatic Neck exam: ABSENT: carotid bruit, JVD, lymphadenopathy, thyromegaly Respiratory exam: PRESENT: crackles, decreased breath sounds, rhonchi, other - on BIPAP Cardiovascular exam: PRESENT: RRR, +S1, +S2. ABSENT: diastolic murmur, rubs, systolic murmur GI/Abdominal exam: PRESENT: other - PEG tube Extremities exam: PRESENT: other - anasarca Neurological exam: PRESENT: altered. ABSENT: oriented to person, oriented to place, oriented to time, oriented to situation Skin exam: PRESENT: other - sacral decubitus ulcer Results Laboratory Results: 06/07/18 04:30 06/07/18 04:30 05/29/18 05/29/18 05/29/18 03:57 16:16 16:16 Creatine Kinase 41 L CK-MB (CK-2) 1.16 Troponin I < 0.012 NT-Pro-B Natriuret Pep 6440 H 5810 H 05/29/18 05/29/18 05/30/18 21:35 21:35 05:31 Creatine Kinase 43 L 48 L CK-MB (CK-2) 1.23 Troponin I < 0.012 NT-Pro-B Natriuret Pep 05/30/18 06/01/18 05:31 04:00 Creatine Kinase CK-MB (CK-2) 1.33 Troponin I 0.012 NT-Pro-B Natriuret Pep 96001 H Impressions: Chest CT 05/30/18 00:00 IMPRESSION: 1 Scattered multifocal confluent patchy areas of airspace disease in the right lung. Considerations for these findings include atypical infections, inflammatory/ infectious etiologies. 2. Bilateral mild to moderate pleural effusions, larger on the right. Mild compressive left lower lobe atelectasis. 3 Artifact limits the examination of the upper abdomen somewhat. Mild ascites is suggested. 4. Additional findings as above. Chest X-Ray 06/04/18 06:00 IMPRESSION: Minimal interval enlargement of the hazy right mid and lower lung field opacities. Assessment & Plan - Time Time Spent with patient: 15-24 minutes Medications reviewed and adjusted accordingly: Yes Anticipated discharge: Home Within: within 48 hours - Inpatient Certification Based on my medical assessment, after consideration of the patient's comorbidities, presenting symptoms, or acuity I expect that the services needed warrant INPATIENT care.: Yes Medical Necessity: Significant Comorbidiites Make Outpatient Treatment Too Risky , Risk of Complication if Not Cared For in Hospital - Plan Summary Plan Summary: 1. Acute on chronic respiratory failure on BiPAP support likely secondary to diastolic congestive heart failure. Prognosis remains very poor. thinking about hospice care. She is awaiting step daughter's arrival/ Patient has been made a DNR as per my discussions with 2. Sepsis secondary to underlying pneumonia and infected stage IV decubitus ulcer. Patient is off all antibiotics 3. Pneumonia likely aspiration pneumonia. 4. Acute on chronic diastolic congestive heart failure 5. Bilateral pleural effusion likely secondary to CHF 6. Sacral decubitus ulcer stage IV status post debridement. 7. Chronic atrial fibrillation however currently in sinus 8. Coronary artery disease by history this is stable 9. Hypokalemia 10. Patient condition is very serious and prognosis is very poor Tube feeding currently on hold and not tolerated. He was started on d5 temporarily pending further plans Discussed with , CHE today. Likely to decide on hospice care today
[2018-06-09] MEDS: SCOPOLAMINE HYDROBROMIDE 1.5 MG PATCH.TD72 TD SCH (21:22)
[2018-06-10] MEDS: DEXTROSE 50%-WATER 25 GM/50 ML DISP.SYRIN IV PRN (15:41)
[2018-06-10] MEDS: CALCIUM CARBONATE 250 MG/VITAMIN D3 125 UNIT TABLET PO SCH ×3 (15:46→19:50)
[2018-06-10] MEDS: ENOXAPARIN SODIUM INJ 40 MG/0.4 ML DISP.SYRIN SUBCUT SCH (15:46)
--- NOTE | 2018-06-10 17:01 | RADIOLOGY REPORT (SQ) ---
EXAM DESCRIPTION: PICC INSERTION; U/S GUIDE FOR VASCULAR ACCESS; FLUORO/CV PLACEMENT COMPLETED DATE/TIME: 06/10/2018 4:51 pm REASON FOR STUDY: detention antibiotics; ALF ANTIBIOTICS COMPARISON: None. FLUOROSCOPY TIME: None. 3 images saved to PACS. TECHNIQUE: Fluoroscopic and ultrasound guided PICC placement. LIMITATIONS: None. PROCEDURE: After written consent and assessment were obtained, the patient was brought into the fluo roscopy room and place supine on the table. Ultrasound evaluation of potential access sites were perf ormed. After successfully identifying a patent right basilic vein, the right arm was prepped and drap ed in a sterile fashion along with the ultrasound probe. The entry site was anesthetized with 1% lido kiley. A 21 gauge 7 cm needle was advanced through the skin and into the basilic vein under live ultr asound guidance. An ultrasound image was saved to PACS confirming access site. A .018 guide wire wa s then inserted through the needle and into the venous system. The needle was the removed and an 11 b lade scalpel was used to make a 1cm skin incision. A 5 fr peel-away sheath was advanced over the wir e and into the venous system. A measurement was then made using the existing wire and live fluoroscop ic guidance. The wire was then removed and the trimmed. The PICC was advanced through the peel-away s luz maria and into the venous system. The peel-away sheath was removed and the catheter was adhered to th e patients arm with a stat lock. The catheter was then aspirated and flushed and a sterile bandage wa s placed over the access site. A portable chest x-ray image was saved to PACS confirming the cathete r tip within the superior vena cava. IMPRESSION: SUCCESSFUL PLACEMENT OF A 5 FR DUAL LUMEN 35 CM PICC IN THE RIGHT BASILIC VEIN. COMMENT: Patient medication list reviewed: Yes- Quality ID# 130:Eligible professional attests to doc umenting in the medical record they obtained, updated, or reviewed the patient's current medications. . Quality ID 145: Final reports for procedures using fluoroscopy that document radiation exposure warren romel, or exposure time and number of fluorographic images (if radiation exposure indices are not avail able) Quality ID #76: The patient was prepped and draped using maximum sterile barrier technique including cap, mask, sterile gown, sterile gloves, a large sterile sheet, hand hygiene, and 2% Chlorhexidine fo r cutaneous antisepsis. When ultrasound is used, sterile ultrasound techniques are followed requiring sterile gel and sterile probes. TECHNICAL DOCUMENTATION: JOB ID: [id number] [employer]- All Rights Reserved rev-03/04 Reading location - IP/workstation name: [email or web address]
--- NOTE | 2018-06-10 17:01 | RADIOLOGY REPORT (SQ) ---
EXAM DESCRIPTION: PICC INSERTION; U/S GUIDE FOR VASCULAR ACCESS; FLUORO/CV PLACEMENT COMPLETED DATE/TIME: 06/10/2018 4:51 pm REASON FOR STUDY: [facility] antibiotics; INTERMEDIATE ANTIBIOTICS COMPARISON: None. FLUOROSCOPY TIME: None. 3 images saved to PACS. TECHNIQUE: Fluoroscopic and ultrasound guided PICC placement. LIMITATIONS: None. PROCEDURE: After written consent and assessment were obtained, the patient was brought into the fluo roscopy room and place supine on the table. Ultrasound evaluation of potential access sites were perf ormed. After successfully identifying a patent right basilic vein, the right arm was prepped and drap ed in a sterile fashion along with the ultrasound probe. The entry site was anesthetized with 1% lido kiley. A 21 gauge 7 cm needle was advanced through the skin and into the basilic vein under live ultr asound guidance. An ultrasound image was saved to PACS confirming access site. A .018 guide wire wa s then inserted through the needle and into the venous system. The needle was the removed and an 11 b lade scalpel was used to make a 1cm skin incision. A 5 fr peel-away sheath was advanced over the wir e and into the venous system. A measurement was then made using the existing wire and live fluoroscop ic guidance. The wire was then removed and the trimmed. The PICC was advanced through the peel-away s luz maria and into the venous system. The peel-away sheath was removed and the catheter was adhered to th e patients arm with a stat lock. The catheter was then aspirated and flushed and a sterile bandage wa s placed over the access site. A portable chest x-ray image was saved to PACS confirming the cathete r tip within the superior vena cava. IMPRESSION: SUCCESSFUL PLACEMENT OF A 5 FR DUAL LUMEN 35 CM PICC IN THE RIGHT BASILIC VEIN. COMMENT: Patient medication list reviewed: Yes- Quality ID# 130:Eligible professional attests to doc umenting in the medical record they obtained, updated, or reviewed the patient's current medications. . Quality ID 145: Final reports for procedures using fluoroscopy that document radiation exposure warren romel, or exposure time and number of fluorographic images (if radiation exposure indices are not avail able) Quality ID #76: The patient was prepped and draped using maximum sterile barrier technique including cap, mask, sterile gown, sterile gloves, a large sterile sheet, hand hygiene, and 2% Chlorhexidine fo r cutaneous antisepsis. When ultrasound is used, sterile ultrasound techniques are followed requiring sterile gel and sterile probes. TECHNICAL DOCUMENTATION: JOB ID: [id number] [employer] All Rights Reserved rev-03/04 Reading location - IP/workstation name: [email or web address]
--- NOTE | 2018-06-10 17:01 | RADIOLOGY REPORT (SQ) ---
EXAM DESCRIPTION: PICC INSERTION; U/S GUIDE FOR VASCULAR ACCESS; FLUORO/CV PLACEMENT COMPLETED DATE/TIME: 06/10/2018 4:51 pm REASON FOR STUDY: half-way antibiotics; USP ANTIBIOTICS COMPARISON: None. FLUOROSCOPY TIME: None. 3 images saved to PACS. TECHNIQUE: Fluoroscopic and ultrasound guided PICC placement. LIMITATIONS: None. PROCEDURE: After written consent and assessment were obtained, the patient was brought into the fluo roscopy room and place supine on the table. Ultrasound evaluation of potential access sites were perf ormed. After successfully identifying a patent right basilic vein, the right arm was prepped and drap ed in a sterile fashion along with the ultrasound probe. The entry site was anesthetized with 1% lido kiley. A 21 gauge 7 cm needle was advanced through the skin and into the basilic vein under live ultr asound guidance. An ultrasound image was saved to PACS confirming access site. A .018 guide wire wa s then inserted through the needle and into the venous system. The needle was the removed and an 11 b lade scalpel was used to make a 1cm skin incision. A 5 fr peel-away sheath was advanced over the wir e and into the venous system. A measurement was then made using the existing wire and live fluoroscop ic guidance. The wire was then removed and the trimmed. The PICC was advanced through the peel-away s luz maria and into the venous system. The peel-away sheath was removed and the catheter was adhered to th e patients arm with a stat lock. The catheter was then aspirated and flushed and a sterile bandage wa s placed over the access site. A portable chest x-ray image was saved to PACS confirming the cathete r tip within the superior vena cava. IMPRESSION: SUCCESSFUL PLACEMENT OF A 5 FR DUAL LUMEN 35 CM PICC IN THE RIGHT BASILIC VEIN. COMMENT: Patient medication list reviewed: Yes- Quality ID# 130:Eligible professional attests to doc umenting in the medical record they obtained, updated, or reviewed the patient's current medications. . Quality ID 145: Final reports for procedures using fluoroscopy that document radiation exposure warren romel, or exposure time and number of fluorographic images (if radiation exposure indices are not avail able) Quality ID #76: The patient was prepped and draped using maximum sterile barrier technique including cap, mask, sterile gown, sterile gloves, a large sterile sheet, hand hygiene, and 2% Chlorhexidine fo r cutaneous antisepsis. When ultrasound is used, sterile ultrasound techniques are followed requiring sterile gel and sterile probes. TECHNICAL DOCUMENTATION: JOB ID: [id number] [employer]- All Rights Reserved rev-03/04 Reading location - IP/workstation name: [email or web address]
[2018-06-10] MEDS ORDERED: NORMAL SALINE 10 ML SDV (AFTER EACH USE) IV PRN (17:04)
[2018-06-10 18:39] LABS: ANION GAP 8 (5-19)
[2018-06-10 19:31] LABS: BLOOD UREA NITROGEN 23 mg/dL (7-20); CARBON DIOXIDE 31 mmol/L (22-30); CHLORIDE 91 mmol/L (98-107); GLUCOSE 140 mg/dL (75-110); SODIUM 129.6 mmol/L (137-145)
[2018-06-10] MEDS ORDERED: POTASSI CL 20 MEQ/50 ML RIDER 40 MEQ/100 ML RTUPB IV ONE (21:49)
[2018-06-10] MEDS: NORMAL SALINE 10 ML SDV (SCHEDULED) IV SCH (22:02)
[2018-06-10] MEDS: POTASSIUM CHLORIDE 20 MEQ/50 ML RTU IV SCH (22:03)
[2018-06-11] MEDS: POTASSIUM CHLORIDE 20 MEQ/50 ML RTU IV SCH
[2018-06-11 06:02] LABS: ABSOLUTE LYMPHOCYTES (AUTO) 0.7 10^3/uL (0.5-4.7); ABSOLUTE MONOCYTES (AUTO) 0.3 10^3/uL (0.1-1.4); BASOPHILS % (AUTO) 0.1 % (0-2); EOSINOPHILS % (AUTO) 0.1 % (0-6); HEMATOCRIT 30.4 % (37.9-51.0); HEMOGLOBIN 10.8 g/dL (13.5-17.0); LYMPHOCYTES % (AUTO) 10.7 % (13-45); MEAN CORPUSCULAR HEMOGLOBIN 32.3 pg (27.0-33.4); MEAN CORPUSCULAR HGB CONC 35.4 g/dL (32.0-36.0); MEAN CORPUSCULAR VOLUME 91 fl (80-97); MONOCYTES % (AUTO) 3.7 % (3-13); PLATELET COUNT 198 10^3/uL (150-450); RED BLOOD COUNT 3.34 10^6/uL (4.35-5.55); RED CELL DISTRIBUTION WIDTH 14.1 % (11.5-14.0); SEGMENTED NEUTROPHILS % (AUTO) 85.4 % (42-78); TOTAL CELLS COUNTED % (AUTO) 100 %
[2018-06-11 06:26] LABS: ANION GAP 6 (5-19); BLOOD UREA NITROGEN 24 mg/dL (7-20); CALCIUM 7.1 mg/dL (8.4-10.2); CARBON DIOXIDE 31 mmol/L (22-30); CHLORIDE 94 mmol/L (98-107); GLUCOSE 85 mg/dL (75-110); POTASSIUM 3.9 mmol/L (3.6-5.0); SODIUM 131.2 mmol/L (137-145)
[2018-06-11] MEDS: ENOXAPARIN SODIUM INJ 40 MG/0.4 ML DISP.SYRIN SUBCUT SCH (09:41)
[2018-06-11] MEDS: CALCIUM CARBONATE 250 MG/VITAMIN D3 125 UNIT TABLET PO SCH ×3 (09:41→17:09)
[2018-06-11] MEDS: NORMAL SALINE 10 ML SDV (SCHEDULED) IV SCH ×2 (09:41→22:19)
[2018-06-11] MEDS ORDERED: IPRATROPIUM/ALBUTEROL 0.5-2.5 MG/3 ML AMPUL NEB PRN (10:02)
--- NOTE | 2018-06-11 10:21 | PROGRESS NOTE E ---
Progress Note NAME: ARY HYLTON : 1930 AGE: 87Y DATE: 06/11/2018 ROOM: 528 SUBJECTIVE: The patient is lying in bed. The patient is minimally responsive, overall obtunded. The patient has been afebrile. His blood pressures have been in a good range. The patient's prognosis is quite poor. It appears that this has been communicated to family. The patient does have a massive sacral decubitus. It has been debrided by Surgery, and Surgery has agreed to look at it again today. The patient is unable to voice any specific concerns at this time, and there is no family present at the bedside. REVIEW OF SYSTEMS: Unobtainable. MEDICATIONS: Reviewed. OBJECTIVE: GENERAL: The patient is an unfortunate 87-year-old -[place] male whose eyes are open, but he is absolutely not responsive. He does not appear to be in respiratory distress. VITAL SIGNS: Temperature 97.4, pulse 72, respirations 17, blood pressure 115/75, oxygen saturation is 93% on 30% FiO2 on BiPAP. SKIN: Pale. He is not diaphoretic. HEENT: Pupils are minimally reactive. Conjunctivae pale. No evidence of JVP. CVS: Heart is paced. No rub. CHEST: Diminished. Unable to get the patient to cooperate for good examination. ABDOMEN: There is a PEG tube in place. No grimacing on palpation. EXTREMITIES: All 4 extremities are extremely cool to the touch. PSYCHIATRIC: Unable to fully assess. DIAGNOSTICS: Lab values are as follows: Hematology obtained on 06/11/2018: WBC 7.0, hemoglobin 10.8, hematocrit 30.4, platelet count 198,000. Chemistry obtained on 06/11/2018: Sodium 131, potassium 2.9, chloride 94, carbon dioxide 31, BUN 24, creatinine 0.46, glucose 85, calcium 7.1. ASSESSMENT AND PLAN: 1. ASPIRATION PNEUMONIA. The patient completed a course of antibiotics. The patient is on hospital day #14. 2. ACUTE ON CHRONIC RESPIRATORY FAILURE WITH HYPOXIA. Will continue BiPAP as needed. 3. SEPSIS SECONDARY TO UNDERLYING PNEUMONIA AND INFECTED STAGE IV DECUBITUS ULCER. The patient is now off all antibiotics as he has completed a 14-day course. Will have Surgery reevaluate the patient's wound. 4. ACUTE ON CHRONIC DIASTOLIC CONGESTIVE HEART FAILURE. The patient does have bilateral pleural effusions likely due to underlying congestive heart failure. 5. CHRONIC ATRIAL FIBRILLATION. The patient is currently in sinus rhythm. 6. HYPOKALEMIA. 7. CORONARY ARTERY DISEASE. Stable. DISPOSITION: The patient was last reported to be a DNR. The patient's condition is quite poor. Overall, the patient is hemodynamically stable; however, the patient is cool to all 4 extremities and is absolutely a short-term hospice candidate. Time spent on this followup, including assessment, plan, physical examination, attempt at patient education, and extensive review of records was 35 minutes. DICTATING PHYSICIAN: MARIANELA CHRISTY NP [id number] PHY#: [id number] ID: [id number] JOB#: [id number] ACCT: [id number] cc: >
--- NOTE | 2018-06-11 12:30 | PDOC PROGRESS REPORT ---
Subjective Progress Note for:: 06/11/18 Reason For Visit: ACUTE RESPIRATORY FAILURE ON BIPAP,PNA,SEVERE DEC Evaluation back and sacral pressure sore stage 4 Physical Exam Vital Signs: Temp Pulse Resp BP Pulse Ox 97.4 F 72 18 115/75 97 06/11/18 07:49 06/11/18 07:49 06/11/18 08:50 06/11/18 07:49 06/11/18 08:50 Intake & Output 06/10/18 06/11/18 06/12/18 06:59 06:59 06:59 Intake Total 0 99 Output Total 600 725 Balance -600 -626 Weight 60.2 kg 60.2 kg General appearance: PRESENT: other - awake, unresponsive, upper and lower extremities contracted, appear hemaciated, cachectic GI/Abdominal exam: PRESENT: other - PEG in place Torso Front/Back Image: 1 - large granulating, no odor, back and sacral pressure sore with a few area of necritic skinat the edges and in the middle of the pressure sore Rectal exam: PRESENT: other - rectal tube present Musculoskeletal exam: PRESENT: other - all 4 extemities are severely contracted Neurological exam: PRESENT: awake, aphasic, other - nonresponsive to stimuli Results Laboratory Results: 06/11/18 05:45 06/11/18 05:45 06/10/18 06/11/18 06/11/18 17:50 05:45 05:45 WBC 7.0 RBC 3.34 L Hgb 10.8 L Hct 30.4 L MCV 91 MCH 32.3 MCHC 35.4 RDW 14.1 H Plt Count 198 Seg Neutrophils % 85.4 H Lymphocytes % 10.7 L Monocytes % 3.7 Eosinophils % 0.1 Basophils % 0.1 Absolute Neutrophils 6.0 Absolute Lymphocytes 0.7 Absolute Monocytes 0.3 Absolute Eosinophils 0.0 Absolute Basophils 0.0 Sodium 129.6 L 131.2 L Potassium 3.0 L* 3.9 Chloride 91 L 94 L Carbon Dioxide 31 H 31 H Anion Gap 8 6 BUN 23 H 24 H Creatinine 0.40 L 0.46 L Est GFR ( Amer) > 60 > 60 Est GFR (Non-Af Amer) > 60 > 60 Glucose 140 H 85 Calcium 7.0 L* 7.1 L 05/29/18 05/29/18 05/29/18 03:57 16:16 16:16 Creatine Kinase 41 L CK-MB (CK-2) 1.16 Troponin I < 0.012 NT-Pro-B Natriuret Pep 6440 H 5810 H 05/29/18 05/29/18 05/30/18 21:35 21:35 05:31 Creatine Kinase 43 L 48 L CK-MB (CK-2) 1.23 Troponin I < 0.012 NT-Pro-B Natriuret Pep 05/30/18 06/01/18 05:31 04:00 Creatine Kinase CK-MB (CK-2) 1.33 Troponin I 0.012 NT-Pro-B Natriuret Pep 28322 H Impressions: Chest CT 05/30/18 00:00 IMPRESSION: 1 Scattered multifocal confluent patchy areas of airspace disease in the right lung. Considerations for these findings include atypical infections, inflammatory/ infectious etiologies. 2. Bilateral mild to moderate pleural effusions, larger on the right. Mild compressive left lower lobe atelectasis. 3 Artifact limits the examination of the upper abdomen somewhat. Mild ascites is suggested. 4. Additional findings as above. Chest X-Ray 06/04/18 06:00 IMPRESSION: Minimal interval enlargement of the hazy right mid and lower lung field opacities. Guidance Fluoroscopy 06/10/18 00:00 IMPRESSION: SUCCESSFUL PLACEMENT OF A 5 FR DUAL LUMEN 35 CM PICC IN THE RIGHT BASILIC VEIN. Interventional Vascular Procedure 06/10/18 00:00 IMPRESSION: SUCCESSFUL PLACEMENT OF A 5 FR DUAL LUMEN 35 CM PICC IN THE RIGHT BASILIC VEIN. PICC Line Insertion 06/10/18 00:00 IMPRESSION: SUCCESSFUL PLACEMENT OF A 5 FR DUAL LUMEN 35 CM PICC IN THE RIGHT BASILIC VEIN. Assessment & Plan - Diagnosis (1) Sacral decubitus ulcer, stage IV Is this a current diagnosis for this admission?: Yes (2) Decubitus ulcer of back, stage 4 Is this a current diagnosis for this admission?: Yes - Plan Summary Plan Summary: A/ large back and sacral grade 4 pressure sore pressure Sore granulating with a alli areas opf necrosis at the edges patient neurologically severly impaired; he bedridden, all 4 extremities contracted, with PEG, Vicente, rectal catheter, CPAP mask Basically unresponsiove to verabl of physical stimuli P/ My recommendation is nOt to proceed with further debridments of the patient'S large back/sacral pressure sore as it will not improve the patient quality of life or healing of the pressure sore. Also, due to his general cachectic appearance and dependence on several devices , I believe that this patient should be made comfort care only. I will sign off. Please, call me with questions.
[2018-06-12] MEDS: ENOXAPARIN SODIUM INJ 40 MG/0.4 ML DISP.SYRIN SUBCUT SCH (13:28)
[2018-06-12] MEDS: CALCIUM CARBONATE 250 MG/VITAMIN D3 125 UNIT TABLET PO SCH ×3 (13:28→17:04)
[2018-06-12] MEDS: NORMAL SALINE 10 ML SDV (SCHEDULED) IV SCH ×2 (13:29→21:47)
[2018-06-12] MEDS: SCOPOLAMINE HYDROBROMIDE 1.5 MG PATCH.TD72 TD SCH (21:45)
--- NOTE | 2018-06-12 22:01 | PROGRESS NOTE E ---
Progress Note NAME: ARY HYLTON : 1930 AGE: 87Y DATE: 06/12/2018 ROOM: 528 SUBJECTIVE: The patient is lying in bed. The patient is at his baseline. He is not responsive. The patient is for the most part catatonic. At times cannot even get a blink response out of him. The patient is unable to voice any concerns at this time. BRIEF HISTORY: The patient is an unfortunate 87-year-old -[place] male with a past medical history of debilitating CVA and stage IV massive sacral decubitus ulcer. The patient has been kept within the home environment. The patient was brought in to the emergency department due to having some acute dyspnea. He was found to be hypoxic and so forth. The patient did appear to have sepsis, which was felt to be related to his wound, as well as an aspiration pneumonia. The patient was seen and evaluated by the surgery service and the patient's area was debrided. The patient has completed a 14 day course of antibiotics. The patient's social situation has been interesting. It appears that most likely APS may be involved as well. The patient who stays at home has a massive ulcer and was felt to be in poor care. The patient does have a as well as 2 children. The patient's code status has changed numerous times throughout this visit and as it stands at this moment the patient is a full code. Numerous family meetings have been had regarding this, however, the family specifically the would like to proceed with full code status. The patient was reevaluated by the surgery service over the weekend and it was felt the patient could benefit from another debriding, however, it was felt that the patient should be made comfort measures as it would be an inhumane undertaking to put the patient through such a procedure given his grave state at this moment. This has been documented on the progressive note from 06/11/2018. I have made steps to meet with the patient's , however, I have been unable to make contact with her over the weekend. Numbers listed are the daughter who is not the patient's decision maker, although she does have healthcare power of title attorney papers, these predate his marriage to this lady. Palliative care has been consulted and again recommendation per the surgery service is to proceed with comfort measures only given that the patient's debridement would not contribute to the patient's prognosis. REVIEW OF SYSTEMS: Unobtainable. MEDICATIONS: Medication reviewed. OBJECTIVE: GENERAL: The patient is an 87-year-old -[place] male who is not very responsive. He does not appear to be distressed. VITAL SIGNS: Temperature is 97.6, pulse 77, respirations 16, blood pressure is 112/77, oxygen saturation is 98% on 30% FiO2 on BiPAP. SKIN: Cool and dry. HEENT: The mucous membranes do appear somewhat dry, no overt evidence of JVP. BiPAP is in place. CARDIOVASCULAR: The patient is in sinus rhythm. CHEST: Symmetrical, unlabored. Unable to get the patient to cooperate to get good breath sounds. ABDOMEN: PEG tube is in-situ. EXTREMITIES: Contracted, cold with third spacing dependent edema. PSYCHIATRIC: Unable to fully assess. DIAGNOSTICS: Lab values are as follows -- hematology done on 06/11/2018; WBC 7.0, hemoglobin is 10.8, hematocrit is 30.4, platelet count is 198,000. Chemistry obtained on 06/11/2018; sodium is 131, potassium 2.9, chloride is 94, carbon dioxide 31, BUN 21, creatinine is 0.46, glucose 85, calcium is 7.1. IMPRESSION AND PLAN: 1. ASPIRATION PNEUMONIA. The patient completed a 14 day course of antibiotic coverage. 2. ACUTE ON CHRONIC HYPOXEMIC RESPIRATORY FAILURE. Continue BiPAP as needed. 3. SEPSIS SECONDARY TO UNDERLYING PNEUMONIA AND INFECTED STAGE IV DECUBITUS ULCER. The patient has now completed a 14 day course of antibiotics. Surgery feels that no further intervention would benefit the patient's overall clinical picture. 4. ACUTE ON CHRONIC DIASTOLIC CONGESTIVE HEART FAILURE. The patient has bilateral pleural effusion, most likely due to underlying congestive heart failure and the patient's profound hypoalbuminemia. 5. PAROXYSMAL ATRIAL FIBRILLATION. The patient is currently in sinus rhythm. 6. HYPOKALEMIA. This has been repleted. 7. CORONARY ARTERY DISEASE. Stable. CODE STATUS: The patient is a full code. DISPOSITION: Depending on the patient's symptomatology and diagnostic findings will reevaluate as needed. Do appreciate palliative care input on this. The patient is stable at this moment from a hemodynamic standpoint, however, all 4 extremities are cooled and the patient is absolutely a short-term hospice candidate. TIME SPENT: On this follow up, including assessment and plan, physical examination, attempt at patient education, review of records is 10 minutes. DICTATING PHYSICIAN: MARIANELA CHRISTY NP [id number] PHY#: [id number] ID: [id number] JOB#: [id number] ACCT: [id number] cc: >
[2018-06-13 07:08] LABS: HEMATOCRIT 29.1 % (37.9-51.0); HEMOGLOBIN 10.3 g/dL (13.5-17.0); MEAN CORPUSCULAR HEMOGLOBIN 32.4 pg (27.0-33.4); MEAN CORPUSCULAR HGB CONC 35.4 g/dL (32.0-36.0); MEAN CORPUSCULAR VOLUME 91 fl (80-97); PLATELET COUNT 175 10^3/uL (150-450); RED BLOOD COUNT 3.18 10^6/uL (4.35-5.55); WHITE BLOOD COUNT 4.3 10^3/uL (4.0-10.5)
[2018-06-13 07:37] LABS: ANION GAP 8 (5-19); BLOOD UREA NITROGEN 25 mg/dL (7-20); CALCIUM 7.4 mg/dL (8.4-10.2); CARBON DIOXIDE 31 mmol/L (22-30); CHLORIDE 94 mmol/L (98-107); GLUCOSE 87 mg/dL (75-110); POTASSIUM 3.7 mmol/L (3.6-5.0); SODIUM 132.7 mmol/L (137-145)
--- NOTE | 2018-06-13 09:09 | PDOC PROGRESS REPORT ---
Subjective Progress Note for:: 06/13/18 Subjective:: Patient remains unresponsive. He is on BiPAP. Appears to tolerate tube feeding. Reason For Visit: ACUTE RESPIRATORY FAILURE ON BIPAP,PNA,SEVERE DEC Physical Exam Vital Signs: Temp Pulse Resp BP Pulse Ox 97.9 F 114 H 18 118/85 98 06/13/18 04:28 06/13/18 04:28 06/13/18 04:28 06/13/18 04:28 06/13/18 03:03 Intake & Output 06/12/18 06/13/18 06/14/18 06:59 06:59 06:59 Intake Total 600 617 Output Total 475 125 Balance 125 492 Weight 134 lb 7.712 oz 136 lb 10.986 oz Exam: Patient is cachectic, unresponsive, on BiPAP Head exam: PRESENT: atraumatic Mouth exam: PRESENT: neck supple Neck exam: ABSENT: lymphadenopathy, meningismus Respiratory exam: PRESENT: decreased breath sounds Cardiovascular exam: PRESENT: RRR GI/Abdominal exam: PRESENT: soft, other - PEG tube in place Extremities exam: ABSENT: pedal edema Neurological exam: PRESENT: other - Unresponsive Results Laboratory Results: 06/13/18 06:30 06/13/18 06:30 06/13/18 06/13/18 06:30 06:30 WBC 4.3 RBC 3.18 L Hgb 10.3 L Hct 29.1 L MCV 91 MCH 32.4 MCHC 35.4 RDW 14.0 Plt Count 175 Sodium 132.7 L Potassium 3.7 Chloride 94 L Carbon Dioxide 31 H Anion Gap 8 BUN 25 H Creatinine 0.41 L Est GFR ( Amer) > 60 Est GFR (Non-Af Amer) > 60 Glucose 87 Calcium 7.4 L Magnesium 1.9 05/29/18 05/29/18 05/29/18 03:57 16:16 16:16 Creatine Kinase 41 L CK-MB (CK-2) 1.16 Troponin I < 0.012 NT-Pro-B Natriuret Pep 6440 H 5810 H 05/29/18 05/29/18 05/30/18 21:35 21:35 05:31 Creatine Kinase 43 L 48 L CK-MB (CK-2) 1.23 Troponin I < 0.012 NT-Pro-B Natriuret Pep 05/30/18 06/01/18 05:31 04:00 Creatine Kinase CK-MB (CK-2) 1.33 Troponin I 0.012 NT-Pro-B Natriuret Pep 75143 H Impressions: Chest CT 05/30/18 00:00 IMPRESSION: 1 Scattered multifocal confluent patchy areas of airspace disease in the right lung. Considerations for these findings include atypical infections, inflammatory/ infectious etiologies. 2. Bilateral mild to moderate pleural effusions, larger on the right. Mild compressive left lower lobe atelectasis. 3 Artifact limits the examination of the upper abdomen somewhat. Mild ascites is suggested. 4. Additional findings as above. Chest X-Ray 06/04/18 06:00 IMPRESSION: Minimal interval enlargement of the hazy right mid and lower lung field opacities. Guidance Fluoroscopy 06/10/18 00:00 IMPRESSION: SUCCESSFUL PLACEMENT OF A 5 FR DUAL LUMEN 35 CM PICC IN THE RIGHT BASILIC VEIN. Interventional Vascular Procedure 06/10/18 00:00 IMPRESSION: SUCCESSFUL PLACEMENT OF A 5 FR DUAL LUMEN 35 CM PICC IN THE RIGHT BASILIC VEIN. PICC Line Insertion 06/10/18 00:00 IMPRESSION: SUCCESSFUL PLACEMENT OF A 5 FR DUAL LUMEN 35 CM PICC IN THE RIGHT BASILIC VEIN. Assessment & Plan - Plan Summary Plan Summary: Chronic respiratory failure: Continue BiPAP as needed Aspiration pneumonia: Finished antibiotic treatment Stage IV decubitus ulcer: No surgical intervention recommended by the surgery department Chronic atrial fibrillation: Paced rhythm Chronic CHF Coronary artery disease Hypokalemia Dysphasia on tube feeding Poor functional status Patient has very poor prognosis and absolutely no quality of life Patient should be comfort care from my perspective Since he finished antibiotics and no surgical intervention is going to be done, he can be discharged from my point of view to pulmonary rehabilitation that would accept him on BiPAP Otherwise we will try to wean him off BiPAP and discharge him to senior living facility
[2018-06-13] MEDS: ENOXAPARIN SODIUM INJ 40 MG/0.4 ML DISP.SYRIN SUBCUT SCH (11:36)
[2018-06-13] MEDS: CALCIUM CARBONATE 250 MG/VITAMIN D3 125 UNIT TABLET PO SCH ×3 (11:37→18:22)
[2018-06-13] MEDS: NORMAL SALINE 10 ML SDV (SCHEDULED) IV SCH ×2 (11:40→22:33)
--- NOTE | 2018-06-13 12:58 | PDOC DISCHARGE SUMMARY ---
General - Admit/Disc Date/PCP Admission Date/Primary Care Provider: 05/28/18 21:23 Discharge Date: 06/13/18 - Discharge Diagnosis (1) Acute and chronic respiratory failure Is this a current diagnosis for this admission?: Yes (2) Acute on chronic diastolic (congestive) heart failure Is this a current diagnosis for this admission?: Yes (3) Anemia Is this a current diagnosis for this admission?: Yes (4) Atrial fibrillation Is this a current diagnosis for this admission?: Yes (5) Bilateral pleural effusion Is this a current diagnosis for this admission?: Yes (6) COPD (chronic obstructive pulmonary disease) Is this a current diagnosis for this admission?: Yes (10) Pneumonia Is this a current diagnosis for this admission?: Yes (11) Sepsis Is this a current diagnosis for this admission?: Yes - Additional Information Resuscitation Status: Do Not Resuscitate Discharge Diet: Tube Feeding (Comments) Discharge Activity: Activity As Tolerated Home Medications: Donepezil HCl 10 mg PO QHS 05/02/18 Calcium Carbonate/Vitamin D3 [Os-Umang 250 mg with Vitamin D 125 Units] 2 tab PO TID tablet 06/13/18 Enoxaparin Sodium [Lovenox Inj 40 mg/0.4 ml Disp.syrin] 40 mg SUBCUT DAILY disp.syrin 06/13/18 Ipratropium/Albuterol Sulfate [Duoneb 3 ml Ampul] 3 ml NEB [id number] PRN vial.neb 06/13/18 Scopolamine Hydrobromide [Transderm-Scop 1.5 mg Patch] 1 each TD Q3D@2000 patch.td72 06/13/18 History of Present Illness History of Present Illness: ARY HYLTON is a 87 year old male with multiple comorbidities presenting to the ER with his family secondary to the increased work of breathing and shortness of breath. Patient is bed bound, nonverbal, on 4L of oxygen at baseline and feeds via a G-tube. is primary decision maker and childcare administrator. is primary historian who states for the past 2 days patient has been experiencing significant increased work of breathing requiring frequent breathing treatments. With no improvement EMS was called. Patient was found to be hypoxic with O2 sats in 70's up EMS arrival, in atrial fibrillation and hypotensive. Patient bag masked for ventilation and placed on Bipap upon arrival to ER. Hospital Course Hospital Course: Patient received antibiotics and finished course for his aspiration pneumonia. His respiratory failure was treated with BiPAP. He continued to receive tube feeding. He tolerated tube feeding very well. His decubitus ulcer is stage IV and was evaluated by surgery and he was not a candidate for intervention. Patient has very poor functional status and very grim prognosis and comfort care was recommended by the family declined and they opted for nursing care facility placement or rehabilitation. Patient was accepted today and will be discharged. Physical Exam Vital Signs: Temp Pulse Resp BP Pulse Ox 97.7 F 70 12 102/72 96 06/13/18 07:19 06/13/18 09:15 06/13/18 09:15 06/13/18 07:19 06/13/18 09:15 Intake & Output 06/12/18 06/13/18 06/14/18 06:59 06:59 06:59 Intake Total 600 617 Output Total 475 125 Balance 125 492 Weight 134 lb 7.712 oz 136 lb 10.986 oz Results Laboratory Results: 06/13/18 06:30 06/13/18 06:30 06/13/18 06/13/18 06:30 06:30 WBC 4.3 RBC 3.18 L Hgb 10.3 L Hct 29.1 L MCV 91 MCH 32.4 MCHC 35.4 RDW 14.0 Plt Count 175 Sodium 132.7 L Potassium 3.7 Chloride 94 L Carbon Dioxide 31 H Anion Gap 8 BUN 25 H Creatinine 0.41 L Est GFR ( Amer) > 60 Est GFR (Non-Af Amer) > 60 Glucose 87 Calcium 7.4 L Magnesium 1.9 05/29/18 05/29/18 05/29/18 03:57 16:16 16:16 Creatine Kinase 41 L CK-MB (CK-2) 1.16 Troponin I < 0.012 NT-Pro-B Natriuret Pep 6440 H 5810 H 05/29/18 05/29/18 05/30/18 21:35 21:35 05:31 Creatine Kinase 43 L 48 L CK-MB (CK-2) 1.23 Troponin I < 0.012 NT-Pro-B Natriuret Pep 05/30/18 06/01/18 05:31 04:00 Creatine Kinase CK-MB (CK-2) 1.33 Troponin I 0.012 NT-Pro-B Natriuret Pep H Impressions: Chest CT 05/30/18 00:00 IMPRESSION: 1 Scattered multifocal confluent patchy areas of airspace disease in the right lung. Considerations for these findings include atypical infections, inflammatory/ infectious etiologies. 2. Bilateral mild to moderate pleural effusions, larger on the right. Mild compressive left lower lobe atelectasis. 3 Artifact limits the examination of the upper abdomen somewhat. Mild ascites is suggested. 4. Additional findings as above. Chest X-Ray 06/04/18 06:00 IMPRESSION: Minimal interval enlargement of the hazy right mid and lower lung field opacities. Guidance Fluoroscopy 06/10/18 00:00 IMPRESSION: SUCCESSFUL PLACEMENT OF A 5 FR DUAL LUMEN 35 CM PICC IN THE RIGHT BASILIC VEIN. Interventional Vascular Procedure 06/10/18 00:00 IMPRESSION: SUCCESSFUL PLACEMENT OF A 5 FR DUAL LUMEN 35 CM PICC IN THE RIGHT BASILIC VEIN. PICC Line Insertion 06/10/18 00:00 IMPRESSION: SUCCESSFUL PLACEMENT OF A 5 FR DUAL LUMEN 35 CM PICC IN THE RIGHT BASILIC VEIN. Qualifiers - * PATIENT BEING DISCHARGED WITH ANY OF THE FOLLOWING DIAGNOSIS: No Plan Time Spent: Greater than 30 Minutes - 35 minutes
[2018-06-14 07:12] LABS: HEMATOCRIT 28.8 % (37.9-51.0); MEAN CORPUSCULAR HEMOGLOBIN 31.7 pg (27.0-33.4); MEAN CORPUSCULAR HGB CONC 34.6 g/dL (32.0-36.0); MEAN CORPUSCULAR VOLUME 92 fl (80-97); PLATELET COUNT 144 10^3/uL (150-450); RED BLOOD COUNT 3.14 10^6/uL (4.35-5.55); RED CELL DISTRIBUTION WIDTH 13.8 % (11.5-14.0); WHITE BLOOD COUNT 3.8 10^3/uL (4.0-10.5)
[2018-06-14 07:59] LABS: BLOOD UREA NITROGEN 23 mg/dL (7-20); CALCIUM 7.3 mg/dL (8.4-10.2); GLUCOSE 113 mg/dL (75-110); POTASSIUM 3.6 mmol/L (3.6-5.0)
[2018-06-14 08:04] LABS: ANION GAP 5 (5-19); CARBON DIOXIDE 34 mmol/L (22-30); CHLORIDE 93 mmol/L (98-107)
[2018-06-14 08:17] VITALS: BP 114/67
== END 2018-06-14 11:53 | DRG 853 ==
LOC: ER 18:24 → EH 21:23 → ICU 05-29 10:30 → 5 06-05 19:43
PROVIDERS: ADMIT Family Medicine; ATTEND Family Medicine
PROC: 5A09357 Assistance with Respiratory Ventilation, Less than 24 Consecutive Hours, Continuous Positive Airway Pressure (ICD-10-PCS; 2018-05-28)
PROC: 0QB10ZZ Excision of Sacrum, Open Approach (ICD-10-PCS; principal; 2018-05-29)
PROC: 30233N1 Transfusion of Nonautologous Red Blood Cells into Peripheral Vein, Percutaneous Approach (ICD-10-PCS; 2018-05-29)
PROC: 02HV33Z Insertion of Infusion Device into Superior Vena Cava, Percutaneous Approach (ICD-10-PCS; 2018-06-10)
PROC: B548ZZA Ultrasonography of Superior Vena Cava, Guidance (ICD-10-PCS; 2018-06-10)
PROC: B518ZZA Fluoroscopy of Superior Vena Cava, Guidance (ICD-10-PCS; 2018-06-10)
DX: A41.9 Sepsis, unspecified organism (principal); J69.0 Pneumonitis due to inhalation of food and vomit; L89.154 Pressure ulcer of sacral region, stage 4; E43 Unspecified severe protein-calorie malnutrition; J96.21 Acute and chronic respiratory failure with hypoxia; I50.43 Acute on chronic combined systolic (congestive) and diastolic (congestive) heart failure; E87.1 Hypo-osmolality and hyponatremia; D64.9 Anemia, unspecified; I48.2 Chronic atrial fibrillation; I11.0 Hypertensive heart disease with heart failure; I25.10 Atherosclerotic heart disease of native coronary artery without angina pectoris; R13.10 Dysphagia, unspecified; F03.90 Unspecified dementia, unspecified severity, without behavioral disturbance, psychotic disturbance, mood disturbance, and anxiety; Z51.5 Encounter for palliative care; E87.6 Hypokalemia; B96.5 Pseudomonas (aeruginosa) (mallei) (pseudomallei) as the cause of diseases classified elsewhere; J44.9 Chronic obstructive pulmonary disease, unspecified; E11.9 Type 2 diabetes mellitus without complications; F43.10 Post-traumatic stress disorder, unspecified; Z68.20 Body mass index [BMI] 20.0-20.9, adult; Z93.1 Gastrostomy status; Z95.5 Presence of coronary angioplasty implant and graft; I25.2 Old myocardial infarction; Z74.01 Bed confinement status; Z95.0 Presence of cardiac pacemaker; Z87.891 Personal history of nicotine dependence; Z82.49 Family history of ischemic heart disease and other diseases of the circulatory system; Z83.3 Family history of diabetes mellitus
CPT/HCPCS: 36415; 36430; 36569; 71045; 71250; 76937; 77001; 80048; 80053; 80202; 81001; 82550; 82553; 82803; 82962; 83605; 83735; 83880; 84100; 84484; 85025; 85027; 86850; 86900; 86901; 86920; 87040; 87070; 87075; 87077; 87086; 87186; 87205; 93005; 93010; 94660; 96361; 96365; 99291; C1769; J1642; J1650; J1940; J2543; J3010; J3370; J3480; J3490; J7030; J7060; J7120; P9016; S0028; S0164